=== PATIENT | male | born 1955 | race Hispanic/Latino ===

== ENCOUNTER 2016-08-27 10:41 | Inpatient (IN) | payer MEDICARE, OTHER ==
--- NOTE | 2016-08-27 10:51 | ED PDOC ---
Arrival/HPI - General Time Seen by Provider: 08/27/16 10:43 Historian: Spouse, EMS - History of Present Illness Narrative History of Present Illness (Text): 08/27/16 11:08 Quirino Doty, a 61 year old, whose past medical history includes Seizures, SAH , Ventric, COPD, HTN, CVA presents to the emergency department by EMS after a seizure that started at 10:05. Patient's and EMS are historians. EMS gave 2 mg of Ativan x2 and Versed 4mg x1 to control seizures. Patient is drowsy and unresponsive in the emergency department. He had one more seizure that was then controlled by Ativan 2mg IV. No reported history by EMS or to EMS. PMD: Dr. Umesh Marquis Time/Duration: Prior to Arrival Symptom Onset: Sudden Activities at Onset: Rest Modifying Factors (Text): 2 mg Ativan x2 and 4 Versed Past Medical History - Provider Review Nursing Documentation Reviewed: Yes - Past History Past History: Unable to Obtain - Infectious Disease Hx of Infectious Diseases: None - Tetanus Immunization Tetanus Immunization: Unknown - Cardiac Hx Cardiac Disorders: Yes Hx Hypertension: Yes - Pulmonary Hx Respiratory Disorders: Yes (SMOKED CIGARETTES 1 PPD) - Neurological Hx Neurological Disorder: Yes (HYDROCEPHALUS-S/P MANAGER ANIMAL SHUNT-SUBARACHNOID HEMORRHAGE,BRAIN ANEURYSM) Hx Seizures: Yes Other/Comment: brain aneurysm - HEENT Hx HEENT Disorder: No - Renal Hx Renal Disorder: No - Endocrine/Metabolic Hx Endocrine Disorders: No - Hematological/Oncological Hx Blood Disorders: Yes Hx Hepatitis C: Yes Other/Comment: liver disease - Integumentary Hx Dermatological Disorder: Yes Hx Basal Cell Carcinoma: No Hx Eczema: No Hx Melanoma: No Hx Psoriasis: No Hx Squamous Cell Carcinoma: No Other/Comment: long hard thick toenails both feet, both fEET FLUSHED SKIN and edemAtous dry skin to all toes,+ PAIN. 2-18-17 BILATERAL TOP OF FOOT WITH PITTING EDEMA +4 MORE TO RIGHT.LEFT HAD PITTING +3. FLUSHED SKIN. 2-18-17 BILATERAL BUTTOCKS WITH NON BLANCHEABLE PRESSURE ULCER.HEALING ULCER.STAGE 1.INTACT SKIN. - Musculoskeletal/Rheumatological Hx Musculoskeletal Disorders: Yes Hx Falls: Yes Hx Unsteady Gait: Yes - Gastrointestinal Hx 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) - Genitourinary/Gynecological Hx Genitourinary Disorders: Yes Hx Incontinence: Yes - Psychiatric Hx Psychophysiologic Disorder: Yes (SMOKED CIGARETTES,HEAVY DRINKER ETOH ABUSE H.O) Hx Substance Use: Yes - Past Surgical History Past Surgical History: Unable to Obtain - Surgical History Hx Orthopedic Surgery: Yes (C-sp Sx) - Anesthesia Hx Anesthesia: Yes Hx Anesthesia Reactions: No Hx Malignant Hyperthermia: No - Suicidal Assessment Feels Threatened In Home Enviroment: No Family/Social History - Physician Review Nursing Documentation Reviewed: Yes Family/Social History: No Known Family HX Smoking Status: Former Smoker Hx Alcohol Use: Yes (ETOH ABUSE H/O) Hx Substance Use: Yes Hx Substance Use Treatment: No Allergies/Home Meds Allergies/Adverse Reactions: Allergies No Known Allergies Allergy (Verified 08/27/16 10:45) Home Medications: Home Meds Medication Instructions Recorded Confirmed Furosemide [Lasix] 20 mg PO BID 03/01/13 08/27/16 Potassium Chloride [Klor-Con 10] 10 meq PO DAILY 03/01/13 08/27/16 ALPRAZolam [Xanax] 0 mg PO DAILY 08/27/16 08/27/16 Review of Systems - Physician Review All systems were reviewed & negative as marked: Yes - Review of Systems Systems not reviewed;Unavailable: Other (unable to obtain) Neurological: Seizure Physical Exam Vital Signs Reviewed: Yes Vital Signs Temp Pulse Resp BP Pulse Ox 08/27/16 12:11 90 20 107/71 99 08/27/16 11:56 92 H 22 91/59 L 99 08/27/16 11:52 92 H 28 H 86/58 L 97 08/27/16 11:30 92 H 28 H 76/52 L 97 08/27/16 11:15 106 H 28 H 70/52 L 98 08/27/16 11:08 101.8 F H 08/27/16 11:04 102.0 F H 147 H 35 H 118/76 93 L Temperature: Febrile Blood Pressure: Normal Pulse: Tachycardic Respiratory Rate: Tachypneic Appearance: Positive for: Well-Appearing, Non-Toxic, Comfortable Pain Distress: None Mental Status: Positive for: other (unresponsive) - Systems Exam Head: Present: Atraumatic, Normocephalic, Other (shunt palpable and compressable ). No: Contusion, Swelling, Abrasion Pupils: Present: Non-Reactive (4 mm) Extroacular Muscles: Present: Other (gazing to left on arrival and after seizure no longer gazing) Conjunctiva: Present: Normal Mouth: Present: Moist Mucous Membranes Pharnyx: Present: Normal, Other (No tongue biting) Nose (External): Present: Atraumatic Nose (Internal): Present: Normal Inspection Neck: Present: Normal Range of Motion. No: MIDLINE TENDERNESS Respiratory/Chest: Present: Clear to Auscultation, Good Air Exchange, Respiratory Distress, Tachypneic Cardiovascular: Present: Tachycardic Abdomen: Present: Normal Bowel Sounds. No: Tenderness, Distention, Peritoneal Signs, Guarding Genitourinary Male: Present: Normal External Genitalia Back: Present: Normal Inspection Upper Extremity: Present: Other (responding to pain). No: Cyanosis, Edema Lower Extremity: Present: Other (responding to pain). No: Edema Neurological: Present: Other (four extremities responding to painful stimuli) Skin: Present: Warm, Dry, Normal Color. No: Rashes Psychiatric: Present: Lethargic, Other (unresponsive) Medical Decision Making ED Course and Treatment: 08/27/16 10:49 Impression: A 61 year old male comes to emergency department after seizures Differential Diagnosis include but are not limited to: Status Epilepticus r/o Sepsis r/o Electrolyte Abnormalities r/o Stroke Plan: -- EKG -- chest xray -- CT head -- Labs -- Urinalysis -- Ativan -- Reassess and disposition Prior Visits: Notes and results from previous visits were reviewed. Patient last reported to emergency department on 06/08/16 for evaluation of seizure. Patient was accepted for critical care admission. Patient was discharged on 07/10/16. Progress Notes: EKG: Ordered, reviewed, and independently interpreted the EKG. Rate : 140 BPM Rhythm : Sinus tachycardia Interpretation : T wave inversion, lateral leads Comparison : No change from EKG on 06/08/16 CT head: Creator : Tree Zambrano IMPRESSION: Interval slight increase in the size of the lateral ventricles compared to the previous exam. Correlate clinically for possible MANAGER ANIMAL shunt catheter malfunction. Otherwise no significant interval change. No evidence of acute intracranial hemorrhage. chest xray: no active disease. 08/27/16 11:08 On arrival Code Stroke was called since patient was gazing left with on at 10: 05. CT reviewed. Temp noted to be elevated with HR increase and elevated LA. Code sepsis called. Empiric antibiotics ordered. Significant elevation of LA may be due to setting of seizures but considering temperature will also work up for septic shock. 08/27/16 11:35 Case was discussed with Dr. Cruz ICU who will evaluate the patient. Shunt series was ordered based on CT results. Shunt is compressible. 08/27/16 11:53 Dr. Cruz came to evaluate patient and will accept to ICU. Dr. Umesh Marquis PMD accepted the case to his service. Consult was placed for Dr. Khalil. 08/27/16 12:42 Case was discussed with Dr. Khalil who states patient is noncomplaint with his medications the last time he was here. His current regiment is Trileptal 150mg PO BID and Keppra 500 mg PO BID. We added a trileptal level. - Critical Care Critical Care Minutes: 60 minutes - Lab Interpretations Lab Results: 08/27/16 10:45 08/27/16 10:45 Lab Results 08/27/16 11:30: pCO2 41, pO2 79.0 L, HCO3 21.1, ABG pH 7.32 L, ABG Total CO2 22.4, ABG O2 Saturation 97.6, ABG Base Excess -4.8 L, ABG Potassium 3.1 L, Sodium 139.0, Chloride 114.0 H, Glucose 107, Lactate 4.4 H*, FiO2 32.0, Arterial Blood Potassium 3.1 L 08/27/16 10:45: Sodium 142, Chloride 102, Potassium 4.1, Carbon Dioxide 12 L, Anion Gap 32 H, BUN 10, Creatinine 1.0, Est GFR ( Amer) > 60, Est GFR ( Non-Af Amer) > 60, Random Glucose 165 H, Calcium 9.1, Phosphorus 3.5, Magnesium 2.4 H, Total Bilirubin 0.7, AST 42, ALT 61 H, Alkaline Phosphatase 86, Total Creatine Kinase 77, Troponin I < 0.01, NT-Pro-B Natriuret Pep 273, Total Protein 9.0 H, Albumin 5.0 H, Globulin 4.0, Albumin/Globulin Ratio 1.3 08/27/16 10:45: pO2 196 H, VBG pH 7.14 L*, VBG pCO2 33.0 L, VBG HCO3 11.2 L, VBG Total CO2 12.2 L, VBG O2 Sat (Calc) 100.2 H, VBG Base Excess -16.7 L, VBG Potassium 4.2, Sodium 143.0, Chloride 102.0, Glucose 169 H, Lactate 17.7 H*, FiO2 21.0, Venous Blood Potassium 4.2 08/27/16 10:45: PT 11.4, INR 1.06, APTT 26.6 08/27/16 10:45: WBC 5.5, RBC 5.55, Hgb 16.9, Hct 49.6, MCV 89.4, MCH 30.5, MCHC 34.1, RDW 13.2, Plt Count 237, MPV 9.4, Gran % 55.9, Lymph % (Auto) 32.1, [place] % (Auto) 7.2 H, Eos % (Auto) 4.3, Baso % (Auto) 0.5, Gran # 3.08, Lymph # 1.8, [place] # 0.4, Eos # 0.2, Baso # 0.03 I have reviewed the lab results: Yes Interpretation: Abnormal lab values (elevated LA, Ph low) - RAD Interpretation Radiology Orders: 08/27/16 10:45 CHEST PORTABLE [RAD] Stat 08/27/16 10:49 HEAD W/O (CODE STROKE) [CT] Stat 08/27/16 11:29 SHUNTOGRAM [RAD] Stat CXR negative for infiltrates Choir Teacher: ED Physician, Radiologist - EKG Interpretation Interpreted by ED Physician: Yes Type: 12 lead EKG - Medication Orders Current Medication Orders: Levetiracetam 1,000 mg/ Sodium (Chloride) 110 mls @ 460 mls/hr IV Q12 [place] Cefepime HCl (Maxipime 1gm) 1 gm in 100 mls @ 100 mls/hr IVPB Q8 [place] PRN Reason: Protocol Vancomycin HCl (Vancomycin 1gm) 1 gm in 250 mls @ 167 mls/hr IVPB Q12H [place] PRN Reason: Protocol Discontinued Medications Acetaminophen (Tylenol 650 Mg Supp) 650 mg RC STAT STA Stop: 08/27/16 11:09 Last Admin: 08/27/16 11:08 Dose: 650 mg Acetaminophen (Tylenol 650 Mg Supp) Confirm Administered Dose 650 mg .ROUTE .STK -MED ONE Stop: 08/27/16 11:10 Last Admin: 08/27/16 11:48 Dose: Sodium Chloride 2,720 ml/ IV (SUPPLIES) 2,720 mls @ 5,443.08 mls/hr IV ONCE ONE PRN Reason: 60 ML/KG/HR Stop: 08/27/16 11:04 Last Admin: 08/27/16 11:00 Dose: 5,443.08 mls/hr Cefepime HCl (Maxipime 2gm) 2 gm in 100 mls @ 100 mls/hr IVPB STAT STA PRN Reason: Protocol Stop: 08/27/16 12:06 Last Admin: 08/27/16 11:20 Dose: 100 mls/hr Vancomycin HCl (Vancomycin 1gm) 1 gm in 250 mls @ 167 mls/hr IVPB STAT STA PRN Reason: Protocol Stop: 08/27/16 12:33 Lorazepam (Ativan) 2 mg IVP ONCE ONE Stop: 08/27/16 10:48 Last Admin: 08/27/16 10:47 Dose: 2 mg NIHSS Scale ([place]) Time Performed: 10:43 - How Severe is the Stoke Baseline Level of Consciousness: 3=Unresponsive LOC to Questions: 2=Neither correct LOC to commands: 2=Neither correct Best Gaze: 2=Forced deviation Visual: 3=Bilateral Facial: 0=Normal Motor Arm - Left: 2=Falls before 10 sec Motor Arm - Right: 2=Falls before 10 sec Motor Leg - Left: 2=Falls before 5 sec Motor Leg - Right: 2=Falls before 5 sec Limb Ataxia: 2=Present both Sensory: 2=Severe to total loss Best Language: 3=Mute Dysarthia: 1=Mild to moderate slurring Extinction & Inattention (Neglect): 2=Profound neglect(does not recognize own hand or orients to one side) Score: 30 Risk Level: Severe Stroke Risk rTPA Inclusion/Exclusion - Refusal of Treatment Patient Refused Treatment: No - Inclusion Criteria for Altepase Patient is 18 years or Older: Yes The Clinical Diagnosis of Ischemic Stroke That is Causing a Potentially Disabling Neurological Deficit: No Time of Onset is Well Established to be Less Than 270 Minute Before Treatment Would Begin: Yes Risk/Benefit Discussed With Patient/Family Member Present: No - Warning to TPA With Conditions Following Conditions Weighed Against Anticipated Benefit: Yes Condition: Rapid Improvement, Seizure at Onset of Stroke - Scribe Statement The provider has reviewed the documentation as recorded by the Chelseyiberika Ventura All medical record entries made by the Chelseyibeirka were at my direction and personally dictated by me. I have reviewed the chart and agree that the record accurately reflects my personal performance of the history, physical exam, medical decision making, and the department course for this patient. I have also personally directed, reviewed, and agree with the discharge instructions and disposition. Disposition/Present on Arrival - Present on Arrival Any Indicators Present on Arrival: No History of DVT/PE: No History of Uncontrolled Diabetes: No Urinary Catheter: No History Surgical Site Infection Following: None - Disposition Have Diagnosis and Disposition been Completed?: Yes Diagnosis: Status epilepticus, Hydrocephalus, Sepsis Disposition: HOSPITALIZED Disposition Time: 11:54 Patient Plan: Admission, ICU Patient Problems: Current Active Problems Problem Status Onset Hydrocephalus Acute Status epilepticus Acute Sepsis Acute Condition: CRITICAL
[2016-08-27 10:54] LABS: ADD MANUAL DIFF? NO
[2016-08-27 10:58] LABS: VENOUS BLOOD GAS BASE EXCESS -16.7 mmol/L (0.0-2.0)
[2016-08-27 11:00] LABS: BASO # 0.03 K/mm3 (0.0-2.0); BASO % 0.5 % (0.0-3.0); EOS # 0.2 (0.0-0.7); EOS % 4.3 % (1.5-5.0); GRAN # 3.08 (1.4-6.5); GRAN % 55.9 % (50.0-68.0); HEMATOCRIT 49.6 % (42.0-52.0); LYMPH # 1.8 (1.2-3.4); LYMPH % 32.1 % (22.0-35.0); MEAN CELL VOLUME 89.4 fL (80.0-105.0); MEAN CORPUSCULAR HEMOGLOBIN 30.5 pg (25.0-35.0); MEAN CORPUSCULAR HGB CONC 34.1 g/dl (31.0-37.0); MEAN PLATELET VOLUME 9.4 fl (7.0-11.0); MONO # 0.4 (0.1-0.6); MONO % 7.2 % (1.0-6.0); PLATELET COUNT 237 10^3/uL (120.0-450.0); RED CELL DISTRIBUTION WIDTH 13.2 % (11.5-14.5); WHITE BLOOD COUNT 5.5 10^3/ul (4.5-11.0)
[2016-08-27 11:01] LABS: VENOUS BLOOD PH 7.14 (7.32-7.43)
[2016-08-27] MEDS ORDERED: Vancomycin 1gm in NS 250ml 1 GM/250 ML BAG IVPB STA (11:04)
[2016-08-27 11:07] LABS: INR 1.06 (0.93-1.08); PARTIAL THROMBOPLASTIN TIME 26.6 Seconds (23.7-30.8)
[2016-08-27] MEDS ORDERED: Cefepime IV 2 gm in NS 2 GM/100 ML BAG IVPB STA (11:07)
[2016-08-27 11:09] LABS: ALB/GLOB RATIO 1.3 (1.1-1.8); ALKALINE PHOSPHATASE 86 U/L (38-133); ALT/SGPT 61 U/L (7-56); AST/SGOT 42 U/L (15-59); BILIRUBIN,TOTAL 0.7 mg/dL (0.2-1.3); BLOOD UREA NITROGEN 10 mg/dL (7-21); CALCIUM 9.1 mg/dL (8.4-10.5); CARBON DIOXIDE 12 mmol/L (21-33); CHLORIDE 102 mmol/L (98-107); GFR AFRICAN-AMERICAN > 60; GLUCOSE,RANDOM 165 mg/dL (70-110); MAGNESIUM 2.4 mg/dL (1.7-2.2); PHOSPHOROUS 3.5 mg/dL (2.5-4.5); POTASSIUM 4.1 mmol/L (3.6-5.0); SODIUM 142 mmol/L (132-148)
--- NOTE | 2016-08-27 11:12 | CT ---
PROCEDURE: CT HEAD WITHOUT CONTRAST. HISTORY: seizure COMPARISON: Comparison is made to the previous study dated 06/08/2016 TECHNIQUE: Axial computed tomography images were obtained through the head/brain without intravenous contrast. Radiation dose: Total exam DLP = 788.92 mGy-cm. This CT exam was performed using one or more of the following dose reduction techniques: Automated exposure control, adjustment of the mA and/or kV according to patient size, and/or use of iterative reconstruction technique. FINDINGS: HEMORRHAGE: No intracranial hemorrhage. BRAIN: Again seen is focal encephalomalacia at the left frontal lobe adjacent to the craniotomy. The brain sulci are small for the patient's age. Again seen is a aneurysmal clip to the left of the midline adjacent to the frontal horn of the left lateral ventricle VENTRICLES: Interval mild increase in the size of the lateral ventricles compared to the previous exam. Again seen is a ventriculostomy catheter/ANALOG CIRCUIT DESIGNER shunt catheter with the tip at the level of the midline in between the 3rd ventricles via right frontal approach. The 3rd and 4th ventricles are also dilated. CALVARIUM: Again seen is a left frontal craniotomy. Pinhole for the ANALOG CIRCUIT DESIGNER shunt catheter is seen at the right frontal bone. PARANASAL SINUSES: Unremarkable as visualized. No significant inflammatory changes. MASTOID AIR CELLS: Unremarkable as visualized. No inflammatory changes. OTHER FINDINGS: None. IMPRESSION: Interval slight increase in the size of the lateral ventricles compared to the previous exam. Correlate clinically for possible ANALOG CIRCUIT DESIGNER shunt catheter malfunction. Otherwise no significant interval change. No evidence of acute intracranial hemorrhage.
[2016-08-27 11:20] LABS: TROPONIN I < 0.01 ng/mL
[2016-08-27 11:55] LABS: ARTERIAL BLOOD GAS HCO3 21.1 mmol/L (21-28); ARTERIAL BLOOD GAS PH 7.32 (7.35-7.45)
--- NOTE | 2016-08-27 12:08 | RAD ---
HISTORY: Sepsis Patient COMPARISON: 06/08/2016 FINDINGS: LUNGS: No active pulmonary disease. PLEURA: No significant pleural effusion identified, no pneumothorax apparent. CARDIOVASCULAR: Normal. OSSEOUS STRUCTURES: No significant abnormalities. VISUALIZED UPPER ABDOMEN: Normal. OTHER FINDINGS: None. IMPRESSION: No active disease.
--- NOTE | 2016-08-27 12:48 | PCM.SEPTIC ---
Sepsis Progress Note - Reassessment Type Reassessment Type: Non-invasive reassessment - Non Invasive Reassessment Were the most recent vital sign reviewed: Yes Vital Sign (Latest): Temp Pulse Resp BP Pulse Ox 101.8 F H 90 20 107/71 99 08/27/16 11:08 08/27/16 12:11 08/27/16 12:11 08/27/16 12:11 08/27/16 12:11 Cardiovascular: Yes: Regular Rate, Rhythm Respiratory: Yes: Normal Breath Sounds Capillary Refill: Normal (Less than 2 sec) Pulses: Decreased Radial, Decreased Dorsalis Pedis, Decreased Posterior Tibialis Skin: Normal Color
[2016-08-27] MEDS: levETIRAcetam 1,000 MG in Sodium Chloride 0.9% 100 ML IV SCH ×2 (13:10→21:30)
[2016-08-27] MEDS: Sodium Chloride 0.9% 1,000 ML IV SCH ×2 (13:10→21:54)
--- NOTE | 2016-08-27 13:10 | CARD ---
APPROVED REPORT EKG Measurement Heart [id number] <Conclusion> Sinus tachycardia ST & T wave abnormality c/w ischemia
--- NOTE | 2016-08-27 13:13 | CON ---
DATE: 08/27/2016 The patient seen and examined at bedside. This 61-year-old gentleman with history of subarachnoid hemorrhage in the past, status post ventriculostomy and seizure disorder, who presented this time with witnessed seizures that started around 10:00 in the morning today. The patient's seizure lasted for more than 5 minutes and he required 2 doses of benzodiazepines in order to control it. At the time of presentation, he is still very somnolent and responsive only on painful stimuli. He, however, appears to be comfortable, able to protect his airways and moving all extremities. Subsequent CAT scan of the head revealed slightly enlarged ventricles which prompted recommendation by radiologist to correlate these findings with clinical picture and to rule out shunt malfunction. No nausea, no vomiting, no diarrhea, no constipation. PAST MEDICAL HISTORY: Seizure disorder, subarachnoid bleed, ventriculostomy, COPD, hypertension, CVA in the past. HOME MEDICATIONS: Keppra, Lasix, Xanax, potassium. ALLERGIES: NKDA. SOCIAL HISTORY: The patient is an ex-smoker, has a history of alcohol abuse and substance abuse. FAMILY HISTORY: Noncontributory. REVIEW OF SYSTEMS: Revealed 12 organ system other than mentioned in history of present illness is negative. PHYSICAL EXAMINATION: VITAL SIGNS: Blood pressure 107/71, oxygen saturation 100% on nasal cannula, heart rate 91, and respiratory rate 22. HEAD AND NECK: Atraumatic. LUNGS: Clear to auscultation bilaterally. HEART: Regular rate and rhythm. S1, S2 normal. ABDOMEN: Soft, nontender, nondistended. MUSCULOSKELETAL: No C/C/E. NEUROLOGIC: The patient moves all extremities spontaneously. SKIN: Moist. PSYCHIATRIC: The patient is very somnolent. LABORATORY DATA: WBC 5.5, hemoglobin 16.9, platelet count 237. Sodium 142, potassium 4.1, chloride 102, carbon dioxide 12, BUN 10, creatinine 1, glucose 165, AST 42, ALT 61. ProBNP 273, troponin less 0.01. ABG showed 7.32/41/79 on 32% FIO2. Glucose 107. Lactate 4.4 down from 17.7. Blood cultures, urine cultures sent. Head CT showed interval slight increase in the size of the lateral ventricles compared to the previous exam. Correlate clinically for possible HYDRAULIC MINER shunt catheter malfunction. Otherwise, no significant interval change. Chest x-ray showed no acute pulmonary disease. EKG: Sinus tachycardia up to 140, QTC of 415, ST depression in V4, V5, V6 as well as T depression in I and aVL. The patient was given antibiotics in the Emergency Room, given fluid in the Emergency Room. His blood pressure normalized. ASSESSMENT AND PLAN: This is a 61-year-old gentleman who presented with presumed dx of status epilepticus. He received two doses of BZD which controlled clinical seizures. The patient is very somnolent. Post-ictal vs BZD effect vs non-generalized seizures. EEG is pending. The patient clearly able to protect airways and his hemodynamics are stable. ST depression and T-wave inversions present on EKG with sinus tachycardia are absent in subsequent EKG where HR is controlled.. At present time, Keppra level was drawn and will be sent out. Meanwhile, the patient will be loaded with Keppra. Neurology consult will be requested. Due to concern for ventriculoperitoneal shunt malfunctioning, neurosurgical service will be requested for consult as well. Possibility of infection cannot be ruled out. I will send a procalcitonin level. I agree with blood culture and urine culture. I will start patient on cefepime, ampicillin and vanco, request ID consult, order procalcitonin level. Will ask neurosurgery for CSF culture from shunt.. I will continue to trend lactic acid level which now shows signs of improvement. I will have low threshold for intubation. However, at present time, I will continue with watchful observation. We will continue to target euvolemia, euglycemia, normothermia and oxygen saturation more than 90%. We will continue with IV fluids, ICU admission. Deep venous thrombosis and gastrointestinal prophylaxis. Head of bed elevated more than 35 degrees and aspiration precaution. Addendum: when more alert and awake will proceed with trileptal PO. ccm time 40 min Robbie Cruz MD cc: [id number] TT: 08/27/2016 13:12:36 Confirmation # [id number] Dictation # [id number] salvador MARTINEZ
[2016-08-27 13:23] LABS: URINE BILIRUBIN NEGATIVE (NEGATIVE); URINE BLOOD SMALL (NEGATIVE); URINE GLUCOSE (UA) NEGATIVE (NEGATIVE); URINE KETONE NEGATIVE (NEGATIVE); URINE LEUKOCYTE ESTERASE NEGATIVE Leu/uL (NEGATIVE); URINE PROTEIN 30 mg/dL (<30 mg/dL); URINE UROBILINOGEN 0.2 E.U./dL (<1 E.U./dL)
[2016-08-27 13:24] LABS: URINE APPEARANCE CLEAR (CLEAR); URINE COLOR YELLOW (YELLOW)
[2016-08-27 13:28] LABS: URINE BACTERIA FEW (NEG); URINE EPITHELIAL CELLS 0 - 2 /hpf (0-5); URINE WBC 0 - 2 /hpf (0-6)
[2016-08-27] MEDS ORDERED: Cefepime IV 2 gm in NS 2 GM/100 ML BAG IVPB SCH (14:00)
--- NOTE | 2016-08-27 14:50 | CON ---
DATE: 08/27/2016 CHIEF COMPLAINT: Seizures. HISTORY OF PRESENT ILLNESS: This is a 61-year-old gentleman who is well known to me from multiple ad missions for noncompliance of seizure medications, history of traumatic brain injury, history of aneu rysmal subarachnoid hemorrhage, status post clipping, status post ventriculoperitoneal shunt, status post seizure, has history of noncompliance with seizure medications, history of agitation, insomnia, history of frequent breakthrough seizures who was on Keppra 500 mg p.o. b.i.d. and Trileptal 150 mg p .o. b.i.d. for seizure prophylaxis. He came in for breakthrough witnessed seizure that started aroun d 10:00 a.m. this morning. The patient's seizure lasted more than 5 minutes, where he required 2 dos es of benzodiazepine in order to control it. At this time, patient is very somnolent and responsive, only responds to painful stimuli; however, he is comfortable and able to protect his airway. He is moving all extremities. His subsequent CAT scan showed interval increase of size of lateral ventricl es compared to his previous exam, correlation clinically from BAR POINTER shunt catheter malfunction. Neurosu rgery consult has been placed. Currently, no further seizures. His last EEG which was done on 2016 showed no epileptiform activity. We will get a Trileptal level on this visit. Likely there is an issue of noncompliance. He does have an elevated temperature and also has low blood pressure, tem perature 102.5 and low blood pressure 70/52, indicating possible sepsis brewing. PAST MEDICAL HISTORY: History of subarachnoid hemorrhage, status post clipping, status post ventricu loperitoneal shunt, status post seizure disorder, status post noncompliance with seizure medications in the past, history of breakthrough seizures, agitation and insomnia. REVIEW OF SYSTEMS: A 14-point review of systems is negative except for the HPI. SOCIAL HISTORY: History of tobacco, quit many years ago after subarachnoid hemorrhage. No history o f alcohol or drug abuse. Requires assistance with his ADLs. Has mild dementia history of traumatic brain injury and seizure disorder. ALLERGIES: No known drug allergies. FAMILY HISTORY: Noncontributory. PHYSICAL EXAMINATION: VITAL SIGNS: Temperature 101.8, pulse rate 92, blood pressure 76/52, respiratory rate 20, oxygen 97% . GENERAL: The patient is drowsy, in no acute distress. HEENT: Atraumatic, normocephalic. PERRLA. Extraocular muscles intact. NECK: Supple, no JVD, no adenopathy noted. LUNGS: Clear to auscultation. No adventitious sounds. HEART: S1, S2, normal rate and rhythm. No murmurs, rubs, or gallops. ABDOMEN: Soft, nontender, nondistended. Bowel sounds are present. EXTREMITIES: No clubbing. Peripheral pulses 2+ felt bilaterally. NEUROLOGIC: The patient is drowsy, in no acute distress. At baseline is oriented to person, place an d year. Has poor attention span, slow thought process. Cranial nerves II-XII intact. Speech is hypo phonic, but no aphasia noted. MOTOR: Moves all extremities equally and spontaneously. No pronator drift seen. SENSORY: Withdraws to localized noxious stimulus. Proprioception is intact. DTRs 1+ throughout. COORDINATION AND GAIT: Deferred for now. LABORATORY DATA: Sodium 142, potassium 4.1, chloride of 102, carbon dioxide 12, BUN of 10, creatinin e of 1. Random glucose 165. ASSESSMENT AND PLAN: This is a 61-year-old man with past medical history of aneurysmal subarachnoid hemorrhage, status post clipping, status post ventriculoperitoneal shunt, status post seizure, histor y of traumatic brain injury, history of cognitive impairment from traumatic brain injury, history of noncompliance with seizure medications in the past, history of agitation and insomnia, history of lukas akthrough seizures. Was on Keppra 500 mg p.o. b.i.d. and Trileptal 150 mg p.o. b.i.d. for seizure pr ophylaxis. Has history of polypharmacy compliance with seizures. At this time had breakthrough seiz ures. Found to also have a febrile temperature of 101, as well as low blood pressure indicating seps is, underwent sepsis protocol, being monitored in the ICU. CT scan of the head showed mild dilatatio n of left ventricle indicating possible BAR POINTER shunt malfunction. Neurosurgery consult has been placed. At this time 1 gram of Keppra has been given, as well as benzodiazepines in the ER IV. Recommend: 1. Keppra 500 mg IV q. 12. 2. Will need to continue with Trileptal 150 mg p.o. b.i.d. once a week for seizure prophylaxis. 3. Trileptal level. 4. Prophylaxis with cefepime, ampicillin and vancomycin for possible sepsis given that he came with low blood pressure and febrile temperature. ID has been consulted. Need blood cultures as well as p rocalcitonin level. 5. We will get an EEG. 6. Continue with current present medical management and normothermia. Thank you for this consult. Dom Khalil MD cc: [id number] TT: 08/27/2016 14:49:33 Confirmation # [id number] Dictation # [id number] rn
--- NOTE | 2016-08-27 14:51 | RAD ---
PROCEDURE: Shunt series HISTORY: hydroceph with ventric COMPARISON: TECHNIQUE: AP views of the head neck chest and abdomen were obtained to evaluate the shunt FINDINGS: There is no discontinuity or kink in the shunt catheter IMPRESSION: Negative study
[2016-08-27 15:03] VITALS: BMI 24.3
[2016-08-27 15:33] LABS: VENOUS BLOOD GAS BASE EXCESS 0.8 mmol/L (0.0-2.0); VENOUS BLOOD PH 7.31 (7.32-7.43)
[2016-08-27 15:46] LABS: ALB/GLOB RATIO 1.1 (1.1-1.8); ALKALINE PHOSPHATASE 75 U/L (38-133); ALT/SGPT 64 U/L (7-56); AST/SGOT 32 U/L (15-59); BILIRUBIN,TOTAL 0.9 mg/dL (0.2-1.3); BLOOD UREA NITROGEN 10 mg/dL (7-21); CALCIUM 8.2 mg/dL (8.4-10.5); CARBON DIOXIDE 26 mmol/L (21-33); CHLORIDE 108 mmol/L (98-107); GFR AFRICAN-AMERICAN > 60; GLUCOSE,RANDOM 90 mg/dL (70-110); POTASSIUM 3.8 mmol/L (3.6-5.0); SODIUM 144 mmol/L (132-148); TOTAL PROTEIN 7.8 g/dL (5.8-8.3)
[2016-08-27] MEDS: AMPicillin 1 GM in Sodium Chloride 0.9% 100 ML IVPB SCH (17:42)
--- NOTE | 2016-08-27 19:09 | EEG ---
DATE: 08/27/2016 CONDITION ON RECORDING: Drowsy. DIAGNOSIS: seizures. MEDICATIONS: Ativan, Keppra. INTERPRETATION: This is a 16-channel international recording. The background activity is composed o f 6-7 cycles per second. There was a small amount of beta activity 16-20 cycles per second seen in t his recording. There was increased amount of theta activity 5-7 cycles per second seen in this maribel ng. Drowsiness was characterized by mixed beta and theta activities. Sleep was characterized by marlen naveen transient waves, sleep spindles and bilateral slowing. Photic stimulation showed no change in th e tracing. There was evidence of mild paroxysmal activity in the left frontal area, which was mildly epileptiform at that time, but there was more of left frontal slowing. There was also diffuse slowi ng throughout the EEG. CONCLUSION: Abnormal electroencephalogram due to presence of left frontal slowing with underlying di ffuse slowing consistent with bilateral cerebral dysfunction. At this time, please clinically correl ate. Dom Khalil MD cc: [id number] TT: 08/27/2016 19:09:01 Confirmation # [id number] Dictation # [id number] dn
[2016-08-27] MEDS: Cefepime IV 2 gm in NS 2 GM/100 ML BAG IVPB SCH (21:53)
[2016-08-27] MEDS: Vancomycin 1gm in NS 250ml 1 GM/250 ML BAG IVPB SCH (21:56)
[2016-08-28] MEDS: AMPicillin 1 GM in Sodium Chloride 0.9% 100 ML IVPB SCH ×5 (05:20→23:44)
[2016-08-28] MEDS: Cefepime IV 2 gm in NS 2 GM/100 ML BAG IVPB SCH ×3 (05:23→21:47)
[2016-08-28] MEDS ORDERED: Cefepime 1gm in NS 100ml 1 GM/100 ML BAG IVPB SCH (06:00)
[2016-08-28 06:12] LABS: ADD MANUAL DIFF? NO
[2016-08-28 06:29] LABS: BASO # 0.03 K/mm3 (0.0-2.0); BASO % 0.5 % (0.0-3.0); EOS # 0.3 (0.0-0.7); EOS % 4.2 % (1.5-5.0); GRAN # 3.49 (1.4-6.5); GRAN % 58.7 % (50.0-68.0); HEMATOCRIT 42.1 % (42.0-52.0); LYMPH # 1.4 (1.2-3.4); MEAN CELL VOLUME 87.5 fL (80.0-105.0); MEAN CORPUSCULAR HEMOGLOBIN 29.9 pg (25.0-35.0); MEAN CORPUSCULAR HGB CONC 34.2 g/dl (31.0-37.0); MEAN PLATELET VOLUME 9.4 fl (7.0-11.0); MONO # 0.8 (0.1-0.6); MONO % 12.6 % (1.0-6.0); PLATELET COUNT 175 10^3/uL (120.0-450.0); RED CELL DISTRIBUTION WIDTH 13.3 % (11.5-14.5)
--- NOTE | 2016-08-28 07:51 | CARD ---
APPROVED REPORT EKG Measurement Heart [id number] MD [id number] <Conclusion> Normal sinus rhythm STTW changes
--- NOTE | 2016-08-28 09:40 | CP.CCUPN ---
<Aury Ayala - Last Filed: 08/28/16 13:17> CCU Subjective - Physician Review Events Since Last Encounter (Free Text): 08/28/16 12:38 Pt seen and examined at bedside in the CCU this AM. NAEO. Patient is afebrile with last fever >24 hours ago. VSS. Nurses deny any seizure activity overnight. Patient is awake and alert but not oriented to person, place, or time which is the pt's baseline. Patient denies any headaches, vertigo, numbness or tingling, fevers, chest pain, nausea, vomiting or any other symptoms. Per nursing patient tolerated his diet well. CCU Objective - Vital Signs / Intake & Output Vital Signs (Last 4 hours): Vital Signs Pulse Resp BP Pulse Ox 08/28/16 08:20 81 17 97 08/28/16 08:10 82 18 97 08/28/16 08:00 81 15 140/78 97 08/28/16 07:50 77 15 98 08/28/16 07:40 70 14 97 08/28/16 07:30 75 15 100 08/28/16 07:20 75 11 L 99 08/28/16 07:10 74 20 98 08/28/16 07:00 75 15 142/75 97 08/28/16 06:50 77 24 98 08/28/16 06:40 78 99 08/28/16 06:30 74 16 99 08/28/16 06:20 73 15 97 08/28/16 06:10 80 19 97 08/28/16 06:00 74 14 141/77 98 08/28/16 05:50 75 12 97 08/28/16 05:40 75 15 96 Intake and Output (Last 8hrs): Intake & Output 08/27/16 08/28/16 08/28/16 22:59 06:59 14:59 Intake Total 4410 1950 Output Total 2900 1500 Balance 1510 450 Intake: IV 700 1950 Left Forearm 750 Right Hand 700 1200 Oral 360 Other 3350 Output: Urine 2900 1500 Urethral (Christy) 2900 1500 Other: Voiding Method Indwelling Catheter # Bowel Movements 0 - Physical Exam Head: Positive for: Atraumatic, Normocephalic, Other (R subcutaneous cranial shunt palpable and compressable). Negative for: Tenderness, Contusion, Swelling , Abrasion Pupils: Positive for: PERRL Extroacular Muscles: Positive for: EOMI Conjunctiva: Positive for: Normal Mouth: Positive for: Moist Mucous Membranes Pharnyx: Positive for: Normal, Other (no tongue laceration). Negative for: Muffled/Hoarse Voice Nose (External): Positive for: Atraumatic Respiratory/Chest: Positive for: Clear to Auscultation, Good Air Exchange. Negative for: Respiratory Distress, Tachypneic Cardiovascular: Positive for: Regular Rate and Rhythm, Normal S1, S2. Negative for: Murmurs Abdomen: Positive for: Normal Bowel Sounds. Negative for: Tenderness, Distention, Peritoneal Signs, Guarding Back: Positive for: Normal Inspection. Negative for: CVA Tenderness, Midline Tenderness Upper Extremity: Positive for: Normal Inspection. Negative for: Cyanosis, Edema , Tenderness, Swelling Lower Extremity: Positive for: Neurovascularly Intact, Other (small areas of skin breakdown on the toes BL). Negative for: Edema, NORMAL PULSES (Pedal pulses palpable but diminishedon the right compared to the left) Neurological: Positive for: GCS=15, CN II-XII Intact, Speech Normal, Motor Func Grossly Intact. Negative for: Memory Normal Skin: Positive for: Warm, Dry, Normal Color. Negative for: Rashes Psychiatric: Positive for: Alert, Normal Affect, Normal Mood. Negative for: Oriented x 3 (not oriented to person, place, or time), Normal Insight - Medications Active Medications: Active Medications Generic Name Dose Route Start Last Admin Trade Name Freq PRN Reason Stop Dose Admin Levetiracetam 1,000 mg/ Sodium 110 mls @ 460 mls/hr 08/27/16 12:30 08/27/16 21:30 Chloride IV 460 mls/hr Q12 [facility] Administration Vancomycin HCl 1 gm in 250 mls @ 167 mls/hr 08/27/16 22:00 08/27/16 21:56 Vancomycin 1gm IVPB 167 mls/hr Q12H [facility] Administration Protocol Ampicillin 1 gm/ Sodium 100 mls @ 200 mls/hr 08/27/16 18:00 08/28/16 05:20 Chloride IVPB 200 mls/hr Q6 [facility] Administration Protocol Sodium Chloride 1,000 mls @ 100 mls/hr 08/27/16 12:45 08/27/16 21:54 Sodium Chloride 0.9% IV 100 mls/hr .Q10H [facility] Administration Cefepime HCl 2 gm in 100 mls @ 100 mls/hr 08/27/16 22:00 08/28/16 05:23 Maxipime 2gm IVPB 09/03/16 22:01 100 mls/hr Q8 [facility] Administration Protocol Lorazepam 2 mg 08/27/16 19:41 Ativan IVP Q6H PRN Seizure activity Protocol Oxcarbazepine 150 mg 08/27/16 18:00 08/27/16 17:42 Trileptal PO 150 mg BID [facility] Administration Protocol - Patient Studies Lab Studies: Microbiology Studies 08/27/16 13:05 Urine Culture - Final Urine No Growth (<1,000 CFU/ML) Lab Studies 08/28/16 08/27/16 08/27/16 Range/Units 05:40 15:20 15:20 WBC 6.0 (4.5-11.0) 10^3/ul RBC 4.81 (3.5-6.1) 10^6/uL Hgb 14.4 (14.0-18.0) gm/dL Hct 42.1 (42.0-52.0) % MCV 87.5 (80.0-105.0) fL MCH 29.9 (25.0-35.0) pg MCHC 34.2 (31.0-37.0) g/dl RDW 13.3 (11.5-14.5) % Plt Count 175 (120.0-450.0) 10^3/uL MPV 9.4 (7.0-11.0) fl Gran % 58.7 (50.0-68.0) % Lymph % (Auto) 24.0 (22.0-35.0) % Kaufman % (Auto) 12.6 H (1.0-6.0) % Eos % (Auto) 4.2 (1.5-5.0) % Baso % (Auto) 0.5 (0.0-3.0) % Gran # 3.49 (1.4-6.5) Lymph # 1.4 (1.2-3.4) Kaufman # 0.8 H (0.1-0.6) Eos # 0.3 (0.0-0.7) Baso # 0.03 (0.0-2.0) K/mm3 pO2 29 L (30-55) mm/Hg VBG pH 7.31 L (7.32-7.43) VBG pCO2 56.0 (40-60) VBG HCO3 28.2 H (21-28) mmol/l VBG Total CO2 29.9 H (22-28) mmol.L VBG O2 Sat (Calc) 59.4 (40-65) % VBG Base Excess 0.8 (0.0-2.0) mmol/L VBG Potassium 3.7 (3.6-5.2) mmol/L Sodium 142.0 144 (132-148) mmol/L Chloride 112.0 H 108 H (98-107) mmol/L Glucose 94 (75-110) mg/dl Lactate 1.3 (0.7-2.1) mmol/L FiO2 21.0 % Potassium 3.8 (3.6-5.0) mmol/L Carbon Dioxide 26 (21-33) mmol/L Anion Gap 14 (10-20) BUN 10 (7-21) mg/dL Creatinine 1.0 (0.5-1.4) mg/dL Est GFR ( Amer) > 60 Est GFR (Non-Af Amer) > 60 Random Glucose 90 (70-110) mg/dL Calcium 8.2 L (8.4-10.5) mg/dL Total Bilirubin 0.9 (0.2-1.3) mg/dL AST 32 (15-59) U/L ALT 64 H (7-56) U/L Alkaline Phosphatase 75 (38-133) U/L Total Protein 7.8 (5.8-8.3) g/dL Albumin 4.0 (3.0-4.8) g/dL Globulin 3.8 gm/dL Albumin/Globulin Ratio 1.1 (1.1-1.8) Procalcitonin (0.19-0.49) NG/ML Venous Blood Potassium 3.7 (3.6-5.2) mmol/L Urine Color (YELLOW) Urine Appearance (CLEAR) Urine pH (4.7-8.0) Ur Specific [place] (1.005-1.035) Urine Protein (<30 mg/dL) mg/dL Urine Glucose (UA) (NEGATIVE) mg/dL Urine Ketones (NEGATIVE) mg/dL Urine Blood (NEGATIVE) Urine Nitrate (NEGATIVE) Urine Bilirubin (NEGATIVE) Urine Urobilinogen (<1 E.U./dL) E.U./dL Ur Leukocyte Esterase (NEGATIVE) James/uL Urine RBC (0-2) /hpf Urine WBC (0-6) /hpf Ur Epithelial Cells (0-5) /hpf Urine Bacteria (NEG) 08/27/16 08/27/16 Range/Units 15:20 13:05 WBC (4.5-11.0) 10^3/ul RBC (3.5-6.1) 10^6/uL Hgb (14.0-18.0) gm/dL Hct (42.0-52.0) % MCV (80.0-105.0) fL MCH (25.0-35.0) pg MCHC (31.0-37.0) g/dl RDW (11.5-14.5) % Plt Count (120.0-450.0) 10^3/uL MPV (7.0-11.0) fl Gran % (50.0-68.0) % Lymph % (Auto) (22.0-35.0) % Kaufman % (Auto) (1.0-6.0) % Eos % (Auto) (1.5-5.0) % Baso % (Auto) (0.0-3.0) % Gran # (1.4-6.5) Lymph # (1.2-3.4) Kaufman # (0.1-0.6) Eos # (0.0-0.7) Baso # (0.0-2.0) K/mm3 pO2 (30-55) mm/Hg VBG pH (7.32-7.43) VBG pCO2 (40-60) VBG HCO3 (21-28) mmol/l VBG Total CO2 (22-28) mmol.L VBG O2 Sat (Calc) (40-65) % VBG Base Excess (0.0-2.0) mmol/L VBG Potassium (3.6-5.2) mmol/L Sodium (132-148) mmol/L Chloride (98-107) mmol/L Glucose (75-110) mg/dl Lactate (0.7-2.1) mmol/L FiO2 % Potassium (3.6-5.0) mmol/L Carbon Dioxide (21-33) mmol/L Anion Gap (10-20) BUN (7-21) mg/dL Creatinine (0.5-1.4) mg/dL Est GFR ( Amer) Est GFR (Non-Af Amer) Random Glucose (70-110) mg/dL Calcium (8.4-10.5) mg/dL Total Bilirubin (0.2-1.3) mg/dL AST (15-59) U/L ALT (7-56) U/L Alkaline Phosphatase (38-133) U/L Total Protein (5.8-8.3) g/dL Albumin (3.0-4.8) g/dL Globulin gm/dL Albumin/Globulin Ratio (1.1-1.8) Procalcitonin < 0.05 L (0.19-0.49) NG/ML Venous Blood Potassium (3.6-5.2) mmol/L Urine Color Yellow (YELLOW) Urine Appearance Clear (CLEAR) Urine pH 7.0 (4.7-8.0) Ur Specific [place] 1.015 (1.005-1.035) Urine Protein 30 H (<30 mg/dL) mg/dL Urine Glucose (UA) Negative (NEGATIVE) mg/dL Urine Ketones Negative (NEGATIVE) mg/dL Urine Blood Small H (NEGATIVE) Urine Nitrate Negative (NEGATIVE) Urine Bilirubin Negative (NEGATIVE) Urine Urobilinogen 0.2 (<1 E.U./dL) E.U./dL Ur Leukocyte Esterase Negative (NEGATIVE) James/uL Urine RBC 5 - 10 (0-2) /hpf Urine WBC 0 - 2 (0-6) /hpf Ur Epithelial Cells 0 - 2 (0-5) /hpf Urine Bacteria Few (NEG) Laboratory Results - last 24 hr 08/27/16 08/27/16 08/27/16 13:05 15:20 15:20 WBC RBC Hgb Hct MCV MCH MCHC RDW Plt Count MPV Gran % Lymph % (Auto) Kaufman % (Auto) Eos % (Auto) Baso % (Auto) Gran # Lymph # Kaufman # Eos # Baso # pO2 VBG pH VBG pCO2 VBG HCO3 VBG Total CO2 VBG O2 Sat (Calc) VBG Base Excess VBG Potassium Sodium 144 Chloride 108 H Glucose Lactate FiO2 Potassium 3.8 Carbon Dioxide 26 Anion Gap 14 BUN 10 Creatinine 1.0 Est GFR ( Amer) > 60 Est GFR (Non-Af Amer) > 60 Random Glucose 90 Calcium 8.2 L Total Bilirubin 0.9 AST 32 ALT 64 H Alkaline Phosphatase 75 Total Protein 7.8 Albumin 4.0 Globulin 3.8 Albumin/Globulin Ratio 1.1 Procalcitonin < 0.05 L Venous Blood Potassium Urine Color Yellow Urine Appearance Clear Urine pH 7.0 Ur Specific [place] 1.015 Urine Protein 30 H Urine Glucose (UA) Negative Urine Ketones Negative Urine Blood Small H Urine Nitrate Negative Urine Bilirubin Negative Urine Urobilinogen 0.2 Ur Leukocyte Esterase Negative Urine RBC 5 - 10 Urine WBC 0 - 2 Ur Epithelial Cells 0 - 2 Urine Bacteria Few 08/27/16 08/28/16 15:20 05:40 WBC 6.0 RBC 4.81 Hgb 14.4 Hct 42.1 MCV 87.5 MCH 29.9 MCHC 34.2 RDW 13.3 Plt Count 175 MPV 9.4 Gran % 58.7 Lymph % (Auto) 24.0 Kaufman % (Auto) 12.6 H Eos % (Auto) 4.2 Baso % (Auto) 0.5 Gran # 3.49 Lymph # 1.4 Kaufman # 0.8 H Eos # 0.3 Baso # 0.03 pO2 29 L VBG pH 7.31 L VBG pCO2 56.0 VBG HCO3 28.2 H VBG Total CO2 29.9 H VBG O2 Sat (Calc) 59.4 VBG Base Excess 0.8 VBG Potassium 3.7 Sodium 142.0 Chloride 112.0 H Glucose 94 Lactate 1.3 FiO2 21.0 Potassium Carbon Dioxide Anion Gap BUN Creatinine Est GFR ( Amer) Est GFR (Non-Af Amer) Random Glucose Calcium Total Bilirubin AST ALT Alkaline Phosphatase Total Protein Albumin Globulin Albumin/Globulin Ratio Procalcitonin Venous Blood Potassium 3.7 Urine Color Urine Appearance Urine pH Ur Specific [place] Urine Protein Urine Glucose (UA) Urine Ketones Urine Blood Urine Nitrate Urine Bilirubin Urine Urobilinogen Ur Leukocyte Esterase Urine RBC Urine WBC Ur Epithelial Cells Urine Bacteria EKG/Cardiology Studies: Cardiology / EKG Studies 08/27/16 12:39 EKG [ELECTROCARDIOGRAM] Stat Comment: Reason For Exam: SEIZURE Fingerstick Blood Sugar Results: 132 Review of Systems - Review of Systems Systems not reviewed;Unavailable: Altered Mental Status - Constitutional Constitutional: absent: Fever, Chills - EENT Eyes: absent: Change in Vision - Cardiovascular Cardiovascular: As Per HPI - Respiratory Respiratory: absent: Cough, Dyspnea - Gastrointestinal Gastrointestinal: As Per HPI - Genitourinary Genitourinary: absent: Dysuria Additional comments: urinary catheter in place - Musculoskeletal Musculoskeletal: UNREMARKABLE - Neurological Neurological: As Per HPI Critical Care Progress Note - Nutrition Nutrition: Nutrition Category Date Time Status Heart Healthy Diet [DIET] Diets 08/27/16 Dinner Ordered Assessment/Plan - Assessment and Plan (Free Text) Assessment: 61M with PMH of CAH s/p DISTRIBUTION ASSOCIATE shunt, CVA, seizure disorder, COPD, and HTN admitted to the unit for witnessed seizure and SIRS Neuro: 5min sustained seizure yesterday AM broken by 2 doses of benzodiazepines. No seizure activity overnight. Awake, alert, but not oriented which is patient's baseline. Questionable compliance with seizure medications at home CT head: slight increase in lateral ventricle size--need to evaluate for shunt malfunction. No acute pathology. Shuntogram: no obvious malfunction EEG: Slowing in the L frontal waveform consistent with BL cerebral dysfunction Neurology and neurosurgery consulted--appreciate recs Follow up trileptal and keppra levels, continue to monitor neurologic state Keppra 500mg BID, Trileptal 150mg BID 1time per week, to OR tomorrow for shunt revision per neurosurgery Pulm: Denies SOB or cough, No respiratory distress, CTAB, O2 sats upper 90's on RA, CXR: NAPD Continue to monitor Cardio: Denies chest pain or palpitations, tachycardia resolved, RRR, S1/S2+, no murmurs , decreased pedal pulses on right but good color, warmth, and capillary refill BL troponin <0.01 Continue to monitor GI: Denies nausea, vomiting, tolerating HHD, abdominal exam benign Serial abdominal exams, continue HHD : No complaints, adequate UOP, christy catheter in place Continue to monitor I&O's ID: No fevers >24 hours, normocardic, hypotension resolved, lactate down to 1.3 from 17.7 yesterday, procalcitonin <0.05, urine culture negative, blood culture pending ID consulted, recs appreciated. Continue cefepime, ampicillin, and vancomycin, continue to monitor vitals Heme/onc Wbc and H/H wnl Continue to monitor Skin: Areas of skin breakdown on the toes BL Wound care consult Serial exams PPX: SCD's, pepcid Patient is clinically stable with no seizure activity and at baseline neurological function. Afebrile >24 hours, without tachycardia or hypotension, no leukocytosis, currently on broad spectrum antibiotics per ID. Patient no longer needs ICU monitoring and will be transferred to the med/surg floor. Primary and all consultants are aware and agree with this plan. Please re- consulte ICU for further concerns or questions Patient seen and discussed with Dr. Anthony Ayala, PGY1 <Robbie Cruz - Last Filed: 08/28/16 17:49> CCU Objective - Vital Signs / Intake & Output Vital Signs (Last 4 hours): Vital Signs Temp Pulse Resp BP Pulse Ox 08/28/16 16:00 98.8 F 73 20 162/93 H 96 Intake and Output (Last 8hrs): Intake & Output 08/28/16 08/28/16 08/28/16 06:59 14:59 22:59 Intake Total 1950 1190 Output Total 1500 1100 Balance 450 90 Intake: IV 1950 650 Left Forearm 750 Right Hand 1200 650 Oral 540 Output: Urine 1500 1100 Urethral (Christy) 1500 1100 Other: Voiding Method Indwelling Catheter - Medications Active Medications: Active Medications Generic Name Dose Route Start Last Admin Trade Name Freq PRN Reason Stop Dose Admin Famotidine 40 mg 08/28/16 22:00 Pepcid PO HS [facility] Levetiracetam 1,000 mg/ Sodium 110 mls @ 460 mls/hr 08/27/16 12:30 08/28/16 09:49 Chloride IV 460 mls/hr Q12 [facility] Administration Vancomycin HCl 1 gm in 250 mls @ 167 mls/hr 08/27/16 22:00 08/28/16 10:03 Vancomycin 1gm IVPB 167 mls/hr Q12H [facility] Administration Protocol Ampicillin 1 gm/ Sodium 100 mls @ 200 mls/hr 08/27/16 18:00 08/28/16 17:17 Chloride IVPB 200 mls/hr Q6 [facility] Administration Protocol Sodium Chloride 1,000 mls @ 100 mls/hr 08/27/16 12:45 08/28/16 10:03 Sodium Chloride 0.9% IV 100 mls/hr .Q10H [facility] Administration Cefepime HCl 2 gm in 100 mls @ 100 mls/hr 08/27/16 22:00 08/28/16 13:37 Maxipime 2gm IVPB 09/03/16 22:01 100 mls/hr Q8 [place] Administration Protocol Gentamicin Sulfate 10 mg/ 1.1 mls @ 100 mls/hr 08/29/16 11:00 Vancomycin HCl 10 mg/ Sodium IVPB 08/29/16 11:01 Chloride ONCE ONE Lorazepam 2 mg 08/27/16 19:41 Ativan IVP Q6H PRN Seizure activity Protocol Oxcarbazepine 150 mg 08/27/16 18:00 08/27/16 17:42 Trileptal PO 150 mg BID [place] Administration Protocol - Patient Studies Lab Studies: Microbiology Studies 08/27/16 14:16 MRSA Culture (Admit) - Final Nose MRSA NOT DETECTED 08/27/16 13:05 Urine Culture - Final Urine No Growth (<1,000 CFU/ML) Lab Studies 08/28/16 08/28/16 08/27/16 Range/Units 09:30 05:40 15:20 WBC 6.0 (4.5-11.0) 10^3/ul RBC 4.81 (3.5-6.1) 10^6/uL Hgb 14.4 (14.0-18.0) gm/dL Hct 42.1 (42.0-52.0) % MCV 87.5 (80.0-105.0) fL MCH 29.9 (25.0-35.0) pg MCHC 34.2 (31.0-37.0) g/dl RDW 13.3 (11.5-14.5) % Plt Count 175 (120.0-450.0) 10^3/uL MPV 9.4 (7.0-11.0) fl Gran % 58.7 (50.0-68.0) % Lymph % (Auto) 24.0 (22.0-35.0) % Kaufman % (Auto) 12.6 H (1.0-6.0) % Eos % (Auto) 4.2 (1.5-5.0) % Baso % (Auto) 0.5 (0.0-3.0) % Gran # 3.49 (1.4-6.5) Lymph # 1.4 (1.2-3.4) Kaufman # 0.8 H (0.1-0.6) Eos # 0.3 (0.0-0.7) Baso # 0.03 (0.0-2.0) K/mm3 Sodium 141 (132-148) mmol/L Potassium 3.9 (3.6-5.0) mmol/L Chloride 107 (95-110) mmol/L Carbon Dioxide 26 (21-33) mmol/L Anion Gap 12 (10-20) BUN 7 (7-21) mg/dL Creatinine 0.7 (0.5-1.4) mg/dL Est GFR ( Amer) > 60 Est GFR (Non-Af Amer) > 60 Random Glucose 122 H (70-110) mg/dL Calcium 8.2 L (8.4-10.5) mg/dL Total Bilirubin 0.7 (0.2-1.3) mg/dL AST 34 (15-59) U/L ALT 59 H (7-56) U/L Alkaline Phosphatase 60 (38-133) U/L Total Protein 6.9 (5.8-8.3) g/dL Albumin 3.6 (3.0-4.8) g/dL Globulin 3.3 gm/dL Albumin/Globulin Ratio 1.1 (1.1-1.8) Procalcitonin < 0.05 L (0.19-0.49) NG/ML Laboratory Results - last 24 hr 08/27/16 08/28/16 08/28/16 15:20 05:40 09:30 WBC 6.0 RBC 4.81 Hgb 14.4 Hct 42.1 MCV 87.5 MCH 29.9 MCHC 34.2 RDW 13.3 Plt Count 175 MPV 9.4 Gran % 58.7 Lymph % (Auto) 24.0 Kaufman % (Auto) 12.6 H Eos % (Auto) 4.2 Baso % (Auto) 0.5 Gran # 3.49 Lymph # 1.4 Kaufman # 0.8 H Eos # 0.3 Baso # 0.03 Sodium 141 Potassium 3.9 Chloride 107 Carbon Dioxide 26 Anion Gap 12 BUN 7 Creatinine 0.7 Est GFR ( Amer) > 60 Est GFR (Non-Af Amer) > 60 Random Glucose 122 H Calcium 8.2 L Total Bilirubin 0.7 AST 34 ALT 59 H Alkaline Phosphatase 60 Total Protein 6.9 Albumin 3.6 Globulin 3.3 Albumin/Globulin Ratio 1.1 Procalcitonin < 0.05 L Critical Care Progress Note - Nutrition Nutrition: Nutrition Category Date Time Status NPO past midnight [NPO Diet] [DIET] Diets 08/28/16 Breakfast Ordered Addendum Addendum: 08/28/16 17:45 patient was seen, examined and discussed with Dr. Ayala shoulder to shoulder at bedside. Her note reflects my exam, assessment and plan, except as below. Meds/Labs/ONE reviewed. 61 yo with breakthrough seizures in the setting of malfunctioned DISTRIBUTION ASSOCIATE shunt. Nsx consult is appreciated, preliminarily scheduled for tomorrow. No more clinical seizures, mental status improved back to baseline, EEG-no seizures. Neuro follow up is appreciated. had isolated epsiode of fever--likely related to seizures, nevertheless patient is on abx, septic workup is in progress. ccm time 40 min
[2016-08-28] MEDS: levETIRAcetam 1,000 MG in Sodium Chloride 0.9% 100 ML IV SCH ×2 (09:49→21:46)
[2016-08-28 09:50] LABS: ALB/GLOB RATIO 1.1 (1.1-1.8); ALKALINE PHOSPHATASE 60 U/L (38-133); ALT/SGPT 59 U/L (7-56); AST/SGOT 34 U/L (15-59); BILIRUBIN,TOTAL 0.7 mg/dL (0.2-1.3); BLOOD UREA NITROGEN 7 mg/dL (7-21); CALCIUM 8.2 mg/dL (8.4-10.5); CARBON DIOXIDE 26 mmol/L (21-33); CHLORIDE 107 mmol/L (95-110); GFR AFRICAN-AMERICAN > 60; GLUCOSE,RANDOM 122 mg/dL (70-110); POTASSIUM 3.9 mmol/L (3.6-5.0); SODIUM 141 mmol/L (132-148); TOTAL PROTEIN 6.9 g/dL (5.8-8.3)
[2016-08-28] MEDS: Vancomycin 1gm in NS 250ml 1 GM/250 ML BAG IVPB SCH ×2 (10:03→21:49)
[2016-08-28] MEDS: Sodium Chloride 0.9% 1,000 ML IV SCH (10:03)
--- NOTE | 2016-08-28 11:39 | CP.PCM.CON ---
History of Present Illness - History of Present Illness History of Present Illness: 61 year old male with PMH of seizure disorder, history of subarachnoid hemorrhage S/P clipping, S/P ventriculoperitoneal shunt placement, history of cerebrovascular accident was brought in to [facility] after a seizure episode. The called in EMS and he was given Ativan while in transit as well as Versed. In the ED, he was noted to be somnolent and poorly responsive. He was admitted to the ICU for closer observation and monitoring. In the ED, he was also noted to be febrile. CT head also showed increased dilatation of his cerebral ventricles. Infectious diseases consult is requested to further evaluate and manage. Currently the patient is comfortable in bed, not in distress. He denies headache or dizziness, no nausea or vomiting, no chest pain, no cough or rhinorrhea, no abdominal pain, no diarrhea, no dysuria, no blurring of vision, no hematuria. 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 2-18-17 BILATERAL TOP OF FOOT WITH PITTING EDEMA +4 MORE TO RIGHT.LEFT HAD PITTING +3. FLUSHED SKIN. 2-18-17 BILATERAL BUTTOCKS WITH NON BLANCHEABLE PRESSURE ULCER.HEALING ULCER.STAGE 1.INTACT SKIN. - MUSCULOSKELETAL/RHEUMATOLOGICAL Hx Falls: Yes - GASTROINTESTINAL Hx 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) - GENITOURINARY/GYNECOLOGICAL Hx Genitourinary Disorders: Yes Hx Incontinence: Yes - PSYCHIATRIC Hx Psychophysiologic Disorder: Yes (SMOKED CIGARETTES,HEAVY DRINKER ETOH ABUSE H.O) Hx Substance Use: Yes - SURGICAL HISTORY Hx Orthopedic Surgery: Yes (C-sp Sx) - ANESTHESIA Hx Anesthesia: Yes Hx Anesthesia Reactions: No Hx Malignant Hyperthermia: No Meds Allergies/Adverse Reactions: Allergies Allergy/AdvReac Type Severity Reaction Status Date / Time No Known Allergies Allergy Verified 08/27/16 10:45 - Medications Medications: Current Medications Levetiracetam 1,000 mg/ Sodium (Chloride) 110 mls @ 460 mls/hr IV Q12 [facility] Last Admin: 08/27/16 13:10 Dose: 460 mls/hr Vancomycin HCl (Vancomycin 1gm) 1 gm in 250 mls @ 167 mls/hr IVPB Q12H [facility] PRN Reason: Protocol Ampicillin 1 gm/ Sodium (Chloride) 100 mls @ 200 mls/hr IVPB Q6 [facility] PRN Reason: Protocol Last Admin: 08/27/16 17:42 Dose: 200 mls/hr Sodium Chloride (Sodium Chloride 0.9%) 1,000 mls @ 100 mls/hr IV .Q10H [facility] Last Admin: 08/27/16 13:10 Dose: 100 mls/hr Cefepime HCl (Maxipime 2gm) 2 gm in 100 mls @ 100 mls/hr IVPB Q8 [facility] PRN Reason: Protocol Stop: 09/03/16 22:01 Lorazepam (Ativan) 2 mg IVP Q6H PRN; Protocol PRN Reason: Seizure activity Oxcarbazepine (Trileptal) 150 mg PO BID [facility] PRN Reason: Protocol Last Admin: 08/27/16 17:42 Dose: 150 mg Physical Exam - Constitutional Appears: Non-toxic, No Acute Distress - Head Exam Additional comments: MAILING MACHINE OPERATOR shunt noted on the right parietal area - ENT Exam ENT Exam: Mucous Membranes Moist - Neck Exam Neck exam: Negative for: Lymphadenopathy, Meningismus - Respiratory Exam Respiratory Exam: Decreased Breath Sounds - Cardiovascular Exam Cardiovascular Exam: +S1, +S2 - GI/Abdominal Exam GI & Abdominal Exam: Soft. absent: Tenderness Results - Vital Signs Recent Vital Signs: Last Vital Signs Temp 97.7 F 08/27/16 16:00 Pulse 91 H 08/27/16 18:00 Resp 16 08/27/16 18:00 BP 171/90 H 08/27/16 18:00 Pulse Ox 100 08/27/16 18:00 - Labs Result Diagrams: 08/28/16 05:40 08/28/16 09:30 Labs: Laboratory Results - last 24 hr 08/27/16 08/27/16 08/27/16 13:05 15:20 15:20 pO2 29 L VBG pH 7.31 L VBG pCO2 56.0 VBG HCO3 28.2 H VBG Total CO2 29.9 H VBG O2 Sat (Calc) 59.4 VBG Base Excess 0.8 VBG Potassium 3.7 Sodium 144 142.0 Chloride 108 H 112.0 H Glucose 94 Lactate 1.3 FiO2 21.0 Potassium 3.8 Carbon Dioxide 26 Anion Gap 14 BUN 10 Creatinine 1.0 Est GFR ( Amer) > 60 Est GFR (Non-Af Amer) > 60 Random Glucose 90 Calcium 8.2 L Total Bilirubin 0.9 AST 32 ALT 64 H Alkaline Phosphatase 75 Total Protein 7.8 Albumin 4.0 Globulin 3.8 Albumin/Globulin Ratio 1.1 Venous Blood Potassium 3.7 Urine Color Yellow Urine Appearance Clear Urine pH 7.0 Ur Specific [place] 1.015 Urine Protein 30 H Urine Glucose (UA) Negative Urine Ketones Negative Urine Blood Small H Urine Nitrate Negative Urine Bilirubin Negative Urine Urobilinogen 0.2 Ur Leukocyte Esterase Negative Urine RBC 5 - 10 Urine WBC 0 - 2 Ur Epithelial Cells 0 - 2 Urine Bacteria Few Assessment & Plan - Assessment and Plan (Free Text) Plan: Assessment Breakthrough seizure with systemic inflammatory response syndrome, R/O sepsis from infected [employer] shunt which is malfunctioning seizure disorder history of subarachnoid hemorrhage S/P clipping S/P ventriculoperitoneal shunt placement history of cerebrovascular accident Plan Started patient on Vancomycin, Cefepime and Ampicillin pending blood cx; discussed with Neurosurgery and ICU team and there is plan for change of the [employer] shunt - asked for cultures from the [employer] shunt Will monitor clinically
--- NOTE | 2016-08-28 12:24 | CON ---
DATE: 08/28/2016 This is a 61-year-old gentleman with a known seizure disorder, had an aneurysm clipped several years ago, unclear exactly when, and then had a HOUSE BUILDER shunt placed for hydrocephalus. Apparently he is noncom pliant with his seizure medication and he had a grand mal seizure yesterday morning and was brought a nd admitted to [facility]. PHYSICAL EXAMINATION: GENERAL: Interviewing him today, he is quite confused. He can only tell me his name. He names a fe w objects presented. Cannot tell me where he is. He does follow commands. Unclear what his baselin e is. HEENT: Pupils are equal and reactive. EOMs seem full. Face is symmetric. He has good strength in all 4 extremities. His HOUSE BUILDER shunt cannot be depressed at all. I am referring of course to the valve i n the right frontal region. I reviewed the CT of the brain done yesterday which shows significant ventriculomegaly in my opinion out of proportion to the atrophy he has. Additionally, the ventricles do seem larger compared to a C T scan done in May. The shunt catheter is in good position, coursing through the right frontal lobe into the right lateral ventricle. IMPRESSION AND PLAN: It certainly seems that the patient is in shunt failure. Particularly this is based on the inability to depress his shunt valve as well as the CT scans as outlined above. Some of his depressed mental status may be to postictal, but I certainly presume that a lot of it is on the basis of the hydrocephalus. Unequivocally, I would recommend reexploring and revising his HOUSE BUILDER shunt. I have attempted to get in t ouch with his but as of yet I have been unable to do so. I did speak with Dr. Cruz and Dr. Kennedy of the [place], and he had essentially 1 fever spike of 101 which more than likely is a result of th e seizure. Cultures have been negative, no obvious source. If they remain negative, we agree that w e could probably proceed with the revision tomorrow. Jose Blair MD cc: 131 TT: 08/28/2016 12:24:05 Confirmation # [id number] Dictation # [id number] mn
--- NOTE | 2016-08-28 13:24 | CP.PCM.PN ---
Subjective - Date & Time of Evaluation Date of Evaluation: 08/28/16 Time of Evaluation: 01:00 - Subjective Subjective: Patient: NITA SANCHEZ Unit: [id number] : 1955 Loc: CCU Room/Bed: 129-04 Age/Sex: 61 / M ADM Status: ADM IN ADM Date: [id number] DIS Date: Progress note: DATE: 08/27/2016 CHIEF COMPLAINT: F/U for Seizures. SUBJECTIVE: No seizure overnight. Neurosurg will probably prep for shunt revision. Stable on seizure meds. PAST MEDICAL HISTORY: History of subarachnoid hemorrhage, status post clipping , status post ventriculoperitoneal shunt, status post seizure disorder, status post noncompliance with seizure medications in the past, history of breakthrough seizures, agitation and insomnia. REVIEW OF SYSTEMS: A 14-point review of systems is negative except for the HPI. SOCIAL HISTORY: History of tobacco, quit many years ago after subarachnoid hemorrhage. No history of alcohol or drug abuse. Requires assistance with his ADLs. Has mild dementia history of traumatic brain injury and seizure disorder. ALLERGIES: No known drug allergies. FAMILY HISTORY: Noncontributory. PHYSICAL EXAMINATION: VITAL SIGNS: Reviewed. GENERAL: The patient is drowsy, in no acute distress. HEENT: Atraumatic, normocephalic. PERRLA. Extraocular muscles intact. NECK: Supple, no JVD, no adenopathy noted. LUNGS: Clear to auscultation. No adventitious sounds. HEART: S1, S2, normal rate and rhythm. No murmurs, rubs, or gallops. ABDOMEN: Soft, nontender, nondistended. Bowel sounds are present. EXTREMITIES: No clubbing. Peripheral pulses 2+ felt bilaterally. NEUROLOGIC: The patient is drowsy, in no acute distress. At baseline is oriented to person, place and year. Has poor attention span, slow thought process. Cranial nerves II-XII intact. Speech is hypophonic, but no aphasia noted. MOTOR: Moves all extremities equally and spontaneously. No pronator drift seen. SENSORY: Withdraws to localized noxious stimulus. Proprioception is intact. DTRs 1+ throughout. COORDINATION AND GAIT: Deferred for now. LABORATORY DATA: Reviewed. ASSESSMENT AND PLAN: This is a 61-year-old man with past medical history of aneurysmal subarachnoid hemorrhage, status post clipping, status post ventriculoperitoneal shunt, status post seizure, history of traumatic brain injury, history of cognitive impairment from traumatic brain injury, history of noncompliance with seizure medications in the past, history of agitation and insomnia, history of breakthrough seizures. Was on Keppra 500 mg p.o. b.i.d. and Trileptal 150 mg p.o. b.i.d. for seizure prophylaxis. Has history of polypharmacy compliance with seizures. At this time had breakthrough seizures. Found to also have a febrile temperature of 101, as well as low blood pressure indicating sepsis, underwent sepsis protocol, being monitored in the ICU. CT scan of the head showed mild dilatation of left ventricle indicating possible CONVEYOR BELT INSTALLER shunt malfunction. Neurosurgery on board for shunt intervention. . Recommend: 1. Keppra 500 mg IV q. 12. 2. Will need to continue with Trileptal 150 mg p.o. b.i.d. once a week for seizure prophylaxis. 3. Trileptal level. 4. Needs residential care or home health aid. 5. Continue with current present medical management. Thank you Dom Khalil MD Objective - Vital Signs/Intake and Output Vital Signs (last 24 hours): Temp Pulse Resp BP Pulse Ox 98.3 F 80 21 146/75 96 08/28/16 11:40 08/28/16 12:10 08/28/16 12:10 08/28/16 12:00 08/28/16 12:00 Intake and Output: 08/28/16 08/28/16 06:59 18:59 Intake Total 1950 1190 Output Total 1500 1100 Balance 450 90 - Medications Medications: Current Medications Levetiracetam 1,000 mg/ Sodium (Chloride) 110 mls @ 460 mls/hr IV Q12 [facility] Last Admin: 08/28/16 09:49 Dose: 460 mls/hr Vancomycin HCl (Vancomycin 1gm) 1 gm in 250 mls @ 167 mls/hr IVPB Q12H [facility] PRN Reason: Protocol Last Admin: 08/28/16 10:03 Dose: 167 mls/hr Ampicillin 1 gm/ Sodium (Chloride) 100 mls @ 200 mls/hr IVPB Q6 [facility] PRN Reason: Protocol Last Admin: 08/28/16 12:03 Dose: 200 mls/hr Sodium Chloride (Sodium Chloride 0.9%) 1,000 mls @ 100 mls/hr IV .Q10H [facility] Last Admin: 08/28/16 10:03 Dose: 100 mls/hr Cefepime HCl (Maxipime 2gm) 2 gm in 100 mls @ 100 mls/hr IVPB Q8 [facility] PRN Reason: Protocol Stop: 09/03/16 22:01 Last Admin: 08/28/16 05:23 Dose: 100 mls/hr Gentamicin Sulfate 10 mg/Vancomycin HCl 10 mg/ Sodium Chloride 1.1 mls @ 100 mls/hr IVPB ONCE ONE Stop: 08/29/16 11:01 Lorazepam (Ativan) 2 mg IVP Q6H PRN; Protocol PRN Reason: Seizure activity Oxcarbazepine (Trileptal) 150 mg PO BID [facility] PRN Reason: Protocol Last Admin: 08/27/16 17:42 Dose: 150 mg - Labs Labs: 08/28/16 05:40 08/28/16 09:30 PT 11.4 Seconds (9.9-11.8) 08/27/16 10:45 INR 1.06 (0.93-1.08) 08/27/16 10:45 APTT 26.6 Seconds (23.7-30.8) 08/27/16 10:45
--- NOTE | 2016-08-28 17:25 | HP ---
HISTORY OF PRESENT ILLNESS: The patient is a 61-year-old male admitted through the Emergency Departm ent on 08/27/2016 in status epilepticus. The patient has a history of subarachnoid hemorrhage, status post ventriculoperitoneal shunt placement approximately 4-5 years ago and has had recurrent admission s for breakthrough seizures. The patient has been seen in consultation by Dr. Khalil and is in the i ntensive care unit. He had a fever of 101, which is presumed secondary to the seizures. Septic work up is in progress. The patient has also been seen by neurosurgery, Dr. Blair, who reports WELD INSPECTOR shunt failure and is planning possible revision of the shunt. 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 CURRENT MEDICATIONS: Include Keppra 1000 mg twice daily, Dilantin 100 mg 3 times daily, Lasix 20 mg daily, potassium chloride 10 mEq daily and Risperdal 0.25 mg daily. ALLERGIES: The patient has no known drug allergies. REVIEW OF SYSTEMS: Essentially unobtainable secondary to patient's dementia. FAMILY HISTORY: Noncontributory. SOCIAL HISTORY: There is no history of alcohol or drug use in the past. PHYSICAL EXAMINATION: GENERAL: The patient is a slightly cachectic male in no acute distress. VITAL SIGNS: Blood pressure 162/93, temperature 98.8, pulse 73, respiratory rate 20. HEENT: Ventriculoperitoneal shunt is present and palpable with some resistance. NECK: Supple, with no thyromegaly, no carotid bruit and no nuchal rigidity. LUNGS: Clear. HEART: Regular rate and rhythm. ABDOMEN: Soft, nontender. Bowel sounds are normoactive. EXTREMITIES: Without cyanosis, clubbing or edema. There is mild muscular wasting and atrophy bilate rally. NEUROLOGIC: The patient is somewhat lethargic and confused without focal sensory or motor deficits. SKIN: Warm and dry. LABORATORY DATA: WBCs 6.0, hemoglobin 14.4, hematocrit 42.1. Sodium 141, potassium 3.9, chloride 10 7, CO2 of 26, BUN 7, creatinine 0.7, glucose 122. Chest x-ray shows no active disease. CT of the head shows a slight increase in the sizable of the lateral ventricles from previous examina tions. A shuntogram was negative for abnormalities in the shunt catheter. IMPRESSION: 1. Recurrent seizures. 2. Status of subarachnoid hemorrhage, status post ventriculoperitoneal shunt placement. Rule out jean pierre nt failure. 3. Chronic obstructive pulmonary disease secondary to tobacco. 4. Hypertension. 5. Dementia status post subarachnoid hemorrhage. PLAN: The patient is medically stable for transfer to the medical floor. Await family's decision re garding WELD INSPECTOR shunt revision. Continue neurologic followup with Dr. Khalil and neurosurgical followup w ith Dr. Blair. Physical therapy and social work for discharge planning. Umesh Marquis JD, MD cc: [id number] TT: 08/28/2016 17:25:02 dione
[2016-08-29] MEDS: Cefepime IV 2 gm in NS 2 GM/100 ML BAG IVPB SCH ×3 (05:14→21:41)
[2016-08-29] MEDS: AMPicillin 1 GM in Sodium Chloride 0.9% 100 ML IVPB SCH ×3 (05:15→17:43)
[2016-08-29] MEDS: Sodium Chloride 0.9% 1,000 ML IV SCH ×2 (05:16→14:51)
[2016-08-29 07:49] LABS: ADD MANUAL DIFF? NO
[2016-08-29 07:59] LABS: BASO # 0.01 K/mm3 (0.0-2.0); BASO % 0.2 % (0.0-3.0); EOS # 0.3 (0.0-0.7); EOS % 6.7 % (1.5-5.0); GRAN # 2.07 (1.4-6.5); GRAN % 46.3 % (50.0-68.0); HEMATOCRIT 43.1 % (42.0-52.0); LYMPH # 1.5 (1.2-3.4); LYMPH % 32.9 % (22.0-35.0); MEAN CELL VOLUME 86.7 fL (80.0-105.0); MEAN CORPUSCULAR HGB CONC 34.6 g/dl (31.0-37.0); MEAN PLATELET VOLUME 9.2 fl (7.0-11.0); MONO # 0.6 (0.1-0.6); MONO % 13.9 % (1.0-6.0); PLATELET COUNT 170 10^3/uL (120.0-450.0); WHITE BLOOD COUNT 4.5 10^3/ul (4.5-11.0)
[2016-08-29 08:06] LABS: ALKALINE PHOSPHATASE 70 U/L (38-133); ALT/SGPT 64 U/L (7-56); AST/SGOT 38 U/L (15-59); BILIRUBIN,TOTAL 1.1 mg/dL (0.2-1.3); BLOOD UREA NITROGEN 5 mg/dL (7-21); CALCIUM 8.6 mg/dL (8.4-10.5); CARBON DIOXIDE 28 mmol/L (21-33); CHLORIDE 105 mmol/L (98-107); GFR AFRICAN-AMERICAN > 60; GLUCOSE,RANDOM 87 mg/dL (70-110); POTASSIUM 3.6 mmol/L (3.6-5.0); SODIUM 141 mmol/L (132-148); TOTAL PROTEIN 7.4 g/dL (5.8-8.3)
[2016-08-29] MEDS: levETIRAcetam 1,000 MG in Sodium Chloride 0.9% 100 ML IV SCH ×2 (09:01→21:41)
[2016-08-29] MEDS: Vancomycin 1gm in NS 250ml 1 GM/250 ML BAG IVPB SCH ×2 (09:56→21:42)
[2016-08-29] MEDS ORDERED: cefTRIAXone (Rocephin) 1 gm Inj ONE (10:44)
[2016-08-29] MEDS ORDERED: Lidocaine 1%/Epinephrine 1:100000 30 ml vial ONE (10:44)
[2016-08-29] MEDS ORDERED: Absorbable Gelatin Sponge Size 100 ONE (10:44)
[2016-08-29] MEDS ORDERED: Thrombin Topical 5,000 IU Spray Kit ONE (10:45)
[2016-08-29] MEDS ORDERED: GENTAMICIN SULFATE IVPB ONE (11:00)
[2016-08-29] MEDS ORDERED: SODIUM CHLORIDE 0.9% IVPB ONE (11:00)
[2016-08-29] MEDS ORDERED: VANCOMYCIN IVPB ONE (11:00)
--- NOTE | 2016-08-29 11:21 | PN ---
DATE: 08/29/2016 SUBJECTIVE: The patient is awake and responsive. He remains confused, which is his baseline mental status. There has been no seizure activity in the past 24 hours. OBJECTIVE: VITAL SIGNS: Blood pressure 160/100, temperature 97.9, pulse 60, respiratory rate 18. LUNGS: Clear. HEART: Regular rate and rhythm. ABDOMEN: Soft, nontender, bowel sounds are normoactive. EXTREMITIES: Without cyanosis, clubbing, or edema. NEUROLOGIC: The patient is awake and responsive, confused, without focal data deficits. SKIN: Warm and dry. LABORATORY DATA: WBC is 4.5, hemoglobin 14.9, hematocrit 43.1. Sodium 141, potassium 3.6, chloride 105, CO2 28, BUN 5, creatinine 0.6, glucose 87. IMPRESSION: 1. Recurrent breakthrough seizures. 2. Subarachnoid hemorrhage, status post ventriculoperitoneal shunt placement. Rule out shunt failur e. 3. Chronic obstructive pulmonary disease. 4. Hypertension. 5. Dementia, status post subarachnoid hemorrhage. PLAN: Will start lisinopril 10 mg daily for elevated blood pressure. The patient is for possible ve ntriculoperitoneal shunt revision today. Continue neurology followup with Dr. Khalil. Social work f or discharge planning. Umesh Marquis JD, MD cc: 353 TT: 08/29/2016 11:20:46 Confirmation # [id number] Dictation # [id number] max
[2016-08-29] MEDS ORDERED: Propofol 10 mg/ml Inj (20 ML) ONE ×3 (11:45→13:11)
[2016-08-29] MEDS ORDERED: Midazolam 2 MG/2 ML VIAL ONE (11:45)
[2016-08-29] MEDS ORDERED: Rocuronium 10 mg/ml (5 ml) ONE (11:45)
[2016-08-29] MEDS ORDERED: ePHEDrine 50 mg/ml Inj ONE (12:35)
[2016-08-29] MEDS ORDERED: Neostigmine Methylsulfate 3mg/3ml Syringe IV ONE (12:49)
[2016-08-29] MEDS ORDERED: Glycopyrrolate 0.2 mg/ml (2ml vial) ONE (12:50)
[2016-08-29] MEDS ORDERED: Bacitracin Ointment 30 GM TUBE ONE (12:57)
[2016-08-29 15:31] LABS: FLUID TYPE SPINAL FLUID
--- NOTE | 2016-08-29 15:56 | OP ---
PROCEDURE DATE: 08/29/2016 PREOPERATIVE DIAGNOSIS: Hydrocephalus, failed ventriculoperitoneal shunt. POSTOPERATIVE DIAGNOSIS: Hydrocephalus, failed ventriculoperitoneal shunt; peritoneal catheter disc onnected. SURGEON: Jose Blair MD ANESTHESIA: General endotracheal. ESTIMATED BLOOD LOSS: Less than 10 mL. COMPLICATIONS: None. JUSTIFICATION: This patient is status post ruptured aneurysm clipping and placement of a SAMPLE COORDINATOR shunt 5 years ago. He presented to the hospital with a seizure and declining mental status. confirmed declining mental status over the past several months. CT documented good position of the ventricular catheter, but with impressive ventriculomegaly and, in fact, worsened compared to the scan done in 05/2016. The patient's valve did not pump and refill. It was felt he was in shunt failure. The was advised for him to undergo revision of his SAMPLE COORDINATOR shunt. The nature of this procedure, the rational e behind it, potential risks, complications, realistic chance of success, recovery time discussed wit h her at length. All her questions were answered. She fully understood all the above and elected to proceed as offered. PROCEDURE: The patient was taken to the operating room, intubated, anesthetized He was placed on the OR table in supine position, head placed on a donut and turned 45 degrees to the right. The right f rontal region where the shunt had been placed was hair clipped as was an area distal to that along th e shunt tract behind the right ear down onto his neck. This entire area along with the chest and abd omen were scrubbed with acetone scrub, painted and draped in the usual sterile fashion. The patient was given some Rocephin antibiotics. After prepping and draping, the old incision was opened with a 15 blade knife and this was carried do wn further, another 4 or 5 cm, to allow to expose the valve. Careful dissection with a tenotomy scis sor was then done to expose the valve assembly. Almost immediately, it was clear that the peritoneal catheter had broken off and a small piece of it was connected to the distal end of the valve whereas the distal end was floating freely. Additionally, there seemed to be some further punctures in the distal end. I disconnected the residual piece of the peritoneal catheter. I then pumped his valve which actually easily expressed clear CSF as would be expected for this valve. Approximately 3 mL were then collec avtar and sent for the usual studies. I trimmed the peritoneal catheter. I was able to tease it up several centimeters so that it would me et the valve. I then tested it by hooking it up to a syringe that I used as a manometer, and CSF bryant wed very nicely as would be expected from about a pressure of 20 cm down to a pressure of 9 where it stayed. I would, thus, presume that it is a valved peritoneal catheter. To further ensure that it was working, I flushed it through, checked again, and again got the same pr essure reading. At this point, the valve itself was checked one more time; with pumping, it easily yielded CSF. It w as then connected to the peritoneal catheter and a cinch 2-0 silk tie was placed. Some further Vicry l was used to cinch down the valve again as well as the connection site of the catheter. At this point, I injected approximately 10 mg of vancomycin and 10 mg of gentamicin with a 27 gauge n eedle directly into the valve reservoir. I then irrigated the whole area profusely with antibiotic f luid. The galea was then reapproximated using interrupted inverted #3-0 Vicryl, the skin closed with staple s. Bacitracin ointment and a self-adhering dressing was then placed. The patient was aroused from anesthesia easily, extubated, breathing on his own on his way to the rec overy room. All counts were correct. There were no complications. Jose Blair MD cc: [id number] TT: 08/29/2016 15:55:17 max
[2016-08-29 16:41] LABS: ALKALINE PHOSPHATASE 60 U/L (38-133); ALT/SGPT 60 U/L (7-56); AST/SGOT 32 U/L (15-59); BILIRUBIN,TOTAL 0.8 mg/dL (0.2-1.3); BLOOD UREA NITROGEN 6 mg/dL (7-21); CALCIUM 8.1 mg/dL (8.4-10.5); CARBON DIOXIDE 27 mmol/L (21-33); CHLORIDE 104 mmol/L (98-107); GFR AFRICAN-AMERICAN > 60; GLUCOSE,RANDOM 80 mg/dL (70-110); SODIUM 138 mmol/L (132-148); TOTAL PROTEIN 6.4 g/dL (5.8-8.3)
[2016-08-29 17:22] LABS: CSF NEUTROPHIL 67 % (0-0)
[2016-08-29 17:23] LABS: CSF TOTAL COUNT 100 (0-0)
[2016-08-30] MEDS: AMPicillin 1 GM in Sodium Chloride 0.9% 100 ML IVPB SCH ×4 (01:02→17:27)
[2016-08-30] MEDS: Cefepime IV 2 gm in NS 2 GM/100 ML BAG IVPB SCH ×3 (05:05→22:48)
[2016-08-30] MEDS: Sodium Chloride 0.9% 1,000 ML IV SCH ×4 (05:07→21:37)
[2016-08-30 07:05] LABS: ADD MANUAL DIFF? NO
[2016-08-30 07:21] LABS: BASO # 0.01 K/mm3 (0.0-2.0); BASO % 0.2 % (0.0-3.0); EOS # 0.1 (0.0-0.7); EOS % 2.2 % (1.5-5.0); GRAN # 3.38 (1.4-6.5); GRAN % 68.9 % (50.0-68.0); HEMATOCRIT 40.8 % (42.0-52.0); LYMPH # 0.9 (1.2-3.4); LYMPH % 18.1 % (22.0-35.0); MEAN CORPUSCULAR HEMOGLOBIN 29.6 pg (25.0-35.0); MEAN CORPUSCULAR HGB CONC 34.1 g/dl (31.0-37.0); MEAN PLATELET VOLUME 9.4 fl (7.0-11.0); MONO # 0.5 (0.1-0.6); MONO % 10.6 % (1.0-6.0); PLATELET COUNT 161 10^3/uL (120.0-450.0); RED CELL DISTRIBUTION WIDTH 13.3 % (11.5-14.5); WHITE BLOOD COUNT 4.9 10^3/ul (4.5-11.0)
[2016-08-30 07:22] LABS: ALB/GLOB RATIO 1.1 (1.1-1.8); ALKALINE PHOSPHATASE 62 U/L (38-133); ALT/SGPT 64 U/L (7-56); AST/SGOT 32 U/L (15-59); BILIRUBIN,TOTAL 0.9 mg/dL (0.2-1.3); BLOOD UREA NITROGEN 7 mg/dL (7-21); CALCIUM 8.1 mg/dL (8.4-10.5); CARBON DIOXIDE 25 mmol/L (21-33); CHLORIDE 108 mmol/L (95-110); GFR AFRICAN-AMERICAN > 60; GLUCOSE,RANDOM 92 mg/dL (70-110); POTASSIUM 3.7 mmol/L (3.6-5.0); SODIUM 140 mmol/L (132-148)
--- NOTE | 2016-08-30 08:26 | PN ---
DATE: 08/29/2016 The patient is in bed in no acute distress. PHYSICAL EXAMINATION: VITAL SIGNS: Temperature is 98, blood pressure is 115/70, respiratory rate of 16. HEENT: Unremarkable. NECK: Supple. LUNGS: Have decreased breath sounds. HEART: Normal S1, S2. ABDOMEN: Soft, nontender. LABORATORY EXAMINATION: Reveals a white count of 4.5, hemoglobin of 14, platelets of 170. Chemistri es reveal the BUN of 5 and creatinine of 0.6, procalcitonin is less than 0.05. Urinalysis is noted. Microbiology reveals the blood cultures are negative. Urine cultures are negative. Review of the orders reveals the patient to be on ampicillin, cefepime and vancomycin. ASSESSMENT AND PLAN: This is a 61-year-old male seen earlier today in room 372, bed 1, with a histor y of subarachnoid hemorrhage and clipping and ventriculoperitoneal shunt placement, history of cerebr ovascular accident and after episode of seizures admitted with breakthrough seizures with systemic in flammatory response syndrome and must rule out infected shunt. The patient is for OR today, currentl y on vancomycin, cefepime and ampicillin. Thus far on the blood cultures, urine cultures, MRSA screen is negative. No growth. The patient is for possible revision of the ventriculoperitoneal shunt. W e will check on the cultures of the shunt and spinal fluid and we will make further recommendations. Ubaldo Garcia MD cc: [id number] TT: 08/29/2016 13:58:40 Confirmation # [id number] Dictation # [id number] dione
[2016-08-30] MEDS: levETIRAcetam 1,000 MG in Sodium Chloride 0.9% 100 ML IV SCH ×2 (09:52→22:43)
[2016-08-30] MEDS: Vancomycin 1gm in NS 250ml 1 GM/250 ML BAG IVPB SCH ×2 (09:54→22:47)
--- NOTE | 2016-08-30 10:38 | CP.PCM.PN ---
Subjective - Date & Time of Evaluation Date of Evaluation: 08/30/16 Time of Evaluation: 10:35 - Subjective Subjective: POD 1 awake and alert o x 2.5 perrrl eomi moving all ext well dressing with min spotting,dry A & P clear for dc from my standpoint suggest subacute (?) Objective - Vital Signs/Intake and Output Vital Signs (last 24 hours): Temp Pulse Resp BP Pulse Ox 98.4 F 64 20 166/95 H 97 08/30/16 06:00 08/30/16 09:54 08/30/16 06:00 08/30/16 09:54 08/30/16 06:00 Intake and Output: 08/30/16 08/30/16 06:59 18:59 Intake Total 1350 Balance 1350 - Medications Medications: Current Medications Famotidine (Pepcid) 40 mg PO HS [facility] Last Admin: 08/29/16 21:42 Dose: 40 mg Levetiracetam 1,000 mg/ Sodium (Chloride) 110 mls @ 460 mls/hr IV Q12 [facility] Last Admin: 08/30/16 09:52 Dose: 460 mls/hr Vancomycin HCl (Vancomycin 1gm) 1 gm in 250 mls @ 167 mls/hr IVPB Q12H [facility] PRN Reason: Protocol Last Admin: 08/30/16 09:54 Dose: 167 mls/hr Ampicillin 1 gm/ Sodium (Chloride) 100 mls @ 200 mls/hr IVPB Q6 [facility] PRN Reason: Protocol Last Admin: 08/30/16 05:04 Dose: 200 mls/hr Sodium Chloride (Sodium Chloride 0.9%) 1,000 mls @ 100 mls/hr IV .Q10H [facility] Last Admin: 08/30/16 09:52 Dose: 100 mls/hr Cefepime HCl (Maxipime 2gm) 2 gm in 100 mls @ 100 mls/hr IVPB Q8 [facility] PRN Reason: Protocol Stop: 09/03/16 22:01 Last Admin: 08/30/16 05:05 Dose: 100 mls/hr Lisinopril (Zestril) 10 mg PO DAILY [facility] Last Admin: 08/30/16 09:54 Dose: 10 mg Lorazepam (Ativan) 2 mg IVP Q6H PRN; Protocol PRN Reason: Seizure activity Last Admin: 08/28/16 20:28 Dose: 2 mg Oxcarbazepine (Trileptal) 150 mg PO BID [facility] PRN Reason: Protocol Last Admin: 08/30/16 09:53 Dose: 150 mg - Labs Labs: 08/30/16 06:45 08/30/16 06:45 PT 11.4 Seconds (9.9-11.8) 08/27/16 10:45 INR 1.06 (0.93-1.08) 08/27/16 10:45 APTT 26.6 Seconds (23.7-30.8) 08/27/16 10:45
--- NOTE | 2016-08-30 11:43 | PN ---
DATE: 08/30/2016 SUBJECTIVE: The patient is lying in bed in no acute distress. He is awake and responsive. He remai ns confused. There has been no seizure activity in the past 24 hours. He is status post deep ventri culoperitoneal shunt revision. OBJECTIVE: VITAL SIGNS: Blood pressure 166/95, pulse 64, temperature 98.4, respiratory rate 20. LUNGS: Clear. HEART: Regular rate and rhythm. ABDOMEN: Soft, nontender, bowel sounds are normoactive. EXTREMITIES: Without cyanosis, clubbing, or edema. NEUROLOGIC: The patient is awake and responsive, confused without focal sensory or motor deficits. SKIN: Warm and dry. Wound dressing on the right JOURNEYMAN ELECTRICIAN shunt is intact with no apparent drainage. LABORATORY DATA: WBC is 4.9, hemoglobin 13.9, hematocrit 40.8. CMP is within normal limits. IMPRESSION: 1. Recurrent breakthrough seizures. 2. Subarachnoid hemorrhage, status post ventriculoperitoneal shunt placement with shunt failure, sta tus post revision. 3. Chronic obstructive pulmonary disease. 4. Hypertension. 5. Dementia, status post subarachnoid hemorrhage. PLAN: We will increase lisinopril to 20 mg daily for elevated blood pressure. Continue neurosurgery followup as well as neurology followup with Dr. Khalil. Social work for discharge planning. Umesh Marquis JD, MD cc: 353 TT: 08/30/2016 11:42:55 Confirmation # [id number] Dictation # [id number]
--- NOTE | 2016-08-30 18:42 | PN ---
DATE: 08/30/2016 CHIEF COMPLAINT: Follow up for seizures. SUBJECTIVE: The patient is seen and examined at bedside. No acute events overnight, stable. No fur ther seizures. He has a STAFF SCIENTIST shunt. He had revision of his STAFF SCIENTIST shunt and catheter due to failed STAFF SCIENTIST jean pierre nt and which developed into mild hydrocephalus causing breakthrough seizures. He also has a history of sleep deprivation according to the and gets agitated. Today he is on Xanax 0.25 mg p.o. b.i. d., but could be increased to 0.5 mg p.o. b.i.d. PAST MEDICAL HISTORY: Subarachnoid hemorrhage, status post clipping, status post ventriculoperitonea l shunt, status post seizure disorder, status post noncompliance with seizure medications in the past , history of breakthrough seizures, agitation and insomnia. REVIEW OF SYSTEMS: A 14-point review of systems is negative except for the HPI. SOCIAL HISTORY: History of tobacco smoking, quit many years ago after subarachnoid hemorrhage, no hi story of alcohol or drug abuse. Requires assistance with ADLs. Has mild dementia, a history of trau matic brain injury and a seizure disorder. ALLERGIES: No known drug allergies. FAMILY HISTORY: Noncontributory. PHYSICAL EXAMINATION: VITAL SIGNS: Temperature 99.2, pulse rate of 64, blood pressure 139/89, respiratory rate of 19, oxyg en saturation of 97% by room air. GENERAL: The patient is sitting up in bed in no acute distress. HEENT: Atraumatic, normocephalic. PERRLA. Extraocular muscles intact. NECK: Supple, no JVD, no adenopathy noted. LUNGS: Clear to auscultation. No adventitious sounds. HEART: S1, S2, normal rate and rhythm. No murmurs, rubs, or gallops. ABDOMEN: Soft, nontender, nondistended. Bowel sounds are present. EXTREMITIES: No clubbing, no cyanosis. Peripheral pulses 2+ felt bilaterally. NEUROLOGIC: The patient is oriented to person, place, month but not year. Recall after 5 minutes is 0/3. Poor attention span. Slow thought process. Cranial nerves II-XII are intact. Speech is hypo phonic, but no aphasia noted. MOTOR: Moves all extremities equally spontaneously. No pronator seen. SENSORY: Withdraws to localized noxious stimulus. Light touch, pinprick, proprioception, vibration intact. DTRs are 1+ throughout. COORDINATION: Pqxixo-it-ljte intact. GAIT: Is deferred for now. LABORATORY DATA: Sodium is 140, potassium 3.7, chloride 108, carbon dioxide 25, BUN 7, creatinine 0. 7, random glucose 92. ASSESSMENT AND PLAN: This is a 61-year-old man with a past medical history of aneurysmal subarachnoi d hemorrhage, status post clipping, status post ventriculoperitoneal shunt, status post seizure, hist ory of traumatic brain injury, history of cognitive impairment from traumatic brain injury, history o f noncompliance with seizure medications, history of agitation, insomnia, history of dysexecutive syn drome from a history of traumatic brain injury, who is on Keppra 500 mg p.o. b.i.d. and Trileptal 150 mg p.o. b.i.d. for seizure prophylaxis, who was brought in for breakthrough seizures. He had a temp erature of 101 and was found to have a failed ventriculoperitoneal shunt. Revision was done by neuro surgery and appreciated. Currently, the patient is doing much better. No further seizures. At this time: 1. Will continue with Keppra 500 mg p.o. b.i.d. and Trileptal 150 mg p.o. b.i.d. for seizure prophyl axis. 2. The patient will need long-term care and home health aide as well as physical therapy at home or otherwise subacute rehabilitation. 3. Could increase his Xanax from 0.25 b.i.d. to 0.5 mg p.o. b.i.d. for his agitation and will help h im also with sleep. possible regular sleep pattern, melatonin 10 mg p.o. at bedtime. At this time, continue with current present medical management. Thank you for tis followup. Dom Khalil MD cc: [id number] TT: 08/30/2016 18:42:11 Confirmation # [id number] Dictation # [id number] dione
--- NOTE | 2016-08-30 22:02 | PN ---
DATE: 08/30/2016 The patient is in bed in no acute distress. PHYSICAL EXAMINATION: VITAL SIGNS: Temperature of 99, blood pressure is 139/90, respiratory rate of 18, heart rate of ____ _. HEENT: Unremarkable. NECK: Supple. LUNGS: Have decreased breath sounds. HEART: Normal S1, S2. ABDOMEN: Soft, nontender. LABORATORY DATA: Reveals a white count of 4.9 and hemoglobin of 13, platelets of 161. Chemistries r eveal a BUN of 7, creatinine of 0.7 and procalcitonin 0.05. Urinalysis is noted. The catheter tip culture, preliminary cultures is negative. ASSESSMENT AND PLAN: This is a 61-year-old male who was seen earlier this morning in room 372 with a history of subarachnoid hemorrhage, clippings, and ventriculoperitoneal shunt, history of cerebrovas cular accident, episode of seizures, systemic inflammatory response syndrome, was taken to the OR yesterday and had revision of ventriculoperitoneal shunt and catheter cultures so far negative. C SF cultures are pending. Currently on ampicillin, cefepime and vancomycin pending west culture result s. The patient is afebrile, normal white count. Awaiting for culture results. Ubaldo Garcia MD cc: 350 TT: 08/30/2016 22:01:56 Confirmation # [id number] Dictation # [id number] dn
[2016-08-31] MEDS: AMPicillin 1 GM in Sodium Chloride 0.9% 100 ML IVPB SCH ×3 (01:09→13:12)
[2016-08-31] MEDS: Cefepime IV 2 gm in NS 2 GM/100 ML BAG IVPB SCH ×2 (06:22→13:13)
[2016-08-31 07:27] LABS: HEMATOCRIT 40.7 % (42.0-52.0); MEAN CORPUSCULAR HEMOGLOBIN 29.7 pg (25.0-35.0); MEAN CORPUSCULAR HGB CONC 34.2 g/dl (31.0-37.0); MEAN PLATELET VOLUME 9.6 fl (7.0-11.0); RED CELL DISTRIBUTION WIDTH 13.1 % (11.5-14.5)
[2016-08-31] MEDS: Sodium Chloride 0.9% 1,000 ML IV SCH (07:34)
[2016-08-31 07:37] LABS: ALB/GLOB RATIO 1.1 (1.1-1.8); ALKALINE PHOSPHATASE 62 U/L (38-133); ALT/SGPT 59 U/L (7-56); AST/SGOT 32 U/L (15-59); BLOOD UREA NITROGEN 8 mg/dL (7-21); CALCIUM 8.3 mg/dL (8.4-10.5); CARBON DIOXIDE 26 mmol/L (21-33); CHLORIDE 104 mmol/L (98-107); GFR AFRICAN-AMERICAN > 60; GLUCOSE,RANDOM 93 mg/dL (70-110); POTASSIUM 3.4 mmol/L (3.6-5.0); SODIUM 138 mmol/L (132-148); TOTAL PROTEIN 6.6 g/dL (5.8-8.3)
[2016-08-31] MEDS: levETIRAcetam 1,000 MG in Sodium Chloride 0.9% 100 ML IV SCH (10:26)
[2016-08-31] MEDS: Vancomycin 1gm in NS 250ml 1 GM/250 ML BAG IVPB SCH (10:30)
--- NOTE | 2016-08-31 12:14 | CP.PCM.PN ---
Subjective - Date & Time of Evaluation Date of Evaluation: 08/31/16 Time of Evaluation: 11:00 - Subjective Subjective: Patient: NITA SANCHEZ [facility] #:[id number] Unit: [id number] : 1955 Loc: 3R Room/Bed: [facility] Age/Sex: 61 / M ADM Status: ADM IN ADM Date: [id number] DIS Date: Progress note: DATE: 08/30/2016 CHIEF COMPLAINT: Follow up for seizures. SUBJECTIVE: The patient is seen and examined at bedside. No acute events overnight, stable. No further seizures. He has a HOSPITAL[employer] INTERNSHIP shunt. He had revision of his HOSP[employer] INTERNSH[employer] shunt and catheter due to failed HOSP[employer] INTERNSHIP shunt and which developed into mild hydrocephalus causing breakthrough seizures. No acute events overnight. PAST MEDICAL HISTORY: Subarachnoid hemorrhage, status post clipping, status post ventriculoperitoneal shunt, status post seizure disorder, status post noncompliance with seizure medications in the past, history of breakthrough seizures, agitation and insomnia. REVIEW OF SYSTEMS: A 14-point review of systems is negative except for the HPI. SOCIAL HISTORY: History of tobacco smoking, quit many years ago after subarachnoid hemorrhage, no history of alcohol or drug abuse. Requires assistance with ADLs. Has mild dementia, a history of traumatic brain injury and a seizure disorder. ALLERGIES: No known drug allergies. FAMILY HISTORY: Noncontributory. PHYSICAL EXAMINATION: VITAL SIGNS: Reviewed. GENERAL: The patient is sitting up in bed in no acute distress. HEENT: Atraumatic, normocephalic. PERRLA. Extraocular muscles intact. NECK: Supple, no JVD, no adenopathy noted. LUNGS: Clear to auscultation. No adventitious sounds. HEART: S1, S2, normal rate and rhythm. No murmurs, rubs, or gallops. ABDOMEN: Soft, nontender, nondistended. Bowel sounds are present. EXTREMITIES: No clubbing, no cyanosis. Peripheral pulses 2+ felt bilaterally. NEUROLOGIC: The patient is oriented to person, place, month but not year. Recall after 5 minutes is 0/3. Poor attention span. Slow thought process. Cranial nerves II-XII are intact. Speech is hypophonic, but no aphasia noted. MOTOR: Moves all extremities equally spontaneously. No pronator seen. SENSORY: Withdraws to localized noxious stimulus. Light touch, pinprick, proprioception, vibration intact. DTRs are 1+ throughout. COORDINATION: Cepcli-xv-unam intact. GAIT: Is deferred for now. LABORATORY DATA: Reviewed. ASSESSMENT AND PLAN: This is a 61-year-old man with a past medical history of aneurysmal subarachnoid hemorrhage, status post clipping, status post ventriculoperitoneal shunt, status post seizure, history of traumatic brain injury, history of cognitive impairment from traumatic brain injury, history of noncompliance with seizure medications, history of agitation, insomnia, history of dysexecutive syndrome from a history of traumatic brain injury, who is on Keppra 500 mg p.o. b.i.d. and Trileptal 150 mg p.o. b.i.d. for seizure prophylaxis, who was brought in for breakthrough seizures. He had a temperature of 101 and was found to have a failed ventriculoperitoneal shunt. Revision was done by neurosurgery and appreciated. Currently, the patient is doing much better. No further seizures. At this time: 1. Will continue with Keppra 500 mg p.o. b.i.d. and Trileptal 150 mg p.o. b.i.d. for seizure prophylaxis. 2. The patient will need long-term care and home health aide as well as physical therapy at home or otherwise subacute rehabilitation. 3. Could increase his Xanax from 0.25 b.i.d. to 0.5 mg p.o. b.i.d. for his agitation and will help him also with sleep. For regular sleep pattern, melatonin 10 mg p.o. at bedtime. At this time, continue with current present medical management. Thank you for this followup.please reconsult if any new changes. Dom Khalil MD Objective - Vital Signs/Intake and Output Vital Signs (last 24 hours): Temp Pulse Resp BP Pulse Ox 98.2 F 60 18 142/83 93 L 08/31/16 06:00 08/31/16 10:31 08/31/16 06:00 08/31/16 10:31 08/31/16 06:00 Intake and Output: 08/31/16 08/31/16 06:59 18:59 Intake Total 1950 Output Total 525 Balance 1425 - Medications Medications: Current Medications Famotidine (Pepcid) [address] [facility] Last Admin: 08/30/16 22:48 Dose: 40 mg Levetiracetam 1,000 mg/ Sodium (Chloride) 110 mls @ 460 mls/hr IV Q12 [facility] Last Admin: 08/31/16 10:26 Dose: 460 mls/hr Vancomycin HCl (Vancomycin 1gm) 1 gm in 250 mls @ 167 mls/hr IVPB Q12H [facility] PRN Reason: Protocol Last Admin: 08/31/16 10:30 Dose: 167 mls/hr Ampicillin 1 gm/ Sodium (Chloride) 100 mls @ 200 mls/hr IVPB Q6 [facility] PRN Reason: Protocol Last Admin: 08/31/16 06:22 Dose: 200 mls/hr Sodium Chloride (Sodium Chloride 0.9%) 1,000 mls @ 100 mls/hr IV .Q10H [facility] Last Admin: 08/31/16 07:34 Dose: 100 mls/hr Cefepime HCl (Maxipime 2gm) 2 gm in 100 mls @ 100 mls/hr IVPB Q8 [facility] PRN Reason: Protocol Stop: 09/03/16 22:01 Last Admin: 08/31/16 06:22 Dose: 100 mls/hr Lisinopril (Zestril) [address] [facility] Last Admin: 08/31/16 10:31 Dose: 20 mg Lorazepam (Ativan) 2 mg IVP Q6H PRN; Protocol PRN Reason: Seizure activity Last Admin: 08/31/16 01:09 Dose: 2 mg Oxcarbazepine (Trileptal) 150 mg PO BID [facility] PRN Reason: Protocol Last Admin: 08/31/16 10:30 Dose: 150 mg - Labs Labs: 08/31/16 07:20 08/31/16 07:20 PT 11.4 Seconds (9.9-11.8) 08/27/16 10:45 INR 1.06 (0.93-1.08) 08/27/16 10:45 APTT 26.6 Seconds (23.7-30.8) 08/27/16 10:45
[2016-08-31] MEDS ORDERED: Potassium Chloride 20 mEq ER Tab PO ONE (13:13)
--- NOTE | 2016-08-31 14:05 | PN ---
DATE: 08/31/2016 SUBJECTIVE: The patient is lying in bed in no acute distress. He is awake and responsive. He remai ns confused, which is his baseline. There has been no seizure activity in the past 48-72 hours. He is status post ventriculoperitoneal shunt revision. OBJECTIVE: VITAL SIGNS: Blood pressure 142/83, pulse 60, temperature 98.2, respiratory rate 18. LUNGS: Clear. HEART: Regular rate and rhythm. ABDOMEN: Soft, nontender, bowel sounds are normoactive. EXTREMITIES: Without cyanosis, clubbing, or edema. NEUROLOGIC: The patient is awake and responsive, confused without focal sensory or motor deficits. SKIN: Warm and dry. Wound dressing on the right DEFENCE FORCE SENIOR OFFICER shunt is intact with no apparent drainage. LABORATORY DATA: WBC is 4.0, hemoglobin 13.9, hematocrit 40.7, sodium 138, potassium 3.4, chloride 1 04, CO2 26, BUN 8, creatinine 0.6, glucose 93. IMPRESSION: 1. Recurrent breakthrough seizures. 2. Subarachnoid hemorrhage, status post ventriculoperitoneal shunt placement with shunt failure, sta tus post revision. 3. Chronic obstructive pulmonary disease. 4. Hypertension. 5. Dementia, status post subarachnoid hemorrhage. PLAN: We will discontinue IV fluids as patient is tolerating oral feeding. Continue neurosurgery fo llowup as well as neurology followup with Dr. Khalil. We will discontinue IV Keppra and start Keppra 500 mg p.o. b.i.d. as per neurology recommendations. Physical therapy and social work for discharge planning. Umesh Marquis JD, MD cc: 353 TT: 08/31/2016 14:05:10 Confirmation # [id number] Dictation # [id number]
--- NOTE | 2016-08-31 14:18 | PN ---
DATE: 08/31/2016 The patient seen earlier today. He is seen in his room in room 372, bed 1. Mental status is unchang ed. No fevers. PHYSICAL EXAMINATION: VITAL SIGNS: Temperature is 98, blood pressure is 140/80, respiratory rate of 18. HEENT: Unremarkable. NECK: Supple. LUNGS: Decreased breath sounds. HEART: Normal S1, S2. ABDOMEN: Soft. LABORATORY EXAMINATION: Reveals a white count of 4, hemoglobin of 13. Chemistries reveal the BUN of 8, creatinine of 0.6. The patient's procalcitonin is less than 0.05. Urinalysis is noted. CSF flu id shows the patient has 1 WBC and with protein of 49, glucose 62. Microbiology reveals the patient' s catheter tip culture is no growth and blood cultures have no growth. Cerebrospinal fluid cultures have no growth. Dr. Dom Khalil's progress note is reviewed. ASSESSMENT AND PLAN: A 61-year-old male with past medical history of aneurysmal subarachnoid hemorrh age, status post clipping and status post ventriculoperitoneal shunt, status post seizures and a hist ory of traumatic brain injury, cognitive impairment from traumatic brain injury, admitted with system ic inflammatory response syndrome. Now, all the cultures are negative. We will discontinue the ampi cillin and vancomycin and cefepime. Ubaldo Garcia MD cc: 350 TT: 08/31/2016 14:18:13 Confirmation # [id number] Dictation # [id number] tn
[2016-09-01 08:39] VITALS: RESP 20
--- NOTE | 2016-09-01 09:36 | PN ---
DATE: 09/01/2016 The patient is in bed, in no acute distress, nontoxic. PHYSICAL EXAMINATION: VITAL SIGNS: Temperature is 98, blood pressure is 150/90, respiratory rate of 16. HEENT: Unremarkable. NECK: Supple. LUNGS: Have decreased breath sounds. HEART: Normal S1, S2. ABDOMEN: Soft, nontender. LABORATORY EXAMINATION: Reveals the patient to have cultures are all negative. CSF cultures are neg ative and catheter tip culture is negative and CSF WBCs are only 1. ASSESSMENT AND PLAN: A 61-year-old male with a past medical history of aneurysmal subarachnoid hemor rhage, status post clipping, and status post ventriculoperitoneal shunt, status post seizures, a hist ory of traumatic brain injury, cognitive impairment and traumatic brain injury. Admitted with system ic inflammatory response syndrome. The patient had shunt revision. All cultures are negative with c erebrospinal fluid white blood cell only 1. Currently now off of antibiotics, afebrile. The patient is at risk for developing nosocomial infections. Ubaldo Garcia MD cc: 350 TT: 09/01/2016 09:36:00 Confirmation # [id number] Dictation # [id number] en
--- NOTE | 2016-09-01 12:14 | PN ---
DATE: 09/01/2016 SUBJECTIVE: The patient is lying in bed, in no acute distress. He is awake and responsive. He owen ins confused, which is his baseline. There has been no seizure activity in the past 3-4 days. He is status post CHAIN MAKER LOOM CONTROL shunt revision. OBJECTIVE: VITAL SIGNS: Blood pressure 140/91, pulse 69, temperature 97.8, respiratory rate 20. LUNGS: Clear. HEART: Regular rate and rhythm. ABDOMEN: Soft, nontender, bowel sounds are normoactive. EXTREMITIES: Without cyanosis, clubbing, or edema. NEUROLOGIC: The patient is awake and responsive. He remains confused without focal, sensory or jess r deficits. SKIN: Warm and dry. Wound dressing on the right CHAIN MAKER LOOM CONTROL shunt is intact with no apparent drainage. IMPRESSION: 1. Recurrent breakthrough seizures. 2. Subarachnoid hemorrhage, status post ventriculoperitoneal shunt placement with shunt failure, sta tus post revision. 3. Chronic obstructive pulmonary disease. 4. Hypertension. 5. Dementia, status post subarachnoid hemorrhage. PLAN: Continue physical therapy. Social work for discharge planning. Neurosurgery followup as well as neurology followup with Dr. Khalil. Umesh Marquis JD, MD cc: 353 TT: 09/01/2016 12:14:18 Confirmation # [id number] Dictation # [id number] en
[2016-09-01] MEDS: Bacitracin Ointment 30 GM TUBE TOP SCH (12:32)
[2016-09-02 07:06] VITALS: TEMP 98.9; O2SAT 96
[2016-09-02] MEDS: Bacitracin Ointment 30 GM TUBE TOP SCH (10:47)
[2016-09-02 10:48] VITALS: BP 120/72; PULSE 60
--- NOTE | 2016-09-02 12:01 | PN ---
DATE: 09/02/2016 SUBJECTIVE: The patient is sitting in bed, in no acute distress. He is awake and responsive. He re homero confused, which is his baseline. There has been no seizure activity in the past 4-5 days. 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 OBJECTIVE: VITAL SIGNS: Blood pressure 120/72, pulse 60, temperature 98.9, respiratory rate 20. LUNGS: Clear. HEART: Regular rate and rhythm. ABDOMEN: Soft, nontender, bowel sounds are normoactive. EXTREMITIES: Without cyanosis, clubbing, or edema. NEUROLOGIC: The patient is awake and responsive, somewhat confused without focal sensory or motor de ficits. SKIN: Warm and dry. Wound dressing of the right GRINDING WHEEL DRESSER shunt is intact with no drainage. IMPRESSION: 1. Recurrent breakthrough seizures. 2. Subarachnoid hemorrhage, status post ventriculoperitoneal shunt placement with shunt failure, sta tus post revision. 3. Chronic obstructive pulmonary disease. 4. Hypertension. 5. Dementia, status post subarachnoid hemorrhage. PLAN: Continue physical therapy. Neurosurgery followup as well as neurology followup with Dr. Carlos Alberto nunez Social work for discharge planning. The patient may be discharged when cleared by neurology and neurosurgery. Umesh Marquis JD, MD cc: 353 TT: 09/02/2016 12:01:16 Confirmation # [id number] Dictation # [id number]
[2016-09-02 13:05] LABS: ALB/GLOB RATIO 1.2 (1.1-1.8); ALKALINE PHOSPHATASE 58 U/L (38-133); ALT/SGPT 69 U/L (7-56); AST/SGOT 38 U/L (15-59); BILIRUBIN,TOTAL 0.8 mg/dL (0.2-1.3); BLOOD UREA NITROGEN 14 mg/dL (7-21); CALCIUM 8.9 mg/dL (8.4-10.5); CARBON DIOXIDE 28 mmol/L (21-33); CHLORIDE 96 mmol/L (98-107); GFR AFRICAN-AMERICAN > 60; GLUCOSE,RANDOM 81 mg/dL (70-110); POTASSIUM 3.9 mmol/L (3.6-5.0); SODIUM 132 mmol/L (132-148); TOTAL PROTEIN 7.1 g/dL (5.8-8.3)
--- NOTE | 2016-09-02 18:36 | CP.PCM.PN ---
Subjective - Date & Time of Evaluation Date of Evaluation: 09/02/16 Time of Evaluation: 09:30 - Subjective Subjective: Comfortable, afebrile, not in distress. Objective - Vital Signs/Intake and Output Vital Signs (last 24 hours): Temp Pulse Resp BP Pulse Ox 98.9 F 60 20 120/72 96 09/02/16 06:00 09/02/16 10:46 09/02/16 06:00 09/02/16 10:46 09/02/16 06:00 Intake and Output: 09/02/16 09/02/16 06:59 18:59 Intake Total 720 360 Output Total 0 Balance 720 360 - Labs Labs: 08/31/16 07:20 09/02/16 12:45 PT 11.4 Seconds (9.9-11.8) 08/27/16 10:45 INR 1.06 (0.93-1.08) 08/27/16 10:45 APTT 26.6 Seconds (23.7-30.8) 08/27/16 10:45 - Constitutional Appears: Non-toxic, No Acute Distress - Head Exam Head Exam: NORMAL INSPECTION - ENT Exam ENT Exam: Mucous Membranes Moist - Neck Exam Neck Exam: absent: Lymphadenopathy, Meningismus - Respiratory Exam Respiratory Exam: Decreased Breath Sounds - Cardiovascular Exam Cardiovascular Exam: +S1, +S2 - GI/Abdominal Exam GI & Abdominal Exam: Soft. 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
--- NOTE | 2016-09-22 14:18 | DS ---
HOSPITAL COURSE: The patient is a 61-year-old male admitted through the Emergency Department on 08/27 with recurrent seizures. The patient was seen in consultation by neurosurgery, moe De Leon o performed a ventriculoperitoneal shunt revision without complications. The patient had an uneventf ul postoperative course and was discharged to home in stable condition on 09/02/2016. Physical examination, subjective findings and impression are the same as the progress note dated 09/02. The patient was discharged on the following medications: Keppra 500 mg twice daily, Trileptal 150 mg twice daily, Xanax 0.25 mg daily, lisinopril 20 mg daily and Pepcid 40 mg daily. IMPRESSION: 1. Recurrent breakthrough seizures. 2. Subarachnoid hemorrhage, status post ventricular shunt placement with shunt failure, status post revision. 3. Chronic obstructive pulmonary disease. 4. Hypertension. 5. Dementia, status post subarachnoid hemorrhage. PLAN: The patient will be followed as an outpatient within 1-2 weeks. He will be maintained on a he art healthy diet. Activity is ad libitum. Umesh Marquis JD, MD cc: 353 TT: 09/22/2016 14:17:37 en
== END 2016-09-02 17:26 | disposition home or self-care (01) | DRG 982 ==
LOC: ED 10:41 → ERH 12:16 → CCU 12:17 → 3RSO 08-28 12:47
PROVIDERS: ADMIT Internal Medicine; ATTEND Internal Medicine
PROC: 0WWG0JZ Revision of Synthetic Substitute in Peritoneal Cavity, Open Approach (ICD-10-PCS; principal; 2016-08-29 12:30)
DX: T85.01XA Breakdown (mechanical) of ventricular intracranial (communicating) shunt, initial encounter (principal); G40.901 Epilepsy, unspecified, not intractable, with status epilepticus; G91.9 Hydrocephalus, unspecified; F03.90 Unspecified dementia, unspecified severity, without behavioral disturbance, psychotic disturbance, mood disturbance, and anxiety; R65.10 Systemic inflammatory response syndrome (SIRS) of non-infectious origin without acute organ dysfunction; I10 Essential (primary) hypertension; J44.9 Chronic obstructive pulmonary disease, unspecified; G47.00 Insomnia, unspecified; Y75.2 Prosthetic and other implants, materials and neurological devices associated with adverse incidents; Z91.19 Patient's noncompliance with other medical treatment and regimen; Z86.73 Personal history of transient ischemic attack (TIA), and cerebral infarction without residual deficits; Z87.820 Personal history of traumatic brain injury; Z87.891 Personal history of nicotine dependence

== ENCOUNTER 2016-09-25 18:34 | Inpatient (IN) | payer MEDICARE, OTHER ==
[2016-09-25 18:35] VITALS: BMI 24.3
--- NOTE | 2016-09-25 19:02 | ED PDOC ---
Arrival/HPI <Rebekah Dyer - Last Filed: 09/25/16 20:03> <Lisbet Contreras - Last Filed: 09/25/16 21:43> - General Chief Complaint: Seizure Time Seen by Provider: 09/25/16 18:38 - History of Present Illness Narrative History of Present Illness (Text): 09/25/16 18:59 61 y/o M w/ PMHx of seizure disorder and hydrocephalus s/p BLIND LACER shunt. Pt BIBA after having seizure at home; called 911. 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 Call was placed to pt's but there was no answer. (Rebekah Dyer) Past Medical History - Provider Review Nursing Documentation Reviewed: Yes - Past History Past History: Unable to Obtain - Infectious Disease Hx of Infectious Diseases: None - Tetanus Immunization Tetanus Immunization: Unknown - Cardiac Hx Cardiac Disorders: Yes Hx Hypertension: Yes - Pulmonary Hx Chronic Obstructive Pulmonary Disease (COPD): Yes - Neurological HX Cerebrovascular Accident: Yes - HEENT Hx HEENT Disorder: No - Renal Hx Renal Disorder: No - Endocrine/Metabolic Hx Endocrine Disorders: No - Hematological/Oncological Hx Blood Disorders: Yes Hx Hepatitis C: Yes Other/Comment: liver disease - Integumentary Hx Dermatological Disorder: Yes Hx Basal Cell Carcinoma: No Hx Eczema: No Hx Melanoma: No Hx Psoriasis: No Hx Squamous Cell Carcinoma: No Other/Comment: long hard thick toenails both feet, both fEET FLUSHED SKIN and edemAtous dry skin to all toes,+ PAIN. 2-18-17 BILATERAL TOP OF FOOT WITH PITTING EDEMA +4 MORE TO RIGHT.LEFT HAD PITTING +3. FLUSHED SKIN. 2-18-17 BILATERAL BUTTOCKS WITH NON BLANCHEABLE PRESSURE ULCER.HEALING ULCER.STAGE 1.INTACT SKIN. - Musculoskeletal/Rheumatological Hx Falls: Yes - Gastrointestinal Hx 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) - Genitourinary/Gynecological Hx Genitourinary Disorders: Yes Hx Incontinence: Yes - Psychiatric Hx Psychophysiologic Disorder: Yes (SMOKED CIGARETTES,HEAVY DRINKER ETOH ABUSE H.O) Hx Substance Use: Yes - Past Surgical History Past Surgical History: Unable to Obtain - Surgical History Hx Orthopedic Surgery: Yes (C-sp Sx) - Anesthesia Hx Anesthesia Reactions: No Hx Malignant Hyperthermia: No - Suicidal Assessment Feels Threatened In Home Enviroment: No <Rebekah Dyer - Last Filed: 09/25/16 20:03> Family/Social History - Physician Review Nursing Documentation Reviewed: Yes Family/Social History: No Known Family HX Smoking Status: Current Some Days Smoker Hx Alcohol Use: Yes Hx Substance Use: Yes Hx Substance Use Treatment: No <ManishaRebekah - Last Filed: 09/25/16 20:03> Allergies/Home Meds <ManishaRebekah - Last Filed: 09/25/16 20:03> <Lisbet Contreras - Last Filed: 09/25/16 21:43> Allergies/Adverse Reactions: Allergies No Known Allergies Allergy (Verified 08/27/16 10:45) Home Medications: Home Meds Medication Instructions Recorded Confirmed ALPRAZolam [Xanax] 0 mg PO DAILY 08/27/16 08/27/16 Review of Systems - Review of Systems Systems not reviewed;Unavailable: Altered Mental Status <Rebekah Dyer - Last Filed: 09/25/16 20:03> Physical Exam Vital Signs Reviewed: Yes Temperature: Hypothermic Blood Pressure: Hypertensive Pulse: Regular Respiratory Rate: Normal Appearance: Positive for: Non-Toxic, Comfortable Pain Distress: None Mental Status: Positive for: other (unable to evaluate) - Systems Exam Head: Present: Atraumatic, Normocephalic, Other (scar present on L hemisphere) Pupils: Present: PERRL Conjunctiva: Present: Normal Mouth: Present: Moist Mucous Membranes. No: Normal Teeth (poor dentition) Pharnyx: Present: Normal Respiratory/Chest: Present: Clear to Auscultation, Good Air Exchange. No: Respiratory Distress, Accessory Muscle Use Cardiovascular: Present: Regular Rate and Rhythm, Normal S1, S2. No: Murmurs Abdomen: No: Tenderness, Distention, Peritoneal Signs Upper Extremity: Present: Normal Inspection Lower Extremity: Present: Edema (2+ pitting edema B/L to knee), Erythema (B/L) Neurological: No: Speech Normal (nonverbal) Skin: Present: Warm, Dry Psychiatric: Present: Alert <ManishaRebekah - Last Filed: 09/25/16 20:03> Medical Decision Making - EKG Interpretation Interpreted by ED Physician: Yes Type: 12 lead EKG <ManishaRebekah - Last Filed: 09/25/16 20:03> <Lisbet Contreras - Last Filed: 09/25/16 21:43> ED Course and Treatment: 09/25/16 19:06 61 y/o M post ictal - blood glucose - EKG - CXR - Head CT - CBC, CMP, MG, Cardiac ISO - UA - will retry to contact - reasses and dispo 09/25/16 20:[address] in to the hospital. (Rebekah Dyer) A 61 year old male brought in after seizure. In agreement with resident note, which includes further HPI details. Patient was seen and evaluated with resident , came up with plan and treatment together. Given 3 seizures, he was given ativan. Patients present in emergency room later - reports patient has not slept all day or taken any rest. Shortly prior to arrival patient had one focal seizure and 2 general tonic-clonic seizures. Patient has appears to have no focalities but very difficult to arouse though maintaining airway well; CT head unchanged. Patient likely to continue to be postictal. Will need additional observation in telemetry. Will load with Rajeev. Consult placed for Dr. Khalil. Discussed case with Dr. Marquis for observation under his service. (Lisbet Contreras) - Lab Interpretations Lab Results: 09/25/16 19:20 09/25/16 19:20 Lab Results 09/25/16 19:20: Sodium 135, Potassium 4.1, Chloride 98, Carbon Dioxide 31, Anion Gap 10, BUN 17, Creatinine 0.8, Est GFR ( Amer) > 60, Est GFR (Non- Af Amer) > 60, Random Glucose 90, Calcium 8.8, Magnesium 2.2, Total Bilirubin 0.6, AST 57, ALT 105 H, Alkaline Phosphatase 84, Lactate Dehydrogenase 457, Total Creatine Kinase 111, Troponin I < 0.01, Total Protein 7.7, Albumin 4.1, Globulin 3.6, Albumin/Globulin Ratio 1.1 09/25/16 19:20: WBC 5.0 D, RBC 4.63, Hgb 13.7 L, Hct 41.3 L, MCV 89.2, MCH 29.6 , MCHC 33.2, RDW 13.2, Plt Count 174, MPV 9.2, Gran % 55.9, Lymph % (Auto) 28.0 , [place] % (Auto) 11.3 H, Eos % (Auto) 4.6, Baso % (Auto) 0.2, Gran # 2.81, Lymph # 1.4, [place] # 0.6, Eos # 0.2, Baso # 0.01 09/25/16 18:53: POC Glucose (mg/dL) 90 - RAD Interpretation Radiology Orders: 09/25/16 18:57 Brain [HEAD W/O CONTRAST] [CT] Stat CHEST ONE VIEW [RAD] Stat - EKG Interpretation EKG Interpretation (Text): 09/25/16 19:09 NSR, rate 76, no axis deviation (Rebekah Dyer) - Medication Orders Current Medication Orders: Discontinued Medications Levetiracetam 1,000 mg/ Sodium (Chloride) 110 mls @ 440 mls/hr IV ONCE STA Stop: 09/25/16 20:55 Lorazepam (Ativan) 2 mg IVP ONCE ONE PRN Reason: Protocol Stop: 09/25/16 19:17 Last Admin: 09/25/16 19:37 Dose: 2 mg <Rebekah Dyer - Last Filed: 09/25/16 20:03> - PA / MEDIA SALES EXECUTIVE / Resident Statement MD/DO has reviewed & agrees with the documentation as recorded. MD/DO has examined the patient and agrees with the treatment plan. - Scribe Statement The provider has reviewed the documentation as recorded by the Scribe <Lisbet Contreras - Last Filed: 09/25/16 21:43> - Scribe Statement Jennifer Romero Provider Scribe Attestation: All medical record entries made by the Scribe were at my direction and personally dictated by me. I have reviewed the chart and agree that the record accurately reflects my personal performance of the history, physical exam, medical decision making, and the department course for this patient. I have also personally directed, reviewed, and agree with the discharge instructions and disposition. (Lisbet Contreras) Disposition/Present on Arrival - Present on Arrival Any Indicators Present on Arrival: Yes History of DVT/PE: No History of Uncontrolled Diabetes: No Urinary Catheter: Yes History of Decub. Ulcer: Yes History Surgical Site Infection Following: None - Disposition Have Diagnosis and Disposition been Completed?: No Disposition Time: 20:06 <Rebekah Dyer - Last Filed: 09/25/16 20:03> - Disposition Disposition Time: 21:00 Patient Plan: Observation, Telemetry <Lisbet Contreras - Last Filed: 09/25/16 21:43> - Disposition Diagnosis: Seizure Disposition: HOSPITALIZED Patient Problems: Current Active Problems Problem Status Onset Seizure Acute Condition: STABLE
[2016-09-25 19:25] LABS: ADD MANUAL DIFF? NO
[2016-09-25 19:38] LABS: BASO # 0.01 K/mm3 (0.0-2.0); BASO % 0.2 % (0.0-3.0); EOS # 0.2 (0.0-0.7); EOS % 4.6 % (1.5-5.0); GRAN # 2.81 (1.4-6.5); GRAN % 55.9 % (50.0-68.0); HEMATOCRIT 41.3 % (42.0-52.0); LYMPH # 1.4 (1.2-3.4); MEAN CELL VOLUME 89.2 fL (80.0-105.0); MEAN CORPUSCULAR HEMOGLOBIN 29.6 pg (25.0-35.0); MEAN CORPUSCULAR HGB CONC 33.2 g/dl (31.0-37.0); MEAN PLATELET VOLUME 9.2 fl (7.0-11.0); MONO # 0.6 (0.1-0.6); MONO % 11.3 % (1.0-6.0); PLATELET COUNT 174 10^3/uL (120.0-450.0); RED CELL DISTRIBUTION WIDTH 13.2 % (11.5-14.5)
[2016-09-25 19:40] LABS: ALB/GLOB RATIO 1.1 (1.1-1.8); ALKALINE PHOSPHATASE 84 U/L (38-133); ALT/SGPT 105 U/L (7-56); AST/SGOT 57 U/L (15-59); BILIRUBIN,TOTAL 0.6 mg/dL (0.2-1.3); BLOOD UREA NITROGEN 17 mg/dL (7-21); CALCIUM 8.8 mg/dL (8.4-10.5); CARBON DIOXIDE 31 mmol/L (21-33); CHLORIDE 98 mmol/L (98-107); GFR AFRICAN-AMERICAN > 60; GLUCOSE,RANDOM 90 mg/dL (70-110); MAGNESIUM 2.2 mg/dL (1.7-2.2); POTASSIUM 4.1 mmol/L (3.6-5.0); SODIUM 135 mmol/L (132-148); TOTAL PROTEIN 7.7 g/dL (5.8-8.3)
[2016-09-25 19:52] LABS: TROPONIN I < 0.01 ng/mL
[2016-09-25] MEDS ORDERED: levETIRAcetam 1,000 MG in Sodium Chloride 0.9% 100 ML IV STA (20:41)
--- NOTE | 2016-09-25 20:43 | CT ---
EXAM: CT Head Without Intravenous Contrast CLINICAL HISTORY: 61 years old, male; Signs and symptoms; Other: Seizures; Prior surgery; Surgery date: 6+ months; Additional info: S/P seizure TECHNIQUE: Axial computed tomography images of the head/brain without intravenous contrast. This CT exam was performed using one or more of the following dose reduction techniques: automated exposure control, adjustment of the mA and/or kV according to patient size, and/or use of iterative reconstruction technique. EXAM DATE/TIME: 09/25/2016 6:57 PM COMPARISON: Prior head CT of 08/27/2016 10:53:02 AM FINDINGS: LIMITATIONS: Significant streak/motion artifact. The patient was scanned twice. BRAIN: Parasellar aneurysm clip identified. Multiple areas of CSF density in the inferior frontal lobes bilaterally, stable in appearance, greater on the left, most compatible with bilateral frontal lobe encephalomalacia. Stable appearance of hypodensity in the periventricular white matter, most likely representing chronic small vessel ischemic changes, although transependymal flow of CSF secondary to hydrocephalus could also have this appearance. No definite acute abnormality identified, allowing for streak/motion artifact. No definite acute hemorrhage seen within the brain. No definite acute extra-axial fluid collections visualized. No evidence of significant mass effect within the brain. VENTRICLES: Ventriculoperitoneal/IVP shunt remains in place. Its tip appears located in the right lateral ventricle. The ventricles are stable in size, and again appear mildly dilated, suspicious for mild hydrocephalus. BONES/JOINTS: Post operative changes. Evidence of a previous left frontotemporal craniotomy. Evidence of previous gayatri holes. SOFT TISSUES: No acute abnormality of the visualized soft tissues is seen. SINUSES: Minimal mucosal thickening in the ethmoid sinuses bilaterally. Remaining visualized paranasal sinuses appear clear. MASTOID AIR CELLS: Mastoid air cells appear clear. IMPRESSION: - No definite acute findings seen within the brain, allowing for motion artifact. - Stable appearance of the brain compared to a prior CT. - Stable ventricular dilatation, suspicious for mild hydrocephalus, with a INTERLOCKER shunt in place. - Post operative changes related to prior left-sided craniotomy and aneurysm clipping. - Areas of encephalomalacia in the frontal lobes bilaterally. - See above for remaining findings.
--- NOTE | 2016-09-26 08:15 | RAD ---
PROCEDURE: CHEST RADIOGRAPH, 1 VIEW HISTORY: s/p seizure COMPARISON: 08/27/2016. FINDINGS: LUNGS: The lungs are clear. PLEURA: No pneumothorax or pleural fluid seen. CARDIOVASCULAR: Normal. OSSEOUS STRUCTURES: No significant abnormalities. VISUALIZED UPPER ABDOMEN: Normal. OTHER FINDINGS: None. IMPRESSION: No active pulmonary disease.
--- NOTE | 2016-09-26 10:39 | CARD ---
APPROVED REPORT EKG Measurement Heart [id number] <Conclusion> Normal sinus rhythm J point elevations c/w early repolarization
[2016-09-26] MEDS: Potassium Chloride 10 mEq ER Tab PO SCH (15:38)
--- NOTE | 2016-09-26 16:53 | HP ---
HISTORY OF PRESENT ILLNESS: The patient is a 61-year-old male admitted through the Emergency Departm ent on 09/25/2016 with recurrent seizures. The patient has a history of subarachnoid hemorrhage, sta tus post ventricular peritoneal shunt approximately 5 years ago and has had recurrent admissions for breakthrough seizures. He was recently admitted on 09/06/2016; was seen by neurosurgery, Dr. Jose dao, who did a ventriculoperitoneal shunt revision for shunt failure. PAST MEDICAL HISTORY: Includes subarachnoid hemorrhage status post EXHIBIT PREPARATOR shunt, COPD secondary to tobac co, hypertension, CHF and dementia status post CVA. PAST SURGICAL HISTORY: Includes cervical laminectomy in the remote past. ALLERGIES: The patient has no known drug allergies. CURRENT MEDICATIONS: Include Keppra 1500 mg twice daily, Lamictal 150 mg twice daily, Xanax 0.25 mg twice daily, Lasix 20 mg daily and K-Dur 20 mg daily. FAMILY HISTORY: Noncontributory. SOCIAL HISTORY: There is no history of tobacco, alcohol or drug use. REVIEW OF SYSTEMS: Unobtainable secondary to patient's mental status. PHYSICAL EXAMINATION: GENERAL: The patient is a slightly cachectic male in no acute distress. VITAL SIGNS: Blood pressure 173/89. Pulse 65. The patient is afebrile. Respiratory rate 17. HEENT: Head is normocephalic. There is a ventriculoperitoneal shunt present. Pupils equal, round a nd reactive to light. Extraocular movements intact. NECK: Supple. No thyromegaly, no carotid bruit, no adenopathy. LUNGS: Clear. HEART: Regular rate and rhythm. ABDOMEN: Soft, nontender. Bowel sounds are normoactive. EXTREMITIES: Show 1-2+ edema to the calves bilaterally without cyanosis or clubbing. NEUROLOGIC: The patient is awake and confused without focal sensory or motor deficits. SKIN: Warm and dry. LABORATORY DATA: WBCs 5.0, hemoglobin 13.7, hematocrit 41.3. CMP is within normal limits. Troponin is less than 0.01. CT scan of the head shows no acute bleeds or infarcts. Chest x-ray shows no act nenita disease. IMPRESSION: 1. Recurrent seizures. 2. History of subarachnoid hemorrhage status post ventriculoperitoneal shunt with revision. 3. Chronic obstructive pulmonary disease. 4. Hypertension. 5. Dementia status post subarachnoid hemorrhage. 6. Congestive heart failure. PLAN: The patient is admitted to the intensive care unit. We will obtain a neurology consult from Tariq Khalil and restart seizure medications, physical therapy and social work for discharge planning. Umesh Marquis JD, MD cc: [id number] TT: 09/26/2016 16:52:28 ln
--- NOTE | 2016-09-26 18:58 | CON ---
DATE: 09/26/2016 CHIEF COMPLAINT: Breakthrough seizure. 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 and Trileptal 150 mg p.o. b.i.d., had recently failed ventriculoperitoneal shunt, which was revised on his admission on 09/06/2016. He came in for breakthrough seizure. It was notice d that his Keppra level is normal, but his Trileptal level is low, which is nonexistent. Therefore i t is questionable if he is even taking Trileptal, if his body is being adapted to or not. He is curr ently sitting up, eating his food, moving all extremities, back to his baseline. CT head showed no a cute intracranial abnormality. His old parasellar aneurysm clip identified and stable brain CAT scan compared to the previous and has stable ventricular diastasis ____ with EVENT ATTENDANT shunt in place and postop erative change related to left-sided craniotomy and aneurysm clipping, history repair of encephalomal acia in the bilateral frontal lobes. Following commands, moving all extremities. PAST MEDICAL HISTORY: History of subarachnoid hemorrhage, status post clipping, status post ventricu loperitoneal shunt, status post shunt revision in 09/06/2016. Status post seizure disorder, status po st tonic-clonic seizure medications, history of breakthrough seizures, agitation and insomnia. REVIEW OF SYSTEMS: 14-point review of systems negative except for that in the HPI. Requires assista nce with his ADLs. Has mild dementia, history of TBI and seizure disorder. ALLERGIES: No known drug allergies. FAMILY HISTORY: Noncontributory. PHYSICAL EXAMINATION: VITAL SIGNS: Temperature afebrile, pulse rate of 66, blood pressure 156/97, oxygen saturation 99% on room air. GENERAL: The patient is sitting up in bed in no acute distress, eating his food without any difficul ty. HEENT: Atraumatic, normocephalic. PERRLA. Extraocular muscles intact. NECK: Supple, no JVD, no adenopathy noted. LUNGS: Clear to auscultation. No adventitious sounds. HEART: S1, S2, normal rate and rhythm. No murmurs, rubs, or gallops. ABDOMEN: Soft, nontender, nondistended. Bowel sounds are present. EXTREMITIES: No clubbing, no cyanosis. Peripheral pulses 2+ felt bilaterally. NEUROLOGIC: The patient is alert, oriented to person, place, month, not much of year. Recall after 5 minutes is 0/3. Poor attention span, slow thought process. Cranial nerves II-XII intact. Speech is hypophonic, but no aphasia noted. MOTOR: Normal tone; Moves all extremities equally. No pronator drift seen. Sensory exam withdraws to localized noxious stimulus. Light touch, pinprick, proprioception, vibration intact. DTRs are 1+ throughout. COORDINATION: [id number] intact. GAIT: Deferred for now. LABORATORY DATA: Low oxcarbazepine levels. Keppra level is within normal limits. Sodium is 135, po tassium 4.1, chloride 98, carbon dioxide of 31, BUN 17, creatinine 0.8. Random glucose is 90. ASSESSMENT AND PLAN: This is a 61-year-old man with past medical history of aneurysm, subarachnoid h emorrhage, status post clipping, status post ventriculoperitoneal shunt, status post shunt revision o n 09/06/[address] Blair, history of some multiple breakthrough seizures, history of traumatic brai n injury, history of cognitive impairment, with a dysexecutive syndrome from traumatic brain injury, history of noncompliance with seizure medications, history of agitation, insomnia, history of noncomp liance with seizure medications in the past. He was on Keppra 500 mg p.o. b.i.d. and Trileptal 150 b .i.d., was brought for breakthrough seizures. I feel like his breakthrough seizures is part of his w hole overall traumatic brain injury spectrum. He has a low Trileptal level indicating that he is unl ikely to have been taking the Trileptal to begin with. At this time, I recommend: 1. To increase his Trileptal level from 150 to 300 mg p.o. b.i.d. in addition to continuing with Kep pra 500 mg p.o. b.i.d. 2. Seizure prophylaxis. 3. Could be on Xanax 0.5 mg p.o. b.i.d. for agitation and for regular sleep pattern. 4. Will likely need long-term care and home health aide given his multiple admissions for breakthrou gh seizures, unclear if he is getting his medications at adequate times. At this time, continue with current present medical management. Get assistant case manager and executive secretary social welfare i [facility]. Thank you for this consult. Please reconsult as necessary for any change in mental status. Dom Khalil MD cc: [id number] TT: 09/26/2016 18:57:49 Confirmation # [id number] Dictation # [id number] lisa
[2016-09-27] MEDS: Potassium Chloride 10 mEq ER Tab PO SCH (08:01)
--- NOTE | 2016-09-27 11:36 | PN ---
DATE: 09/27/2016 SUBJECTIVE: The patient is lying in bed in no acute distress. He is slightly agitated and remains c onfused. OBJECTIVE: VITAL SIGNS: Blood pressure 153/94, pulse 63, temperature 98.2, respiratory rate 14. LUNGS: Clear. HEART: Regular rate and rhythm. ABDOMEN: Soft, nontender. Bowel sounds are normoactive. EXTREMITIES: Without cyanosis, clubbing, or edema. NEUROLOGIC: The patient is awake and responsive. He is confused without focal sensory or motor defi cits. SKIN: Warm and dry. IMPRESSION: 1. Recurrent seizures. 2. History of subarachnoid hemorrhage, status post ventriculoperitoneal shunt, status post revision. 3. Chronic obstructive pulmonary disease. 4. Hypertension. 5. Dementia, status post subarachnoid hemorrhage. 6. Congestive heart failure. PLAN: Continue neurology followup with Dr. Khalil. Physical therapy and social work for discharge gabrielle talavera. Umesh Marquis JD, MD cc: [id number] TT: 09/27/2016 11:36:33 Confirmation # [id number] Dictation # [id number] tn
[2016-09-28] MEDS: Potassium Chloride 10 mEq ER Tab PO SCH (09:01)
--- NOTE | 2016-09-28 12:54 | PN ---
DATE: 09/28/2016 SUBJECTIVE: The patient is lying in bed. He is sedated, not easily arousable, apparently he receive d Geodon 20 mg IM for agitation and is now on 1:1 observation. OBJECTIVE: VITAL SIGNS: Blood pressure 115/70, pulse 72, temperature 97.1, respiratory rate 16. LUNGS: Clear. HEART: Regular rate and rhythm. ABDOMEN: Soft, nontender, bowel sounds are normoactive. EXTREMITIES: Without cyanosis, clubbing, or edema. NEUROLOGIC: The patient is sedated, responsive to painful stimuli. SKIN: Warm and dry. IMPRESSION: 1. Recurrent seizures. 2. History of subarachnoid hemorrhage, status post ventriculoperitoneal shunt, status post shunt rev ision. 3. Chronic obstructive pulmonary disease. 4. Hypertension. 5. Dementia, status post subarachnoid hemorrhage with agitation. 6. Congestive heart failure. PLAN: Continue neurology followup with Dr. Khalil. Physical therapy and social work for discharge gabrielle talavera. Umesh Marquis JD, MD cc: [id number] TT: 09/28/2016 12:53:54 Confirmation # [id number] Dictation # [id number] lisa
[2016-09-29] MEDS: Potassium Chloride 10 mEq ER Tab PO SCH (10:20)
--- NOTE | 2016-09-29 11:57 | PN ---
DATE: 09/29/2016 SUBJECTIVE: The patient is out of bed in a chair. He is lethargic and arousable, in no acute distre ss. OBJECTIVE: VITAL SIGNS: Blood pressure 114/68, pulse 64, temperature 98.2, respiratory rate 20. LUNGS: Clear. HEART: Regular rate and rhythm. ABDOMEN: Soft, nontender, bowel sounds are normoactive. EXTREMITIES: Without cyanosis, clubbing, or edema. NEUROLOGIC: The patient is lethargic and arousable without focal sensory or motor deficits. SKIN: Warm and dry. IMPRESSION: 1. Recurrent seizures. 2. History of subarachnoid hemorrhage, status post ventriculoperitoneal shunt, status post shunt rev ision. 3. Chronic obstructive pulmonary disease. 4. Hypertension. 5. Dementia, status post subarachnoid hemorrhage with agitation. 6. Congestive heart failure. PLAN: Continue neurology followup with Dr. Khalil. The patient is medically stable for transfer to the medical surgical floor. Continue physical therapy and social work for discharge planning. Umesh Marquis JD, MD cc: [id number] TT: 09/29/2016 11:56:28 Confirmation # [id number] Dictation # [id number] lisa
[2016-09-30] MEDS: Potassium Chloride 10 mEq ER Tab PO SCH (07:17)
--- NOTE | 2016-09-30 12:38 | PN ---
DATE: 09/30/2016 SUBJECTIVE: The patient is lying in bed in no acute distress. He is slightly lethargic but arousabl e. OBJECTIVE: VITAL SIGNS: Blood pressure 146/70, pulse 69, temperature 98.4 axillary, respiratory rate 14. LUNGS: Clear. HEART: Regular rate and rhythm. ABDOMEN: Soft, nontender, bowel sounds are normoactive. EXTREMITIES: Without cyanosis, clubbing, or edema. NEUROLOGIC: The patient is somewhat lethargic but arousable, without focal sensory or motor deficits . SKIN: Warm and dry. IMPRESSION: 1. Recurrent seizures. 2. History of subarachnoid hemorrhage, status post ventriculoperitoneal shunt, status post shunt rev ision. 3. Chronic obstructive pulmonary disease. 4. Hypertension. 5. Dementia, status post subarachnoid hemorrhage with agitation. 6. Congestive heart failure. PLAN: Continue neurology followup with Dr. Khalil. The patient is medically stable for transfer to the medical-surgical floor. Continue physical therapy and social work for discharge planning. Check labs in a.m. Umesh Marquis JD, MD cc: [id number] TT: 09/30/2016 12:37:51 Confirmation # [id number] Dictation # [id number] mn
[2016-09-30 17:51] VITALS: RESP 20
[2016-10-01 07:12] LABS: ADD MANUAL DIFF? NO
[2016-10-01 07:16] LABS: BASO # 0.02 K/mm3 (0.0-2.0); BASO % 0.4 % (0.0-3.0); EOS # 0.3 (0.0-0.7); EOS % 5.7 % (1.5-5.0); GRAN # 2.36 (1.4-6.5); GRAN % 46.2 % (50.0-68.0); HEMATOCRIT 41.8 % (42.0-52.0); LYMPH # 1.8 (1.2-3.4); LYMPH % 34.6 % (22.0-35.0); MEAN CELL VOLUME 85.1 fL (80.0-105.0); MEAN CORPUSCULAR HEMOGLOBIN 29.7 pg (25.0-35.0); MEAN CORPUSCULAR HGB CONC 34.9 g/dl (31.0-37.0); MEAN PLATELET VOLUME 9.4 fl (7.0-11.0); MONO # 0.7 (0.1-0.6); MONO % 13.1 % (1.0-6.0); PLATELET COUNT 150 10^3/uL (120.0-450.0); RED CELL DISTRIBUTION WIDTH 12.8 % (11.5-14.5); WHITE BLOOD COUNT 5.1 10^3/ul (4.5-11.0)
[2016-10-01 07:46] LABS: ALB/GLOB RATIO 1.2 (1.1-1.8); ALKALINE PHOSPHATASE 78 U/L (38-133); ALT/SGPT 103 U/L (7-56); AST/SGOT 53 U/L (15-59); BILIRUBIN,TOTAL 1.1 mg/dL (0.2-1.3); BLOOD UREA NITROGEN 12 mg/dL (7-21); CALCIUM 8.4 mg/dL (8.4-10.5); CARBON DIOXIDE 25 mmol/L (21-33); CHLORIDE 95 mmol/L (98-107); GFR AFRICAN-AMERICAN > 60; GLUCOSE,RANDOM 91 mg/dL (70-110); POTASSIUM 3.6 mmol/L (3.6-5.0); SODIUM 127 mmol/L (132-148); TOTAL PROTEIN 7.1 g/dL (5.8-8.3)
[2016-10-01] MEDS: Potassium Chloride 10 mEq ER Tab PO SCH (07:55)
[2016-10-01 07:57] VITALS: TEMP 98.3; O2SAT 97
--- NOTE | 2016-10-01 13:59 | PN ---
DATE: 10/01/2016 SUBJECTIVE: The patient is lying in bed in no acute distress. He is lethargic, but arousable. OBJECTIVE: VITAL SIGNS: Blood pressure 138/95, pulse 61, temperature 98.3, respiratory rate 20. LUNGS: Clear. HEART: Regular rate and rhythm. ABDOMEN: Soft, nontender, bowel sounds are normoactive. EXTREMITIES: Without cyanosis, clubbing, or edema. NEUROLOGIC: The patient is slightly lethargic, but arousable without focal sensory or motor deficits . SKIN: Warm and dry. LABORATORY DATA: WBC is 5.1, hemoglobin 14.6, hematocrit 41.8. Sodium 127, potassium 3.6, chloride 95, CO2 25, BUN 12, creatinine 0.6, glucose 91. IMPRESSION: 1. Hyponatremia, probable volume depletion secondary to diuretics. 2. History of subarachnoid hemorrhage, status post ventriculoperitoneal shunt, status post shunt rev ision. 3. Recurrent seizures. 4. Chronic obstructive pulmonary disease. 5. Hypertension. 6. Dementia, status post subarachnoid hemorrhage with agitation. 7. Congestive heart failure. PLAN: Will hold diuretics. Start cautious IV hydration with saline. Monitor electrolytes. Continu e physical therapy and social work for discharge planning. Umesh Marquis JD, MD cc: [id number] TT: 10/01/2016 13:58:21 Confirmation # [id number] Dictation # [id number] ministerio
[2016-10-02 07:23] LABS: BLOOD UREA NITROGEN 11 mg/dL (7-21); CALCIUM 8.6 mg/dL (8.4-10.5); CARBON DIOXIDE 26 mmol/L (21-33); CHLORIDE 95 mmol/L (95-110); GFR AFRICAN-AMERICAN > 60; GLUCOSE,RANDOM 92 mg/dL (70-110); POTASSIUM 3.9 mmol/L (3.6-5.0); SODIUM 130 mmol/L (132-148)
[2016-10-02] MEDS: Potassium Chloride 10 mEq ER Tab PO SCH (08:27)
[2016-10-02 10:29] VITALS: BP 114/76; PULSE 76
--- NOTE | 2016-10-02 11:56 | DS ---
HOSPITAL COURSE: The patient is a 61-year-old male with history of subarachnoid hemorrhage, status p ost ventriculoperitoneal shunt, who was admitted for recurrent seizures. The patient was seen in [facility] by neurology, Dr. Khalil, was given IV Keppra and he is now on Lamictal and Keppra orally w ithout seizures for the past several days. He is awake and responsive and medically stable for disch arge to home today. PHYSICAL EXAMINATION: VITAL SIGNS: Blood pressure 114/76, pulse 76, temperature 98.3, respiratory rate 20. LUNGS: Clear. HEART: Regular rate and rhythm. ABDOMEN: Soft, nontender, bowel sounds are normoactive. EXTREMITIES: Without cyanosis, clubbing, or edema. NEUROLOGIC: The patient is awake and responsive. He remains confused without focal sensory or motor deficits. SKIN: Warm and dry. LABORATORY DATA: Sodium is 130. IMPRESSION: 1. Recurrent seizures. 2. History of subarachnoid hemorrhage, status post ventriculoperitoneal shunt. 3. Hypertension, hypertensive cardiovascular disease and congestive heart failure. 4. Chronic obstructive pulmonary disease. 5. Dementia, status post subarachnoid hemorrhage. 6. Hyponatremia secondary to diuretics, improved. PLAN: The patient will be discharged to home in stable condition today on the following medications: Keppra 1500 mg twice daily, K-Dur 10 mEq daily, Trileptal 300 mg twice daily and Cozaar 50 mg daily . The patient will be maintained on a heart-healthy diet, activities ad libitum. He will be seen as an outpatient over the next 1-2 weeks. Umesh Marquis JD, MD cc: [id number] TT: 10/02/2016 11:56:18 rn
--- NOTE | 2016-10-02 13:47 | CP.PCM.PN ---
Subjective - Date & Time of Evaluation Date of Evaluation: 10/02/16 Time of Evaluation: 13:45 - Subjective Subjective: prescription copay Objective - Vital Signs/Intake and Output Vital Signs (last 24 hours): Temp Pulse Resp BP Pulse Ox 98.3 F 76 20 114/76 97 10/01/16 07:30 10/02/16 10:23 10/01/16 07:30 10/02/16 10:23 10/01/16 07:30 Intake and Output: 10/02/16 10/02/16 06:59 18:59 Intake Total 2260 Output Total 2300 Balance -40 - Medications Medications: Current Medications Potassium Chloride 10 meq/ (Sodium Chloride) 1,005 mls @ 60 mls/hr IV .[id number] [facility] Last Admin: 10/02/16 05:37 Dose: 60 mls/hr Levetiracetam (Keppra) 1,500 mg PO BID [facility] Last Admin: 10/02/16 10:22 Dose: 1,500 mg Losartan Potassium (Cozaar) 50 mg PO DAILY [facility] Last Admin: 10/02/16 10:23 Dose: 50 mg Oxcarbazepine (Trileptal) 300 mg PO BID [facility] PRN Reason: Protocol Last Admin: 10/02/16 10:23 Dose: 300 mg Potassium Chloride (Klor-Con 10) 10 meq PO BRK [facility] Last Admin: 10/02/16 08:27 Dose: 10 meq - Labs Labs: 10/01/16 06:59 10/02/16 06:40 Assessment and Plan - Assessment and Plan (Free Text) Assessment: prescriptions sent to pharmacy Plan: Daniel pharmacist spoke with regarding co-pay. 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 declines to take medication at this time.
== END 2016-10-02 15:14 | disposition home or self-care (01) | DRG 101 ==
LOC: ED 18:34 → ERH 21:16 → CCU 09-26 00:06 → OBSVTOIN 09-26 15:34 → 5RNO 09-30 18:31
PROVIDERS: ADMIT Internal Medicine; ATTEND Internal Medicine
DX: G40.909 Epilepsy, unspecified, not intractable, without status epilepticus (principal); G91.9 Hydrocephalus, unspecified; I11.0 Hypertensive heart disease with heart failure; I50.9 Heart failure, unspecified; E87.1 Hypo-osmolality and hyponatremia; T50.2X5A Adverse effect of carbonic-anhydrase inhibitors, benzothiadiazides and other diuretics, initial encounter; J44.9 Chronic obstructive pulmonary disease, unspecified; F03.90 Unspecified dementia, unspecified severity, without behavioral disturbance, psychotic disturbance, mood disturbance, and anxiety; G93.89 Other specified disorders of brain; G47.00 Insomnia, unspecified; Z87.820 Personal history of traumatic brain injury; Z91.19 Patient's noncompliance with other medical treatment and regimen; Z98.2 Presence of cerebrospinal fluid drainage device; Z86.73 Personal history of transient ischemic attack (TIA), and cerebral infarction without residual deficits

== ENCOUNTER 2016-11-17 09:11 | Emergency (ER) | payer MEDICARE, OTHER ==
[2016-11-17] MEDS ORDERED: Propofol 10 mg/ml Inj (20 ML) ONE (09:21)
[2016-11-17] MEDS ORDERED: Rocuronium 10 mg/ml (5 ml) ONE (09:22)
[2016-11-17 09:28] VITALS: BMI 27.8
[2016-11-17] MEDS ORDERED: Propofol 10 mg/ml Inj (20 ML) IVP ONE (09:30)
[2016-11-17] MEDS ORDERED: Rocuronium 10 mg/ml (5 ml) IVP ONE (09:30)
[2016-11-17 09:36] LABS: ADD MANUAL DIFF? NO
[2016-11-17] MEDS ORDERED: Propofol 10 mg/ml 1,000 MG/100 ML VIAL IV PRN (09:37)
[2016-11-17 09:40] LABS: BASO # 0.03 K/mm3 (0.0-2.0); BASO % 0.3 % (0.0-3.0); EOS # 0.4 (0.0-0.7); EOS % 4.4 % (1.5-5.0); GRAN # 3.67 (1.4-6.5); GRAN % 36.6 % (50.0-68.0); HEMATOCRIT 50.2 % (42.0-52.0); LYMPH # 4.7 (1.2-3.4); LYMPH % 46.6 % (22.0-35.0); MEAN CELL VOLUME 89.8 fL (80.0-105.0); MEAN CORPUSCULAR HEMOGLOBIN 30.6 pg (25.0-35.0); MEAN CORPUSCULAR HGB CONC 34.1 g/dl (31.0-37.0); MEAN PLATELET VOLUME 9.7 fl (7.0-11.0); MONO # 1.2 (0.1-0.6); MONO % 12.1 % (1.0-6.0); PLATELET COUNT 201 10^3/uL (120.0-450.0); RED CELL DISTRIBUTION WIDTH 13.3 % (11.5-14.5)
--- NOTE | 2016-11-17 09:44 | ED PDOC ---
Arrival/HPI - General Chief Complaint: Seizure Time Seen by Provider: 11/17/16 09:37 - History of Present Illness Narrative History of Present Illness (Text): 11/17/16 11:56 Hx provided by EMS. 61yo male with hx of seizures, with mult seizures this morning, woke pt's up from sleep. Pt had 2 seizures en route with spontaneous resolution, without return to baseline. Seizure in the ED as well. Ativan given without resolution. Past Medical History - Provider Review Nursing Documentation Reviewed: Yes - Past History Past History: Unable to Obtain - Infectious Disease Hx of Infectious Diseases: None - Tetanus Immunization Tetanus Immunization: Unknown - Cardiac Hx Cardiac Disorders: Yes Hx Hypertension: Yes - Pulmonary Hx Chronic Obstructive Pulmonary Disease (COPD): Yes - Neurological HX Cerebrovascular Accident: Yes - HEENT Hx HEENT Disorder: No - Renal Hx Renal Disorder: No - Endocrine/Metabolic Hx Endocrine Disorders: No - Hematological/Oncological Hx Blood Disorders: Yes Hx Hepatitis C: Yes Other/Comment: liver disease - Integumentary Hx Dermatological Disorder: Yes Hx Basal Cell Carcinoma: No Hx Eczema: No Hx Melanoma: No Hx Psoriasis: No Hx Squamous Cell Carcinoma: No - Musculoskeletal/Rheumatological Hx Falls: Yes - Gastrointestinal Hx 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) - Genitourinary/Gynecological Hx Genitourinary Disorders: Yes Hx Incontinence: Yes - Psychiatric Hx Psychophysiologic Disorder: Yes (SMOKED CIGARETTES,HEAVY DRINKER ETOH ABUSE H.O) Hx Substance Use: Yes (unknown) - Past Surgical History Past Surgical History: Unable to Obtain - Surgical History Hx Orthopedic Surgery: Yes (C-sp Sx) - Anesthesia Hx Anesthesia Reactions: No Hx Malignant Hyperthermia: No - Suicidal Assessment Feels Threatened In Home Enviroment: No Family/Social History Family/Social History: Unknown Family HX Smoking Status: Current Some Days Smoker Hx Alcohol Use: Yes (unknown) Hx Substance Use: Yes (unknown) Hx Substance Use Treatment: No Allergies/Home Meds Allergies/Adverse Reactions: Allergies No Known Allergies Allergy (Verified 11/17/16 09:26) Home Medications: Home Meds Medication Instructions Recorded Confirmed ALPRAZolam [Xanax] 0 mg PO DAILY 08/27/16 09/25/16 Review of Systems - Review of Systems Systems not reviewed;Unavailable: Other (seizure) Physical Exam - Physical Exam Physical Exam Limitations: Clinical Condition Vital Signs Reviewed: Yes Vital Signs Temp Pulse Resp BP Pulse Ox 11/17/16 11:36 110 H 14 127/76 99 11/17/16 10:52 128 H 14 152/98 H 98 11/17/16 10:33 126 H 14 170/102 H 97 11/17/16 10:02 98 F 150 H 14 205/119 H 97 11/17/16 09:25 140 H 24 178/91 H 96 Temperature: Afebrile Blood Pressure: Hypertensive Pulse: Tachycardic (resolved) Respiratory Rate: Mechanically Ventilated Appearance: Positive for: Other (actively seizing) Mental Status: Positive for: Lethargic Finger Stick Blood Glucose: 124 - Systems Exam Head: Present: Atraumatic, Normocephalic Pupils: Present: Non-Reactive Extroacular Muscles: Present: Other (L. sided gaze) Mouth: Present: Normal Lips. No: Drooling Neck: No: MIDLINE TENDERNESS, Paraspinal Tenderness Respiratory/Chest: Present: Good Air Exchange (poor air exchange), Respiratory Distress Cardiovascular: Present: Tachycardic. No: Irregular Rhythm Abdomen: No: Tenderness, Distention Upper Extremity: No: Cyanosis, Edema Lower Extremity: Present: NORMAL PULSES. No: Edema Neurological: Present: Other (actively seizing) Medical Decision Making ED Course and Treatment: 61yo male in status epilepticus, still seizing after ativan becoming hypoxic in need of airway protection intubated no hypoxia during procedure, first time pass 11/17/16 09:[address] Abarac, who will see patient. 11/17/16 09:47 Status epilepticus. Previous records looked at and reveal patient has had a subdural hemorrhage, [employer] shunt, recurrent seizures. Was given lomotil and keppra. Last admitted September 2016. 11/17/2016 Chest X-ray read and interpreted by me, which shows no cardiomegaly, og-tube in place, ET-tube above the coriba, no obvious infiltrates. Case discussed with Dr. Abarca, who has admitted patient into MICU. Patient seen by Dr. Abarca, who states patient will not be admitted into MICU due to lack of EEG monitoring, states he confirmed with Dr. Khalil. Discussed with carrier clinic, waiting on neurologist. 11/17/16 11:03 CT Head IMPRESSION: 1. No acute intracranial findings are identified this time with the CT unchanged compared to prior CT 09/25/2016. 2. Prior left frontal craniotomy and right frontal gayatri hole are again identified with stable right frontal shunt placement. 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 3. Stable limited cystic encephalomalacia inferior left frontal lobe. 4. Mild hydrocephalus potentially somewhat improved in the interval. 11/17/16 11:10 dw Nury MUCKER OPERATOR from [facility], states pt needs neuro ICU and transfer center report they paged the attending 11/17/16 11:14 dw transfer center again, report pt was accepted to neuro ICU to Dr. Mims's service 11/17/16 12:03 informed by pt's RN that pt has a bed in neuro ICU and ambulance is in the ED spoke with pt's on the phone, obtained phone consent, she's update on 's condition and plan pt's HR decreased, BP decreased as well on vent keppra ordered, on propofol drip, no visible seizure activity at this time EKG shows sinus tach, 150bpm, no st-segment elevations, interpreted by me. - Critical Care Critical Care Minutes: 30 minutes - Lab Interpretations Lab Results: 11/17/16 09:35 11/17/16 09:35 Lab Results 11/17/16 10:07: PT 10.7, INR 0.99, APTT 26.0 11/17/16 09:35: Sodium 145, Potassium 4.4, Chloride 101, Carbon Dioxide 11 L, Anion Gap 37 H, BUN 10, Creatinine 0.9, Est GFR ( Amer) > 60, Est GFR ( Non-Af Amer) > 60, Random Glucose 142 H, Calcium 10.3, Total Bilirubin 0.7, AST 38, ALT 47, Alkaline Phosphatase 91, Total Protein 9.6 H, Albumin 5.6 H, Globulin 4.0, Albumin/Globulin Ratio 1.4 11/17/16 09:35: WBC 10.0 D, RBC 5.59, Hgb 17.1, Hct 50.2, MCV 89.8, MCH 30.6, MCHC 34.1, RDW 13.3, Plt Count 201, MPV 9.7, Gran % 36.6 L, Lymph % (Auto) 46.6 H, Grayson % (Auto) 12.1 H, Eos % (Auto) 4.4, Baso % (Auto) 0.3, Gran # 3.67, Lymph # 4.7 H, Grayson # 1.2 H, Eos # 0.4, Baso # 0.03 I have reviewed the lab results: Yes - RAD Interpretation Radiology Orders: 11/17/16 09:28 CHEST PORTABLE [RAD] Stat 11/17/16 09:37 HEAD W/O CONTRAST [CT] Stat - Medication Orders Current Medication Orders: Propofol (Diprivan) 1,000 mg in 100 mls @ 2.722 mls/hr IV .Q24H PRN; Protocol; 5 MCG/KG/MIN PRN Reason: TITRATE PER MD ORDER Last Admin: 11/17/16 10:04 Dose: 2.722 mls/hr Sodium Chloride (Sodium Chloride 0.9%) 1,000 mls @ 100 mls/hr IV .Q10H [place] Last Admin: 11/17/16 11:35 Dose: 100 mls/hr Discontinued Medications Adenosine (Adenosine 6 Mg/2 Ml Inj) 6 mg IVP STAT STA Stop: 11/17/16 09:51 Last Admin: 11/17/16 09:50 Dose: 6 mg Levetiracetam 1,000 mg/ Sodium (Chloride) 110 mls @ 440 mls/hr IV ONCE ONE Stop: 11/17/16 10:17 Last Admin: 11/17/16 10:52 Dose: 440 mls/hr Lorazepam (Ativan) Confirm Administered Dose 2 mg .ROUTE .STK-MED ONE Stop: 11/17/16 09:19 Last Admin: 11/17/16 11:10 Dose: Lorazepam (Ativan) 2 mg IVP ONCE ONE PRN Reason: Protocol Stop: 11/17/16 09:21 Last Admin: 11/17/16 09:20 Dose: 2 mg Lorazepam (Ativan) 2 mg IVP ONCE ONE PRN Reason: Protocol Stop: 11/17/16 09:26 Last Admin: 11/17/16 09:25 Dose: 2 mg Midazolam HCl (Versed Inj) Confirm Administered Dose 5 mg .ROUTE .STK-MED ONE Stop: 11/17/16 09:53 Last Admin: 11/17/16 11:11 Dose: Propofol (Diprivan) Confirm Administered Dose 200 mg .ROUTE .STK-MED ONE Stop: 11/17/16 09:22 Last Admin: 11/17/16 11:10 Dose: Propofol (Diprivan) 40 mg IVP ONCE ONE Stop: 11/17/16 09:31 Last Admin: 11/17/16 09:30 Dose: 40 mg Rocuronium Sheridan (Zemuron) Confirm Administered Dose 100 mg .ROUTE .STK-MED ONE Stop: 11/17/16 09:23 Last Admin: 11/17/16 11:11 Dose: Rocuronium [place]idan (Zemuron) 100 mg IVP ONCE ONE Stop: 11/17/16 09:31 Last Admin: 11/17/16 09:30 Dose: 100 mg - Scribe Statement Tory Cristina Provider Scribe Attestation: All medical record entries made by the Scribe were at my direction and personally dictated by me. I have reviewed the chart and agree that the record accurately reflects my personal performance of the history, physical exam, medical decision making, and the department course for this patient. I have also personally directed, reviewed, and agree with the discharge instructions and disposition.' Disposition/Present on Arrival - Present on Arrival Any Indicators Present on Arrival: No History of DVT/PE: No History of Uncontrolled Diabetes: No Urinary Catheter: No History of Decub. Ulcer: No History Surgical Site Infection Following: None - Disposition Have Diagnosis and Disposition been Completed?: Yes Diagnosis: Status epilepticus Disposition: Transfer Overlook Disposition Time: 12:07 Condition: GUARDED Prescriptions: levETIRAcetam 500mg IVPB [Keppra 500mg IVPB] 500 mg IV ONCE #500 mg Referrals: Zac Coy, [Primary Care Provider] - Follow up with primary Forms: [employer] (Kinyarwanda)
[2016-11-17] MEDS ORDERED: Sodium Chloride 0.9% 1,000 ML IV SCH (09:45)
[2016-11-17 09:51] LABS: ALB/GLOB RATIO 1.4 (1.1-1.8); ALKALINE PHOSPHATASE 91 U/L (38-133); ALT/SGPT 47 U/L (7-56); AST/SGOT 38 U/L (15-59); BILIRUBIN,TOTAL 0.7 mg/dL (0.2-1.3); BLOOD UREA NITROGEN 10 mg/dL (7-21); CALCIUM 10.3 mg/dL (8.4-10.5); CARBON DIOXIDE 11 mmol/L (21-33); CHLORIDE 101 mmol/L (98-107); GFR AFRICAN-AMERICAN > 60; GLUCOSE,RANDOM 142 mg/dL (70-110); POTASSIUM 4.4 mmol/L (3.6-5.0); SODIUM 145 mmol/L (132-148); TOTAL PROTEIN 9.6 g/dL (5.8-8.3)
[2016-11-17] MEDS ORDERED: Midazolam 5 MG/5 ML VIAL ONE (09:52)
[2016-11-17] MEDS ORDERED: levETIRAcetam 1,000 MG in Sodium Chloride 0.9% 100 ML IV ONE (10:03)
[2016-11-17 10:08] VITALS: RESP 14; TEMP 98
[2016-11-17 10:20] LABS: INR 0.99 (0.93-1.08)
--- NOTE | 2016-11-17 10:47 | CT ---
PROCEDURE: CT HEAD WITHOUT CONTRAST. HISTORY: BERGER x2 weeks COMPARISON: Head CT 09/25/2016 without contrast. TECHNIQUE: Axial computed tomography images were obtained through the head/brain without intravenous contrast. Radiation dose: Total exam DLP = 1548 mGy-cm. This CT exam was performed using one or more of the following dose reduction techniques: Automated exposure control, adjustment of the mA and/or kV according to patient size, and/or use of iterative reconstruction technique. FINDINGS: HEMORRHAGE: No intracranial hemorrhage. BRAIN: Space is again seen to be status post a frontal shunt placement with catheter tip unchanged in position at the right lateral ventricle body. Mild hydrocephalus is again appreciated somewhat improved in the interval. An nneurysm clip is seen at the left lateral suprasellar cistern region once again with cystic encephalomalacia identified in the left frontal lobe inferiorly. No cortical edema is identified and no other definite acute intracranial findings are appreciate including posterior fossa contents. VENTRICLES: Mild hydrocephalus appears somewhat improved as discussed above. CALVARIUM: Right frontal gayatri hole again evident swells left frontotemporal craniotomy. PARANASAL SINUSES: Unremarkable as visualized. No significant inflammatory changes. MASTOID AIR CELLS: Unremarkable as visualized. No inflammatory changes. OTHER FINDINGS: None. IMPRESSION: 1. No acute intracranial findings are identified this time with the CT unchanged compared to prior CT 09/25/2016. 2. Prior left frontal craniotomy and right frontal gayatri hole are again identified with stable right frontal shunt placement. 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 3. Stable limited cystic encephalomalacia inferior left frontal lobe. 4. Mild hydrocephalus potentially somewhat improved in the interval.
[2016-11-17 11:37] VITALS: BP 127/76; PULSE 110; O2SAT 99
--- NOTE | 2016-11-17 13:25 | CARD ---
APPROVED REPORT EKG Measurement Heart [id number] <Conclusion> Sinus tachycardia Nonspecific ST abnormality Abnormal ECG
--- NOTE | 2016-11-17 14:18 | RAD ---
HISTORY: intubation COMPARISON: Prior chest radiograph 09/25/2016. FINDINGS: LUNGS: An endotracheal tube is identified placed, terminating above the omaira. No active pulmonary disease. PLEURA: No significant pleural effusion identified, no pneumothorax apparent. CARDIOVASCULAR: Normal. OSSEOUS STRUCTURES: No significant abnormalities. VISUALIZED UPPER ABDOMEN: Exams tube terminates at the left upper quadrant abdomen in the region of the gastric viscus. OTHER FINDINGS: Right-sided ventriculoperitoneal shunt catheter is identified once again. IMPRESSION: No acute cardiopulmonary disease. Endotracheal tube is well as Nasonex to verify placed with stable appearing right ventriculoperitoneal shunt catheter identified.
== END 2016-11-17 12:33 | disposition short-term general hospital (02) ==
LOC: ED 09:11
DX: G40.801 Other epilepsy, not intractable, with status epilepticus (principal); I10 Essential (primary) hypertension; Z86.73 Personal history of transient ischemic attack (TIA), and cerebral infarction without residual deficits; Z72.0 Tobacco use
CPT/HCPCS: 70450; 71010; 80053; 85025; 85610; 85730; 93005; 96365; 96375; 99285; J0153; J1953; J2060; J2704; J7040

== ENCOUNTER 2017-02-27 19:54 | Inpatient (IN) | payer MEDICARE, OTHER ==
[2017-02-27 19:54] VITALS: BMI 27.8
--- NOTE | 2017-02-27 19:58 | ED PDOC ---
Arrival/HPI - General Time Seen by Provider: 02/27/17 19:57 Historian: Patient - History of Present Illness Narrative History of Present Illness (Text): 02/27/17 19:58 A 61 year old male, whose past medical history includes seizure disorder, brought into the emergency department by EMS after witnessed seizure. As per EMS , son reported patient began seizing approximately at 19:00. Patient was given 5mg of versed IM on route to emergency room. Finger stick was 76. Patient arrived postictal, HPI and [facility] limited. 02/27/17 22:01 and son presented to the ED stating that patient has a h/o Brain Aneurysm with clip, Ventric, Seizures. Patients son witnessed tonic clonic seizures x 2 for 2 minutes each. He said then he had one more 2 min seizure with EMS. EMS gave Versed. Time/Duration: Other (19:00 today) Symptom Course: Unchanged Quality: Other Context: Home Past Medical History - Provider Review Nursing Documentation Reviewed: Yes - Past History Past History: Unable to Obtain - Infectious Disease Hx of Infectious Diseases: None - Tetanus Immunization Tetanus Immunization: Unknown - Cardiac Hx Cardiac Disorders: Yes Hx Hypertension: Yes - Pulmonary Hx Chronic Obstructive Pulmonary Disease (COPD): Yes - Neurological HX Cerebrovascular Accident: Yes - HEENT Hx HEENT Disorder: No - Renal Hx Renal Disorder: No - Endocrine/Metabolic Hx Endocrine Disorders: No - Hematological/Oncological Hx Blood Disorders: Yes Hx Hepatitis C: Yes Other/Comment: liver disease - Integumentary Hx Dermatological Disorder: Yes Hx Basal Cell Carcinoma: No Hx Eczema: No Hx Melanoma: No Hx Psoriasis: No Hx Squamous Cell Carcinoma: No - Musculoskeletal/Rheumatological Hx Falls: Yes - Gastrointestinal Hx 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) - Genitourinary/Gynecological Hx Genitourinary Disorders: Yes Hx Incontinence: Yes - Psychiatric Hx Psychophysiologic Disorder: Yes (SMOKED CIGARETTES,HEAVY DRINKER ETOH ABUSE H.O) Hx Substance Use: Yes (unknown) - Past Surgical History Past Surgical History: Unable to Obtain - Surgical History Hx Orthopedic Surgery: Yes (C-sp Sx) - Anesthesia Hx Anesthesia Reactions: No Hx Malignant Hyperthermia: No - Suicidal Assessment Feels Threatened In Home Enviroment: No Family/Social History - Physician Review Nursing Documentation Reviewed: Yes Family/Social History: No Known Family HX Smoking Status: Current Some Days Smoker Hx Alcohol Use: Yes (unknown) Hx Substance Use: Yes (unknown) Hx Substance Use Treatment: No Allergies/Home Meds Allergies/Adverse Reactions: Allergies No Known Allergies Allergy (Verified 11/17/16 09:26) Home Medications: Home Meds Medication Instructions Recorded Confirmed ALPRAZolam [Xanax] 0 mg PO DAILY 08/27/16 09/25/16 Review of Systems - Review of Systems Systems not reviewed;Unavailable: Acuity of Condition Physical Exam Vital Signs Reviewed: Yes Vital Signs Pulse Resp BP Pulse Ox 02/27/17 21:13 79 18 155/75 H 20 L Temperature: Afebrile Blood Pressure: Normal Pulse: Regular Respiratory Rate: Normal Appearance: Positive for: Non-Toxic, Comfortable, Ill-Appearing Pain Distress: None Mental Status: Positive for: other (postictal, responsive to painful stimuli only) - Systems Exam Head: Present: Atraumatic, Normocephalic Pupils: Present: PERRL (4mm) Conjunctiva: Present: Normal Mouth: Present: Moist Mucous Membranes, Normal Tounge (no tongue biting), Normal Teeth (no clenching of teeth) Respiratory/Chest: Present: Clear to Auscultation, Good Air Exchange. No: Respiratory Distress, Accessory Muscle Use Cardiovascular: Present: Regular Rate and Rhythm, Normal S1, S2. No: Murmurs Abdomen: No: Tenderness, Distention Genitourinary Male: Present: Normal External Genitalia Back: Present: Normal Inspection Upper Extremity: Present: Normal Inspection, NORMAL PULSES, Neurovascularly Intact Lower Extremity: Present: Normal Inspection, Edema (+2 pitting edema), NORMAL PULSES, Neurovascularly Intact Skin: Present: Warm, Dry, Normal Color. No: Rashes Psychiatric: Present: Other (postictal, responsive to painful stimuli) Medical Decision Making ED Course and Treatment: 02/27/17 19:58 Impression: A 61 year old male brought in after seizure episode. Differential Diagnosis included but are not limited to: Seizure, currently postictal Plan: -- Head CT -- EKG -- Labs -- Urinalysis -- Reassess and disposition Progress Notes: EKG shows NSR at [address]-segment elevations, normal intervals, normal axis. Interpreted by me. Report Date: 02/27/2017 20:49 EXAM: CT Head Without Intravenous Contrast Dictated By: Maninder Gaines MD IMPRESSION: No acute intracranial abnormality 02/27/17 21:39 Patient is currently wakes up to voice but becomes drowsy and falls asleep. Does not answer questions when asked. He's moving all extremities. 02/27/17 22:04 Patient's and son now at bedside. He is now more awake and saying his name. They state that he's almost a baseline like he is after his seizures. I discussed case with Dr. Arian Marquis who agrees we can place in Telemetry obs. He's requested Dr. Khalil for Neurology. Consult was placed. - Critical Care Critical Care Minutes: 30 minutes - Lab Interpretations Lab Results: 02/27/17 20:00 02/27/17 20:00 Lab Results 02/27/17 20:00: PT 11.4, INR 1.04, APTT 30.2 02/27/17 20:00: Carbamazepine < 3 L 02/27/17 20:00: Alcohol, Quantitative < 10 02/27/17 20:00: Sodium 137, Potassium 4.2, Chloride 101, Carbon Dioxide 23, Anion Gap 17, BUN 15, Creatinine 0.8, Est GFR ( Amer) > 60, Est GFR (Non- Af Amer) > 60, Random Glucose 106, Calcium 9.0, Magnesium 2.5 H, Total Bilirubin 0.6, AST 35, ALT 62 H, Alkaline Phosphatase 75, Lactate Dehydrogenase 415, Total Creatine Kinase 113, Troponin I < 0.01, NT-Pro-B Natriuret Pep 254, Total Protein 7.8, Albumin 4.4, Globulin 3.4, Albumin/Globulin Ratio 1.3 02/27/17 20:00: WBC 4.8 D, RBC 4.85, Hgb 14.7, Hct 43.8, MCV 90.3, MCH 30.3, MCHC 33.6, RDW 13.3, Plt Count 170, MPV 9.3, Gran % 66.2, Lymph % (Auto) 19.2 L , Sawyer % (Auto) 8.4 H, Eos % (Auto) 5.8 H, Baso % (Auto) 0.4, Gran # 3.17, Lymph # 0.9 L, Sawyer # 0.4, Eos # 0.3, Baso # 0.02 I have reviewed the lab results: Yes Interpretation: Abnormal lab values - RAD Interpretation Radiology Orders: 02/27/17 19:58 HEAD W/O CONTRAST [CT] Stat - Medication Orders Current Medication Orders: Discontinued Medications Levetiracetam 1,000 mg/ Sodium (Chloride) 110 mls @ 440 mls/hr IV ONCE ONE Stop: 02/27/17 21:46 Oxcarbazepine (Trileptal) 150 mg PO STAT STA PRN Reason: Protocol Stop: 02/27/17 21:57 Disposition/Present on Arrival - Present on Arrival Any Indicators Present on Arrival: No History of DVT/PE: No History of Uncontrolled Diabetes: No Urinary Catheter: No History Surgical Site Infection Following: None - Disposition Have Diagnosis and Disposition been Completed?: Yes Diagnosis: Seizure Disposition: HOSPITALIZED Disposition Time: 22:13 Patient Plan: Admission Condition: GUARDED Referrals: Umesh Marquis JD, MD [Primary Care Provider] - Follow up with primary
[2017-02-27 20:16] LABS: BASO # 0.02 K/mm3 (0.0-2.0); BASO % 0.4 % (0.0-3.0); EOS # 0.3 (0.0-0.7); EOS % 5.8 % (1.5-5.0); GRAN # 3.17 (1.4-6.5); GRAN % 66.2 % (50.0-68.0); HEMATOCRIT 43.8 % (42.0-52.0); LYMPH # 0.9 (1.2-3.4); LYMPH % 19.2 % (22.0-35.0); MEAN CELL VOLUME 90.3 fl (80.0-105.0); MEAN CORPUSCULAR HEMOGLOBIN 30.3 pg (25.0-35.0); MEAN CORPUSCULAR HGB CONC 33.6 g/dl (31.0-37.0); MEAN PLATELET VOLUME 9.3 fl (7.0-11.0); MONO # 0.4 (0.1-0.6); MONO % 8.4 % (1.0-6.0); RED CELL DISTRIBUTION WIDTH 13.3 % (11.5-14.5); WHITE BLOOD COUNT 4.8 10^3/ul (4.5-11.0)
[2017-02-27 20:29] LABS: ALB/GLOB RATIO 1.3 (1.1-1.8); ALKALINE PHOSPHATASE 75 U/L (38-126); ALT/SGPT 62 U/L (7-56); AST/SGOT 35 U/L (17-59); BILIRUBIN,TOTAL 0.6 mg/dL (0.2-1.3); BLOOD UREA NITROGEN 15 mg/dL (7-21); CARBON DIOXIDE 23 mmol/L (21-33); CHLORIDE 101 mmol/L (98-107); GFR AFRICAN-AMERICAN > 60; GLUCOSE,RANDOM 106 mg/dL (70-110); MAGNESIUM 2.5 mg/dL (1.7-2.2); POTASSIUM 4.2 mmol/L (3.6-5.0); SODIUM 137 mmol/L (132-148); TOTAL PROTEIN 7.8 g/dL (5.8-8.3)
[2017-02-27 20:40] LABS: INR 1.04 (0.93-1.08); PARTIAL THROMBOPLASTIN TIME 30.2 Seconds (25.1-36.5)
[2017-02-27 20:44] LABS: TROPONIN I < 0.01 ng/mL
--- NOTE | 2017-02-27 20:50 | CT ---
EXAM: CT Head Without Intravenous Contrast CLINICAL HISTORY: 61 years old, male; Signs and symptoms; Other: Seizure TECHNIQUE: Axial computed tomography images of the head/brain without intravenous contrast. All CT scans at this facility use one or more dose reduction techniques, viz.: automated exposure control; ma/kV adjustment per patient size (including targeted exams where dose is matched to indication; i.e. head); or iterative reconstruction technique. COMPARISON: CT - HEAD W/O CONTRAST 2016-11-17 10:09 FINDINGS: Artifacts: Large amount of streak artifact. Brain: Encephalomalacia left frontal lobe. No intracranial hemorrhage. Ventricles: Intraventricular shunt enters from the right frontal region and terminates near the mid line. Stable size and appearance of ventricular system. Bones/joints: Left temporoparietal craniotomy. No acute fracture. Soft tissues: Unremarkable. Vasculature: Aneurysm clip in anterior interhemispheric fissure. Sinuses: Left maxillary sinus mucosal disease. Mastoid air cells: Unremarkable as visualized. No mastoid effusion. IMPRESSION: No acute intracranial abnormality
[2017-02-27] MEDS ORDERED: levETIRAcetam 1,000 MG in Sodium Chloride 0.9% 100 ML IV ONE (21:32)
[2017-02-27 23:12] LABS: URINE BILIRUBIN NEGATIVE (NEGATIVE); URINE BLOOD TRACE-INTACT (NEGATIVE); URINE GLUCOSE (UA) NEGATIVE (NEGATIVE); URINE KETONE NEGATIVE (NEGATIVE); URINE LEUKOCYTE ESTERASE NEGATIVE Leu/uL (NEGATIVE); URINE PROTEIN NEGATIVE mg/dL (<30 mg/dL); URINE UROBILINOGEN 0.2 E.U./dL (<1 E.U./dL)
[2017-02-27 23:16] LABS: URINE APPEARANCE CLEAR (CLEAR); URINE COLOR YELLOW (YELLOW)
[2017-02-27 23:44] LABS: URINE EPITHELIAL CELLS 0 - 2 /hpf (0-5); URINE RBC 0 - 2 /hpf (0-2); URINE WBC 0 - 2 /hpf (0-6)
[2017-02-28 10:39] LABS: BASO # 0.03 K/mm3 (0.0-2.0); BASO % 0.4 % (0.0-3.0); EOS # 0.3 (0.0-0.7); GRAN # 5.77 (1.4-6.5); GRAN % 68.6 % (50.0-68.0); HEMATOCRIT 42.6 % (42.0-52.0); LYMPH # 1.5 (1.2-3.4); LYMPH % 18.2 % (22.0-35.0); MEAN CELL VOLUME 90.1 fl (80.0-105.0); MEAN CORPUSCULAR HGB CONC 33.3 g/dl (31.0-37.0); MEAN PLATELET VOLUME 8.9 fl (7.0-11.0); MONO # 0.8 (0.1-0.6); MONO % 9.8 % (1.0-6.0); RED CELL DISTRIBUTION WIDTH 13.1 % (11.5-14.5); WHITE BLOOD COUNT 8.4 10^3/ul (4.5-11.0)
--- NOTE | 2017-02-28 10:40 | CP.PCM.CON ---
<Domingo Arreguin - Last Filed: 02/28/17 11:56> History of Present Illness - History of Present Illness History of Present Illness: Neurology consult note for Dr. 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 Limited history available from patient. Per EMR, patient's son had reported witnessing two seizure episodes that lasted approximately 2 minutes each at 7pm the day of presentation. EMS was called during which time he reportedly experienced another seizure and was given 5mg of Versed. On arrival to the ED, the patient was subsequently given 1g of Keppra and 150mg of trileptal. Neurology consulted for evaluation/management of his seizure disorder. ROS limited due to patient status. PMH: as stated above PSH: aneurysm clipping, AIRPORT ELECTRICIAN shunt Allergies: NKDA Family Hx: Non-contributory Social Hx: History of tobacco and alcohol use; no history of illicit drug use PMD: Dr. Marquis Past Patient History - Infectious Disease Hx of Infectious Diseases: None - Tetanus Immunizations Tetanus Immunization: Unknown - Past Medical History & Family History Past Medical History?: Yes - Past Social History Smoking Status: Former Smoker - CARDIAC Hx Hypertension: Yes Hx Peripheral Edema: Yes (BLE) - PULMONARY Hx Chronic Obstructive Pulmonary Disease (COPD): Yes - NEUROLOGICAL Hx Neurological Disorder: Yes Hx Seizures: Yes Other/Comment: brain aneurysm, hydrocephalus S/P AIRPORT ELECTRICIAN shunt - HEENT Hx HEENT Problems: No - RENAL Hx Chronic Kidney Disease: No - ENDOCRINE/METABOLIC Hx Endocrine Disorders: No - HEMATOLOGICAL/ONCOLOGICAL Hx Blood Disorders: Yes Hx Hepatitis C: Yes Other/Comment: liver disease - INTEGUMENTARY Hx Dermatological Problems: Yes Hx Basil Cell: No Hx Eczema: No Hx Melanoma: No Hx Psoriasis: No Hx Squamous Cell: No - MUSCULOSKELETAL/RHEUMATOLOGICAL Hx Falls: Yes Hx Unsteady Gait: Yes - GASTROINTESTINAL Hx 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) - GENITOURINARY/GYNECOLOGICAL Hx Genitourinary Disorders: Yes Hx Incontinence: Yes - PSYCHIATRIC Hx Psychophysiologic Disorder: Yes (SMOKED CIGARETTES,HEAVY DRINKER ETOH ABUSE H.O) Hx Substance Use: Yes (unknown) - SURGICAL HISTORY Hx Surgeries: Yes (brain aneurysm clips) Hx Orthopedic Surgery: Yes (C-spine) - ANESTHESIA Hx Anesthesia Reactions: No Hx Malignant Hyperthermia: No Meds Allergies/Adverse Reactions: Allergies Allergy/AdvReac Type Severity Reaction Status Date / Time No Known Allergies Allergy Verified 11/17/16 09:26 Physical Exam - Constitutional Appears: No Acute Distress - Head Exam Head Exam: ATRAUMATIC, NORMOCEPHALIC - Eye Exam Eye Exam: EOMI, PERRL - ENT Exam ENT Exam: Mucous Membranes Moist - Neck Exam Neck exam: Positive for: Normal Inspection. Negative for: Lymphadenopathy, Tenderness, Thyromegaly - Respiratory Exam Respiratory Exam: Clear to Auscultation Bilateral. absent: Rales, Rhonchi, Wheezes - Cardiovascular Exam Cardiovascular Exam: RRR, +S1, +S2. absent: Gallop, JVD, Rubs - GI/Abdominal Exam GI & Abdominal Exam: Soft. absent: Distended, Firm, Guarding, Rebound, Tenderness - Extremities Exam Extremities exam: Positive for: pedal edema Additional comments: bilateral lower extremity erythema up to the calfs - Neurological Exam Neurological exam: Alert, CN II-XII Intact Additional comments: EOMI PERRL CN2-12 grossly intact motor strength grossly intact bilaterally babinski downward going bilaterally gait deferred - Psychiatric Exam Psychiatric exam: Normal Affect, Normal Mood - Skin Skin Exam: Dry, Erythema (bilateral lower extremities up to the calfs), Intact, Normal Color, Warm Results - Vital Signs Recent Vital Signs: Last Vital Signs Temp 98.9 F 02/28/17 08:40 Pulse 75 02/28/17 08:40 Resp 20 02/28/17 08:40 BP 155/100 H 02/28/17 08:40 Pulse Ox 99 02/28/17 08:40 - Labs Result Diagrams: 02/28/17 10:32 02/28/17 10:32 Labs: Laboratory Results - last 24 hr 02/27/17 02/27/17 22:53 22:53 Urine Color Yellow Urine Appearance Clear Urine pH 7.0 Ur Specific [place] 1.010 Urine Protein Negative Urine Glucose (UA) Negative Urine Ketones Negative Urine Blood Trace-intact H Urine Nitrate Negative Urine Bilirubin Negative Urine Urobilinogen 0.2 Ur Leukocyte Esterase Negative Urine RBC 0 - 2 Urine WBC 0 - 2 Ur Epithelial Cells 0 - 2 Urine Opiates Screen Negative Urine Methadone Screen Negative Ur Barbiturates Screen Negative Ur Phencyclidine Scrn Negative Ur Amphetamines Screen Negative U Benzodiazepines Scrn Positive H U Oth Cocaine Metabols Negative U Cannabinoids Screen Negative Assessment & Plan - Assessment and Plan (Free Text) Plan: 61 year-old male with history of aneurysmal subarachnoid hemorrhage s/p clipping and AIRPORT ELECTRICIAN shunt placement, seizure disorder, non-compliance with seizure medications, cognitive impairment secondary to traumatic brain injuries and insomnia presents s/p witnessed seizure episodes. Neurology consulted for evaluation/management. -Patient with history of non-compliance with seizure medications and multiple admissions for breakthrough seizures as a result -At this time, we will obtain a keppra and trileptal level as well as resume his seizure medications which include Keppra 1500mg PO BID and Trileptal 300mg PO BID -He will likely require long-term care and home health aids given his multiple admissions for breakthrough seizures -Physical therapy evaluation -Seizure precautions -Adequate nutritional intake -Proper sleep hygiene -Recommend timely fashion of taking antiepileptic medications -No further neuroimaging necessary at this time -CT Head reviewed; revealed encephalomalacia left frontal lobe, intraventricular shunt, left temporoparietal craniotomy, aneurysm clip in anterior interhemispheric fissure; no acute intracranial abnormality; see full report -Continue present medical management as per primary team Patient seen and case discussed/reviewed with attending, Dr. Khalil - Date & Time Date: 02/28/17 Time: 10:45 <Dom Khalil - Last Filed: 02/28/17 12:29> Meds - Medications Medications: Current Medications Alprazolam (Xanax) 0.25 mg PO BID PRN; Protocol PRN Reason: Agitation Stop: 03/07/17 11:06 Last Admin: 02/28/17 11:47 Dose: 0.25 mg Amoxicillin/Clavulanate Potassium (Augmentin 875 Mg-125 Mg Tab) 1 tab PO Q12 [facility] PRN Reason: Protocol Last Admin: 02/28/17 11:47 Dose: 1 tab Famotidine (Pepcid) 40 mg PO HS [facility] Furosemide (Lasix) 20 mg PO DAILY [facility] Last Admin: 02/28/17 11:48 Dose: 20 mg Levetiracetam (Keppra) 1,500 mg PO BID [facility] Losartan Potassium (Cozaar) 50 mg PO DAILY [facility] Last Admin: 02/28/17 11:47 Dose: 50 mg Oxcarbazepine (Trileptal) 300 mg PO BID ON LICENSE OF [facility] PRN Reason: Protocol Potassium Chloride (Klor-Con 10) 10 meq PO BRK [facility] Results - Vital Signs Recent Vital Signs: Last Vital Signs Temp 98.9 F 02/28/17 08:40 Pulse 75 02/28/17 11:47 Resp 20 02/28/17 08:40 BP 155/100 H 02/28/17 11:48 Pulse Ox 99 02/28/17 08:40 - Labs Result Diagrams: 02/28/17 10:32 02/28/17 10:32 Labs: Laboratory Results - last 24 hr 02/27/17 02/27/17 02/28/17 22:53 22:53 10:32 WBC 8.4 D RBC 4.73 Hgb 14.2 Hct 42.6 MCV 90.1 MCH 30.0 MCHC 33.3 RDW 13.1 Plt Count 177 MPV 8.9 Gran % 68.6 H Lymph % (Auto) 18.2 L [place] % (Auto) 9.8 H Eos % (Auto) 3.0 Baso % (Auto) 0.4 Gran # 5.77 Lymph # 1.5 [place] # 0.8 H Eos # 0.3 Baso # 0.03 Sodium Potassium Chloride Carbon Dioxide Anion Gap BUN Creatinine Est GFR ( Amer) Est GFR (Non-Af Amer) Random Glucose Calcium Total Bilirubin AST ALT Alkaline Phosphatase Total Protein Albumin Globulin Albumin/Globulin Ratio Urine Color Yellow Urine Appearance Clear Urine pH 7.0 Ur Specific [place] 1.010 Urine Protein Negative Urine Glucose (UA) Negative Urine Ketones Negative Urine Blood Trace-intact H Urine Nitrate Negative Urine Bilirubin Negative Urine Urobilinogen 0.2 Ur Leukocyte Esterase Negative Urine RBC 0 - 2 Urine WBC 0 - 2 Ur Epithelial Cells 0 - 2 Urine Opiates Screen Negative Urine Methadone Screen Negative Ur Barbiturates Screen Negative Ur Phencyclidine Scrn Negative Ur Amphetamines Screen Negative U Benzodiazepines Scrn Positive H U Oth Cocaine Metabols Negative U Cannabinoids Screen Negative 02/28/17 10:32 WBC RBC Hgb Hct MCV MCH MCHC RDW Plt Count MPV Gran % Lymph % (Auto) [place] % (Auto) Eos % (Auto) Baso % (Auto) Gran # Lymph # [place] # Eos # Baso # Sodium 141 Potassium 3.6 Chloride 104 Carbon Dioxide 29 Anion Gap 12 BUN 9 Creatinine 0.6 L Est GFR ( Amer) > 60 Est GFR (Non-Af Amer) > 60 Random Glucose 90 Calcium 8.8 Total Bilirubin 1.0 AST 32 ALT 66 H Alkaline Phosphatase 67 Total Protein 7.4 Albumin 4.1 Globulin 3.4 Albumin/Globulin Ratio 1.2 Urine Color Urine Appearance Urine pH Ur Specific [place] Urine Protein Urine Glucose (UA) Urine Ketones Urine Blood Urine Nitrate Urine Bilirubin Urine Urobilinogen Ur Leukocyte Esterase Urine RBC Urine WBC Ur Epithelial Cells Urine Opiates Screen Urine Methadone Screen Ur Barbiturates Screen Ur Phencyclidine Scrn Ur Amphetamines Screen U Benzodiazepines Scrn U Oth Cocaine Metabols U Cannabinoids Screen Attending/Attestation - Attestation I have personally seen and examined this patient.: Yes I have fully participated in the care of the patient.: Yes I have reviewed all pertinent clinical information: Yes
[2017-02-28 10:46] LABS: ALB/GLOB RATIO 1.2 (1.1-1.8); ALKALINE PHOSPHATASE 67 U/L (38-126); ALT/SGPT 66 U/L (7-56); AST/SGOT 32 U/L (17-59); BLOOD UREA NITROGEN 9 mg/dL (7-21); CALCIUM 8.8 mg/dL (8.4-10.5); CARBON DIOXIDE 29 mmol/L (21-33); CHLORIDE 104 mmol/L (98-107); GFR AFRICAN-AMERICAN > 60; GLUCOSE,RANDOM 90 mg/dL (70-110); POTASSIUM 3.6 mmol/L (3.6-5.0); SODIUM 141 mmol/L (132-148); TOTAL PROTEIN 7.4 g/dL (5.8-8.3)
[2017-02-28] MEDS: Amoxicillin-Clav 875-125 mg Tab PO SCH ×2 (11:47→21:16)
--- NOTE | 2017-02-28 13:57 | HP ---
ADMISSION HISTORY AND PHYSICAL HISTORY OF PRESENT ILLNESS: The patient is a 61-year-old male admitted through the emergency department on 02/27/2017 with recurrent seizures. The patient has a history of subarachnoid hemorrhage, status post ventriculoperitoneal shunt approximately 5 years ago and has had recurrent admissions for breakthrough seizures. He was admitted on 09/06/2016 and seen by Neurosurgery by Dr. Jose Blair, who did a ventriculoperitoneal shunt revision for shunt failure. PAST MEDICAL HISTORY: Includes subarachnoid hemorrhage, status post G[employer]ING [employer] shunt; COPD secondary to tobacco use; hypertension; CHF and dementia status post CVA. PAST SURGICAL HISTORY: Includes cervical laminectomy in the remote past. ALLERGIES: THE PATIENT HAS NO KNOWN DRUG ALLERGIES. CURRENT MEDICATIONS: Include Keppra 1500 mg twice daily, Lamictal 150 mg twice daily, Xanax 0.25 mg twice daily, Lasix 20 mg daily and K-Dur 20 mEq daily. FAMILY HISTORY: Noncontributory. SOCIAL HISTORY: He has a history of tobacco use in the remote past. There is no alcohol or drug use. REVIEW OF SYSTEMS: Unobtainable secondary to the patient's mental status. PHYSICAL EXAMINATION: GENERAL: The patient is a well-developed male, in no acute distress. VITAL SIGNS: Blood pressure 155/100, pulse 75, temperature 98.9, respiratory rate 20. HEENT: There is a ventriculoperitoneal shunt present. Pupils equal, round and reactive to light. Extraocular movements intact. NECK: Supple. No thyromegaly. No carotid bruit. No adenopathy. LUNGS: Clear. HEART: Regular rate and rhythm. ABDOMEN: Soft, nontender. Bowel sounds are normoactive. EXTREMITIES: Show trace to 1+ bipedal edema with some erythema and warmth of the lower extremities bilaterally with some excoriations and small healing ulcers. NEUROLOGICAL: The patient is slightly lethargic and arousable without focal sensory or motor deficits. SKIN: Warm and dry. LABORATORY DATA: WBC is 8.4, hemoglobin 14.2, hematocrit 42.6. Sodium 141, potassium 3.6, chloride 104, CO2 of 29, BUN 9, creatinine 0.6. CT scan of the head shows no acute bleeds or infarcts. IMPRESSION: 1. Recurrent breakthrough seizures. 2. History of subarachnoid hemorrhage, status post ventriculoperitoneal shunt. 3. Chronic obstructive pulmonary disease. 4. Hypertension. 5. Dementia status post subarachnoid hemorrhage. 6. Congestive heart failure. 7. Mild cellulitis of the lower extremities. PLAN: The patient is admitted to telemetry. We will obtain Neurology consult from Dr. Khalil to restart seizure medications. We will obtain Physical Therapy and Social Work for discharge planning. We will start Augmentin 875 mg twice daily for the mild cellulitis of the lower extremities. KWAME West MD
--- NOTE | 2017-02-28 16:04 | CARD ---
APPROVED REPORT EKG Measurement Heart [id number] <Conclusion> Normal sinus rhythm Normal ECG
[2017-03-01 04:36] LABS: ALB/GLOB RATIO 1.3 (1.1-1.8); ALKALINE PHOSPHATASE 67 U/L (38-126); ALT/SGPT 58 U/L (7-56); AST/SGOT 33 U/L (17-59); BLOOD UREA NITROGEN 10 mg/dL (7-21); CALCIUM 9.1 mg/dL (8.4-10.5); CARBON DIOXIDE 33 mmol/L (21-33); CHLORIDE 100 mmol/L (98-107); GFR AFRICAN-AMERICAN > 60; GLUCOSE,RANDOM 92 mg/dL (70-110); MAGNESIUM 2.2 mg/dL (1.7-2.2); PHOSPHOROUS 3.1 mg/dL (2.5-4.5); POTASSIUM 3.6 mmol/L (3.6-5.0); SODIUM 141 mmol/L (132-148); TOTAL PROTEIN 7.7 g/dL (5.8-8.3)
[2017-03-01 05:02] LABS: BASO # 0.03 K/mm3 (0.0-2.0); BASO % 0.5 % (0.0-3.0); EOS # 0.3 (0.0-0.7); EOS % 4.7 % (1.5-5.0); GRAN # 3.39 (1.4-6.5); GRAN % 56.9 % (50.0-68.0); HEMATOCRIT 44.1 % (42.0-52.0); LYMPH # 1.5 (1.2-3.4); LYMPH % 25.5 % (22.0-35.0); MEAN CELL VOLUME 90.7 fl (80.0-105.0); MEAN CORPUSCULAR HEMOGLOBIN 29.8 pg (25.0-35.0); MEAN CORPUSCULAR HGB CONC 32.9 g/dl (31.0-37.0); MEAN PLATELET VOLUME 9.1 fl (7.0-11.0); MONO # 0.7 (0.1-0.6); MONO % 12.4 % (1.0-6.0); RED CELL DISTRIBUTION WIDTH 13.4 % (11.5-14.5)
--- NOTE | 2017-03-01 08:31 | CP.PCM.PN ---
Subjective - Date & Time of Evaluation Date of Evaluation: 03/01/17 Time of Evaluation: 15:00 - Subjective Subjective: awake and responsive, remains confused Objective - Vital Signs/Intake and Output Vital Signs (last 24 hours): Temp Pulse Resp BP Pulse Ox 99 F 71 18 143/88 99 02/28/17 16:00 02/28/17 18:00 02/28/17 16:00 02/28/17 16:00 02/28/17 16:00 Intake and Output: 03/01/17 03/01/17 06:59 18:59 Intake Total 380 600 Output Total 500 Balance 380 100 - Medications Medications: Current Medications Alprazolam (Xanax) 0.25 mg PO BID PRN; Protocol PRN Reason: Agitation Stop: 03/07/17 11:06 Last Admin: 02/28/17 23:40 Dose: 0.25 mg Amoxicillin/Clavulanate Potassium (Augmentin 875 Mg-125 Mg Tab) 1 tab PO Q12 [facility] PRN Reason: Protocol Last Admin: 02/28/17 21:16 Dose: 1 tab Famotidine (Pepcid) 40 mg PO HS [facility] Last Admin: 02/28/17 21:16 Dose: 40 mg Furosemide (Lasix) 20 mg PO DAILY [facility] Last Admin: 02/28/17 11:48 Dose: 20 mg Levetiracetam (Keppra) 1,500 mg PO BID [facility] Last Admin: 02/28/17 17:46 Dose: 1,500 mg Losartan Potassium (Cozaar) 50 mg PO DAILY [facility] Last Admin: 02/28/17 11:47 Dose: 50 mg Oxcarbazepine (Trileptal) 300 mg PO BID [facility] PRN Reason: Protocol Last Admin: 02/28/17 17:48 Dose: 300 mg Potassium Chloride (Klor-Con 10) 10 meq PO BRK [facility] - Labs Labs: 03/01/17 03:55 03/01/17 03:55 PT 11.4 SECONDS (9.4-12.5) 02/27/17 20:00 INR 1.04 (0.93-1.08) 02/27/17 20:00 APTT 30.2 Seconds (25.1-36.5) 02/27/17 20:00 - Respiratory Exam Respiratory Exam: Clear to Ausculation Bilateral, NORMAL BREATHING PATTERN - Cardiovascular Exam Cardiovascular Exam: REGULAR RHYTHM - GI/Abdominal Exam GI & Abdominal Exam: Soft, Normal Bowel Sounds - Neurological Exam Neurological Exam: Altered - Skin Skin Exam: Dry, Warm Assessment and Plan - Assessment and Plan (Free Text) Plan: continue present care, neurology consult appreciated, social work for discharge planning
[2017-03-01] MEDS: Amoxicillin-Clav 875-125 mg Tab PO SCH ×2 (09:27→21:18)
[2017-03-01] MEDS: Potassium Chloride 10 mEq ER Tab PO SCH (09:27)
[2017-03-02] MEDS: Potassium Chloride 10 mEq ER Tab PO SCH (09:35)
[2017-03-02] MEDS: Amoxicillin-Clav 875-125 mg Tab PO SCH ×2 (09:36→21:27)
--- NOTE | 2017-03-02 13:32 | CP.PCM.PN ---
Subjective - Date & Time of Evaluation Date of Evaluation: 03/02/17 Time of Evaluation: 11:15 - Subjective Subjective: awake and responsive, confused/at baseline mental status, no seizure activity past 24 hrs. Objective - Vital Signs/Intake and Output Vital Signs (last 24 hours): Temp Pulse Resp BP Pulse Ox 97.9 F 54 L 18 129/90 99 03/02/17 06:00 03/02/17 09:33 03/02/17 06:00 03/02/17 09:34 03/02/17 06:00 Intake and Output: 03/02/17 03/02/17 06:59 18:59 Intake Total 540 Output Total 900 Balance -360 - Medications Medications: Current Medications Alprazolam (Xanax) 0.25 mg PO BID PRN; Protocol PRN Reason: Agitation Stop: 03/07/17 11:06 Last Admin: 03/02/17 00:37 Dose: 0.25 mg Amoxicillin/Clavulanate Potassium (Augmentin 875 Mg-125 Mg Tab) 1 tab PO Q12 [facility] PRN Reason: Protocol Last Admin: 03/02/17 09:36 Dose: 1 tab Famotidine (Pepcid) 40 mg PO HS [facility] Last Admin: 03/01/17 21:18 Dose: 40 mg Furosemide (Lasix) 20 mg PO DAILY [facility] Last Admin: 03/02/17 09:34 Dose: 20 mg Levetiracetam (Keppra) 1,500 mg PO BID [facility] Last Admin: 03/02/17 09:35 Dose: 1,500 mg Losartan Potassium (Cozaar) 50 mg PO DAILY [facility] Last Admin: 03/02/17 09:33 Dose: 50 mg Oxcarbazepine (Trileptal) 300 mg PO BID [facility] PRN Reason: Protocol Last Admin: 03/02/17 09:47 Dose: 300 mg Potassium Chloride (Klor-Con 10) 10 meq PO BRK [facility] Last Admin: 03/02/17 09:35 Dose: 10 meq - Labs Labs: 03/01/17 03:55 03/01/17 03:55 PT 11.4 SECONDS (9.4-12.5) 02/27/17 20:00 INR 1.04 (0.93-1.08) 02/27/17 20:00 APTT 30.2 Seconds (25.1-36.5) 02/27/17 20:00 - Respiratory Exam Respiratory Exam: Clear to Ausculation Bilateral, NORMAL BREATHING PATTERN - Cardiovascular Exam Cardiovascular Exam: REGULAR RHYTHM - GI/Abdominal Exam GI & Abdominal Exam: Soft, Normal Bowel Sounds - Extremities Exam Additional comments: decreased edema and redness of lower extrems - Neurological Exam Neurological Exam: Awake - Skin Skin Exam: Dry, Warm Assessment and Plan (1) Seizure Status: Acute (2) Altered mental status Status: Acute (3) Cellulitis and abscess of lower extremity Status: Acute - Assessment and Plan (Free Text) Plan: continue present treatment, neurology follow-up, po augmentin, social work for discharge planning
[2017-03-03 07:59] VITALS: O2SAT 96
[2017-03-03] MEDS: Potassium Chloride 10 mEq ER Tab PO SCH (08:00)
[2017-03-03] MEDS: Amoxicillin-Clav 875-125 mg Tab PO SCH (09:19)
--- NOTE | 2017-03-03 11:00 | DS ---
HOSPITAL COURSE: The patient is a 61-year-old who is admitted through the Emergency Department on 02/28/2017, for recurrent seizures. The patient has a history of arachnoid hemorrhage status post EDUCATION DEAN shunt placement. The patient was seen in consultation by Neurology, Dr. Khalil. He was started on Keppra 1500 mg twice daily and, Lamictal 150 mg twice daily. He has had an eventful hospital course and has been seizure free for the past 48 to 72 hours and is now medically stable for discharge. PHYSICAL EXAMINATION: VITAL SIGNS: Blood pressure of 154/95, temperature of 98.1, pulse of 60, and respiratory rate of 20. LUNGS: Clear. HEART: Regular rate and rhythm. ABDOMEN: Soft and nontender. Bowel sounds are normoactive. EXTREMITIES: Without cyanosis, clubbing, or edema. NEUROLOGIC: The patient is awake and confused without focal sensory or motor deficits. SKIN: Warm and dry. IMPRESSION: 1. Recurrent breakthrough seizures. 2. Subarachnoid hemorrhage status post ventriculoperitoneal shunt. 3. Hypertension. 4. Chronic obstructive pulmonary disease. 5. Dementia secondary to subarachnoid hemorrhage. 6. Mild cellulitis of the lower extremities, improved on Augmentin. 7. Congestive heart failure. PLAN: The patient will be discharged to the [facility] in stable condition on the following medications: 1. Augmentin 875 mg twice daily for five days. 2. Keppra 92874 mg twice daily. 3. Lamictal 150 mg twice daily. 4. Xanax 0.25 mg twice daily. 5. Lasix 20 mg daily. 6. K-Dur 20 mEq daily. 7. Losartan 50 mg daily. The patient will be maintained on a heart healthy diet. Activities as limited. The patient will be followed up as an outpatient within the next one to two weeks upon discharge from the [facility]. Umesh Marquis JD/ JUAN
--- NOTE | 2017-03-03 13:53 | CP.PCM.CON ---
History of Present Illness - History of Present Illness History of Present Illness: 61 y/o male with PMHx of subarachnoid hemmorrage, PROTOTYPE FABRICATOR shunt, COPD, HTN, CHF, prior CVA and seizure disorder seen at bedside with attending Dr. Santana after consultation for evaluation of lower extremity cellulitis and swelling. Pt states he does not have any pain in the feet but that they are sensitive to touch. Pt is unaware of any increased swelling or redness to his legs. Pt denies F/C/N/V/CP/SOB. PSH: cervical laminectomy All: NKDA Social: former cigarette smoker, denies EtOH, denies drug use Review of Systems - Review of Systems All systems: reviewed and no additional remarkable complaints except (per HPI) Past Patient History - Infectious Disease Hx of Infectious Diseases: None - Tetanus Immunizations Tetanus Immunization: Unknown - Past Medical History & Family History Past Medical History?: Yes - Past Social History Smoking Status: Former Smoker - CARDIAC Hx Hypertension: Yes - PULMONARY Hx Chronic Obstructive Pulmonary Disease (COPD): Yes - NEUROLOGICAL Hx Neurological Disorder: Yes Hx Seizures: Yes Other/Comment: brain aneurysm, hydrocephalus S/P PROTOTYPE FABRICATOR shunt - HEENT Hx HEENT Problems: No - RENAL Hx Chronic Kidney Disease: No - ENDOCRINE/METABOLIC Hx Endocrine Disorders: No - HEMATOLOGICAL/ONCOLOGICAL Hx Blood Disorders: Yes Hx Hepatitis C: Yes Other/Comment: liver disease - INTEGUMENTARY Hx Dermatological Problems: Yes Hx Basil Cell: No Hx Eczema: No Hx Melanoma: No Hx Psoriasis: No Hx Squamous Cell: No - MUSCULOSKELETAL/RHEUMATOLOGICAL Hx Falls: Yes Hx Unsteady Gait: Yes - GASTROINTESTINAL Hx 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) - GENITOURINARY/GYNECOLOGICAL Hx Genitourinary Disorders: Yes Hx Incontinence: Yes - PSYCHIATRIC Hx Psychophysiologic Disorder: Yes (SMOKED CIGARETTES,HEAVY DRINKER ETOH ABUSE H.O) Hx Substance Use: Yes (unknown) - SURGICAL HISTORY Hx Surgeries: Yes (brain aneurysm clips) Hx Orthopedic Surgery: Yes (C-spine) - ANESTHESIA Hx Anesthesia Reactions: No Hx Malignant Hyperthermia: No Meds Home Medications: Home Medication List Medication Instructions Recorded Confirmed Type ALPRAZolam [Xanax] 0.25 mg PO BID PRN tab 03/03/17 Rx Famotidine [Pepcid] 40 mg PO HS tab 03/03/17 Rx Furosemide [Lasix] 20 mg PO DAILY tab 03/03/17 Rx Losartan [Cozaar] 50 mg PO DAILY tab 03/03/17 Rx OXcarbazepine [Trileptal] 300 mg PO BID tab 03/03/17 Rx Potassium Chloride [Klor-Con 10] [address] 03/03/17 Rx levETIRAcetam [Keppra] 1,500 mg PO BID tab 03/03/17 Rx Allergies/Adverse Reactions: Allergies Allergy/AdvReac Type Severity Reaction Status Date / Time No Known Allergies Allergy Verified 11/17/16 09:26 - Medications Medications: Current Medications Alprazolam (Xanax) 0.25 mg PO BID PRN; Protocol PRN Reason: Agitation Stop: 03/07/17 11:06 Last Admin: 03/02/17 00:37 Dose: 0.25 mg Amoxicillin/Clavulanate Potassium (Augmentin 875 Mg-125 Mg Tab) 1 tab PO Q12 [facility] PRN Reason: Protocol Last Admin: 03/03/17 09:19 Dose: 1 tab Famotidine (Pepcid) 40 mg PO HS [facility] Last Admin: 03/02/17 21:27 Dose: 40 mg Furosemide (Lasix) 20 mg PO DAILY [facility] Last Admin: 03/03/17 09:23 Dose: 20 mg Levetiracetam (Keppra) 1,500 mg PO BID [facility] Last Admin: 03/03/17 09:22 Dose: 1,500 mg Losartan Potassium (Cozaar) 50 mg PO DAILY [facility] Last Admin: 03/03/17 09:19 Dose: 50 mg Oxcarbazepine (Trileptal) 300 mg PO BID [facility] PRN Reason: Protocol Last Admin: 03/03/17 09:23 Dose: 300 mg Potassium Chloride (Klor-Con 10) 10 meq PO BRK [facility] Last Admin: 03/03/17 08:00 Dose: 10 meq Physical Exam - Constitutional Appears: Well, Non-toxic, No Acute Distress - Extremities Exam Additional comments: Vasc: DP/PT pulses palpable 1/4 B/L. +2 pitting edema noted to bilateral lower extremities extending from tibial tuberosity to digits B/L. CFT < 3 sec to all digits. Temperature gradient warm to cool Derm: Mild erythema noted to dorsum of anterior mid leg extending to dorsum of feet B/L. Tinea pedis noted to bilateral legs and plantar feet. Nails are elongated but not dystrophic, no subungual debris. No open lesions, no maceration, no clinical suspicion of bacterial infection. Neuro: Protective sensation grossly intact. Hyperesthesia noted to bilateral lower extremities on light touch. Ortho: Tenderness elicited upon palpation of lower extremities with minimal pressure applied (hypersensitive) - Neurological Exam Neurological exam: Alert - Psychiatric Exam Psychiatric exam: Normal Affect, Normal Mood Results - Vital Signs Recent Vital Signs: Last Vital Signs Temp 98.1 F 03/03/17 07:58 Pulse 60 03/03/17 09:19 Resp 20 03/03/17 07:58 BP 154/95 H 03/03/17 09:23 Pulse Ox 96 03/03/17 07:58 - Labs Result Diagrams: 03/01/17 03:55 03/01/17 03:55 Assessment & Plan - Assessment and Plan (Free Text) Assessment: 61 y/o male with bilateral lower extremity erythema and fungal skin changes Plan: Pt seen and evaluated with attending Dr. Sanatna Labs and vitals reviewed- afebrile, WBC 6.0 Rx Lotrimin to be applied to bilateral legs and feet daily Continue Augmentin for mild cellulitic changes of lower extremities Unable to debride nails due to hypersensitivity of patient, would not tolerate procedure Thank you for this consult
[2017-03-03 16:31] VITALS: BP 131/81; PULSE 59; RESP 18; TEMP 99.2
[2017-03-03] MEDS ORDERED: Clotrimazole 1% Cream(30 gm) TOP SCH (18:00)
== END 2017-03-03 17:11 | DRG 101 ==
LOC: ED 19:54 → ERH 22:13 → 3RNO 23:51 → OBSVTOIN 02-28 16:42
PROVIDERS: ADMIT Internal Medicine; ATTEND Internal Medicine
DX: G40.909 Epilepsy, unspecified, not intractable, without status epilepticus (principal); I11.0 Hypertensive heart disease with heart failure; I50.9 Heart failure, unspecified; L02.419 Cutaneous abscess of limb, unspecified; L03.119 Cellulitis of unspecified part of limb; J44.9 Chronic obstructive pulmonary disease, unspecified; G47.00 Insomnia, unspecified; I69.098 Other sequelae following nontraumatic subarachnoid hemorrhage; F02.80 Dementia in other diseases classified elsewhere, unspecified severity, without behavioral disturbance, psychotic disturbance, mood disturbance, and anxiety; Z98.2 Presence of cerebrospinal fluid drainage device; Z87.891 Personal history of nicotine dependence; Z91.14 Patient's other noncompliance with medication regimen

== ENCOUNTER 2017-03-03 17:11 | Inpatient (IN) | payer OTHER ==
[2017-03-03] MEDS: Amoxicillin-Clav 875-125 mg Tab PO SCH (21:53)
[2017-03-04] MEDS: Potassium Chloride 10 mEq ER Tab PO SCH (08:49)
[2017-03-04] MEDS: Amoxicillin-Clav 875-125 mg Tab PO SCH ×2 (09:16→21:56)
--- NOTE | 2017-03-04 09:26 | CP.PCM.CON ---
<Domingo Arreguin - Last Filed: 03/04/17 10:54> History of Present Illness - History of Present Illness History of Present Illness: Neurology consult note for Dr. 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 Patient's son had reported witnessing two seizure episodes that lasted approximately 2 minutes each at 7pm the day of presentation. EMS was called during which time he reportedly experienced another seizure and was given 5mg of Versed. On arrival to the ED, the patient was subsequently given 1g of Keppra and 150mg of trileptal. Neurology consulted for evaluation/management of his seizure disorder. His home medications of keppra 1500mg PO BID and trileptal 300mg PO BID were resumed. He was subsequently discharged to the transitional care unit where he is undergoing physical therapy for strengthening. He presently denies chest pain, palpitations , SOB, abdominal pain, nausea, vomiting, focal weakness, numbness, tingling. PMH: as stated above PSH: aneurysm clipping, SOOT BLOWER shunt Allergies: NKDA Family Hx: Non-contributory Social Hx: History of tobacco and alcohol use; no history of illicit drug use PMD: Dr. Marquis Past Patient History - Infectious Disease Hx of Infectious Diseases: None - Tetanus Immunizations Tetanus Immunization: Unknown - Past Medical History & Family History Past Medical History?: Yes - Past Social History Smoking Status: Former Smoker - CARDIAC Hx Hypertension: Yes - PULMONARY Hx Chronic Obstructive Pulmonary Disease (COPD): Yes - NEUROLOGICAL Hx Neurological Disorder: Yes Hx Seizures: Yes Other/Comment: brain aneurysm, hydrocephalus S/P SOOT BLOWER shunt - HEENT Hx HEENT Problems: No - RENAL Hx Chronic Kidney Disease: No - ENDOCRINE/METABOLIC Hx Endocrine Disorders: No - HEMATOLOGICAL/ONCOLOGICAL Hx Blood Disorders: Yes Hx Hepatitis C: Yes Other/Comment: liver disease - INTEGUMENTARY Hx Dermatological Problems: Yes Hx Basil Cell: No Hx Eczema: No Hx Melanoma: No Hx Psoriasis: No Hx Squamous Cell: No - MUSCULOSKELETAL/RHEUMATOLOGICAL Hx Falls: Yes - GASTROINTESTINAL Hx Gastrointestinal Disorders: No - GENITOURINARY/GYNECOLOGICAL Hx Genitourinary Disorders: Yes Hx Incontinence: Yes - PSYCHIATRIC Hx Psychophysiologic Disorder: Yes (SMOKED CIGARETTES,HEAVY DRINKER ETOH ABUSE H.O) - SURGICAL HISTORY Hx Surgeries: Yes (brain aneurysm clips) Hx Orthopedic Surgery: Yes (C-spine) - ANESTHESIA Hx Anesthesia Reactions: No Hx Malignant Hyperthermia: No Meds Allergies/Adverse Reactions: Allergies Allergy/AdvReac Type Severity Reaction Status Date / Time No Known Allergies Allergy Verified 03/03/17 19:48 - Medications Medications: Current Medications Alprazolam (Xanax) 0.25 mg PO BID PRN; Protocol PRN Reason: Agitation Stop: 03/10/17 19:56 Amoxicillin/Clavulanate Potassium (Augmentin 875 Mg-125 Mg Tab) 1 tab PO Q12 [facility] PRN Reason: Protocol Last Admin: 03/03/17 21:53 Dose: 1 tab Famotidine (Pepcid) 40 mg PO HS [facility] PRN Reason: Protocol Last Admin: 03/03/17 21:54 Dose: 40 mg Furosemide (Lasix) 20 mg PO DAILY [facility] PRN Reason: Protocol Levetiracetam (Keppra) 1,500 mg PO BID [facility] PRN Reason: Protocol Last Admin: 03/03/17 21:53 Dose: 1,500 mg Losartan Potassium (Cozaar) 50 mg PO DAILY [facility] PRN Reason: Protocol Oxcarbazepine (Trileptal) 300 mg PO BID [facility] PRN Reason: Protocol Last Admin: 03/03/17 21:54 Dose: 300 mg Potassium Chloride (Klor-Con 10) 10 meq PO BRK [facility] PRN Reason: Protocol Last Admin: 03/04/17 08:49 Dose: 10 meq Physical Exam - Constitutional Appears: No Acute Distress - Head Exam Head Exam: ATRAUMATIC, NORMOCEPHALIC Additional comments: SOOT BLOWER shunt - Eye Exam Eye Exam: EOMI, PERRL - ENT Exam ENT Exam: Mucous Membranes Moist - Neck Exam Neck exam: Positive for: Normal Inspection - Respiratory Exam Respiratory Exam: Clear to Auscultation Bilateral. absent: Rales, Rhonchi, Wheezes - Cardiovascular Exam Cardiovascular Exam: RRR, +S1, +S2. absent: Gallop, JVD, Rubs - GI/Abdominal Exam GI & Abdominal Exam: Soft. absent: Distended, Firm, Guarding, Rebound, Tenderness - Neurological Exam Neurological exam: Alert, CN II-XII Intact Additional comments: awake, alert, oriented x1 (to person) EOMI PERRL CN2-12 grossly intact motor function grossly intact bilaterally sensory intact throughout gait deferred - Skin Skin Exam: Dry, Intact, Normal Color, Warm Results - Vital Signs Recent Vital Signs: Last Vital Signs Temp 99.2 F 03/03/17 20:37 Pulse 72 03/03/17 20:37 Resp 17 03/03/17 20:37 BP 164/98 H 03/03/17 20:37 Pulse Ox 95 03/03/17 20:37 Assessment & Plan - Assessment and Plan (Free Text) Plan: 61 year-old male with history of aneurysmal subarachnoid hemorrhage s/p clipping and SOOT BLOWER shunt placement, seizure disorder, non-compliance with seizure medications, cognitive impairment secondary to traumatic brain injuries and insomnia presently undergoing physical rehabilitation in the TCU post admission to [facility] for witnessed seizure episode. Neurology consulted for evaluation/ management of seizure disorder. -Likely previously provoked seizure due to medication non-compliance; Patient has history of non-compliance with seizure medications and multiple admissions for breakthrough seizures as a result -Continue present anti-epileptic regimen which includes Keppra 1500mg PO BID and Trileptal 300mg PO BID -He will likely require long-term care and home health aids given his multiple admissions for breakthrough seizures -Continue with physical therapy treatment -Seizure precautions -Adequate nutritional intake -Proper sleep hygiene -Recommend timely fashion of taking antiepileptic medications -No further neuroimaging necessary at this time -Prior CT Head reviewed; revealed encephalomalacia left frontal lobe, intraventricular shunt, left temporoparietal craniotomy, aneurysm clip in anterior interhemispheric fissure; no acute intracranial abnormality; please refer to full report -Continue present medical management as per primary team Patient seen and case discussed/reviewed with attending, Dr. Khalil - Date & Time Date: 03/04/17 Time: 09:28 <oDm Khalil - Last Filed: 03/04/17 13:30> Meds - Medications Medications: Current Medications Alprazolam (Xanax) 0.25 mg PO BID PRN; Protocol PRN Reason: Agitation Stop: 03/10/17 19:56 Amoxicillin/Clavulanate Potassium (Augmentin 875 Mg-125 Mg Tab) 1 tab PO Q12 [facility] PRN Reason: Protocol Last Admin: 03/04/17 09:16 Dose: 1 tab Famotidine (Pepcid) 40 mg PO HS [facility] PRN Reason: Protocol Last Admin: 03/03/17 21:54 Dose: 40 mg Furosemide (Lasix) 20 mg PO DAILY [facility] PRN Reason: Protocol Last Admin: 03/04/17 12:17 Dose: 20 mg Levetiracetam (Keppra) 1,500 mg PO BID [facility] PRN Reason: Protocol Last Admin: 03/04/17 10:17 Dose: 1,500 mg Losartan Potassium (Cozaar) 50 mg PO DAILY [facility] PRN Reason: Protocol Last Admin: 03/04/17 10:17 Dose: 50 mg Oxcarbazepine (Trileptal) 300 mg PO BID [facility] PRN Reason: Protocol Last Admin: 03/04/17 12:21 Dose: 300 mg Potassium Chloride (Klor-Con 10) 10 meq PO BRK [facility] PRN Reason: Protocol Last Admin: 03/04/17 08:49 Dose: 10 meq Results - Vital Signs Recent Vital Signs: Last Vital Signs Temp 99.2 F 03/03/17 20:37 Pulse 72 03/03/17 20:37 Resp 17 03/03/17 20:37 BP 143/87 03/04/17 12:17 Pulse Ox 95 03/03/17 20:37 Attending/Attestation - Attestation I have personally seen and examined this patient.: Yes I have fully participated in the care of the patient.: Yes I have reviewed all pertinent clinical information: Yes
--- NOTE | 2017-03-04 21:43 | HP ---
HISTORY OF PRESENT ILLNESS: The patient is a 61-year-old male admitted through the Emergency Department on 02/27/2017 with recurrent seizures. The patient has a history of subarachnoid hemorrhage, status post ventriculoperitoneal shunt placement approximately 5 years ago and has had recurrent admission for breakthrough seizures. The patient was seen in consultation by Neurology Dr. Khalil. He was restarted on his Keppra and Lamictal and has been without seizures for the past 72 hours and is now transferred to the Transitional Care Unit for subacute rehab for some gait dysfunction. PAST MEDICAL HISTORY: Include subarachnoid hemorrhage, status post ventriculoperitoneal shunt placement, COPD secondary to tobacco use and hypertension, CHF and dementia, status post CVA. PAST SURGICAL HISTORY: Include cervical laminectomy in the remote past. ALLERGIES: THE PATIENT HAS NO KNOWN DRUG ALLERGIES. CURRENT MEDICATIONS: Include Keppra 1500 mg twice daily, Lamictal 150 mg twice daily, Xanax 0.25 mg twice daily, Lasix 20 mg daily, K-Dur 20 mEq daily. FAMILY HISTORY: Noncontributory. SOCIAL HISTORY: The patient has a history of tobacco use in the remote past. There is no alcohol or drug use. REVIEW OF SYSTEMS: Unobtainable secondary to patient's mental status. PHYSICAL EXAMINATION: GENERAL: The patient is a well developed male in no acute distress. VITAL SIGNS: Blood pressure 143/87, temperature 99.2, pulse 72, respiratory rate 17. HEENT: There is a ventriculoperitoneal shunt present and intact. Pupils equal, round and reactive to light. Extraocular movements intact. NECK: Supple. No thyromegaly. No carotid bruits. LUNGS: Clear. HEART: Regular rate and rhythm. ABDOMEN: Soft, nontender. Bowel sounds are normal active. EXTREMITIES: Without cyanosis, clubbing, or edema. NEUROLOGICAL: The patient is awake and confused without focal sensory and motor deficits. Gait is slightly ataxic. SKIN: Warm and dry. IMPRESSION: 1. Recurrent breakthrough seizures. 2. History of subarachnoid hemorrhage, status post ventriculoperitoneal shunt. 3. Chronic obstructive pulmonary disease. 4. Hypertension. 5. Dementia, status post subarachnoid hemorrhage. 6. Congestive heart failure. 7. Mild cellulitis of lower extremities improved on Augmentin. PLAN: Continue subacute rehab and Social Work for discharge planning. Neurology consult from Dr. Khalil. KWAME West MD [facility] # [id number]
[2017-03-05] MEDS: Potassium Chloride 10 mEq ER Tab PO SCH (08:43)
[2017-03-05] MEDS: Amoxicillin-Clav 875-125 mg Tab PO SCH ×2 (10:28→22:15)
--- NOTE | 2017-03-05 13:10 | CP.PCM.PN ---
Subjective - Date & Time of Evaluation Date of Evaluation: 03/05/17 Time of Evaluation: 09:15 - Subjective Subjective: no acute distress, awake and responsive Objective - Vital Signs/Intake and Output Vital Signs (last 24 hours): Temp Pulse Resp BP Pulse Ox 98.2 F 61 18 158/57 H 98 03/04/17 17:20 03/04/17 17:20 03/04/17 17:20 03/05/17 10:29 03/04/17 17:20 Intake and Output: 03/05/17 03/05/17 06:59 18:59 Intake Total 420 Balance 420 - Medications Medications: Current Medications Alprazolam (Xanax) 0.25 mg PO BID PRN; Protocol PRN Reason: Agitation Stop: 03/10/17 19:56 Amoxicillin/Clavulanate Potassium (Augmentin 875 Mg-125 Mg Tab) 1 tab PO Q12 [facility] PRN Reason: Protocol Last Admin: 03/05/17 10:28 Dose: 1 tab Famotidine (Pepcid) 40 mg PO HS [facility] PRN Reason: Protocol Last Admin: 03/04/17 21:57 Dose: 40 mg Furosemide (Lasix) 20 mg PO DAILY [facility] PRN Reason: Protocol Last Admin: 03/05/17 10:29 Dose: 20 mg Levetiracetam (Keppra) 1,500 mg PO BID [facility] PRN Reason: Protocol Last Admin: 03/05/17 10:29 Dose: 1,500 mg Losartan Potassium (Cozaar) 100 mg PO DAILY [facility] PRN Reason: Protocol Oxcarbazepine (Trileptal) 300 mg PO BID [facility] PRN Reason: Protocol Last Admin: 03/05/17 10:34 Dose: 300 mg Potassium Chloride (Klor-Con 10) 10 meq PO BRK [facility] PRN Reason: Protocol Last Admin: 03/05/17 08:43 Dose: 10 meq - Respiratory Exam Respiratory Exam: Clear to Ausculation Bilateral, NORMAL BREATHING PATTERN - Cardiovascular Exam Cardiovascular Exam: REGULAR RHYTHM - GI/Abdominal Exam GI & Abdominal Exam: Soft, Normal Bowel Sounds - Extremities Exam Extremities Exam: Normal Inspection - Neurological Exam Neurological Exam: Altered, Awake - Skin Skin Exam: Dry, Warm Assessment and Plan (1) Cellulitis and abscess of lower extremity Status: Chronic (2) Seizure disorder Status: Chronic - Assessment and Plan (Free Text) Plan: continue physical therapy, social work for discharge planning
[2017-03-06] MEDS: Potassium Chloride 10 mEq ER Tab PO SCH (08:15)
[2017-03-06] MEDS: Amoxicillin-Clav 875-125 mg Tab PO SCH ×2 (10:20→21:26)
--- NOTE | 2017-03-06 14:08 | CP.PCM.PN ---
Subjective - Date & Time of Evaluation Date of Evaluation: 03/06/17 Time of Evaluation: 13:30 - Subjective Subjective: no acute distress Objective - Vital Signs/Intake and Output Vital Signs (last 24 hours): Temp Pulse Resp BP Pulse Ox 98.4 F 68 20 157/95 H 98 03/06/17 06:00 03/06/17 06:00 03/06/17 06:00 03/06/17 07:00 03/06/17 06:00 Intake and Output: 03/06/17 03/06/17 06:59 18:59 Intake Total 120 420 Output Total 300 Balance -180 420 - Medications Medications: Current Medications Alprazolam (Xanax) 0.25 mg PO BID PRN; Protocol PRN Reason: Agitation Stop: 03/10/17 19:56 Amoxicillin/Clavulanate Potassium (Augmentin 875 Mg-125 Mg Tab) 1 tab PO Q12 [facility] PRN Reason: Protocol Last Admin: 03/06/17 10:20 Dose: 1 tab Famotidine (Pepcid) 40 mg PO HS [facility] PRN Reason: Protocol Last Admin: 03/05/17 22:15 Dose: 40 mg Furosemide (Lasix) 20 mg PO DAILY [facility] PRN Reason: Protocol Last Admin: 03/06/17 10:22 Dose: Not Given Levetiracetam (Keppra) 1,500 mg PO BID [facility] PRN Reason: Protocol Last Admin: 03/06/17 10:21 Dose: 1,500 mg Losartan Potassium (Cozaar) 100 mg PO DAILY [facility] PRN Reason: Protocol Last Admin: 03/06/17 10:21 Dose: 100 mg Oxcarbazepine (Trileptal) 300 mg PO BID [facility] PRN Reason: Protocol Last Admin: 03/06/17 10:22 Dose: 300 mg Potassium Chloride (Klor-Con 10) 10 meq PO BRK [facility] PRN Reason: Protocol Last Admin: 03/06/17 08:15 Dose: 10 meq - Respiratory Exam Respiratory Exam: Clear to Ausculation Bilateral, NORMAL BREATHING PATTERN - Cardiovascular Exam Cardiovascular Exam: REGULAR RHYTHM - GI/Abdominal Exam GI & Abdominal Exam: Soft, Normal Bowel Sounds - Neurological Exam Neurological Exam: Altered, Awake - Skin Skin Exam: Dry, Warm Assessment and Plan (1) Cellulitis and abscess of lower extremity Status: Chronic (2) Seizure disorder Status: Chronic - Assessment and Plan (Free Text) Plan: continue DAVID, social work for discharge planning
--- NOTE | 2017-03-06 16:02 | CP.PCM.CON ---
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 Santana for elongated toe nails. Patient denies of any pain due to the nails today. Patient states that his nails are long. Patient denies of any other pedal complains at this time. PMH: as stated above PSH: aneurysm clipping, ORTHOPHOTO TECH/DRAFTSMAN shunt Allergies: NKDA Social Hx: History of tobacco and alcohol use; no history of illicit drug use Review of Systems - EENT Eyes: As Per HPI Past Patient History - Infectious Disease Hx of Infectious Diseases: None - Tetanus Immunizations Tetanus Immunization: Unknown - Past Medical History & Family History Past Medical History?: Yes - Past Social History Smoking Status: Former Smoker - CARDIAC Hx Cardiac Disorders: Yes Hx Hypertension: Yes - PULMONARY Hx Chronic Obstructive Pulmonary Disease (COPD): Yes - NEUROLOGICAL HX Cerebrovascular Accident: Yes - HEENT Hx HEENT Problems: No - RENAL Hx Chronic Kidney Disease: No - ENDOCRINE/METABOLIC Hx Endocrine Disorders: No - HEMATOLOGICAL/ONCOLOGICAL Hx Blood Disorders: Yes Hx Hepatitis C: Yes Other/Comment: liver disease - INTEGUMENTARY Hx Dermatological Problems: Yes Hx Basil Cell: No Hx Eczema: No Hx Melanoma: No Hx Psoriasis: No Hx Squamous Cell: No - MUSCULOSKELETAL/RHEUMATOLOGICAL Hx Falls: Yes - GASTROINTESTINAL Hx Gastrointestinal Disorders: No - GENITOURINARY/GYNECOLOGICAL Hx Genitourinary Disorders: Yes Hx Incontinence: Yes - PSYCHIATRIC Hx Psychophysiologic Disorder: Yes (SMOKED CIGARETTES,HEAVY DRINKER ETOH ABUSE H.O) - SURGICAL HISTORY Hx Surgeries: Yes (brain aneurysm clips) Hx Orthopedic Surgery: Yes (C-spine) - ANESTHESIA Hx Anesthesia Reactions: No Hx Malignant Hyperthermia: No Meds Allergies/Adverse Reactions: Allergies Allergy/AdvReac Type Severity Reaction Status Date / Time No Known Allergies Allergy Verified 03/03/17 19:48 - Medications Medications: Current Medications Alprazolam (Xanax) 0.25 mg PO BID PRN; Protocol PRN Reason: Agitation Stop: 03/10/17 19:56 Amoxicillin/Clavulanate Potassium (Augmentin 875 Mg-125 Mg Tab) 1 tab PO Q12 [place] PRN Reason: Protocol Last Admin: 03/06/17 10:20 Dose: 1 tab Famotidine (Pepcid) 40 mg PO HS [place] PRN Reason: Protocol Last Admin: 03/05/17 22:15 Dose: 40 mg Furosemide (Lasix) 20 mg PO DAILY [place] PRN Reason: Protocol Last Admin: 03/06/17 10:22 Dose: Not Given Levetiracetam (Keppra) 1,500 mg PO BID [place] PRN Reason: Protocol Last Admin: 03/06/17 10:21 Dose: 1,500 mg Losartan Potassium (Cozaar) 100 mg PO DAILY [place] PRN Reason: Protocol Last Admin: 03/06/17 10:21 Dose: 100 mg Oxcarbazepine (Trileptal) 300 mg PO BID [place] PRN Reason: Protocol Last Admin: 03/06/17 10:22 Dose: 300 mg Potassium Chloride (Klor-Con 10) 10 meq PO BRK [place] PRN Reason: Protocol Last Admin: 03/06/17 08:15 Dose: 10 meq Physical Exam - Constitutional Appears: Well, Non-toxic, No Acute Distress - Extremities Exam Extremities exam: Negative for: calf tenderness Additional comments: VASC: DP/PT pulses are palpable 2/4 b/l, BONSAI TENDER: < 3 sec to all digits, TG: cool to cool from proximal to distal, no pitting or non-pitting edema noted on b/l LE DERM: nails are elongated, hypertrophic, discolored x 10, no interdigital maceration, no open lesions, no clinical suspicion of active infection NEURO: Protective sensation grossly intact ORTHO: mild pain on palpation of the nails - Neurological Exam Neurological exam: Alert, Oriented x3 - Psychiatric Exam Psychiatric exam: Normal Affect, Normal Mood Results - Vital Signs Recent Vital Signs: Last Vital Signs Temp 98.8 F 03/06/17 14:00 Pulse 67 03/06/17 14:00 Resp 16 03/06/17 14:00 BP 165/74 H 03/06/17 14:00 Pulse Ox 100 03/06/17 14:00 Assessment & Plan - Assessment and Plan (Free Text) Assessment: 61 y/o male seen and evaluated at bedside for elongated nails x 10 Plan: Patient seen and evaluated at bedside with Dr. Santana Labs vitals and charts reviewed - afebrile Aseptic debridement of the nails using sterile nippers Patient tolerated the debridement well Thank you for the podiatry consult - please re-consult as needed - Date & Time Date: 03/06/17 Time: 16:04 <Kimmie Santana - Last Filed: 03/10/17 15:29> Meds - Medications Medications: Current Medications Alprazolam (Xanax) 0.25 mg PO BID PRN; Protocol PRN Reason: Agitation Stop: 03/10/17 19:56 Last Admin: 03/09/17 17:40 Dose: 0.25 mg Famotidine (Pepcid) 40 mg PO HS [place] PRN Reason: Protocol Last Admin: 03/09/17 21:37 Dose: 40 mg Potassium Chloride 20 meq/ (Sodium Chloride) 1,010 mls @ 100 mls/hr IV .Q10H6M [place] Last Admin: 03/10/17 14:04 Dose: 100 mls/hr Levetiracetam (Keppra) 1,500 mg PO BID [place] PRN Reason: Protocol Last Admin: 03/10/17 10:31 Dose: 1,500 mg Oxcarbazepine (Trileptal) 300 mg PO BID [place] PRN Reason: Protocol Last Admin: 03/10/17 10:30 Dose: 300 mg Results - Vital Signs Recent Vital Signs: Last Vital Signs Temp 98.1 F 03/09/17 14:00 Pulse 66 03/09/17 14:00 Resp 16 03/09/17 14:00 BP 127/77 03/10/17 10:30 Pulse Ox 100 03/09/17 14:00 - Labs Result Diagrams: 03/10/17 05:45 03/10/17 05:45 Labs: Laboratory Results - last 24 hr 03/10/17 03/10/17 05:45 05:45 WBC 4.9 RBC 4.92 Hgb 15.1 Hct 42.6 MCV 86.6 D MCH 30.7 MCHC 35.4 RDW 13.0 Plt Count 181 MPV 9.3 Gran % 38.7 L Lymph % (Auto) 38.3 H [place] % (Auto) 16.3 H Eos % (Auto) 6.1 H Baso % (Auto) 0.6 Gran # 1.90 Lymph # 1.9 [place] # 0.8 H Eos # 0.3 Baso # 0.03 Sodium 129 L Potassium 3.8 Chloride 96 L Carbon Dioxide 26 Anion Gap 11 BUN 15 Creatinine 0.7 L Est GFR ( Amer) > 60 Est GFR (Non-Af Amer) > 60 Random Glucose 88 Calcium 8.9 Total Bilirubin 0.9 AST 32 ALT 65 H Alkaline Phosphatase 61 Total Protein 7.0 Albumin 3.8 Globulin 3.2 Albumin/Globulin Ratio 1.2 Attending/Attestation - Attestation I have personally seen and examined this patient.: Yes I have fully participated in the care of the patient.: Yes I have reviewed all pertinent clinical information: Yes
[2017-03-07] MEDS: Potassium Chloride 10 mEq ER Tab PO SCH (08:54)
--- NOTE | 2017-03-07 11:32 | CP.PCM.PN ---
Subjective - Date & Time of Evaluation Date of Evaluation: 03/07/17 Time of Evaluation: 11:15 - Subjective Subjective: OOB ambulating, NAD Objective - Vital Signs/Intake and Output Vital Signs (last 24 hours): Temp Pulse Resp BP Pulse Ox 97.9 F 64 18 113/71 99 03/07/17 10:01 03/07/17 10:01 03/07/17 10:01 03/07/17 10:01 03/07/17 10:01 - Medications Medications: Current Medications Alprazolam (Xanax) 0.25 mg PO BID PRN; Protocol PRN Reason: Agitation Stop: 03/10/17 19:56 Last Admin: 03/06/17 18:31 Dose: 0.25 mg Amoxicillin/Clavulanate Potassium (Augmentin 875 Mg-125 Mg Tab) 1 tab PO Q12 [place] PRN Reason: Protocol Last Admin: 03/06/17 21:26 Dose: 1 tab Famotidine (Pepcid) 40 mg PO HS [place] PRN Reason: Protocol Last Admin: 03/06/17 21:26 Dose: 40 mg Furosemide (Lasix) 20 mg PO DAILY [place] PRN Reason: Protocol Last Admin: 03/06/17 10:22 Dose: Not Given Levetiracetam (Keppra) 1,500 mg PO BID [place] PRN Reason: Protocol Last Admin: 03/06/17 17:10 Dose: 1,500 mg Losartan Potassium (Cozaar) 100 mg PO DAILY [place] PRN Reason: Protocol Last Admin: 03/06/17 10:21 Dose: 100 mg Oxcarbazepine (Trileptal) 300 mg PO BID [place] PRN Reason: Protocol Last Admin: 03/06/17 17:11 Dose: 300 mg Potassium Chloride (Klor-Con 10) 10 meq PO BRK [place] PRN Reason: Protocol Last Admin: 03/07/17 08:54 Dose: 10 meq - Respiratory Exam Respiratory Exam: Clear to Ausculation Bilateral, NORMAL BREATHING PATTERN - Cardiovascular Exam Cardiovascular Exam: REGULAR RHYTHM - GI/Abdominal Exam GI & Abdominal Exam: Soft, Normal Bowel Sounds - Neurological Exam Neurological Exam: Abnormal Gait, Alert, Awake - Skin Skin Exam: Dry, Warm Assessment and Plan (1) Cellulitis and abscess of lower extremity Status: Chronic (2) Seizure disorder Status: Chronic - Assessment and Plan (Free Text) Plan: continue PT, social work for discharge planning
[2017-03-07] MEDS: Amoxicillin-Clav 875-125 mg Tab PO SCH ×2 (11:47→21:10)
[2017-03-08] MEDS: Potassium Chloride 10 mEq ER Tab PO SCH (08:56)
--- NOTE | 2017-03-08 09:15 | CP.PCM.PN ---
Subjective - Date & Time of Evaluation Date of Evaluation: 03/08/17 Time of Evaluation: 08:45 - Subjective Subjective: OOB in chiar, NAD Objective - Vital Signs/Intake and Output Vital Signs (last 24 hours): Temp Pulse Resp BP Pulse Ox 98.8 F 61 18 155/94 H 98 03/08/17 06:00 03/08/17 06:00 03/08/17 06:00 03/08/17 06:49 03/08/17 06:00 Intake and Output: 03/08/17 03/08/17 06:59 18:59 Intake Total 420 Output Total 300 Balance 120 - Medications Medications: Current Medications Alprazolam (Xanax) 0.25 mg PO BID PRN; Protocol PRN Reason: Agitation Stop: 03/10/17 19:56 Last Admin: 03/07/17 21:10 Dose: 0.25 mg Famotidine (Pepcid) 40 mg PO HS [place] PRN Reason: Protocol Last Admin: 03/07/17 21:10 Dose: 40 mg Furosemide (Lasix) 20 mg PO DAILY [place] PRN Reason: Protocol Last Admin: 03/07/17 11:48 Dose: 20 mg Levetiracetam (Keppra) 1,500 mg PO BID [place] PRN Reason: Protocol Last Admin: 03/07/17 18:11 Dose: 1,500 mg Losartan Potassium (Cozaar) 100 mg PO DAILY [place] PRN Reason: Protocol Last Admin: 03/06/17 10:21 Dose: 100 mg Oxcarbazepine (Trileptal) 300 mg PO BID [place] PRN Reason: Protocol Last Admin: 03/07/17 18:12 Dose: 300 mg Potassium Chloride (Klor-Con 10) 10 meq PO BRK [place] PRN Reason: Protocol Last Admin: 03/08/17 08:56 Dose: 10 meq - Respiratory Exam Respiratory Exam: Clear to Ausculation Bilateral, NORMAL BREATHING PATTERN - Cardiovascular Exam Cardiovascular Exam: REGULAR RHYTHM - GI/Abdominal Exam GI & Abdominal Exam: Soft, Normal Bowel Sounds - Extremities Exam Extremities Exam: Normal Inspection - Neurological Exam Neurological Exam: Altered, Awake - Skin Skin Exam: Dry, Warm Assessment and Plan (1) Cellulitis and abscess of lower extremity Status: Chronic (2) Seizure disorder Status: Chronic - Assessment and Plan (Free Text) Plan: continue PT, social work for discharge planning
[2017-03-08] MEDS: Amoxicillin-Clav 875-125 mg Tab PO SCH (10:37)
[2017-03-09] MEDS: Potassium Chloride 10 mEq ER Tab PO SCH (08:49)
--- NOTE | 2017-03-09 13:26 | CP.PCM.PN ---
Subjective - Date & Time of Evaluation Date of Evaluation: 03/09/17 Time of Evaluation: 13:00 - Subjective Subjective: OOB ambulating, NAD, no seizures past several days Objective - Vital Signs/Intake and Output Vital Signs (last 24 hours): Temp Pulse Resp BP Pulse Ox 97.7 F 70 16 148/87 100 03/09/17 10:00 03/09/17 10:00 03/09/17 10:00 03/09/17 10:00 03/08/17 16:00 Intake and Output: 03/09/17 03/09/17 06:59 18:59 Intake Total 420 Balance 420 - Medications Medications: Current Medications Alprazolam (Xanax) 0.25 mg PO BID PRN; Protocol PRN Reason: Agitation Stop: 03/10/17 19:56 Last Admin: 03/09/17 08:47 Dose: 0.25 mg Famotidine (Pepcid) 40 mg PO HS [place] PRN Reason: Protocol Last Admin: 03/08/17 21:05 Dose: 40 mg Furosemide (Lasix) 20 mg PO DAILY [place] PRN Reason: Protocol Last Admin: 03/07/17 11:48 Dose: 20 mg Levetiracetam (Keppra) 1,500 mg PO BID [place] PRN Reason: Protocol Last Admin: 03/08/17 17:19 Dose: 1,500 mg Losartan Potassium (Cozaar) 100 mg PO DAILY [place] PRN Reason: Protocol Last Admin: 03/08/17 13:01 Dose: 100 mg Oxcarbazepine (Trileptal) 300 mg PO BID [place] PRN Reason: Protocol Last Admin: 03/08/17 17:18 Dose: 300 mg Potassium Chloride (Klor-Con 10) 10 meq PO BRK [place] PRN Reason: Protocol Last Admin: 03/09/17 08:49 Dose: 10 meq - Respiratory Exam Respiratory Exam: Clear to Ausculation Bilateral - Cardiovascular Exam Cardiovascular Exam: REGULAR RHYTHM - GI/Abdominal Exam GI & Abdominal Exam: Soft, Normal Bowel Sounds - Extremities Exam Extremities Exam: Normal Inspection - Neurological Exam Neurological Exam: Alert, Awake - Skin Skin Exam: Dry, Warm Assessment and Plan (1) Cellulitis and abscess of lower extremity Status: Chronic (2) Seizure disorder Status: Chronic - Assessment and Plan (Free Text) Plan: continue rehab/social work for discharge planning, check labs in am
[2017-03-10 06:16] LABS: BASO # 0.03 K/mm3 (0.0-2.0); BASO % 0.6 % (0.0-3.0); EOS # 0.3 (0.0-0.7); EOS % 6.1 % (1.5-5.0); GRAN # 1.9 (1.4-6.5); GRAN % 38.7 % (50.0-68.0); HEMATOCRIT 42.6 % (42.0-52.0); LYMPH # 1.9 (1.2-3.4); LYMPH % 38.3 % (22.0-35.0); MEAN CORPUSCULAR HEMOGLOBIN 30.7 pg (25.0-35.0); MEAN CORPUSCULAR HGB CONC 35.4 g/dl (31.0-37.0); MEAN PLATELET VOLUME 9.3 fl (7.0-11.0); MONO # 0.8 (0.1-0.6); MONO % 16.3 % (1.0-6.0); WHITE BLOOD COUNT 4.9 10^3/ul (4.5-11.0)
[2017-03-10 06:22] LABS: MEAN CELL VOLUME 86.6 fl (80.0-105.0)
[2017-03-10 06:52] LABS: ALB/GLOB RATIO 1.2 (1.1-1.8); ALKALINE PHOSPHATASE 61 U/L (38-126); ALT/SGPT 65 U/L (7-56); AST/SGOT 32 U/L (17-59); BILIRUBIN,TOTAL 0.9 mg/dL (0.2-1.3); BLOOD UREA NITROGEN 15 mg/dL (7-21); CALCIUM 8.9 mg/dL (8.4-10.5); CARBON DIOXIDE 26 mmol/L (21-33); CHLORIDE 96 mmol/L (98-107); GFR AFRICAN-AMERICAN > 60; GLUCOSE,RANDOM 88 mg/dL (70-110); POTASSIUM 3.8 mmol/L (3.6-5.0); SODIUM 129 mmol/L (132-148)
[2017-03-10] MEDS: Potassium Chloride 10 mEq ER Tab PO SCH (08:06)
--- NOTE | 2017-03-10 13:09 | CP.PCM.PN ---
Subjective - Date & Time of Evaluation Date of Evaluation: 03/10/17 Time of Evaluation: 09:30 - Subjective Subjective: no seizures, awake and responsive Objective - Vital Signs/Intake and Output Vital Signs (last 24 hours): Temp Pulse Resp BP Pulse Ox 98.1 F 66 16 127/77 100 03/09/17 14:00 03/09/17 14:00 03/09/17 14:00 03/10/17 10:30 03/09/17 14:00 - Medications Medications: Current Medications Alprazolam (Xanax) 0.25 mg PO BID PRN; Protocol PRN Reason: Agitation Stop: 03/10/17 19:56 Last Admin: 03/09/17 17:40 Dose: 0.25 mg Famotidine (Pepcid) 40 mg PO HS [place] PRN Reason: Protocol Last Admin: 03/09/17 21:37 Dose: 40 mg Potassium Chloride 20 meq/ (Sodium Chloride) 1,010 mls @ 100 mls/hr IV .Q10H6M [place] Levetiracetam (Keppra) 1,500 mg PO BID [place] PRN Reason: Protocol Last Admin: 03/10/17 10:31 Dose: 1,500 mg Oxcarbazepine (Trileptal) 300 mg PO BID [place] PRN Reason: Protocol Last Admin: 03/10/17 10:30 Dose: 300 mg - Labs Labs: 03/10/17 05:45 03/10/17 05:45 - Respiratory Exam Respiratory Exam: Clear to Ausculation Bilateral, NORMAL BREATHING PATTERN - Cardiovascular Exam Cardiovascular Exam: REGULAR RHYTHM - GI/Abdominal Exam GI & Abdominal Exam: Soft, Normal Bowel Sounds - Extremities Exam Extremities Exam: Normal Inspection - Neurological Exam Neurological Exam: Altered, Awake - Skin Skin Exam: Dry, Warm Assessment and Plan (1) Cellulitis and abscess of lower extremity Status: Chronic (2) Seizure disorder Status: Chronic (3) Hyponatremia Status: Acute - Assessment and Plan (Free Text) Plan: DC Lasix and Losartan due to low Na+, monitor lytes, IV saline
[2017-03-11 07:20] LABS: ALB/GLOB RATIO 1.2 (1.1-1.8); ALKALINE PHOSPHATASE 68 U/L (38-126); ALT/SGPT 58 U/L (7-56); AST/SGOT 27 U/L (17-59); BILIRUBIN,TOTAL 0.6 mg/dL (0.2-1.3); BLOOD UREA NITROGEN 15 mg/dL (7-21); CALCIUM 8.8 mg/dL (8.4-10.5); CARBON DIOXIDE 25 mmol/L (21-33); CHLORIDE 99 mmol/L (98-107); GFR AFRICAN-AMERICAN > 60; GLUCOSE,RANDOM 89 mg/dL (70-110); POTASSIUM 4.3 mmol/L (3.6-5.0); SODIUM 132 mmol/L (132-148)
[2017-03-11 17:33] VITALS: BP 130/76; PULSE 61; RESP 15; TEMP 98.2; O2SAT 98
== END 2017-03-11 21:55 | disposition home or self-care (01) | DRG 92 ==
LOC: TRCU 17:11
PROVIDERS: ADMIT Internal Medicine; ATTEND Internal Medicine
PROC: F07Z9FZ Gait Training/Functional Ambulation Treatment using Assistive, Adaptive, Supportive or Protective Equipment (ICD-10-PCS; principal; 2017-03-04)
PROC: F08Z4ZZ Home Management Treatment (ICD-10-PCS; 2017-03-04)
DX: R26.0 Ataxic gait (principal); G40.909 Epilepsy, unspecified, not intractable, without status epilepticus; L03.115 Cellulitis of right lower limb; L03.116 Cellulitis of left lower limb; L02.419 Cutaneous abscess of limb, unspecified; I11.0 Hypertensive heart disease with heart failure; I50.9 Heart failure, unspecified; F03.90 Unspecified dementia, unspecified severity, without behavioral disturbance, psychotic disturbance, mood disturbance, and anxiety; E87.1 Hypo-osmolality and hyponatremia; J44.9 Chronic obstructive pulmonary disease, unspecified; G47.00 Insomnia, unspecified; Z98.2 Presence of cerebrospinal fluid drainage device; Z91.14 Patient's other noncompliance with medication regimen; Z86.73 Personal history of transient ischemic attack (TIA), and cerebral infarction without residual deficits; Z87.891 Personal history of nicotine dependence

== ENCOUNTER 2017-03-28 12:58 | Inpatient (IN) | payer MEDICARE, OTHER ==
[2017-03-28 13:46] LABS: BASO # 0.01 K/mm3 (0.0-2.0); BASO % 0.1 % (0.0-3.0); EOS # 0.2 (0.0-0.7); EOS % 3.4 % (1.5-5.0); GRAN # 5.35 (1.4-6.5); GRAN % 79.6 % (50.0-68.0); HEMATOCRIT 44.4 % (42.0-52.0); LYMPH # 0.8 (1.2-3.4); LYMPH % 11.3 % (22.0-35.0); MEAN CELL VOLUME 87.9 fl (80.0-105.0); MEAN CORPUSCULAR HEMOGLOBIN 30.5 pg (25.0-35.0); MEAN CORPUSCULAR HGB CONC 34.7 g/dl (31.0-37.0); MEAN PLATELET VOLUME 10.5 fl (7.0-11.0); MONO # 0.4 (0.1-0.6); MONO % 5.6 % (1.0-6.0); WHITE BLOOD COUNT 6.7 10^3/ul (4.5-11.0)
[2017-03-28 14:23] LABS: ALB/GLOB RATIO 1.3 (1.1-1.8); ALKALINE PHOSPHATASE 72 U/L (38-126); ALT/SGPT 68 U/L (7-56); AST/SGOT 36 U/L (17-59); BILIRUBIN,TOTAL 0.5 mg/dL (0.2-1.3); BLOOD UREA NITROGEN 12 mg/dL (7-21); CALCIUM 9.1 mg/dL (8.4-10.5); CARBON DIOXIDE 23 mmol/L (21-33); CHLORIDE 101 mmol/L (98-107); GFR AFRICAN-AMERICAN > 60; GLUCOSE,RANDOM 119 mg/dL (70-110); SODIUM 138 mmol/L (132-148); TOTAL PROTEIN 7.9 g/dL (5.8-8.3)
[2017-03-28 14:30] LABS: INR 1.08 (0.93-1.08); PARTIAL THROMBOPLASTIN TIME 30.7 Seconds (25.1-36.5)
[2017-03-28 14:31] LABS: TROPONIN I < 0.01 ng/mL
[2017-03-28 14:56] LABS: VENOUS BLOOD GAS BASE EXCESS -4.5 mmol/L (0.0-2.0); VENOUS BLOOD PH 7.33 (7.32-7.43)
--- NOTE | 2017-03-28 16:12 | RAD ---
HISTORY: 61yoM, seizures hx COMPARISON: Chest x-ray performed 11/17/16 TECHNIQUE: Chest PA and lateral FINDINGS: Right sided CENTRIFUGAL SCREEN TENDER shunt catheter. LUNGS: No focal consolidation. Please note that chest x-ray has limited sensitivity for the detection of pulmonary masses. PLEURA: No significant pleural effusion identified. No definite pneumothorax . CARDIOVASCULAR: Heart size appears within normal limits. Ectatic aorta. OSSEOUS STRUCTURES: Osseous demineralization. Degenerative changes of the spine. Cervical fusion hardware. VISUALIZED UPPER ABDOMEN: Unremarkable. OTHER FINDINGS: None. IMPRESSION: No acute findings identified. See above.
--- NOTE | 2017-03-28 16:15 | CARD ---
APPROVED REPORT EKG Measurement Heart [id number] <Conclusion> Sinus tachycardia Otherwise normal ECG
[2017-03-28] MEDS ORDERED: Piperacill/Tazo 4.5gm in NS 4.5 GM/100 ML BAG IVPB STA (16:25)
[2017-03-28] MEDS: Lactated Ringer's 1,000 ML IV SCH (16:47)
[2017-03-28 16:54] LABS: URINE BILIRUBIN NEGATIVE (NEGATIVE); URINE BLOOD NEGATIVE (NEGATIVE); URINE GLUCOSE (UA) NEGATIVE (NEGATIVE); URINE KETONE TRACE mg/dL (NEGATIVE); URINE LEUKOCYTE ESTERASE NEGATIVE Leu/uL (NEGATIVE); URINE PROTEIN TRACE mg/dL (<30 mg/dL); URINE UROBILINOGEN 0.2 E.U./dL (<1 E.U./dL)
[2017-03-28 16:59] LABS: URINE APPEARANCE CLEAR (CLEAR); URINE COLOR YELLOW (YELLOW)
[2017-03-28 17:00] LABS: URINE BACTERIA MOD (NEG); URINE RBC 0 - 2 /hpf (0-2)
[2017-03-28 17:03] LABS: URINE AMORPHOUS SEDIMENT SMALL
[2017-03-28 17:38] LABS: VENOUS BLOOD GAS BASE EXCESS 2.8 mmol/L (0.0-2.0); VENOUS BLOOD PH 7.39 (7.32-7.43)
--- NOTE | 2017-03-28 18:06 | ED PDOC ---
Arrival/HPI - General Chief Complaint: Seizure Time Seen by Provider: 03/28/17 13:22 Historian: Patient - Critical Care Narrative Critical Care (Text): 03/28/17 18:03 pt with chronic seizure hx, d/w , pt with limited conversation due to memory loss and can't tell how he feels, who is combative, and had small seizures at home - 4 then generalized x3 seizures. otherwise no n/v/abd pain. poor sleep. - History of Present Illness Time/Duration: 4-6 hours, 24 hours Past Medical History - Provider Review Nursing Documentation Reviewed: Yes - Past History Past History: Unable to Obtain - Infectious Disease Hx of Infectious Diseases: None - Tetanus Immunization Tetanus Immunization: Unknown - Cardiac Hx Cardiac Disorders: Yes Hx Hypertension: Yes - Pulmonary Hx Chronic Obstructive Pulmonary Disease (COPD): Yes - Neurological HX Cerebrovascular Accident: Yes - HEENT Hx HEENT Disorder: No - Renal Hx Renal Disorder: No - Endocrine/Metabolic Hx Endocrine Disorders: No - Hematological/Oncological Hx Blood Disorders: Yes Hx Hepatitis C: Yes Other/Comment: liver disease - Integumentary Hx Dermatological Disorder: Yes Hx Basal Cell Carcinoma: No Hx Eczema: No Hx Melanoma: No Hx Psoriasis: No Hx Squamous Cell Carcinoma: No Other/Comment: redness with swelling to both lower legs - Musculoskeletal/Rheumatological Hx Falls: Yes - Gastrointestinal Hx 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) - Genitourinary/Gynecological Hx Genitourinary Disorders: Yes Hx Incontinence: Yes - Psychiatric Hx Psychophysiologic Disorder: Yes (SMOKED CIGARETTES,HEAVY DRINKER ETOH ABUSE H.O) Hx Substance Use: Yes (unknown) - Past Surgical History Past Surgical History: Unable to Obtain - Surgical History Hx Orthopedic Surgery: Yes (C-spine) Other/Comment: brain surgery due to brain aneurysm - Anesthesia Hx Anesthesia Reactions: No Hx Malignant Hyperthermia: No - Suicidal Assessment Feels Threatened In Home Enviroment: No Family/Social History - Physician Review Nursing Documentation Reviewed: Yes Family/Social History: No Known Family HX Smoking Status: Former Smoker Hx Alcohol Use: Yes Hx Substance Use: Yes (unknown) Hx Substance Use Treatment: No Allergies/Home Meds Allergies/Adverse Reactions: Allergies No Known Allergies Allergy (Verified 03/03/17 19:48) Review of Systems - Review of Systems Constitutional: Normal Eyes: Normal ENT: Normal Respiratory: Normal Cardiovascular: Normal Gastrointestinal: Normal Genitourinary Male: Normal Musculoskeletal: Normal Skin: Normal Neurological: Seizure Hemo/Lymphatic: Normal Physical Exam - Physical Exam Narrative Physical Exam (Text): d/w patient who stated difficulty to care for patient at home at this time. 03/28/17 18:07 Vital Signs Reviewed: Yes Vital Signs Temp Pulse Resp BP Pulse Ox 03/28/17 16:37 92 H 18 97 03/28/17 15:00 91 H 18 138/79 100 03/28/17 13:11 99.2 F 100 H 20 141/88 100 Temperature: Afebrile Blood Pressure: Hypertensive Pulse: Regular Respiratory Rate: Normal Appearance: Positive for: Well-Appearing Pain Distress: None Mental Status: Positive for: other (non-verbal) - Systems Exam Head: Present: Atraumatic, Normocephalic Pupils: Present: PERRL Extroacular Muscles: Present: EOMI Conjunctiva: Present: Normal Ears: Present: Normal Mouth: Present: Moist Mucous Membranes Pharnyx: Present: Normal Nose (External): Present: Atraumatic Nose (Internal): Present: Normal Inspection Neck: Present: Normal Range of Motion Respiratory/Chest: Present: Clear to Auscultation, Good Air Exchange Cardiovascular: Present: Regular Rate and Rhythm Back: Present: Normal Inspection Upper Extremity: Present: Normal Inspection Lower Extremity: Present: Normal Inspection Neurological: Present: Other (non-verbal, moving all extremities, good sensation to pain.) Skin: Present: Warm, Normal Color, Other (b/l le mild hyperemia wo acute fluctuance/crepitus.) Medical Decision Making ED Course and Treatment: initial lactic acid 7.6 which is related to seizures, ivf, zosyn given, - repeat 0.9. no fever, no wbc, cxr no acute, no acute sign of infection as b/l le hypermia wo acute fluctuance/crepitus.. 03/28/17 18:09 d/w who states difficulty to care for patient at home. 03/28/17 18:10 CHEST X-RAY Dictator : Judith Butler MD Report Date : 03/28/2017 16:10:33 IMPRESSION: No acute findings identified. See above. pt with siezure hx and ct head 02/27/17 wo acute. 03/28/17 18:40 pt sitting up talking at this time. per can answer questions, but very limited. pt at baseline. 03/28/17 18:49 03/28/17 18:50 will d/w medical service. 03/28/17 19:04 03/28/17 19:45 d/w Dr. Marquis who will admit pt, recommended consultation with Dr. Efra weiss. - Lab Interpretations Lab Results: 03/28/17 13:25 03/28/17 14:00 Lab Results 03/28/17 18:13: pO2 169 H, VBG pH 7.39, VBG pCO2 46.0, VBG HCO3 27.8, VBG Total CO2 29.2 H, VBG O2 Sat (Calc) 99.7 H, VBG Base Excess 2.2 H, VBG Potassium 3.5 L , Sodium 136.0, Chloride 102.0, Glucose 109, Lactate 0.6 L, FiO2 21.0, Venous Blood Potassium 3.5 L 03/28/17 17:25: pO2 91 H, VBG pH 7.39, VBG pCO2 47.0, VBG HCO3 28.5 H, VBG Total CO2 29.9 H, VBG O2 Sat (Calc) 98.4 H, VBG Base Excess 2.8 H, VBG Potassium 3.7, Sodium 136.0, Chloride 101.0, Glucose 131 H, Lactate 0.9, FiO2 21.0, Venous Blood Potassium 3.7 03/28/17 16:45: Urine Color Yellow, Urine Appearance Clear, Urine pH 6.0, Ur Specific [place] 1.015, Urine Protein Trace H, Urine Glucose (UA) Negative, Urine Ketones Trace H, Urine Blood Negative, Urine Nitrate Negative, Urine Bilirubin Negative, Urine Urobilinogen 0.2, Ur Leukocyte Esterase Negative, Urine RBC 0 - 2, Urine WBC 1 - 3, Ur Epithelial Cells None, Amorphous Sediment Small, Urine Bacteria Mod, Urine Other Uyeast 03/28/17 14:00: PT 11.8, INR 1.08, APTT 30.7 03/28/17 14:00: Sodium 138, Chloride 101, Potassium 4.0, Carbon Dioxide 23, Anion Gap 18, BUN 12, Creatinine 0.7 L, Est GFR ( Amer) > 60, Est GFR ( Non-Af Amer) > 60, Random Glucose 119 H, Calcium 9.1, Total Bilirubin 0.5, AST 36, ALT 68 H, Alkaline Phosphatase 72, Lactate Dehydrogenase 417, Total Creatine Kinase 94, Troponin I < 0.01, Total Protein 7.9, Albumin 4.4, Globulin 3.5, Albumin/Globulin Ratio 1.3 03/28/17 13:25: pO2 162 H, VBG pH 7.33, VBG pCO2 40.0, VBG HCO3 21.1, VBG Total CO2 22.3, VBG O2 Sat (Calc) 99.7 H, VBG Base Excess -4.5 L, VBG Potassium 4.6, Sodium 134.0, Chloride 99.0, Glucose 121 H, Lactate 7.6 H*, FiO2 21.0, Venous Blood Potassium 4.6 03/28/17 13:25: WBC 6.7 D, RBC 5.05, Hgb 15.4, Hct 44.4, MCV 87.9, MCH 30.5, MCHC 34.7, RDW 13.0, Plt Count 219, MPV 10.5, Gran % 79.6 H, Lymph % (Auto) 11.3 L, [place] % (Auto) 5.6, Eos % (Auto) 3.4, Baso % (Auto) 0.1, Gran # 5.35, Lymph # 0.8 L, [place] # 0.4, Eos # 0.2, Baso # 0.01 I have reviewed the lab results: Yes - RAD Interpretation Narrative RAD Interpretations (Text): 03/28/17 18:1 cxr no acute. Radiology Orders: 03/28/17 14:26 CHEST TWO VIEWS (PA/LAT) [RAD] Stat Executive Producer Promos: Radiologist - EKG Interpretation EKG Interpretation (Text): 03/28/17 18:11 ECG: sinus tachycardia, flipped t waves avr, flattened avl - Medication Orders Current Medication Orders: Lactated Ringer's (Lactated Ringer's) 1,000 mls @ 100 mls/hr IV .Q10H [place] Last Admin: 03/28/17 16:47 Dose: 100 mls/hr eMAR Start Stop Document 03/28/17 16:47 SRE (Rec: 03/28/17 16:47 [id number] [id number]) Intravenous Solution Start Date 03/28/17 Start Time 14:45 Discontinued Medications Piperacillin Sod/Tazobactam Sod (Zosyn 4.5 Gm In Ns 100ml) 4.5 gm in 100 mls @ 200 mls/hr IVPB STAT STA PRN Reason: Protocol Stop: 03/28/17 16:54 Last Admin: 03/28/17 16:39 Dose: 200 mls/hr eMAR Start Stop Document 03/28/17 16:39 SRE (Rec: 03/28/17 16:39 SRE [id number]) Intravenous Solution Start Date 03/28/17 Start Time 16:39 End Date 03/28/17 End time 17:30 Total Infusion Time 51 Disposition/Present on Arrival - Present on Arrival Any Indicators Present on Arrival: No History of DVT/PE: No History of Uncontrolled Diabetes: No Urinary Catheter: No History of Decub. Ulcer: No History Surgical Site Infection Following: None - Disposition Have Diagnosis and Disposition been Completed?: Yes Diagnosis: Seizure, Cellulitis Disposition: HOSPITALIZED Disposition Time: 19:46 Patient Plan: Admission Condition: STABLE Discharge Instructions (ExitCare): Cellulitis (ED) Forms: [employer] Plan ([employer])
[2017-03-28 18:37] LABS: VENOUS BLOOD GAS BASE EXCESS 2.2 mmol/L (0.0-2.0); VENOUS BLOOD PH 7.39 (7.32-7.43)
[2017-03-28 23:37] VITALS: BMI 27.8
[2017-03-28] MEDS ORDERED: Pneumococcal 23-Valent Vaccine IM ONE (23:37)
[2017-03-28] MEDS ORDERED: Influenza Vaccine 60 mcg/0.5 mL SYR (4YR UP) IM ONE (23:37)
[2017-03-29] MEDS: Lactated Ringer's 1,000 ML IV SCH (02:00)
--- NOTE | 2017-03-29 22:36 | HP ---
HISTORY OF PRESENT ILLNESS: The patient is a 61-year-old male, admitted through the Emergency Department on 03/28/2017 with recurrent seizures. The patient has a history of subarachnoid hemorrhage, status post ventriculoperitoneal shunt placement approximately 5 years ago, and has had recurrent admissions for breakthrough seizures. The patient was seen in consultation by Neurology, Dr Khalil. He is currently on Keppra and Lamictal, and has been admitted to the Telemetry Unit. He is presently awake and responsive, in no acute distress. PAST MEDICAL HISTORY: Includes subarachnoid hemorrhage, status post ventriculoperitoneal shunt placement, COPD secondary to tobacco use, hypertension, CHF, and dementia. PAST SURGICAL HISTORY: Include cervical laminectomy in the remote past. ALLERGIES: THE PATIENT HAS NO KNOWN DRUG ALLERGIES. CURRENT MEDICATIONS: Include Keppra 1500 mg twice daily, Lamictal 150 mg twice daily, Xanax 0.25 mg twice daily p.r.n., Lasix 20 mg daily, K-Dur 20 mEq daily. FAMILY HISTORY: Noncontributory. SOCIAL HISTORY: The patient has a history of tobacco use in the remote past. There was no alcohol or drug use. REVIEW OF SYSTEMS: Essentially unobtainable secondary to patient's mental status. PHYSICAL EXAMINATION: GENERAL: The patient is a well-developed male, in no acute distress. VITAL SIGNS: Blood pressure 170/85, temperature 98.5, pulse 88, respiratory rate 18. HEENT: There is a ventriculoperitoneal shunt present and intact. Pupils, equal, round, and reactive to light. Extraocular movements intact. NECK: Supple. No thyromegaly. No carotid bruit. No adenopathy. LUNGS: Clear to auscultation. HEART: Regular rate and rhythm. ABDOMEN: Soft, nontender. Bowel sounds are normoactive. EXTREMITIES: Without cyanosis, clubbing, or edema. NEUROLOGIC: The patient is awake and confused, without focal, sensory, or motor deficits. Gait is somewhat ataxic. SKIN: Warm and dry. LABORATORY DATA: WBC 6.7, hemoglobin 15.4, hematocrit 44.4. Sodium 138, potassium 4.0, chloride 101, CO2 is 23, BUN 12, creatinine 0.7, glucose 119. Chest x-ray shows no active disease. IMPRESSION: 1. Recurrent breakthrough seizures. 2. History of subarachnoid hemorrhage, status post ventriculoperitoneal shunt. 3. Chronic obstructive pulmonary disease. 4. Hypertension. 5. Dementia, status post subarachnoid hemorrhage. 6. History of congestive heart failure. PLAN: Continue to observe on telemetry. Neurology consult, Dr. Khalil, is appreciated. Physical Therapy and Social Work for discharge planning. KWAME West MD
--- NOTE | 2017-03-30 12:28 | CP.PCM.PN ---
Subjective - Date & Time of Evaluation Date of Evaluation: 03/30/17 Time of Evaluation: 11:15 - Subjective Subjective: no seizure activity past 24 hrs, awake and responsive Objective - Vital Signs/Intake and Output Vital Signs (last 24 hours): Temp Pulse Resp BP Pulse Ox 97.9 F 71 18 152/89 H 96 03/30/17 06:00 03/30/17 06:00 03/30/17 06:00 03/30/17 10:54 03/30/17 06:00 Intake and Output: 03/30/17 03/30/17 06:59 18:59 Intake Total 840 Output Total 200 Balance 640 - Medications Medications: Current Medications Alprazolam (Xanax) 0.25 mg PO BID PRN; Protocol PRN Reason: Anxiety Stop: 04/05/17 13:50 Last Admin: 03/30/17 03:31 Dose: 0.25 mg Amlodipine Besylate (Norvasc) 5 mg PO DAILY [facility] Last Admin: 03/30/17 10:54 Dose: 5 mg Famotidine (Pepcid) 40 mg PO HS [facility] Last Admin: 03/29/17 22:31 Dose: Not Given Lactated Ringer's (Lactated Ringer's) 1,000 mls @ 100 mls/hr IV .Q10H [facility] Last Admin: 03/29/17 02:00 Dose: 100 mls/hr Levetiracetam (Keppra) 1,500 mg PO BID [facility] Last Admin: 03/30/17 10:54 Dose: 1,500 mg Oxcarbazepine (Trileptal) 300 mg PO BID [facility] PRN Reason: Protocol Last Admin: 03/30/17 10:54 Dose: 300 mg - Labs Labs: PT 11.8 SECONDS (9.4-12.5) 03/28/17 14:00 INR 1.08 (0.93-1.08) 03/28/17 14:00 APTT 30.7 Seconds (25.1-36.5) 03/28/17 14:00 - Respiratory Exam Respiratory Exam: Clear to Ausculation Bilateral, NORMAL BREATHING PATTERN - Cardiovascular Exam Cardiovascular Exam: REGULAR RHYTHM - GI/Abdominal Exam GI & Abdominal Exam: Soft, Normal Bowel Sounds - Extremities Exam Extremities Exam: Normal Inspection - Neurological Exam Neurological Exam: Altered, Awake - Skin Skin Exam: Dry, Warm Assessment and Plan (1) Seizure disorder Status: Chronic - Assessment and Plan (Free Text) Plan: continue observe, Physical therapy eval, social work for discharge planning
--- NOTE | 2017-03-31 01:48 | CON ---
DATE: HISTORY OF PRESENT ILLNESS: This is a 61-year-old male with past medical history of subarachnoid hemorrhage status post ventriculoperitoneal shunt, COPD, hypertension, and dementia, came to the hospital with recurrent seizure and the patient was on Keppra and Trileptal. Called to evaluate the patient. PAST MEDICAL HISTORY: As above. PAST SURGICAL HISTORY: Cervical laminectomy. ALLERGIES: NO KNOWN DRUG ALLERGIES. SOCIAL HISTORY: Smoke, but does not drink. PHYSICAL EXAMINATION GENERAL: The patient is intermittently confused and awake and oriented to self. NEUROLOGIC: Cranial nerves II through XII are tested. Pupils reactive. EOM intact. Spontaneous movement of the extremities noted. Deep tendon reflexes 1+. Both plantars are downgoing. Sensory appears intact. Cerebellar and gait deferred IMPRESSION: Recurrent breakthrough seizure, history of subarachnoid hemorrhage on ventriculoperitoneal shunt, hypertension, dementia. Workup in progress. We will follow up. Howard Khalil MD
[2017-03-31 08:11] VITALS: RESP 18
--- NOTE | 2017-03-31 14:03 | CP.PCM.PN ---
<Karolina Mcneal - Last Filed: 03/31/17 17:49> Subjective - Date & Time of Evaluation Date of Evaluation: 03/31/17 Time of Evaluation: 09:00 - Subjective Subjective: PGY-2 Neurology progrss note for Dr. Khalil's service Patient seen and examined at bedside. No acute distress patient is resting comfortably. He is alert but not oriented. He denies any pain. Objective - Vital Signs/Intake and Output Vital Signs (last 24 hours): Temp Pulse Resp BP Pulse Ox 99.3 F 64 18 154/91 H 98 03/31/17 08:10 03/31/17 10:08 03/31/17 08:10 03/31/17 10:08 03/31/17 08:10 Intake and Output: 03/31/17 03/31/17 06:59 18:59 Intake Total 1020 Output Total 200 Balance 820 - Medications Medications: Current Medications Alprazolam (Xanax) 0.25 mg PO BID PRN; Protocol PRN Reason: Anxiety Stop: 04/05/17 13:50 Last Admin: 03/30/17 22:39 Dose: 0.25 mg Amlodipine Besylate (Norvasc) 5 mg PO DAILY [facility] Last Admin: 03/31/17 10:08 Dose: 5 mg Famotidine (Pepcid) 40 mg PO [facility] Last Admin: 03/30/17 22:02 Dose: 40 mg Levetiracetam (Keppra) 1,500 mg PO BID [facility] Last Admin: 03/31/17 10:09 Dose: 1,500 mg Oxcarbazepine (Trileptal) 300 mg PO BID [facility] PRN Reason: Protocol Last Admin: 03/31/17 10:09 Dose: 300 mg - Labs Labs: PT 11.8 SECONDS (9.4-12.5) 03/28/17 14:00 INR 1.08 (0.93-1.08) 03/28/17 14:00 APTT 30.7 Seconds (25.1-36.5) 03/28/17 14:00 - Constitutional Appears: No Acute Distress - Head Exam Head Exam: ATRAUMATIC, NORMAL INSPECTION, NORMOCEPHALIC - Eye Exam Eye Exam: EOMI, Normal appearance - ENT Exam ENT Exam: Mucous Membranes Moist - Respiratory Exam Respiratory Exam: Clear to Ausculation Bilateral, NORMAL BREATHING PATTERN. absent: Respiratory Distress - Cardiovascular Exam Cardiovascular Exam: REGULAR RHYTHM - Neurological Exam Neurological Exam: Alert, Awake, CN II-XII Intact. absent: Oriented x3 Neuro motor strength exam: Left Upper Extremity: 5, Right Upper Extremity: 5, Left Lower Extremity: 5, Right Lower Extremity: 5 - Skin Skin Exam: Dry, Intact, Normal Color, Warm Assessment and Plan - Assessment and Plan (Free Text) Assessment: 61 yo male with PMH of seizure, subarachniod hemorrhage on ventriculoperitoneal shunt, HTN, dementia presents with breakthrough seizures 1. seizure - continue keppra 1500 bID, max dose - continue trileptal 300mg BID - consider DAVID case reviewed and discussed with attending <Dom Khalil - Last Filed: 03/31/17 18:03> Objective - Vital Signs/Intake and Output Vital Signs (last 24 hours): Temp Pulse Resp BP Pulse Ox 98.6 F 67 18 123/76 95 03/31/17 16:00 03/31/17 16:00 03/31/17 16:00 03/31/17 16:00 03/31/17 16:00 Intake and Output: 03/31/17 03/31/17 06:59 18:59 Intake Total 1020 600 Output Total 200 300 Balance 820 300 - Medications Medications: Current Medications Alprazolam (Xanax) 0.25 mg PO BID PRN; Protocol PRN Reason: Anxiety Stop: 04/05/17 13:50 Last Admin: 03/30/17 22:39 Dose: 0.25 mg Amlodipine Besylate (Norvasc) 5 mg PO DAILY [facility] Last Admin: 03/31/17 10:08 Dose: 5 mg Famotidine (Pepcid) 40 mg PO HS [facility] Last Admin: 03/30/17 22:02 Dose: 40 mg Levetiracetam (Keppra) 1,500 mg PO BID [facility] Last Admin: 03/31/17 10:09 Dose: 1,500 mg Lisinopril (Zestril) 5 mg PO DAILY [facility] Oxcarbazepine (Trileptal) 300 mg PO BID [facility] PRN Reason: Protocol Last Admin: 03/31/17 10:09 Dose: 300 mg - Labs Labs: PT 11.8 SECONDS (9.4-12.5) 03/28/17 14:00 INR 1.08 (0.93-1.08) 03/28/17 14:00 APTT 30.7 Seconds (25.1-36.5) 03/28/17 14:00 Attending/Attestation - Attestation I have personally seen and examined this patient.: Yes I have fully participated in the care of the patient.: Yes I have reviewed all pertinent clinical information, including history, physical exam and plan: Yes
--- NOTE | 2017-03-31 16:23 | CP.PCM.PN ---
Subjective - Date & Time of Evaluation Date of Evaluation: 03/31/17 Time of Evaluation: 15:30 - Subjective Subjective: awake and responsive, confused at baseline mental status, no seizure activity past 48 - 72 hrs., gait is unsteady Objective - Vital Signs/Intake and Output Vital Signs (last 24 hours): Temp Pulse Resp BP Pulse Ox 99.3 F 64 18 154/91 H 98 03/31/17 08:10 03/31/17 10:08 03/31/17 08:10 03/31/17 10:08 03/31/17 08:10 Intake and Output: 03/31/17 03/31/17 06:59 18:59 Intake Total 1020 600 Output Total 200 300 Balance 820 300 - Medications Medications: Current Medications Alprazolam (Xanax) 0.25 mg PO BID PRN; Protocol PRN Reason: Anxiety Stop: 04/05/17 13:50 Last Admin: 03/30/17 22:39 Dose: 0.25 mg Amlodipine Besylate (Norvasc) 5 mg PO DAILY [facility] Last Admin: 03/31/17 10:08 Dose: 5 mg Famotidine (Pepcid) 40 mg PO [facility] Last Admin: 03/30/17 22:02 Dose: 40 mg Levetiracetam (Keppra) 1,500 mg PO BID [facility] Last Admin: 03/31/17 10:09 Dose: 1,500 mg Lisinopril (Zestril) 5 mg PO DAILY [facility] Oxcarbazepine (Trileptal) 300 mg PO BID [facility] PRN Reason: Protocol Last Admin: 03/31/17 10:09 Dose: 300 mg - Labs Labs: PT 11.8 SECONDS (9.4-12.5) 03/28/17 14:00 INR 1.08 (0.93-1.08) 03/28/17 14:00 APTT 30.7 Seconds (25.1-36.5) 03/28/17 14:00 - Respiratory Exam Respiratory Exam: Clear to Ausculation Bilateral, NORMAL BREATHING PATTERN - Cardiovascular Exam Cardiovascular Exam: REGULAR RHYTHM - GI/Abdominal Exam GI & Abdominal Exam: Soft, Normal Bowel Sounds - Extremities Exam Extremities Exam: Normal Inspection - Neurological Exam Neurological Exam: Abnormal Gait, Altered, Awake - Skin Skin Exam: Dry, Warm Assessment and Plan (1) Seizure disorder Status: Chronic (2) Hypertension Status: Acute - Assessment and Plan (Free Text) Plan: add lisinopril 5mg qd for elevated by, physical therapy, subacute rehab eval
[2017-04-01 08:12] VITALS: BP 154/87; PULSE 65; TEMP 98.3; O2SAT 96
--- NOTE | 2017-04-01 10:18 | CP.PCM.PN ---
<Karolina Mcneal - Last Filed: 04/01/17 17:11> Subjective - Date & Time of Evaluation Date of Evaluation: 04/01/17 Time of Evaluation: 09:00 - Subjective Subjective: PGY-2 Neurology progrss note for Dr. Khalil's service Patient seen and examined at bedside. No acute distress patient is sleeping comfortably. He is alert and confused, at baseline. He denies any pain. Nurse reports no events overnight, no seizure activity reported Objective - Vital Signs/Intake and Output Vital Signs (last 24 hours): Temp Pulse Resp BP Pulse Ox 98.3 F 65 18 154/87 H 96 04/01/17 08:11 04/01/17 08:11 04/01/17 08:11 04/01/17 08:11 04/01/17 08:11 Intake and Output: 04/01/17 04/01/17 06:59 18:59 Intake Total 540 Balance 540 - Medications Medications: Current Medications Alprazolam (Xanax) 0.25 mg PO BID PRN; Protocol PRN Reason: Anxiety Stop: 04/05/17 13:50 Last Admin: 03/30/17 22:39 Dose: 0.25 mg Amlodipine Besylate (Norvasc) 5 mg PO DAILY [facility] Last Admin: 03/31/17 10:08 Dose: 5 mg Famotidine (Pepcid) 40 mg PO [facility] Last Admin: 03/31/17 22:32 Dose: 40 mg Levetiracetam (Keppra) 1,500 mg PO BID [facility] Last Admin: 03/31/17 18:11 Dose: 1,500 mg Lisinopril (Zestril) 5 mg PO DAILY [facility] Oxcarbazepine (Trileptal) 300 mg PO BID [facility] PRN Reason: Protocol Last Admin: 03/31/17 18:11 Dose: 300 mg - Labs Labs: PT 11.8 SECONDS (9.4-12.5) 03/28/17 14:00 INR 1.08 (0.93-1.08) 03/28/17 14:00 APTT 30.7 Seconds (25.1-36.5) 03/28/17 14:00 - Constitutional Appears: Well, No Acute Distress - Head Exam Head Exam: ATRAUMATIC, NORMAL INSPECTION, NORMOCEPHALIC - Eye Exam Eye Exam: EOMI, Normal appearance - ENT Exam ENT Exam: Mucous Membranes Moist - Respiratory Exam Respiratory Exam: Clear to Ausculation Bilateral, NORMAL BREATHING PATTERN. absent: Rhonchi, Wheezes, Respiratory Distress - Cardiovascular Exam Cardiovascular Exam: Tachycardia, REGULAR RHYTHM, +S1, +S2. absent: Murmur - Neurological Exam Neurological Exam: Alert, Awake, CN II-XII Intact, Oriented x3 - Skin Skin Exam: Dry, Intact, Normal Color, Warm Assessment and Plan - Assessment and Plan (Free Text) Assessment: 61 yo male with PMH of seizure, subarachniod hemorrhage on ventriculoperitoneal shunt, HTN, dementia presents with breakthrough seizures - at baseline mental status, h/o cognitive slowing - continue keppra 1500 bID, max dose - continue trileptal 300mg BID - awaiting placement in subacute rehab case reviewed and discussed with attending <Dom Khalil - Last Filed: 04/01/17 18:05> Objective - Vital Signs/Intake and Output Vital Signs (last 24 hours): Temp Pulse Resp BP Pulse Ox 98.3 F 65 18 154/87 H 96 04/01/17 08:11 04/01/17 08:11 04/01/17 08:11 04/01/17 10:48 04/01/17 08:11 Intake and Output: 04/01/17 04/01/17 06:59 18:59 Intake Total 540 780 Balance 540 780 - Medications Medications: Current Medications Alprazolam (Xanax) 0.25 mg PO BID PRN; Protocol PRN Reason: Anxiety Stop: 04/05/17 13:50 Last Admin: 03/30/17 22:39 Dose: 0.25 mg Amlodipine Besylate (Norvasc) 5 mg PO DAILY [facility] Last Admin: 04/01/17 10:47 Dose: 5 mg Famotidine (Pepcid) 40 mg PO HS [facility] Last Admin: 03/31/17 22:32 Dose: 40 mg Levetiracetam (Keppra) 1,500 mg PO BID [facility] Last Admin: 04/01/17 17:02 Dose: 1,500 mg Lisinopril (Zestril) 10 mg PO DAILY [facility] Oxcarbazepine (Trileptal) 300 mg PO BID [facility] PRN Reason: Protocol Last Admin: 04/01/17 17:02 Dose: 300 mg - Labs Labs: PT 11.8 SECONDS (9.4-12.5) 03/28/17 14:00 INR 1.08 (0.93-1.08) 03/28/17 14:00 APTT 30.7 Seconds (25.1-36.5) 03/28/17 14:00 Attending/Attestation - Attestation I have personally seen and examined this patient.: Yes I have fully participated in the care of the patient.: Yes I have reviewed all pertinent clinical information, including history, physical exam and plan: Yes
--- NOTE | 2017-04-01 12:51 | CP.PCM.PN ---
Subjective - Date & Time of Evaluation Date of Evaluation: 04/01/17 Time of Evaluation: 13:15 - Subjective Subjective: somewhat lethargic, no seizures past 72+ hours, no acute distress Objective - Vital Signs/Intake and Output Vital Signs (last 24 hours): Temp Pulse Resp BP Pulse Ox 98.3 F 65 18 154/87 H 96 04/01/17 08:11 04/01/17 08:11 04/01/17 08:11 04/01/17 10:48 04/01/17 08:11 Intake and Output: 04/01/17 04/01/17 06:59 18:59 Intake Total 540 Balance 540 - Medications Medications: Current Medications Alprazolam (Xanax) 0.25 mg PO BID PRN; Protocol PRN Reason: Anxiety Stop: 04/05/17 13:50 Last Admin: 03/30/17 22:39 Dose: 0.25 mg Amlodipine Besylate (Norvasc) 5 mg PO DAILY [facility] Last Admin: 04/01/17 10:47 Dose: 5 mg Famotidine (Pepcid) 40 mg PO [facility] Last Admin: 03/31/17 22:32 Dose: 40 mg Levetiracetam (Keppra) 1,500 mg PO BID [facility] Last Admin: 04/01/17 10:47 Dose: 1,500 mg Lisinopril (Zestril) 10 mg PO DAILY [facility] Oxcarbazepine (Trileptal) 300 mg PO BID [facility] PRN Reason: Protocol Last Admin: 04/01/17 10:48 Dose: 300 mg - Labs Labs: PT 11.8 SECONDS (9.4-12.5) 03/28/17 14:00 INR 1.08 (0.93-1.08) 03/28/17 14:00 APTT 30.7 Seconds (25.1-36.5) 03/28/17 14:00 - Respiratory Exam Respiratory Exam: Clear to Ausculation Bilateral, NORMAL BREATHING PATTERN - Cardiovascular Exam Cardiovascular Exam: REGULAR RHYTHM - GI/Abdominal Exam GI & Abdominal Exam: Soft, Normal Bowel Sounds - Extremities Exam Extremities Exam: Normal Inspection - Neurological Exam Neurological Exam: Altered - Skin Skin Exam: Dry, Warm Assessment and Plan (1) Seizure disorder Status: Chronic (2) Hypertension Status: Acute - Assessment and Plan (Free Text) Plan: medically stable, increase lisinopril to 10mg qd for elevated bp, social work for discharge planning
== END 2017-04-01 19:12 | DRG 101 ==
LOC: ED 12:58 → ERH 20:33 → 3RNO 21:14
PROVIDERS: ADMIT Internal Medicine; ATTEND Internal Medicine
DX: G40.909 Epilepsy, unspecified, not intractable, without status epilepticus (principal); I50.9 Heart failure, unspecified; F03.90 Unspecified dementia, unspecified severity, without behavioral disturbance, psychotic disturbance, mood disturbance, and anxiety; I11.0 Hypertensive heart disease with heart failure; J44.9 Chronic obstructive pulmonary disease, unspecified; Z98.2 Presence of cerebrospinal fluid drainage device; Z86.73 Personal history of transient ischemic attack (TIA), and cerebral infarction without residual deficits; Z87.891 Personal history of nicotine dependence

== ENCOUNTER 2017-04-08 16:33 | Observation (INO) | payer MEDICARE, OTHER ==
[2017-04-08 16:44] VITALS: BMI 26.4
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
[2017-04-08 17:19] LABS: BASO # 0.02 K/mm3 (0.0-2.0); BASO % 0.4 % (0.0-3.0); EOS # 0.3 (0.0-0.7); EOS % 5.6 % (1.5-5.0); GRAN # 2.69 (1.4-6.5); GRAN % 48.9 % (50.0-68.0); LYMPH # 1.8 (1.2-3.4); LYMPH % 32.8 % (22.0-35.0); MEAN CELL VOLUME 90.5 fl (80.0-105.0); MEAN CORPUSCULAR HEMOGLOBIN 30.1 pg (25.0-35.0); MEAN CORPUSCULAR HGB CONC 33.3 g/dl (31.0-37.0); MEAN PLATELET VOLUME 9.1 fl (7.0-11.0); MONO # 0.7 (0.1-0.6); MONO % 12.3 % (1.0-6.0); RED CELL DISTRIBUTION WIDTH 13.2 % (11.5-14.5); WHITE BLOOD COUNT 5.5 10^3/ul (4.5-11.0)
--- NOTE | 2017-04-08 17:47 | RAD ---
HISTORY: [facility] eval COMPARISON: 03/28/2017 FINDINGS: There is stable appearance of right-sided portacaval shunt. LUNGS: The lungs are well inflated and clear. PLEURA: No significant pleural effusion identified, no pneumothorax apparent. CARDIOVASCULAR: Normal. OSSEOUS STRUCTURES: No significant abnormalities. VISUALIZED UPPER ABDOMEN: Normal. OTHER FINDINGS: None. IMPRESSION: No active pulmonary disease.
[2017-04-08 18:01] LABS: ALB/GLOB RATIO 1.2 (1.1-1.8); ALKALINE PHOSPHATASE 64 U/L (38-126); ALT/SGPT 66 U/L (7-56); AST/SGOT 30 U/L (17-59); BILIRUBIN,TOTAL 0.4 mg/dL (0.2-1.3); BLOOD UREA NITROGEN 24 mg/dL (7-21); CARBON DIOXIDE 29 mmol/L (21-33); CHLORIDE 101 mmol/L (98-107); GFR AFRICAN-AMERICAN > 60; GLUCOSE,RANDOM 94 mg/dL (70-110); SODIUM 140 mmol/L (132-148); TOTAL PROTEIN 7.3 g/dL (5.8-8.3)
[2017-04-08 19:09] LABS: URINE BILIRUBIN NEGATIVE (NEGATIVE); URINE BLOOD TRACE-INTACT (NEGATIVE); URINE GLUCOSE (UA) NEGATIVE (NEGATIVE); URINE KETONE NEGATIVE (NEGATIVE); URINE LEUKOCYTE ESTERASE NEGATIVE Leu/uL (NEGATIVE); URINE PROTEIN TRACE mg/dL (<30 mg/dL); URINE UROBILINOGEN 0.2 E.U./dL (<1 E.U./dL)
[2017-04-08 19:10] LABS: URINE APPEARANCE CLEAR (CLEAR); URINE COLOR YELLOW (YELLOW)
[2017-04-08 19:12] LABS: URINE AMORPHOUS SEDIMENT FEW; URINE BACTERIA MANY (NEG); URINE WBC 0 - 2 /hpf (0-6)
[2017-04-08] MEDS ORDERED: Sodium Chloride 0.9% 1,000 ML IV STA (20:53)
[2017-04-08] MEDS ORDERED: cefTRIAXone 1 gm 1 GM/100 ML BAG IVPB STA (20:55)
[2017-04-08] MEDS ORDERED: cefTRIAXone 1 gm 1 GM/100 ML BAG IVPB SCH (21:00)
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
[2017-04-09 07:35] LABS: HEMATOCRIT 42.6 % (42.0-52.0); MEAN CELL VOLUME 88.6 fl (80.0-105.0); MEAN CORPUSCULAR HEMOGLOBIN 29.5 pg (25.0-35.0); MEAN CORPUSCULAR HGB CONC 33.3 g/dl (31.0-37.0); MEAN PLATELET VOLUME 9.1 fl (7.0-11.0); RED CELL DISTRIBUTION WIDTH 12.9 % (11.5-14.5); WHITE BLOOD COUNT 4.8 10^3/ul (4.5-11.0)
[2017-04-09 07:57] LABS: ALB/GLOB RATIO 1.2 (1.1-1.8); ALKALINE PHOSPHATASE 72 U/L (38-126); ALT/SGPT 66 U/L (7-56); AST/SGOT 37 U/L (17-59); BILIRUBIN,TOTAL 0.6 mg/dL (0.2-1.3); BLOOD UREA NITROGEN 13 mg/dL (7-21); CALCIUM 8.9 mg/dL (8.4-10.5); CARBON DIOXIDE 24 mmol/L (21-33); CHLORIDE 104 mmol/L (98-107); GFR AFRICAN-AMERICAN > 60; GLUCOSE,RANDOM 92 mg/dL (70-110); POTASSIUM 3.8 mmol/L (3.6-5.0); SODIUM 138 mmol/L (132-148); TOTAL PROTEIN 7.9 g/dL (5.8-8.3)
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
--- NOTE | 2017-04-09 10:23 | CARD ---
APPROVED REPORT EKG Measurement Heart [id number] <Conclusion> Normal sinus rhythm Septal infarct, age undetermined Abnormal ECG
[2017-04-09 11:18] VITALS: PULSE 80
[2017-04-09 17:10] VITALS: BP 191/93; RESP 18; TEMP 97.4; O2SAT 94
[2017-04-09] MEDS ORDERED: Influenza Vaccine 60 mcg/0.5 mL SYR (4YR UP) IM ONE (17:53)
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
== END 2017-04-09 18:56 | disposition home or self-care (01) ==
LOC: ED 16:33 → ERH 20:52 → 5RNO 22:57
PROVIDERS: ADMIT Family Medicine; ATTEND Family Medicine
DX: N30.90 Cystitis, unspecified without hematuria (principal); G40.909 Epilepsy, unspecified, not intractable, without status epilepticus; F03.91 Unspecified dementia, unspecified severity, with behavioral disturbance; J44.9 Chronic obstructive pulmonary disease, unspecified; I10 Essential (primary) hypertension; B19.20 Unspecified viral hepatitis C without hepatic coma; R60.9 Edema, unspecified; Z98.2 Presence of cerebrospinal fluid drainage device; Z86.73 Personal history of transient ischemic attack (TIA), and cerebral infarction without residual deficits; Z87.891 Personal history of nicotine dependence
CPT/HCPCS: 36415; 71010; 80053; 81001; 85025; 85027; 90674; 90791; 93005; 99285; G0008; G0378; G0480; J0696; J1940; J7040

== ENCOUNTER 2017-04-26 20:59 | Inpatient (IN) | payer MEDICARE, OTHER ==
[2017-04-26 20:59] VITALS: BMI 26.4
[2017-04-26] MEDS ORDERED: Sodium Chloride 0.9% 500 ML IV STA (21:10)
[2017-04-26] MEDS ORDERED: levETIRAcetam 1,000 MG in Sodium Chloride 0.9% 100 ML IV ONE (21:11)
[2017-04-26 21:33] LABS: URINE BILIRUBIN NEGATIVE (NEGATIVE); URINE BLOOD TRACE-INTACT (NEGATIVE); URINE GLUCOSE (UA) NEGATIVE (NEGATIVE); URINE LEUKOCYTE ESTERASE NEGATIVE Leu/uL (NEGATIVE); URINE NITRATE NEGATIVE (NEGATIVE); URINE PROTEIN 30 mg/dL (<30 mg/dL); URINE UROBILINOGEN 0.2 E.U./dL (<1 E.U./dL)
[2017-04-26 21:37] LABS: URINE APPEARANCE CLEAR (CLEAR); URINE COLOR YELLOW (YELLOW)
[2017-04-26 21:42] LABS: BASO # 0.01 K/mm3 (0.0-2.0); BASO % 0.2 % (0.0-3.0); EOS # 0.3 (0.0-0.7); EOS % 4.7 % (1.5-5.0); GRAN # 3.84 (1.4-6.5); GRAN % 68.8 % (50.0-68.0); HEMOGLOBIN 14.5 g/dL (14.0-18.0); LYMPH % 17.2 % (22.0-35.0); MEAN CELL VOLUME 87.3 fl (80.0-105.0); MEAN CORPUSCULAR HEMOGLOBIN 30.1 pg (25.0-35.0); MEAN CORPUSCULAR HGB CONC 34.5 g/dl (31.0-37.0); MEAN PLATELET VOLUME 9.2 fl (7.0-11.0); MONO # 0.5 (0.1-0.6); MONO % 9.1 % (1.0-6.0); RBC 4.81 10^6/uL (3.5-6.1); RED CELL DISTRIBUTION WIDTH 13.5 % (11.5-14.5); WHITE BLOOD COUNT 5.6 10^3/ul (4.5-11.0)
[2017-04-26 21:47] LABS: ALT/SGPT 73 U/L (7-56)
[2017-04-26 21:58] LABS: ALB/GLOB RATIO 1.2 (1.1-1.8); ALBUMIN 4.2 g/dL (3.0-4.8); AST/SGOT 45 U/L (17-59); BLOOD UREA NITROGEN 10 mg/dL (7-21); CALCIUM 9.1 mg/dL (8.4-10.5); GFR AFRICAN-AMERICAN > 60; GFR NON-AFRICAN AMERICAN > 60
[2017-04-26 22:14] LABS: URINE EPITHELIAL CELLS 0 - 2 /hpf (0-5); URINE RBC 0 - 2 /hpf (0-2); URINE WBC 0 - 2 /hpf (0-6)
[2017-04-26 22:15] LABS: URINE BACTERIA OCC (NEG)
[2017-04-26] MEDS ORDERED: carBAMazepine Chew Tab 100 MG Chew Tab PO ONE (23:18)
--- NOTE | 2017-04-27 08:31 | RAD ---
PROCEDURE: CHEST RADIOGRAPH, 1 VIEW HISTORY: [facility] Total Attorneys exam COMPARISON: None available. FINDINGS: LUNGS: Clear. PLEURA: No pneumothorax or pleural fluid seen. CARDIOVASCULAR: Normal. OSSEOUS STRUCTURES: No significant abnormalities. VISUALIZED UPPER ABDOMEN: Normal. OTHER FINDINGS: None. IMPRESSION: No active disease.
--- NOTE | 2017-04-27 12:06 | CARD ---
APPROVED REPORT EKG Measurement Heart [id number] <Conclusion> Normal sinus rhythm Normal ECG
[2017-04-27] MEDS: Potassium Chloride 10 mEq ER Tab PO SCH (13:29)
--- NOTE | 2017-04-27 17:11 | CT ---
PROCEDURE: CT HEAD WITHOUT CONTRAST. HISTORY: seizure COMPARISON: 02/27/2017 TECHNIQUE: Axial computed tomography images were obtained through the head/brain without intravenous contrast. Radiation dose: Total exam DLP = mGy-cm. This CT exam was performed using one or more of the following dose reduction techniques: Automated exposure control, adjustment of the mA and/or kV according to patient size, and/or use of iterative reconstruction technique. FINDINGS: HEMORRHAGE: No intracranial hemorrhage. BRAIN: No mass effect or edema. Old left frontal infarct. VENTRICLES: Hydrocephalus with right frontal ventriculoperitoneal shunt in place. CALVARIUM: Unremarkable. PARANASAL SINUSES: Unremarkable as visualized. No significant inflammatory changes. MASTOID AIR CELLS: Unremarkable as visualized. No inflammatory changes. OTHER FINDINGS: None. IMPRESSION: No intracranial hemorrhage. No significant interval change.
[2017-04-27] MEDS ORDERED: levETIRAcetam Solution 100 MG/ML BOTTLE PO SCH (18:00)
[2017-04-27] MEDS: levETIRAcetam 500 mg/5ml UD cups PO SCH (18:16)
--- NOTE | 2017-04-27 23:24 | HP ---
HISTORY OF PRESENT ILLNESS: The patient is a 62-year-old male with a history of subarachnoid hemorrhage, status post ventriculoperitoneal shunt who presents to the emergency department with recurrent breakthrough seizures. There is a question of compliance with his medication. The patient is awake and responsive at the present time and is ambulating short distances. There was no tongue biting, no incontinence noted. PAST MEDICAL HISTORY: The patient's past medical history includes hypertension; subarachnoid hemorrhage, status post ventriculoperitoneal shunt, though significant past surgical history of ventriculoperitoneal shunt, the patient did undergo shunt revision several months ago by Dr. Blair. ALLERGIES: THE PATIENT HAS NO KNOWN ALLERGIES. MEDICATIONS: His current medications include Keppra 1500 mg twice daily, Trileptal 300 mg twice daily, Xanax 0.5 mg four times daily, Lasix 20 mg daily, potassium chloride 10 mEq daily. SOCIAL HISTORY: The patient has a history of tobacco use, quit several years ago. There is no history of alcohol or drug abuse. He lives with his . He requires assistance with IADLs and is independent with ADLs. REVIEW OF SYSTEMS: The patient denies any chest pain, shortness of breath. The patient does have occasional swelling of the legs. No fever, no chills. No diarrhea. PHYSICAL EXAMINATION: GENERAL: The patient is a well-developed male, in no acute distress. VITAL SIGNS: Blood pressure , temperature 98.8, pulse 77, respiratory 18. HEENT: Ventriculoperitoneal shunt is intact. Pupils equal, round, and reactive to light. Extraocular movements intact. NECK: Supple. No thyromegaly. No carotid bruit. No adenopathy. LUNGS: Clear. HEART: Regular rate and rhythm. ABDOMEN: Soft, nontender. Bowel sounds are normoactive. EXTREMITIES: Show trace to 1+ edema to the ankles bilaterally with some mild erythema bilaterally. NEUROLOGICAL: The patient is awake and confused without focal, sensory, or motor deficits. SKIN: Warm and dry. LABORATORY DATA: WBC is 5.6, hemoglobin 14.5, hematocrit 42.0. Sodium 135, potassium 4.1, chloride 100, CO2 of 27, BUN 10, creatinine 0.5, glucose 102. IMPRESSION: 1. Recurrent breakthrough seizures. 2. History of subarachnoid hemorrhage, status post ventriculoperitoneal shunt. 3. Hypertension. 4. History of cellulitis of the legs. PLAN: The patient is admitted to the telemetry unit. We will obtain neurology consultation by Dr. Khalil, monitor for further seizure activity. Social work for discharge planning. KWAME West MD
--- NOTE | 2017-04-28 04:47 | CP.PCM.PN ---
Subjective - Date & Time of Evaluation Date of Evaluation: 04/27/17 Time of Evaluation: 11:00 - Subjective Subjective: called by nurse pt is confused and is tring to get out of bed and is risk of fall. pt has hx of subarachnoid hge and ventriculo peritoneal shunt .is standing in the room and and does not obey commands . Objective - Vital Signs/Intake and Output Vital Signs (last 24 hours): Temp Pulse Resp BP Pulse Ox 98.7 F 74 20 133/78 97 04/27/17 16:50 04/27/17 16:50 04/27/17 16:50 04/27/17 16:50 04/27/17 16:50 Intake and Output: 04/27/17 04/28/17 18:59 06:59 Intake Total 360 Output Total 995 Balance -635 - Medications Medications: Current Medications Alprazolam (Xanax) 0.5 mg PO TID PRN; Protocol PRN Reason: Anxiety Last Admin: 04/27/17 20:55 Dose: 0.5 mg Furosemide (Lasix) 20 mg PO DAILY [facility] Last Admin: 04/27/17 13:28 Dose: 20 mg Levetiracetam (Keppra) 1,500 mg PO BID [facility] Last Admin: 04/27/17 18:16 Dose: 1,500 mg Oxcarbazepine (Trileptal) 300 mg PO BID [facility] PRN Reason: Protocol Last Admin: 04/27/17 18:16 Dose: 300 mg Potassium Chloride (Klor-Con 10) 10 meq PO BRK [facility] Last Admin: 04/27/17 13:29 Dose: 10 meq - Constitutional Appears: No Acute Distress - Head Exam Head Exam: NORMOCEPHALIC - Eye Exam Pupil Exam: PERRL - Neck Exam Neck Exam: Full ROM - Respiratory Exam Respiratory Exam: NORMAL BREATHING PATTERN - Cardiovascular Exam Cardiovascular Exam: RRR, +S1, +S2 - GI/Abdominal Exam GI & Abdominal Exam: Soft - Rectal Exam Rectal Exam: Deferred - Extremities Exam Extremities Exam: Full ROM - Neurological Exam Neurological Exam: Awake - Psychiatric Exam Additional comments: confused. - Skin Skin Exam: Warm Assessment and Plan - Assessment and Plan (Free Text) Assessment: confusion / risk of fall. Plan: called dr matamoros .wants the pt on 1:1 observation.
--- NOTE | 2017-04-28 09:46 | CON ---
DATE: 04/27/2017 HISTORY OF PRESENT ILLNESS: This is a 61-year-old male with past medical history of hypertension, COPD, hepatitis C liver disease, status post brain surgery for brain aneurysm. SOCIAL HISTORY: Heavy smoker. The patient says seizure, dementia, status post brain aneurysm, craniotomy was done, and the patient is on Trileptal and Keppra. No tongue bite. No urinary incontinence. I called to evaluate the patient. PHYSICAL EXAMINATION: HEENT: Normocephalic and atraumatic. NECK: Supple. NEUROLOGIC: Awake, oriented to self. Cranial nerves II through XII are tested. Pupils reactive. EOM intact. Visual carpio full. No facial asymmetry. Tongue midline. Motor examination, moves all the extremities equally. Tone normal. Deep tendon reflexes 1+. Both plantars are downgoing. Sensory appears intact. Cerebellar, gait deferred. IMPRESSION: Breakthrough seizure, dementia, status post shunt and history of seizure and cognitive problems. PLAN: Continue present management. We will do electroencephalography and CAT scan of the head. We will follow up. Howard Khalil MD
[2017-04-28] MEDS: levETIRAcetam 500 mg/5ml UD cups PO SCH ×2 (10:49→18:04)
[2017-04-28] MEDS: Potassium Chloride 10 mEq ER Tab PO SCH (10:49)
--- NOTE | 2017-04-28 13:51 | CP.PCM.PN ---
Subjective - Date & Time of Evaluation Date of Evaluation: 04/28/17 Time of Evaluation: 09:30 - Subjective Subjective: somewhat agitated, confusion at baseline, no seizure pat 24 hrs. Objective - Vital Signs/Intake and Output Vital Signs (last 24 hours): Temp Pulse Resp BP Pulse Ox 98.1 F 81 21 153/93 H 96 04/28/17 09:24 04/28/17 09:24 04/28/17 09:24 04/28/17 10:50 04/28/17 09:24 Intake and Output: 04/28/17 04/28/17 06:59 18:59 Intake Total 360 Output Total 995 Balance -635 - Medications Medications: Current Medications Alprazolam (Xanax) 0.5 mg PO TID PRN; Protocol PRN Reason: Anxiety Last Admin: 04/27/17 20:55 Dose: 0.5 mg Furosemide (Lasix) 20 mg PO DAILY [facility] Last Admin: 04/28/17 10:50 Dose: 20 mg Levetiracetam (Keppra) 1,500 mg PO BID [facility] Last Admin: 04/28/17 10:49 Dose: 1,500 mg Oxcarbazepine (Trileptal) 300 mg PO BID [facility] PRN Reason: Protocol Last Admin: 04/28/17 10:50 Dose: 300 mg Potassium Chloride (Klor-Con 10) 10 meq PO BRK [facility] Last Admin: 04/28/17 10:49 Dose: 10 meq - Respiratory Exam Respiratory Exam: Clear to Ausculation Bilateral, NORMAL BREATHING PATTERN - Cardiovascular Exam Cardiovascular Exam: REGULAR RHYTHM - GI/Abdominal Exam GI & Abdominal Exam: Soft, Normal Bowel Sounds - Extremities Exam Extremities Exam: Normal Inspection - Neurological Exam Neurological Exam: Altered, Awake - Skin Skin Exam: Dry, Warm Assessment and Plan (1) Hypertension Status: Acute (2) Seizure Status: Acute - Assessment and Plan (Free Text) Plan: neurology consult appreciated, for EEG today, restart anti-HTN meds, social work for discharge planning
--- NOTE | 2017-04-28 18:57 | PN ---
DATE: 04/28/2017 NEUROLOGY FOLLOWUP SUBJECTIVE: The patient was seen and examined at the bedside, a little bit drowsy, but otherwise no further seizures. He had a low Trileptal level likely noncompliance, now Trileptal has yarelis resumed. He gets little agitated. SOCIAL HISTORY: Heavy smoker. No illicit drug use or EtOH abuse in the past. ALLERGIES: NO KNOWN DRUG ALLERGIES. 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 REVIEW OF SYSTEMS: A 14-point review of system is negative except for HPI. MEDICATIONS: Reviewed by nurse practitioner reconciliation sheet. FAMILY HISTORY: Noncontributory. PHYSICAL EXAMINATION: GENERAL: The patient is in bed. No acute distress. Slightly drowsy. VITAL SIGNS: Temperature 98.7, pulse rate 74, blood pressure 133/70, respiratory rate 20 and oxygen saturation 97% by room air. HEENT: Atraumatic and normocephalic. PERRLA. Extraocular muscles intact. NECK: Supple. No JVD. No adenopathy noted. LUNGS: Clear to auscultation. No adventitious sounds. HEART: S1 and S2. Normal rate and rhythm. No murmurs, rubs or gallops. ABDOMEN: Soft, nontender, and nondistended. Bowel sounds are present. EXTREMITIES: No clubbing, no cyanosis. Peripheral pulses 2+ bilaterally. NEUROLOGIC: The patient is drowsy, in no acute distress. Has poor attention. Has slow thought process. Speech is hypophonic, but no . Motor exam: Normal tone. Moves all extremities equally. No pronator drift seen. Withdrawal are localized to noxious stimulus, diffuse. Light touch intact. Proprioception is intact. Vibration is on hold for now. DTRs are 1+ throughout. Coordination [id number] intact. Gait deferred for now. LABORATORY DATA: Sodium is 135, potassium 4.1, chloride 100, carbon dioxide 27, BUN of 10, creatinine 0.5. ASSESSMENT AND PLAN: This is a 62-year-old man with past medical history of aneurysm, subarachnoid hemorrhage status post clipping status post ventriculoperitoneal shunt status post shunt revision on 09/06/[address] Blair. History of multiple breakthrough seizures, history of traumatic brain injury, history of cognitive impairment, history of dysexecutive syndrome from traumatic brain injury, history of noncompliance with seizure medications, history of agitation and insomnia who was brought for breakthrough seizures, found to have low Trileptal level indicating not taking the medications. He is on Keppra 1500 mg p.o. b.i.d. currently no further seizures. He does agitated at times. RECOMMENDATIONS: 1. Sleep hygiene, needs better sleep hygiene since he is having chronic insomnia. We will recommend a psychiatric evaluation for competency and compliance with medication. 2. 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 3. Continue with Keppra 1500 mg p.o. b.i.d and Trileptal 300 mg p.o. b.i.d. for seizure prophylaxis. 4. EEG shows severe bilateral cerebral dysfunction. No evidence of an epileptiform activity. 5. Continue with current present medical management. Thank you for this consult. Dom Khalil MD
--- NOTE | 2017-04-29 06:57 | EEG ---
SUBJECTIVE: This is a 62-year-old male with past medical history of hypertension, COPD, hepatitis, status post craniotomy for aneurysm and the patient came with breakthrough seizure. DESCRIPTION: Background activity of this tracing was composed of 8 cycles per second, alpha-like activity, small amount of beta activity 16-20 cycles per second were noted in this tracing, theta activity 5-7 cycles per second was noted in this tracing. Drowsiness was composed by mixed beta and theta activities. Photic stimulation did not change the record. No paroxysmal activity was seen in the record. IMPRESSION: Bilateral cerebral dysfunction, diffuse. Howard Khalil MD
[2017-04-29] MEDS: levETIRAcetam 500 mg/5ml UD cups PO SCH ×2 (09:42→18:03)
[2017-04-29] MEDS: Potassium Chloride 10 mEq ER Tab PO SCH (09:43)
[2017-04-29 11:57] LABS: HEMOGLOBIN 13.1 g/dL (14.0-18.0); MEAN CELL VOLUME 88.5 fl (80.0-105.0); MEAN CORPUSCULAR HEMOGLOBIN 29.5 pg (25.0-35.0); MEAN CORPUSCULAR HGB CONC 33.3 g/dl (31.0-37.0); MEAN PLATELET VOLUME 8.8 fl (7.0-11.0); RBC 4.44 10^6/uL (3.5-6.1); RED CELL DISTRIBUTION WIDTH 13.9 % (11.5-14.5); WHITE BLOOD COUNT 5.4 10^3/ul (4.5-11.0)
[2017-04-29 12:04] LABS: ALB/GLOB RATIO 1.2 (1.1-1.8); ALBUMIN 3.6 g/dL (3.0-4.8); ALT/SGPT 59 U/L (7-56); AST/SGOT 25 U/L (17-59); BLOOD UREA NITROGEN 13 mg/dL (7-21); CALCIUM 8.8 mg/dL (8.4-10.5); GFR AFRICAN-AMERICAN > 60; GFR NON-AFRICAN AMERICAN > 60
--- NOTE | 2017-04-29 13:39 | CP.PCM.PN ---
Subjective - Date & Time of Evaluation Date of Evaluation: 04/29/17 Time of Evaluation: 13:00 - Subjective Subjective: somewhat lethargic, arousable, no seizures past 48 - 72 hrs. Objective - Vital Signs/Intake and Output Vital Signs (last 24 hours): Temp Pulse Resp BP Pulse Ox 97.3 F L 64 19 129/85 97 04/29/17 08:05 04/29/17 09:44 04/29/17 08:05 04/29/17 09:44 04/29/17 08:05 - Medications Medications: Current Medications Alprazolam (Xanax) 0.5 mg PO BID PRN; Protocol PRN Reason: Anxiety Furosemide (Lasix) 20 mg PO DAILY [facility] Last Admin: 04/29/17 09:43 Dose: 20 mg Levetiracetam (Keppra) 1,500 mg PO BID [facility] Last Admin: 04/29/17 09:42 Dose: 1,500 mg Lisinopril (Zestril) 10 mg PO DAILY [facility] Last Admin: 04/29/17 09:44 Dose: 10 mg Oxcarbazepine (Trileptal) 300 mg PO BID [facility] PRN Reason: Protocol Last Admin: 04/29/17 09:43 Dose: 300 mg Potassium Chloride (Klor-Con 10) 10 meq PO BRK [facility] Last Admin: 04/29/17 09:43 Dose: 10 meq - Labs Labs: 04/29/17 11:40 04/29/17 11:40 - Respiratory Exam Respiratory Exam: Clear to Ausculation Bilateral, NORMAL BREATHING PATTERN - Cardiovascular Exam Cardiovascular Exam: REGULAR RHYTHM - GI/Abdominal Exam GI & Abdominal Exam: Soft, Normal Bowel Sounds - Extremities Exam Extremities Exam: Normal Inspection - Neurological Exam Neurological Exam: Altered - Skin Skin Exam: Dry, Warm Assessment and Plan (1) Hypertension Status: Acute (2) Seizure Status: Acute - Assessment and Plan (Free Text) Plan: physical therapy eval and Tx, continue neuro eval/mgmt, decrease xanax to bid due to lethargy, social work for discharge planning
--- NOTE | 2017-04-29 16:39 | CP.PCM.PN ---
Subjective - Date & Time of Evaluation Date of Evaluation: 04/29/17 Time of Evaluation: 17:00 - Subjective Subjective: DATE: 04/29/2017 NEUROLOGY FOLLOWUP SUBJECTIVE: The patient was seen and examined at the bedside, a little bit drowsy, but otherwise no further seizures. Awaiting PT evaluation. SOCIAL HISTORY: Heavy smoker. No illicit drug use or EtOH abuse in the past. ALLERGIES: NO KNOWN DRUG ALLERGIES. 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 REVIEW OF SYSTEMS: A 14-point review of system is negative except for HPI. MEDICATIONS: Reviewed by nurse practitioner reconciliation sheet. FAMILY HISTORY: Noncontributory. PHYSICAL EXAMINATION: GENERAL: The patient is in bed. No acute distress. VITAL SIGNS: Reviewed. HEENT: Atraumatic and normocephalic. PERRLA. Extraocular muscles intact. NECK: Supple. No JVD. No adenopathy noted. LUNGS: Clear to auscultation. No adventitious sounds. HEART: S1 and S2. Normal rate and rhythm. No murmurs, rubs or gallops. ABDOMEN: Soft, nontender, and nondistended. Bowel sounds are present. EXTREMITIES: No clubbing, no cyanosis. Peripheral pulses 2+ bilaterally. NEUROLOGIC: The patient is in no acute distress. Has poor attention. Has slow thought process. Speech is hypophonic, but no aphasia. Motor exam: Normal tone. Moves all extremities equally. No pronator drift seen. Withdrawal are localized to noxious stimulus, diffuse. Light touch intact. Proprioception is intact. Vibration is on hold for now. DTRs are 1+ throughout. Coordination [id number] intact. Gait deferred for now. LABORATORY DATA: Reviewed. ASSESSMENT AND PLAN: This is a 62-year-old man with past medical history of aneurysm, subarachnoid hemorrhage status post clipping status post ventriculoperitoneal shunt status post shunt revision on 09/06/[address] Blair. History of multiple breakthrough seizures, history of traumatic brain injury, history of cognitive impairment, history of dysexecutive syndrome from traumatic brain injury, history of noncompliance with seizure medications, history of agitation and insomnia who was brought for breakthrough seizures, found to have low Trileptal level indicating not taking the medications. He is on Keppra 1500 mg p.o. b.i.d. currently no further seizures. He does agitated at times. RECOMMENDATIONS: 1. Sleep hygiene, needs better sleep hygiene since he is having chronic insomnia. We will recommend a psychiatric evaluation for competency and compliance with medication. 2. night worker help in regards to needs help at home for possible ADLs and medication compliance. 3. Continue with Keppra 1500 mg p.o. b.i.d and Trileptal 300 mg p.o. b.i.d. for seizure prophylaxis. 4. EEG shows severe bilateral cerebral dysfunction. No evidence of an epileptiform activity. 5. Continue with current present medical management. PT evaluation. Thank you . Dom Khalil MD Objective - Vital Signs/Intake and Output Vital Signs (last 24 hours): Temp Pulse Resp BP Pulse Ox 97.3 F L 64 19 129/85 97 04/29/17 08:05 04/29/17 09:44 04/29/17 08:05 04/29/17 09:44 04/29/17 08:05 Intake and Output: 04/29/17 04/29/17 06:59 18:59 Intake Total 480 Balance 480 - Medications Medications: Current Medications Alprazolam (Xanax) 0.5 mg PO BID PRN; Protocol PRN Reason: Anxiety Furosemide (Lasix) 20 mg PO DAILY [facility] Last Admin: 04/29/17 09:43 Dose: 20 mg Levetiracetam (Keppra) 1,500 mg PO BID [facility] Last Admin: 04/29/17 09:42 Dose: 1,500 mg Lisinopril (Zestril) 10 mg PO DAILY [facility] Last Admin: 04/29/17 09:44 Dose: 10 mg Oxcarbazepine (Trileptal) 300 mg PO BID [facility] PRN Reason: Protocol Last Admin: 04/29/17 09:43 Dose: 300 mg Potassium Chloride (Klor-Con 10) 10 meq PO BRK [facility] Last Admin: 04/29/17 09:43 Dose: 10 meq - Labs Labs: 04/29/17 11:40 04/29/17 11:40
[2017-04-29 18:23] VITALS: RESP 20
[2017-04-30] MEDS: Potassium Chloride 10 mEq ER Tab PO SCH (09:54)
[2017-04-30] MEDS: levETIRAcetam 500 mg/5ml UD cups PO SCH ×2 (09:54→16:59)
[2017-04-30 09:55] VITALS: BP 154/94; PULSE 60
[2017-04-30 10:02] VITALS: TEMP 98.2; O2SAT 98
== END 2017-04-30 17:00 | disposition home or self-care (01) | DRG 101 ==
LOC: ED 20:59 → ERH 23:34 → 3RNO 04-27 00:45 → OBSVTOIN 04-28 16:48
PROVIDERS: ADMIT Internal Medicine; ATTEND Internal Medicine
DX: G40.909 Epilepsy, unspecified, not intractable, without status epilepticus (principal); F03.90 Unspecified dementia, unspecified severity, without behavioral disturbance, psychotic disturbance, mood disturbance, and anxiety; B19.20 Unspecified viral hepatitis C without hepatic coma; F17.200 Nicotine dependence, unspecified, uncomplicated; I10 Essential (primary) hypertension; J44.9 Chronic obstructive pulmonary disease, unspecified; F51.04 Psychophysiologic insomnia; Z91.14 Patient's other noncompliance with medication regimen; Z98.2 Presence of cerebrospinal fluid drainage device; Z87.820 Personal history of traumatic brain injury

== ENCOUNTER 2017-07-29 12:38 | Inpatient (IN) | payer MEDICARE, OTHER ==
[2017-07-29 12:41] VITALS: BMI 28.7
[2017-07-29] MEDS ORDERED: Sodium Chloride 0.9% 1,000 ML IV STA (13:03)
[2017-07-29 13:26] LABS: BASO # 0.02 K/mm3 (0.0-2.0); BASO % 0.4 % (0.0-3.0); EOS # 0.3 (0.0-0.7); EOS % 6.7 % (1.5-5.0); GRAN # 2.74 (1.4-6.5); GRAN % 54.1 % (50.0-68.0); HEMOGLOBIN 15.9 g/dL (14.0-18.0); LYMPH # 1.3 (1.2-3.4); LYMPH % 26.5 % (22.0-35.0); MEAN CELL VOLUME 86.5 fl (80.0-105.0); MEAN CORPUSCULAR HEMOGLOBIN 30.6 pg (25.0-35.0); MEAN CORPUSCULAR HGB CONC 35.4 g/dl (31.0-37.0); MEAN PLATELET VOLUME 9.2 fl (7.0-11.0); MONO # 0.6 (0.1-0.6); MONO % 12.3 % (1.0-6.0); RBC 5.19 10^6/uL (3.5-6.1); RED CELL DISTRIBUTION WIDTH 13.4 % (11.5-14.5); WHITE BLOOD COUNT 5.1 10^3/ul (4.5-11.0)
[2017-07-29 13:49] LABS: ALB/GLOB RATIO 1.1 (1.1-1.8); ALBUMIN 4.2 g/dL (3.0-4.8); CALCIUM 9.4 mg/dL (8.4-10.5); GFR AFRICAN-AMERICAN > 60; GFR NON-AFRICAN AMERICAN > 60
[2017-07-29 13:51] LABS: DILANTIN (PHENYTOIN) < 3 ug/mL (10-20)
[2017-07-29 13:53] LABS: VALPROIC ACID < 10 ug/mL (50.0-100.0)
[2017-07-29 14:01] LABS: ALT/SGPT 51 U/L (7-56); AST/SGOT 44 U/L (17-59); BLOOD UREA NITROGEN 13 mg/dL (7-21)
--- NOTE | 2017-07-29 14:26 | CARD ---
APPROVED REPORT EKG Measurement Heart [id number] [place] [id number] [id number] <Conclusion> Normal sinus rhythm Baseline artifact Possible septal infarct, age undetermined Abnormal ECG
[2017-07-29 14:36] LABS: CARBAMAZEPINE < 3 ug/mL (4.0-10.0)
[2017-07-29] MEDS ORDERED: levETIRAcetam 1,500 MG in Sodium Chloride 0.9% 100 ML IV ONE (15:27)
--- NOTE | 2017-07-29 15:48 | ED PDOC ---
Arrival/HPI - General Chief Complaint: Seizure Time Seen by Provider: 07/29/17 12:56 Historian: Patient - History of Present Illness Narrative History of Present Illness (Text): 07/29/17 12:57 A 62 year old female whom arrives to the ER frequently for similar complaint, whose past medical history includes chronic seizure disorder and somatic brain injury hemorrhage s/p SAP MANAGER shunt, presents to the emergency department complaining of witnessed seizure. Patient currently answering in one-word answers. Patient denies any corporeal pain. Unable to provide further information. PMD: Dr. Umesh Marquis Past Medical History - Provider Review Nursing Documentation Reviewed: Yes - Past History Past History: Unable to Obtain - Infectious Disease Hx of Infectious Diseases: None - Tetanus Immunization Tetanus Immunization: Unknown - Cardiac Hx Cardiac Disorders: Yes Hx Hypertension: Yes - Pulmonary Hx Chronic Obstructive Pulmonary Disease (COPD): Yes - Neurological HX Cerebrovascular Accident: Yes - HEENT Hx HEENT Disorder: Yes - Renal Hx Renal Disorder: No - Endocrine/Metabolic Hx Endocrine Disorders: No - Hematological/Oncological Hx Blood Disorders: Yes Hx Hepatitis C: Yes Other/Comment: liver disease - Integumentary Hx Dermatological Disorder: Yes Hx Basal Cell Carcinoma: No Hx Eczema: No Hx Melanoma: No Hx Psoriasis: No Hx Squamous Cell Carcinoma: No Other/Comment: redness with swelling to both lower legs - Musculoskeletal/Rheumatological Hx Falls: Yes - Gastrointestinal Hx 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) - Genitourinary/Gynecological Hx Genitourinary Disorders: Yes Hx Incontinence: Yes - Psychiatric Hx Psychophysiologic Disorder: Yes (SMOKED CIGARETTES,HEAVY DRINKER ETOH ABUSE H.O) Hx Substance Use: No - Past Surgical History Past Surgical History: Unable to Obtain - Surgical History Hx Orthopedic Surgery: Yes (C-spine) Other/Comment: brain surgery due to brain aneurysm - Anesthesia Hx Anesthesia: Yes Hx Anesthesia Reactions: No Hx Malignant Hyperthermia: No - Suicidal Assessment Feels Threatened In Home Enviroment: No Family/Social History - Physician Review Nursing Documentation Reviewed: Yes Family/Social History: No Known Family HX Smoking Status: Current Some Days Smoker Hx Alcohol Use: Yes (ETOH ABUSE H/O) Hx Substance Use: No Hx Substance Use Treatment: No Allergies/Home Meds Allergies/Adverse Reactions: Allergies No Known Allergies Allergy (Verified 07/29/17 22:47) Home Medications: Home Meds Medication Instructions Recorded Confirmed Alprazolam [Xanax] 0.5 mg PO QID 04/26/17 07/31/17 OXcarbazepine [Trileptal] 300 mg PO BID 04/26/17 07/31/17 Review of Systems - Review of Systems Systems not reviewed;Unavailable: Other (patient unable to provide further details) Neurological: Seizure (s/p witnessed seizure ) Physical Exam Vital Signs Reviewed: Yes Vital Signs Temp Pulse Resp BP Pulse Ox 07/29/17 17:40 77 18 160/96 H 95 07/29/17 12:48 97.9 F 72 18 158/92 H 100 Temperature: Afebrile Blood Pressure: Hypertensive Pulse: Regular Respiratory Rate: Normal Appearance: Positive for: Well-Appearing Pain Distress: None Finger Stick Blood Glucose: 86 - Systems Exam Lower Extremity: Present: Edema (pitting edema b/l +1) Neurological: Present: Other (non-focal deficits) Medical Decision Making ED Course and Treatment: 07/29/17 13:02 Impression: 62 year old male with s/p witnessed seizure. Physical exam shows pitting edema +1 b/l; non-focal neuro exam. Plan: -- EKG -- Labs -- Urine Culture -- Urinalysis -- TEGretol -- Keppra -- IV Fluids -- Reassess and disposition Progress Notes: - Lab Interpretations Microbiology Results: Microbiology Results 07/29/17 18:01 Urine,Clean Catch Urine Culture - Final No Growth (<1,000 CFU/ML) Lab Results: 07/29/17 13:15 07/29/17 13:15 Lab Results 07/29/17 19:00: Phenobarbital <5.0 L 07/29/17 18:01: Urine Opiates Screen Negative, Urine Methadone Screen Negative, Ur Barbiturates Screen Negative, Ur Phencyclidine Scrn Negative, Ur Amphetamines Screen Negative, U Benzodiazepines Scrn Negative, U Oth Cocaine Metabols Negative, U Cannabinoids Screen Negative 07/29/17 18:01: Urine Color Light yellow, Urine Appearance Clear, Urine pH 7.0, Ur Specific [place] 1.010, Urine Protein Negative, Urine Glucose (UA) Negative, Urine Ketones Negative, Urine Blood Negative, Urine Nitrate Negative, Urine Bilirubin Negative, Urine Urobilinogen 0.2, Ur Leukocyte Esterase Negative 07/29/17 13:15: Alcohol, Quantitative < 10 07/29/17 13:15: Phenytoin < 3 L, Valproic Acid < 10 L, Carbamazepine < 3 L 07/29/17 13:15: Sodium 135, Potassium 4.4, Chloride 99, Carbon Dioxide 29, Anion Gap 11, BUN 13, Creatinine 0.6 L, Est GFR ( Amer) > 60, Est GFR ( Non-Af Amer) > 60, Random Glucose 96, Calcium 9.4, Total Bilirubin 0.5, AST 44, ALT 51, Alkaline Phosphatase 74, Total Creatine Kinase 193, Total Protein 7.8, Albumin 4.2, Globulin 3.7, Albumin/Globulin Ratio 1.1 07/29/17 13:15: WBC 5.1, RBC 5.19, Hgb 15.9 D, Hct 44.9, MCV 86.5, MCH 30.6, MCHC 35.4, RDW 13.4, Plt Count 211, MPV 9.2, Gran % 54.1, Lymph % (Auto) 26.5, [place] % (Auto) 12.3 H, Eos % (Auto) 6.7 H, Baso % (Auto) 0.4, Gran # 2.74, Lymph # (Auto) 1.3, [place] # (Auto) 0.6, Eos # (Auto) 0.3, Baso # (Auto) 0.02 07/29/17 12:44: POC Glucose (mg/dL) 86 I have reviewed the lab results: Yes - Medication Orders Current Medication Orders: Discontinued Medications Alprazolam (Xanax) 0.5 mg PO QID [facility] PRN Reason: Protocol Last Admin: 07/31/17 17:35 Dose: 0.5 mg Behavioural Document 07/31/17 17:35 (Rec: 07/31/17 17:35 [id number] Maintenance Maintenance Dose Yes Nonmedicinal Nonmedicinal Interventions Redirect Therapeutic Communication Behavior Behavior for Medication: Anxiety Carbamazepine (Tegretol) 300 mg PO STAT [facility] PRN Reason: Protocol Stop: 07/29/17 15:28 Last Admin: 07/29/17 16:02 Dose: 300 mg Furosemide (Lasix) 20 mg PO DAILY [facility] Last Admin: 07/31/17 10:07 Dose: 20 mg MAR Blood Pressure Document 07/31/17 10:07 (Rec: 07/31/17 10:07 [id number] Blood Pressure Blood Pressure (100/60-150/90) 152/88 Sodium Chloride (Sodium Chloride 0.9%) 1,000 mls @ 999 mls/hr IV .Q1H1M STA Stop: 07/29/17 14:03 Last Admin: 07/29/17 13:24 Dose: 999 mls/hr eMAR Start Stop Document 07/29/17 13:24 SRE (Rec: 07/29/17 13:25 SRE [id number]) Intravenous Solution Start Date 07/29/17 Start Time 13:25 End Date 07/29/17 End time 14:25 Total Infusion Time 60 Levetiracetam 1,500 mg/ Sodium (Chloride) 115 mls @ 460 mls/hr IV ONCE ONE Stop: 07/29/17 15:41 Last Admin: 07/29/17 16:28 Dose: 460 mls/hr eMAR Start Stop Document 07/29/17 16:28 SRE (Rec: 07/29/17 16:29 SRE [id number]) Intravenous Solution Start Date 07/29/17 Start Time 16:28 End Date 07/29/17 End time 17:00 Total Infusion Time 32 Levetiracetam (Keppra) 1,500 mg PO BID [facility] Last Admin: 07/31/17 17:34 Dose: 1,500 mg Lisinopril (Zestril) 10 mg PO DAILY [facility] Last Admin: 07/31/17 10:06 Dose: 10 mg MAR Pulse and Blood Pressure Document 07/31/17 10:06 (Rec: 07/31/17 10:07 [id number]) Pulse Pulse Rate (60-90) 70 Blood Pressure Blood Pressure (100/60-150/90) 152/88 Lorazepam (Ativan) 1 mg PO Q6H PRN; Protocol PRN Reason: Agitation Last Admin: 07/30/17 21:39 Dose: 1 mg Behavioural Document 07/30/17 21:39 FDE (Rec: 07/30/17 21:39 FDE [id number]) Maintenance Maintenance Dose Yes Nonmedicinal Nonmedicinal Interventions Redirect Behavior Behavior for Medication: Anxiety Continuous pacing/restlessness Re-Assess: Reassess Psych Meds Document 07/30/17 22:39 FDE (Rec: 07/30/17 22:51 FDE [id number]) Reassess Psych Med Effective Oxcarbazepine (Trileptal) 300 mg PO BID [facility] PRN Reason: Protocol Last Admin: 07/31/17 17:34 Dose: 300 mg Behavioural Document 07/31/17 17:34 (Rec: 07/31/17 17:35 [id number]) Maintenance Maintenance Dose Yes Nonmedicinal Nonmedicinal Interventions Redirect Therapeutic Communication Behavior Behavior for Medication: Anxiety Pneumococcal Polyvalent Vaccine (Pneumovax 23 Vaccine) 0.5 ml IM .ONCE ONE Stop: 07/29/17 23:38 Potassium Chloride (Klor-Con 10) 10 meq PO BRK [facility] Last Admin: 07/31/17 08:37 Dose: 10 meq - Scribe Statement The provider has reviewed the documentation as recorded by the Sadiq Cristina Provider Scribe Attestation: All medical record entries made by the Scribe were at my direction and personally dictated by me. I have reviewed the chart and agree that the record accurately reflects my personal performance of the history, physical exam, medical decision making, and the department course for this patient. I have also personally directed, reviewed, and agree with the discharge instructions and disposition. Disposition/Present on Arrival - Present on Arrival Any Indicators Present on Arrival: No History of DVT/PE: No History of Uncontrolled Diabetes: No Urinary Catheter: No History of Decub. Ulcer: No History Surgical Site Infection Following: None - Disposition Have Diagnosis and Disposition been Completed?: Yes Diagnosis: Seizure, Status epilepticus Disposition: HOSPITALIZED Disposition Time: 17:20 Patient Plan: Admission Condition: GUARDED
[2017-07-29 18:10] LABS: URINE BILIRUBIN NEGATIVE (NEGATIVE); URINE BLOOD NEGATIVE (NEGATIVE); URINE GLUCOSE (UA) NEGATIVE (NEGATIVE); URINE LEUKOCYTE ESTERASE NEGATIVE Leu/uL (NEGATIVE); URINE PROTEIN NEGATIVE mg/dL (<30 mg/dL); URINE UROBILINOGEN 0.2 E.U./dL (<1 E.U./dL)
[2017-07-29 18:11] LABS: URINE APPEARANCE CLEAR (CLEAR); URINE COLOR LIGHT YELLOW (YELLOW)
[2017-07-29 18:31] LABS: BENZODIAZEPINES, UR NEGATIVE (NEGATIVE)
[2017-07-29 18:52] LABS: BARBITURATES, UR NEGATIVE (NEGATIVE); OPIATES, UR NEGATIVE (NEGATIVE); PHENCYCLIDINE, UR NEGATIVE (NEGATIVE)
[2017-07-29] MEDS ORDERED: Pneumococcal 23-Valent Vaccine IM ONE (23:37)
[2017-07-30] MEDS: Potassium Chloride 10 mEq ER Tab PO SCH (08:31)
--- NOTE | 2017-07-30 15:36 | HP ---
HISTORY OF PRESENT ILLNESS: The patient is a 62-year-old male with a history of subarachnoid hemorrhage, status post ventriculoperitoneal shunt, who presents to the emergency department with postictal state, status post recurrent breakthrough seizure. The patient is awake and responsive at the present time. There was no tongue biting, no incontinence noted. No seizure activity for the past 24 hours. PAST MEDICAL HISTORY: Includes hypertension. The patient did undergo a revision of his ventriculoperitoneal shunt by Dr. Blair several months ago. ALLERGIES: THE PATIENT HAS NO KNOWN ALLERGIES. MEDICATIONS: The patient's current medications include Keppra 1500 mg twice daily, Trileptal 300 mg twice daily, Xanax 0.5 mg four times daily, Lasix 20 mg daily and potassium chloride 10 mEq daily and lisinopril 10 mg daily. SOCIAL HISTORY: The patient has a history of tobacco use, quit several years ago. There is no history of alcohol or drug use. He lives with his . He requires assistance with IADLs and is independent with ADLs. REVIEW OF SYSTEMS: The patient denies any chest pain, shortness of breath. He does have occasional swelling of legs with a past history of cellulitis of lower extremities. There is no fever. No chills. No diarrhea. No melena. No bright red blood per rectum. No jaundice. PHYSICAL EXAMINATION: GENERAL: The patient is a well-developed male, in no acute distress. VITAL SIGNS: Blood pressure 138/84, temperature 98.2, pulse 68, respiratory rate 18. HEENT: Ventriculoperitoneal shunt is intact. Pupils equal, round, reactive to light. Extraocular movements intact. NECK: Supple with no thyromegaly. No carotid bruit. No adenopathy. LUNGS: Clear. HEART: Regular rate and rhythm. ABDOMEN: Soft, nontender. Bowel sounds are normoactive. EXTREMITIES: Without cyanosis, clubbing or edema. NEUROLOGIC: The patient is awake and confused without focal sensory or motor deficits. SKIN: Warm and dry. LABORATORY DATA: WBC is 5.1, hemoglobin 15.9, hematocrit 44.9. Sodium 135, potassium 4.4, chloride 99, CO2 of 29, BUN 13, creatinine 0.6, glucose 96. CPK 193. IMPRESSION: 1. Recurrent breakthrough seizures. 2. History of subarachnoid hemorrhage, status post ventriculoperitoneal shunt. 3. Hypertension. PLAN: The patient is admitted to the telemetry unit. We will obtain a Neurology consultation by Dr. Khalil and monitor for further seizure activity. Physical therapy evaluation and social work for discharge planning. KWAME West MD
--- NOTE | 2017-07-31 02:44 | CON ---
DATE: HISTORY OF PRESENT ILLNESS: This is a 62-year-old male who came to the hospital with seizure. Patient has been having chronic seizure problem, status post PAYABLE REPRESENTATIVE shunt, came to the emergency room with a witnessed seizure and called to evaluate the patient. This is a 62-year-old with the past medical history of subarachnoid hemorrhage, status post ventriculoperitoneal shunt, came to the emergency with possibly breakthrough seizure. Patient is awake and responsive. No tongue bite. No urinary incontinence. PAST MEDICAL HISTORY: Hypertension. ALLERGIES: NO KNOWN DRUG ALLERGY. MEDICATIONS: On Keppra 1500 mg twice a day, Trileptal 300 mg twice a day and Xanax. SOCIAL HISTORY: Smokes and quit several years ago. No alcohol. REVIEW OF SYSTEMS: A 10-point review of systems was negative. PHYSICAL EXAMINATION: HEENT: Normocephalic and atraumatic. NECK: Supple. NEUROLOGIC: Alert, awake, oriented x3. No aphasia. Cranial nerves II through XII were tested. Pupils reactive. EOM intact. Visual field full. No facial asymmetry. Tongue midline. Motor examination: Spontaneous movement of the extremities noted. Deep tendon reflexes are 1+. Both plantars are downgoing. Sensory appears intact. Cerebellar, gait deferred. IMPRESSION: Breakthrough seizure and status post history of subarachnoid hemorrhage and ventriculoperitoneal shunt. PLAN: Continue Keppra and Trileptal. Workup in progress. We will follow up. Howard Khalil MD
[2017-07-31 05:39] VITALS: O2SAT 97
[2017-07-31] MEDS: Potassium Chloride 10 mEq ER Tab PO SCH (08:37)
[2017-07-31 12:03] VITALS: RESP 18
[2017-07-31 18:01] VITALS: BP 113/62; PULSE 55; TEMP 98.3
--- NOTE | 2017-07-31 20:07 | DS ---
HOSPITAL COURSE The patient is a 62-year-old male admitted through the emergency department on 07/29/2017 with postictal state from recurrent breakthrough seizures. The patient was admitted to the telemetry floor for further evaluation and monitoring. He has remained asymptomatic without seizures for the past 48 hours. He was seen in consultation by Neurology, Dr. Khalil, and is now medically stable for discharge. PHYSICAL EXAMINATION: VITAL SIGNS: Blood pressure 109/63, temperature 99.1, pulse 51, respiratory rate 18. LUNGS: Clear. HEART: Regular rate and rhythm. ABDOMEN: Soft, nontender. Bowel sounds are normoactive. EXTREMITIES: Without cyanosis, clubbing, or edema. NEUROLOGIC: The patient is awake and confused without focal sensory or motor deficits. SKIN: Warm and dry. IMPRESSION: 1. Recurrent breakthrough seizures. 2. History of subarachnoid hemorrhage , status post ventriculoperitoneal shunt with severe cognitive impairment. 3. Hypertension. PLAN: The patient will be discharged to home today in stable condition. He will be discharged on the following medications: Keppra 1500 mg twice daily, Trileptal 300 mg twice daily, Xanax 0.5 mg four times daily p.r.n., lisinopril 10 mg daily. He will be maintained on a heart-healthy diet. Activities ad libitum. He will be followed up as an outpatient within next 1-2 weeks. KWAME West MD
== END 2017-07-31 22:00 | disposition home or self-care (01) | DRG 101 ==
LOC: ED 12:38 → ERH 17:11 → 2RNO 19:10 → OBSVTOIN 07-30 14:55
PROVIDERS: ADMIT Internal Medicine; ATTEND Internal Medicine
DX: G40.909 Epilepsy, unspecified, not intractable, without status epilepticus (principal); I10 Essential (primary) hypertension; J44.9 Chronic obstructive pulmonary disease, unspecified; Z98.2 Presence of cerebrospinal fluid drainage device; Z87.891 Personal history of nicotine dependence

== ENCOUNTER 2018-03-24 10:10 | Inpatient (IN) | payer MEDICARE, OTHER ==
[2018-03-24 10:19] VITALS: BMI 31.1
[2018-03-24] MEDS ORDERED: LEVETIRACETAM IVPB ONE (10:20)
[2018-03-24] MEDS ORDERED: SODIUM CHLORIDE IVPB ONE (10:20)
--- NOTE | 2018-03-24 10:22 | ED PDOC ---
Arrival/HPI - General Historian: EMS EM Caveat: Acuity of Condition, Other (postictal) - History of Present Illness Narrative History of Present Illness (Text): 03/24/18 10:17 62 y/o male, pmh including hydrocephalus/seizure/hypernatremia/SAH/craniotomy, GCS 12, nkda, biba, postictal seizure, c/o seizure x 1 hour. Pt. apparently had 2 seizures back to back around 9am this morning while sitting on the chair, BLS/ALS arrived and the seizure resolved but restarted again as 3rd episode which they gave ativan 2mg IV which resolved during the transporting process, here at the ER again is postictal state, no signs of trauma, no urinary or bowel incontinence or retention, no rash or blood stain except decubitus ulcer noted, no other medical or psychological complaints complaints and limited HPI due to the seizure and the family is not here. Past Medical History - Provider Review Nursing Documentation Reviewed: Yes - Past History Past History: Unable to Obtain - Infectious Disease Hx of Infectious Diseases: None - Tetanus Immunization Tetanus Immunization: Unknown - Cardiac Hx Cardiac Disorders: Yes Hx Hypertension: Yes - Pulmonary Hx Chronic Obstructive Pulmonary Disease (COPD): Yes - Neurological HX Cerebrovascular Accident: Yes - HEENT Hx HEENT Disorder: Yes - Renal Hx Renal Disorder: No - Endocrine/Metabolic Hx Endocrine Disorders: No - Hematological/Oncological Hx Blood Disorders: Yes Hx Hepatitis C: Yes Other/Comment: liver disease - Integumentary Hx Dermatological Disorder: Yes Hx Basal Cell Carcinoma: No Hx Eczema: No Hx Melanoma: No Hx Psoriasis: No Hx Squamous Cell Carcinoma: No Other/Comment: redness with swelling to both lower legs - Musculoskeletal/Rheumatological Hx Falls: Yes - Gastrointestinal Hx 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) - Genitourinary/Gynecological Hx Genitourinary Disorders: Yes Hx Incontinence: Yes - Psychiatric Hx Psychophysiologic Disorder: Yes (SMOKED CIGARETTES,HEAVY DRINKER ETOH ABUSE H.O) Hx Substance Use: No - Past Surgical History Past Surgical History: Unable to Obtain - Surgical History Hx Orthopedic Surgery: Yes (C-spine) Other/Comment: brain surgery due to brain aneurysm - Anesthesia Hx Anesthesia: Yes Hx Anesthesia Reactions: No Hx Malignant Hyperthermia: No - Suicidal Assessment Feels Threatened In Home Enviroment: No Family/Social History - Physician Review Nursing Documentation Reviewed: Yes Family/Social History: Unknown Family HX Smoking Status: Current Some Days Smoker Hx Alcohol Use: Yes (ETOH ABUSE H/O) Hx Substance Use: No Hx Substance Use Treatment: No Allergies/Home Meds Allergies/Adverse Reactions: Allergies No Known Allergies Allergy (Verified 07/29/17 22:47) Home Medications: Home Meds Medication Instructions Recorded Confirmed Alprazolam [Xanax] 0.5 mg PO QID 04/26/17 07/31/17 OXcarbazepine [Trileptal] 300 mg PO BID 04/26/17 07/31/17 Review of Systems - Review of Systems Systems not reviewed;Unavailable: Other (post ictal) Physical Exam - Systems Exam Head: Present: Atraumatic, Normocephalic Pupils: Present: PERRL Extroacular Muscles: Present: EOMI Conjunctiva: Present: Normal Ears: Present: NORMAL TM, Normal Canal. No: Erythema Mouth: Present: Moist Mucous Membranes Nose (External): Present: Atraumatic. No: Abrasion, Contusion, Laceration Nose (Internal): Present: Normal Inspection, No Active Bleeding. No: Rhinorrhea, Septal Hematoma, Epistaxis Neck: Present: Normal Range of Motion, Trachea Midline. No: Meningeal Signs, MIDLINE TENDERNESS, Paraspinal Tenderness, Lymphadenopathy Respiratory/Chest: Present: Clear to Auscultation, Good Air Exchange. No: Respiratory Distress, Accessory Muscle Use Cardiovascular: Present: Regular Rate and Rhythm, Normal S1, S2. No: Murmurs Abdomen: No: Tenderness, Distention, Peritoneal Signs Back: Present: Normal Inspection. No: CVA Tenderness, Midline Tenderness, Paraspinal Tenderness, Pain with Leg Raise, Decubitus Ulcer Upper Extremity: Present: Normal Inspection, Normal ROM, NORMAL PULSES, Neurovascularly Intact. No: Cyanosis, Edema, Tenderness, Swelling, Deformity Lower Extremity: Present: Normal Inspection, NORMAL PULSES, Normal ROM, Neurovascularly Intact, Capillary Refill < 2 s. No: Edema, Tenderness, Swelling, Deformity Neurological: Present: Motor Func Grossly Intact, Other (limited neurological exam due to the post ictal) Skin: Present: Warm, Dry, Rashes (rt. medial gluteal fold region visible stage 3 decubitus ulcer with cellulitis and foul smell noted, mild streaking cellulitis. 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 He is hemodynamically stable and he has pedal edema, 20cc/kg fluid didn't activated. 03/24/18 12:37 -Pt. is confused vs. postictal vs. encephalapthy? -Pt. will need admission for neurologist and medical admission, possibly ICU admission due to multiple seizures. Paging ICU oncall and pmd Dr. Marquis for admission. 03/24/18 12:49 -I spoke to the ICU and the manager of medical, they would come down to the ER for evaluation. 03/24/18 13:03 -I spoke to Dr. Marquis, PMD, discussed about the case/labs/radiology results, request Dr. Callahan (surgeon)/Dr. Khalil (neurologist)/Dr. Garcia (ID) for routine consult, agreed to admit to his service. Dr. Marquis will follow up on any pending labs/radiology and follow up care. -EKG: ST @ 101 BPM, PAC, no ST elevation or depression, no T wave inversion, -CT head No acute intracranial findings. No change in ventricular size -CT cervical No acute findings -CXR No active disease. -ABG: PH 7.30, CO2 30, HCO3 14.8, metabolic acidosis with compensation, sodium bicarbonate ordered, confirmed with dr. collins. -Labs show no acute findings except there is anion gap 29, ALT 80s -Mg 2.3 (elevated mildly, normal bun and creatine) -BNP 478 (mildly elevated), IVF @ 75cc/hr -Ammonia level is 55 from 9, lactulose ordered. -UA show no UTI -UDS ordered and pending specieman -Keppra level ordered and pending result -Valpric acid level is low -acetaminophen/salicylcate acid: within normal limit -Alcohol level within normal limit. 03/24/18 13:08 -ICU Dr. Viera, came to evaluated the patient, stated that this patient doesn't need ICU admission and he would down grade to telemetry. 03/24/18 14:10 -repeated lactic acid is within normal limit now without aggressive IVF, will keep the maintenance 03/24/18 15:00 -I spoke to the manager of medical, will evaluate and consult the patient. - Critical Care Critical Care Minutes: 45 minutes Critical Care Time: Unstable Narrative Critical Care (Text): 03/24/18 12:32 Hyperammonia vs. hepatic encephalopathy?/continuous seizure with breakthrough, ICU/medicine/neurologist intervention, admission and close monitor. - RAD Interpretation Radiology Orders: CT Head: Date of service: 03/24/2018 PROCEDURE: CT HEAD WITHOUT CONTRAST. HISTORY: multiple seizures COMPARISON: 04/27/2017 TECHNIQUE: Axial computed tomography images were obtained through the head/brain without intravenous contrast. Radiation dose: Total exam DLP = 871.46 mGy-cm. This CT exam was performed using one or more of the following dose reduction techniques: Automated exposure control, adjustment of the mA and/or kV according to patient size, and/or use of iterative reconstruction technique. FINDINGS: HEMORRHAGE: No intracranial hemorrhage. BRAIN: No mass effect or edema. There is a surgical clip in the suprasellar cistern. There is some adjacent encephalomalacia inferior frontal lobes left greater than right VENTRICLES: There is a ventricular shunt catheter from a right frontal approach that terminates in the midline of the lateral ventricles. There is moderate ventriculomegaly which is unchanged. CALVARIUM: Left-sided craniotomy PARANASAL SINUSES: Unremarkable as visualized. No significant inflammatory changes. MASTOID AIR CELLS: Unremarkable as visualized. No inflammatory changes. OTHER FINDINGS: None. IMPRESSION: No acute intracranial findings. No change in ventricular size CT Cervical: Date of service: 2018-03-24 12:04:55 PROCEDURE: CT Cervical Spine without contrast HISTORY: seizure COMPARISON: None available. TECHNIQUE: Axial computed tomography images were obtained of the cervical spine without the use of intravenous contrast. Coronal and sagittal reformatted images were created and reviewed. Radiation dose: Total exam DLP = 583.34 mGy-cm. This CT exam was performed using one or more of the following dose reduction techniques: Automated exposure control, adjustment of the mA and/or kV according to patient size, and/or use of iterative reconstruction technique. FINDINGS: VERTEBRAE: No fracture. Normal alignment. No destructive bony lesion. DISCS/SPINAL CANAL/NEURAL FORAMINA: There is multilevel disc degeneration and foraminal stenosis. There has been previous fusion at C6-7. PARASPINAL SOFT TISSUES: Unremarkable. OTHER FINDINGS: None. IMPRESSION: No acute findings Chest xray: Date of service: 03/24/2018 PROCEDURE: CHEST RADIOGRAPH, 1 VIEW HISTORY: seizure COMPARISON: 04/26/2017 FINDINGS: LUNGS: Clear. PLEURA: No pneumothorax or pleural fluid seen. CARDIOVASCULAR: No aortic atherosclerotic calcification present. Normal. OSSEOUS STRUCTURES: No significant abnormalities. VISUALIZED UPPER ABDOMEN: Normal. OTHER FINDINGS: None. IMPRESSION: No active disease. 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 Disposition/Present on Arrival - Present on Arrival Any Indicators Present on Arrival: No History of DVT/PE: No History of Uncontrolled Diabetes: No Urinary Catheter: No History of Decub. Ulcer: No History Surgical Site Infection Following: None - Disposition Have Diagnosis and Disposition been Completed?: Yes Diagnosis: Seizure, Decubitus ulcer, Cellulitis, Hyperammonemia Disposition: HOSPITALIZED Disposition Time: 12:32 Patient Plan: Admission, Telemetry Patient Problems: Current Active Problems Problem Status Onset Seizure Acute Sepsis Acute Cellulitis Acute Decubitus ulcer Acute Hyperammonemia Acute Condition: GUARDED
[2018-03-24 10:34] LABS: ARTERIAL BLOOD GAS HCO3 14.8 mmol/L (21-28); ARTERIAL BLOOD GAS O2 SAT 99.8 % (95-98); ARTERIAL BLOOD GAS PCO2 30 mm/Hg (35-45); ARTERIAL BLOOD GAS TCO2 15.7 mmol.L (22-28)
[2018-03-24] MEDS ORDERED: Piperacillin/Tazobact 3.375 gm 100 ML IVPB STA (10:42)
[2018-03-24] MEDS ORDERED: Vancomycin 1gm in NS 250ml 1 GM/250 ML BAG IVPB STA (10:42)
[2018-03-24] MEDS ORDERED: Sodium Bicarbonate (8.4%) 50 Meq Syringe IVP ONE (10:43)
[2018-03-24 10:54] LABS: BASO # 0.03 K/mm3 (0.0-2.0); BASO % 0.5 % (0.0-3.0); EOS # 0.3 (0.0-0.7); EOS % 5.3 % (1.5-5.0); GRAN # 3.64 (1.4-6.5); GRAN % 66.7 % (50.0-68.0); LYMPH % 18.5 % (22.0-35.0); MEAN CELL VOLUME 91.8 fl (80.0-105.0); MEAN CORPUSCULAR HEMOGLOBIN 31.1 pg (25.0-35.0); MEAN CORPUSCULAR HGB CONC 33.8 g/dl (31.0-37.0); MEAN PLATELET VOLUME 9.4 fl (7.0-11.0); MONO # 0.5 (0.1-0.6); RBC 5.15 10^6/uL (3.5-6.1); RED CELL DISTRIBUTION WIDTH 13.3 % (11.5-14.5); WHITE BLOOD COUNT 5.5 10^3/uL (4.5-11.0)
[2018-03-24 10:58] LABS: INR 1.04
[2018-03-24 11:09] LABS: ACETAMINOPHEN < 10.0 ug/ml (10.0-20.0); SALICYLATE < 1 mg/dL (2.0-20.0)
[2018-03-24 11:16] LABS: URINE APPEARANCE CLEAR (CLEAR); URINE COLOR YELLOW (YELLOW)
[2018-03-24 11:17] LABS: PH,URINE 5.5 (4.7-8.0); URINE BILIRUBIN NEGATIVE (NEGATIVE); URINE BLOOD SMALL (NEGATIVE); URINE GLUCOSE (UA) NEGATIVE (NEGATIVE); URINE LEUKOCYTE ESTERASE NEGATIVE Leu/uL (NEGATIVE); URINE PROTEIN 100 mg/dL (<30 mg/dL); URINE UROBILINOGEN 0.2 E.U./dL (<1 E.U./dL)
[2018-03-24 11:40] LABS: URINE BACTERIA FEW (NEG)
--- NOTE | 2018-03-24 12:21 | CT ---
Date of service: 03/24/2018 PROCEDURE: CT HEAD WITHOUT CONTRAST. HISTORY: multiple seizures COMPARISON: 04/27/2017 TECHNIQUE: Axial computed tomography images were obtained through the head/brain without intravenous contrast. Radiation dose: Total exam DLP = 871.46 mGy-cm. This CT exam was performed using one or more of the following dose reduction techniques: Automated exposure control, adjustment of the mA and/or kV according to patient size, and/or use of iterative reconstruction technique. FINDINGS: HEMORRHAGE: No intracranial hemorrhage. BRAIN: No mass effect or edema. There is a surgical clip in the suprasellar cistern. There is some adjacent encephalomalacia inferior frontal lobes left greater than right VENTRICLES: There is a ventricular shunt catheter from a right frontal approach that terminates in the midline of the lateral ventricles. There is moderate ventriculomegaly which is unchanged. CALVARIUM: Left-sided craniotomy PARANASAL SINUSES: Unremarkable as visualized. No significant inflammatory changes. MASTOID AIR CELLS: Unremarkable as visualized. No inflammatory changes. OTHER FINDINGS: None. IMPRESSION: No acute intracranial findings. No change in ventricular size
[2018-03-24 12:23] LABS: ALB/GLOB RATIO 1.3 (1.1-1.8); ALBUMIN 4.7 g/dL (3.0-4.8); ALT/SGPT 85 U/L (7-56); AST/SGOT 47 U/L (17-59); BLOOD UREA NITROGEN 12 mg/dL (7-21); CALCIUM 9.2 mg/dL (8.4-10.5); GFR NON-AFRICAN AMERICAN > 60
--- NOTE | 2018-03-24 13:32 | CP.PCM.CON ---
<Hardeep Otoole - Last Filed: 03/24/18 13:38> History of Present Illness - History of Present Illness History of Present Illness: 62 y/o male with pmh including hydrocephalus with vp client services shunt, seizures, SAH, craniotomy, brought in by EMS due to seizures at home. History was obtained from EMS. Pt. had 2 seizures around 9am this morning while at home then a 3rd episode on the way to hospital for which 2mg IV ativan was given. Patient has not had another episode since being in the ED. Patient appears to be post ictal with no signs of trauma, urinary or bowel incontinence, tongue biting. Unable to obtain full ROS due to patients post ictal state. PMH: hydrocephalus with vp client services shunt, seizures, SAH, craniotomy PSH: craniotomy with DISK SANDER shunt Allergies: NKDA Social: unable to obtain Medications: unable to obtain, will verify with pharmacy or PMD Family Hx: unable to obtain Review of Systems - Review of Systems Review of Systems: unable to obtain ROS due to patients post ictal state Past Patient History - Infectious Disease Hx of Infectious Diseases: None - Tetanus Immunizations Tetanus Immunization: Unknown - Past Medical History & Family History Past Medical History?: Yes - Past Social History Smoking Status: Current Some Days Smoker - CARDIAC Hx Cardiac Disorders: Yes Hx Hypertension: Yes - PULMONARY Hx Chronic Obstructive Pulmonary Disease (COPD): Yes - NEUROLOGICAL HX Cerebrovascular Accident: Yes - HEENT Hx HEENT Problems: Yes - RENAL Hx Chronic Kidney Disease: No - ENDOCRINE/METABOLIC Hx Endocrine Disorders: No - HEMATOLOGICAL/ONCOLOGICAL Hx Blood Disorders: Yes Hx Hepatitis C: Yes Other/Comment: liver disease - INTEGUMENTARY Hx Dermatological Problems: Yes Hx Basil Cell: No Hx Eczema: No Hx Melanoma: No Hx Psoriasis: No Hx Squamous Cell: No Other/Comment: redness with swelling to both lower legs - MUSCULOSKELETAL/RHEUMATOLOGICAL Hx Falls: Yes - GASTROINTESTINAL Hx 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) - GENITOURINARY/GYNECOLOGICAL Hx Genitourinary Disorders: Yes Hx Incontinence: Yes - PSYCHIATRIC Hx Psychophysiologic Disorder: Yes (SMOKED CIGARETTES,HEAVY DRINKER ETOH ABUSE H.O) Hx Substance Use: No - SURGICAL HISTORY Hx Orthopedic Surgery: Yes (C-spine) Other/Comment: brain surgery due to brain aneurysm - ANESTHESIA Hx Anesthesia: Yes Hx Anesthesia Reactions: No Hx Malignant Hyperthermia: No Meds Allergies/Adverse Reactions: Allergies Allergy/AdvReac Type Severity Reaction Status Date / Time No Known Allergies Allergy Verified 07/29/17 22:47 - Medications Medications: Current Medications Sodium Chloride (Sodium Chloride 0.9%) 1,000 mls @ 70 mls/hr IV .[id number] [place] Physical Exam - Constitutional Appears: Non-toxic, No Acute Distress - Head Exam Head Exam: ATRAUMATIC Additional comments: vp client services shunt - Eye Exam Eye Exam: EOMI, Normal appearance Pupil Exam: NORMAL ACCOMODATION - ENT Exam ENT Exam: Mucous Membranes Moist - Respiratory Exam Respiratory Exam: Clear to Auscultation Bilateral, NORMAL BREATHING PATTERN - Cardiovascular Exam Cardiovascular Exam: REGULAR RHYTHM, +S1, +S2 - GI/Abdominal Exam GI & Abdominal Exam: Normal Bowel Sounds, Soft. absent: Tenderness - Extremities Exam Extremities exam: Positive for: pedal edema, pedal pulses present Additional comments: chronic bilater venous stasis, 2+ pitting edema b/l - Neurological Exam Neurological exam: Alert - Skin Skin Exam: Dry, Warm Results - Vital Signs Recent Vital Signs: Last Vital Signs Temp 98.7 F 03/24/18 10:11 Pulse 90 03/24/18 13:07 Resp 18 03/24/18 13:07 BP 129/78 03/24/18 13:07 Pulse Ox 99 03/24/18 13:07 - Labs Result Diagrams: 03/24/18 10:25 03/24/18 10:25 Labs: Laboratory Results - last 24 hr 03/24/18 03/24/18 03/24/18 10:25 10:25 10:25 WBC 5.5 RBC 5.15 Hgb 16.0 Hct 47.3 MCV 91.8 D MCH 31.1 MCHC 33.8 RDW 13.3 Plt Count 206 MPV 9.4 Gran % 66.7 Lymph % (Auto) 18.5 L [place] % (Auto) 9.0 H Eos % (Auto) 5.3 H Baso % (Auto) 0.5 Gran # 3.64 Lymph # (Auto) 1.0 L [place] # (Auto) 0.5 Eos # (Auto) 0.3 Baso # (Auto) 0.03 PT 12.0 INR 1.04 APTT 30.0 pCO2 pO2 HCO3 ABG pH ABG Total CO2 ABG O2 Saturation ABG Base Excess ABG Potassium Glucose Lactate FiO2 Sodium 141 Potassium 3.7 Chloride 103 Carbon Dioxide 13 L Anion Gap 29 H BUN 12 Creatinine 0.8 Est GFR ( Amer) > 60 Est GFR (Non-Af Amer) > 60 Random Glucose 103 Calcium 9.2 Magnesium 2.3 H Total Bilirubin 0.6 AST 47 ALT 85 H Alkaline Phosphatase 80 Ammonia Total Protein 8.3 Albumin 4.7 Globulin 3.6 Albumin/Globulin Ratio 1.3 Arterial Blood Potassium Urine Color Urine Appearance Urine pH Ur Specific [place] Urine Protein Urine Glucose (UA) Urine Ketones Urine Blood Urine Nitrate Urine Bilirubin Urine Urobilinogen Ur Leukocyte Esterase Urine RBC Urine WBC Ur Epithelial Cells Urine Bacteria Urine Other Salicylates Acetaminophen Valproic Acid Alcohol, Quantitative 03/24/18 03/24/18 03/24/18 10:25 10:25 10:25 WBC RBC Hgb Hct MCV MCH MCHC RDW Plt Count MPV Gran % Lymph % (Auto) [place] % (Auto) Eos % (Auto) Baso % (Auto) Gran # Lymph # (Auto) [place] # (Auto) Eos # (Auto) Baso # (Auto) PT INR APTT pCO2 pO2 HCO3 ABG pH ABG Total CO2 ABG O2 Saturation ABG Base Excess ABG Potassium Glucose Lactate FiO2 Sodium Potassium Chloride Carbon Dioxide Anion Gap BUN Creatinine Est GFR ( Amer) Est GFR (Non-Af Amer) Random Glucose Calcium Magnesium Total Bilirubin AST ALT Alkaline Phosphatase Ammonia Total Protein Albumin Globulin Albumin/Globulin Ratio Arterial Blood Potassium Urine Color Urine Appearance Urine pH Ur Specific [place] Urine Protein Urine Glucose (UA) Urine Ketones Urine Blood Urine Nitrate Urine Bilirubin Urine Urobilinogen Ur Leukocyte Esterase Urine RBC Urine WBC Ur Epithelial Cells Urine Bacteria Urine Other Salicylates < 1 L Acetaminophen < 10.0 L Valproic Acid < 10 L Alcohol, Quantitative < 10 03/24/18 03/24/18 03/24/18 10:27 10:33 11:05 WBC RBC Hgb Hct MCV MCH MCHC RDW Plt Count MPV Gran % Lymph % (Auto) [place] % (Auto) Eos % (Auto) Baso % (Auto) Gran # Lymph # (Auto) [place] # (Auto) Eos # (Auto) Baso # (Auto) PT INR APTT pCO2 30 L pO2 207.0 H HCO3 14.8 L ABG pH 7.30 L ABG Total CO2 15.7 L ABG O2 Saturation 99.8 H ABG Base Excess -10.3 L ABG Potassium 3.0 L Glucose 111 H Lactate 9.8 H* FiO2 100.0 Sodium 137.0 Potassium Chloride 104.0 Carbon Dioxide Anion Gap BUN Creatinine Est GFR ( Amer) Est GFR (Non-Af Amer) Random Glucose Calcium Magnesium Total Bilirubin AST ALT Alkaline Phosphatase Ammonia 55 H Total Protein Albumin Globulin Albumin/Globulin Ratio Arterial Blood Potassium 3.0 L Urine Color Yellow Urine Appearance Clear Urine pH 5.5 Ur Specific [place] 1.030 Urine Protein 100 H Urine Glucose (UA) Negative Urine Ketones Trace Urine Blood Small H Urine Nitrate Negative Urine Bilirubin Negative Urine Urobilinogen 0.2 Ur Leukocyte Esterase Negative Urine RBC 1 - 3 Urine WBC 2 - 5 Ur Epithelial Cells 4 - 5 Urine Bacteria Few Urine Other Usperm Salicylates Acetaminophen Valproic Acid Alcohol, Quantitative Assessment & Plan - Assessment and Plan (Free Text) Assessment: 62 y/o male with pmh including hydrocephalus with vp client services shunt, seizures, SAH, craniotomy, brought in by EMS due to seizures at home. History was obtained from EMS. Pt. had 2 seizures around 9am this morning while at home then a 3rd episode on the way to hospital for which 2mg IV ativan was given. Patient currently post ictal, afebrile, hemodynamically stable and at baseline as per nursing staff who has seen him previously numerous times. Plan: Plan: -Normal Saline Bolus -repeat lactate -seizure precautions -fall precautions -monitor hemodynamics Patient is alert, awake, hemodynamically stable, afebrile and at baseline mental status. Patient does not need ICU management currently. <Sharad Alarcon - Last Filed: 03/24/18 13:58> Meds - Medications Medications: Current Medications Sodium Chloride (Sodium Chloride 0.9%) 1,000 mls @ 70 mls/hr IV .[id number] [place] Results - Vital Signs Recent Vital Signs: Last Vital Signs Temp 98.7 F 03/24/18 10:11 Pulse 90 03/24/18 13:07 Resp 18 03/24/18 13:07 BP 129/78 03/24/18 13:07 Pulse Ox 99 03/24/18 13:07 - Labs Result Diagrams: 03/24/18 10:25 03/24/18 10:25 Labs: Laboratory Results - last 24 hr 03/24/18 03/24/18 03/24/18 10:25 10:25 10:25 WBC 5.5 RBC 5.15 Hgb 16.0 Hct 47.3 MCV 91.8 D MCH 31.1 MCHC 33.8 RDW 13.3 Plt Count 206 MPV 9.4 Gran % 66.7 Lymph % (Auto) 18.5 L [place] % (Auto) 9.0 H Eos % (Auto) 5.3 H Baso % (Auto) 0.5 Gran # 3.64 Lymph # (Auto) 1.0 L [place] # (Auto) 0.5 Eos # (Auto) 0.3 Baso # (Auto) 0.03 PT 12.0 INR 1.04 APTT 30.0 pCO2 pO2 HCO3 ABG pH ABG Total CO2 ABG O2 Saturation ABG Base Excess ABG Potassium VBG pH VBG pCO2 VBG HCO3 VBG Total CO2 VBG O2 Sat (Calc) VBG Base Excess VBG Potassium Glucose Lactate FiO2 Sodium 141 Potassium 3.7 Chloride 103 Carbon Dioxide 13 L Anion Gap 29 H BUN 12 Creatinine 0.8 Est GFR ( Amer) > 60 Est GFR (Non-Af Amer) > 60 Random Glucose 103 Calcium 9.2 Magnesium 2.3 H Total Bilirubin 0.6 AST 47 ALT 85 H Alkaline Phosphatase 80 Ammonia NT-Pro-B Natriuret Pep 478 H Total Protein 8.3 Albumin 4.7 Globulin 3.6 Albumin/Globulin Ratio 1.3 Arterial Blood Potassium Venous Blood Potassium Urine Color Urine Appearance Urine pH Ur Specific [place] Urine Protein Urine Glucose (UA) Urine Ketones Urine Blood Urine Nitrate Urine Bilirubin Urine Urobilinogen Ur Leukocyte Esterase Urine RBC Urine WBC Ur Epithelial Cells Urine Bacteria Urine Other Salicylates Acetaminophen Valproic Acid Alcohol, Quantitative 03/24/18 03/24/18 03/24/18 10:25 10:25 10:25 WBC RBC Hgb Hct MCV MCH MCHC RDW Plt Count MPV Gran % Lymph % (Auto) [place] % (Auto) Eos % (Auto) Baso % (Auto) Gran # Lymph # (Auto) [place] # (Auto) Eos # (Auto) Baso # (Auto) PT INR APTT pCO2 pO2 HCO3 ABG pH ABG Total CO2 ABG O2 Saturation ABG Base Excess ABG Potassium VBG pH VBG pCO2 VBG HCO3 VBG Total CO2 VBG O2 Sat (Calc) VBG Base Excess VBG Potassium Glucose Lactate FiO2 Sodium Potassium Chloride Carbon Dioxide Anion Gap BUN Creatinine Est GFR ( Amer) Est GFR (Non-Af Amer) Random Glucose Calcium Magnesium Total Bilirubin AST ALT Alkaline Phosphatase Ammonia NT-Pro-B Natriuret Pep Total Protein Albumin Globulin Albumin/Globulin Ratio Arterial Blood Potassium Venous Blood Potassium Urine Color Urine Appearance Urine pH Ur Specific [place] Urine Protein Urine Glucose (UA) Urine Ketones Urine Blood Urine Nitrate Urine Bilirubin Urine Urobilinogen Ur Leukocyte Esterase Urine RBC Urine WBC Ur Epithelial Cells Urine Bacteria Urine Other Salicylates < 1 L Acetaminophen < 10.0 L Valproic Acid < 10 L Alcohol, Quantitative < 10 03/24/18 03/24/18 03/24/18 10:27 10:33 11:05 WBC RBC Hgb Hct MCV MCH MCHC RDW Plt Count MPV Gran % Lymph % (Auto) [place] % (Auto) Eos % (Auto) Baso % (Auto) Gran # Lymph # (Auto) [place] # (Auto) Eos # (Auto) Baso # (Auto) PT INR APTT pCO2 30 L pO2 207.0 H HCO3 14.8 L ABG pH 7.30 L ABG Total CO2 15.7 L ABG O2 Saturation 99.8 H ABG Base Excess -10.3 L ABG Potassium 3.0 L VBG pH VBG pCO2 VBG HCO3 VBG Total CO2 VBG O2 Sat (Calc) VBG Base Excess VBG Potassium Glucose 111 H Lactate 9.8 H* FiO2 100.0 Sodium 137.0 Potassium Chloride 104.0 Carbon Dioxide Anion Gap BUN Creatinine Est GFR ( Amer) Est GFR (Non-Af Amer) Random Glucose Calcium Magnesium Total Bilirubin AST ALT Alkaline Phosphatase Ammonia 55 H NT-Pro-B Natriuret Pep Total Protein Albumin Globulin Albumin/Globulin Ratio Arterial Blood Potassium 3.0 L Venous Blood Potassium Urine Color Yellow Urine Appearance Clear Urine pH 5.5 Ur Specific [place] 1.030 Urine Protein 100 H Urine Glucose (UA) Negative Urine Ketones Trace Urine Blood Small H Urine Nitrate Negative Urine Bilirubin Negative Urine Urobilinogen 0.2 Ur Leukocyte Esterase Negative Urine RBC 1 - 3 Urine WBC 2 - 5 Ur Epithelial Cells 4 - 5 Urine Bacteria Few Urine Other Usperm Salicylates Acetaminophen Valproic Acid Alcohol, Quantitative 03/24/18 13:30 WBC RBC Hgb Hct MCV MCH MCHC RDW Plt Count MPV Gran % Lymph % (Auto) [place] % (Auto) Eos % (Auto) Baso % (Auto) Gran # Lymph # (Auto) [place] # (Auto) Eos # (Auto) Baso # (Auto) PT INR APTT pCO2 pO2 64 H HCO3 ABG pH ABG Total CO2 ABG O2 Saturation ABG Base Excess ABG Potassium VBG pH 7.34 VBG pCO2 52.0 VBG HCO3 28.1 H VBG Total CO2 29.7 H VBG O2 Sat (Calc) 93.8 H VBG Base Excess 1.4 VBG Potassium 3.8 Glucose 80 Lactate 1.7 FiO2 21.0 Sodium 138.0 Potassium Chloride 103.0 Carbon Dioxide Anion Gap BUN Creatinine Est GFR ( Amer) Est GFR (Non-Af Amer) Random Glucose Calcium Magnesium Total Bilirubin AST ALT Alkaline Phosphatase Ammonia NT-Pro-B Natriuret Pep Total Protein Albumin Globulin Albumin/Globulin Ratio Arterial Blood Potassium Venous Blood Potassium 3.8 Urine Color Urine Appearance Urine pH Ur Specific [place] Urine Protein Urine Glucose (UA) Urine Ketones Urine Blood Urine Nitrate Urine Bilirubin Urine Urobilinogen Ur Leukocyte Esterase Urine RBC Urine WBC Ur Epithelial Cells Urine Bacteria Urine Other Salicylates Acetaminophen Valproic Acid Alcohol, Quantitative Assessment & Plan - Assessment and Plan (Free Text) Plan: Patient seen and examined on rounds with resident, agree with note with following additions/exceptions: Patient is 62yo male with PMHx hydrocephalus with DISK SANDER shunt, seizures, SAH, craniotomy, brought in by EMS due to seizures at home. Patient had 2 witnesssed seizure at home. Currently awake, alert, in NAD, afebrile, normotensive, protecting airway, at baseline mental status as per nursing staff in the ER who knows the patient well from previous visits. Labs, imaging, chart reviewed CT Head with no acute intracranial pathology No gross electrolyte disturbance Elevated lactate likely 2/2 seizure Would bolus 2L NS bolus, repeat lactate after Infectious work up Neurology Consult VEEG AED as per neuro Seizure Precautions Ativan PRN IVF NS 125cc/hr NPO Monitor on telemetry
[2018-03-24 13:36] LABS: VENOUS BLOOD GAS BASE EXCESS 1.4 mmol/L (0.0-2.0); VENOUS BLOOD GAS PO2 64 mm/Hg (30-55); VENOUS BLOOD PH 7.34 (7.32-7.43)
--- NOTE | 2018-03-24 13:43 | RAD ---
Date of service: 03/24/2018 PROCEDURE: CHEST RADIOGRAPH, 1 VIEW HISTORY: seizure COMPARISON: 04/26/2017 FINDINGS: LUNGS: Clear. PLEURA: No pneumothorax or pleural fluid seen. CARDIOVASCULAR: No aortic atherosclerotic calcification present. Normal. OSSEOUS STRUCTURES: No significant abnormalities. VISUALIZED UPPER ABDOMEN: Normal. OTHER FINDINGS: None. IMPRESSION: No active disease.
[2018-03-24 13:52] LABS: B-TYPE NATRIURETIC PEPTIDE 478 pg/mL (0-450)
--- NOTE | 2018-03-24 14:05 | CT ---
Date of service: 2018-03-24 12:04:55 PROCEDURE: CT Cervical Spine without contrast HISTORY: seizure COMPARISON: None available. TECHNIQUE: Axial computed tomography images were obtained of the cervical spine without the use of intravenous contrast. Coronal and sagittal reformatted images were created and reviewed. Radiation dose: Total exam DLP = 583.34 mGy-cm. This CT exam was performed using one or more of the following dose reduction techniques: Automated exposure control, adjustment of the mA and/or kV according to patient size, and/or use of iterative reconstruction technique. FINDINGS: VERTEBRAE: No fracture. Normal alignment. No destructive bony lesion. DISCS/SPINAL CANAL/NEURAL FORAMINA: There is multilevel disc degeneration and foraminal stenosis. There has been previous fusion at C6-7. PARASPINAL SOFT TISSUES: Unremarkable. OTHER FINDINGS: None. IMPRESSION: No acute findings
[2018-03-24 14:49] LABS: BARBITURATES, UR NEGATIVE (NEGATIVE); BENZODIAZEPINES, UR NEGATIVE (NEGATIVE); OPIATES, UR NEGATIVE (NEGATIVE); PHENCYCLIDINE, UR NEGATIVE (NEGATIVE)
--- NOTE | 2018-03-24 15:10 | CP.PCM.CON ---
<Estella Sharma - Last Filed: 03/24/18 15:56> History of Present Illness - History of Present Illness History of Present Illness: Surgery Consult Note for Dr. Wheeler HPI: 62 y/o male with PMHx hydrocephalus w/ [employer] shunt, seizure, SAH, and craniotomy presents to the ER after two successive seizures this morning 03/24. He was taken to the ER via EMS without family around him. Surgery being consulted for his sacral ulcer. Due to patient condition, history taken by past notes today in the EMR. Consults: Dr. Marquis - PMD Dr. Khalil - neuro Dr. Garcia - ID Dr. Martines - ICU (signed off, patient will be taken to telemetry) ROS: unable to be obtained due to patient condition PMHx: stated above PSHx: [employer] shunt FHx: unknown due to patient condition SocHx: uses cigarettes and EtOH but unknown quantity Meds: unknown home meds ED meds: NaCl IVF, keppra, lactulose, zosyn 3.375g IV, vanc 1g IV Allergies: NKDA Review of Systems - Review of Systems Systems not reviewed;Unavailable: Altered Mental Status Past Patient History - Infectious Disease Hx of Infectious Diseases: None - Tetanus Immunizations Tetanus Immunization: Unknown - Past Medical History & Family History Past Medical History?: Yes - Past Social History Smoking Status: Current Some Days Smoker - CARDIAC Hx Cardiac Disorders: Yes Hx Hypertension: Yes - PULMONARY Hx Chronic Obstructive Pulmonary Disease (COPD): Yes - NEUROLOGICAL HX Cerebrovascular Accident: Yes - HEENT Hx HEENT Problems: Yes - RENAL Hx Chronic Kidney Disease: No - ENDOCRINE/METABOLIC Hx Endocrine Disorders: No - HEMATOLOGICAL/ONCOLOGICAL Hx Blood Disorders: Yes Hx Hepatitis C: Yes Other/Comment: liver disease - INTEGUMENTARY Hx Dermatological Problems: Yes Hx Basil Cell: No Hx Eczema: No Hx Melanoma: No Hx Psoriasis: No Hx Squamous Cell: No Other/Comment: redness with swelling to both lower legs - MUSCULOSKELETAL/RHEUMATOLOGICAL Hx Falls: Yes - GASTROINTESTINAL Hx 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) - GENITOURINARY/GYNECOLOGICAL Hx Genitourinary Disorders: Yes Hx Incontinence: Yes - PSYCHIATRIC Hx Psychophysiologic Disorder: Yes (SMOKED CIGARETTES,HEAVY DRINKER ETOH ABUSE H.O) Hx Substance Use: No - SURGICAL HISTORY Hx Orthopedic Surgery: Yes (C-spine) Other/Comment: brain surgery due to brain aneurysm - ANESTHESIA Hx Anesthesia: Yes Hx Anesthesia Reactions: No Hx Malignant Hyperthermia: No Meds Allergies/Adverse Reactions: Allergies Allergy/AdvReac Type Severity Reaction Status Date / Time No Known Allergies Allergy Verified 03/24/18 15:30 - Medications Medications: Current Medications Sodium Chloride (Sodium Chloride 0.9%) 1,000 mls @ 70 mls/hr IV .[id number] [place] Physical Exam - Constitutional Appears: No Acute Distress, Older Than Stated Age, Confused - Head Exam Head Exam: ATRAUMATIC - Eye Exam Eye Exam: EOMI, Normal appearance - ENT Exam ENT Exam: Mucous Membranes Dry - Neck Exam Neck exam: Positive for: Normal Inspection. Negative for: Lymphadenopathy, Tenderness - Respiratory Exam Respiratory Exam: Clear to Auscultation Bilateral, NORMAL BREATHING PATTERN. absent: Accessory Muscle Use - Cardiovascular Exam Cardiovascular Exam: REGULAR RHYTHM. absent: Tachycardia, Clicks, Rubs - GI/Abdominal Exam GI & Abdominal Exam: Normal Bowel Sounds, Soft. absent: Tenderness - Extremities Exam Extremities exam: Positive for: pedal edema. Negative for: tenderness Additional comments: bilateral LE and pedal edema. - Neurological Exam Neurological exam: Altered Additional comments: Patient unable to answer questions or follow instructions. He nods "yes" to everything and is unable to recall his name, , season or city. - Skin Skin Exam: Dry Additional comments: stage 2-3 ulcer on right buttock: erythematous with clean base, no fibrinous exudate, no drainage. Approx 3 cm x 2 cm with depth < 1cm. LE knees down with blanchable erythema and xerosis cutis bilaterally. UE xerosis cutis bilaterally. Results - Vital Signs Recent Vital Signs: Last Vital Signs Temp 98.7 F 03/24/18 10:11 Pulse 90 03/24/18 13:07 Resp 18 03/24/18 13:07 BP 129/78 03/24/18 13:07 Pulse Ox 99 03/24/18 13:07 - Labs Result Diagrams: 03/24/18 10:25 03/24/18 10:25 Labs: Laboratory Results - last 24 hr 03/24/18 03/24/18 03/24/18 10:25 10:25 10:25 WBC 5.5 RBC 5.15 Hgb 16.0 Hct 47.3 MCV 91.8 D MCH 31.1 MCHC 33.8 RDW 13.3 Plt Count 206 MPV 9.4 Gran % 66.7 Lymph % (Auto) 18.5 L [place] % (Auto) 9.0 H Eos % (Auto) 5.3 H Baso % (Auto) 0.5 Gran # 3.64 Lymph # (Auto) 1.0 L [place] # (Auto) 0.5 Eos # (Auto) 0.3 Baso # (Auto) 0.03 PT 12.0 INR 1.04 APTT 30.0 pCO2 pO2 HCO3 ABG pH ABG Total CO2 ABG O2 Saturation ABG Base Excess ABG Potassium VBG pH VBG pCO2 VBG HCO3 VBG Total CO2 VBG O2 Sat (Calc) VBG Base Excess VBG Potassium Glucose Lactate FiO2 Sodium 141 Potassium 3.7 Chloride 103 Carbon Dioxide 13 L Anion Gap 29 H BUN 12 Creatinine 0.8 Est GFR ( Amer) > 60 Est GFR (Non-Af Amer) > 60 Random Glucose 103 Calcium 9.2 Magnesium 2.3 H Total Bilirubin 0.6 AST 47 ALT 85 H Alkaline Phosphatase 80 Ammonia NT-Pro-B Natriuret Pep 478 H Total Protein 8.3 Albumin 4.7 Globulin 3.6 Albumin/Globulin Ratio 1.3 Arterial Blood Potassium Venous Blood Potassium Urine Color Urine Appearance Urine pH Ur Specific Umbarger Urine Protein Urine Glucose (UA) Urine Ketones Urine Blood Urine Nitrate Urine Bilirubin Urine Urobilinogen Ur Leukocyte Esterase Urine RBC Urine WBC Ur Epithelial Cells Urine Bacteria Urine Other Salicylates Urine Opiates Screen Urine Methadone Screen Acetaminophen Ur Barbiturates Screen Valproic Acid Ur Phencyclidine Scrn Ur Amphetamines Screen U Benzodiazepines Scrn U Oth Cocaine Metabols U Cannabinoids Screen Alcohol, Quantitative 03/24/18 03/24/18 03/24/18 10:25 10:25 10:25 WBC RBC Hgb Hct MCV MCH MCHC RDW Plt Count MPV Gran % Lymph % (Auto) [place] % (Auto) Eos % (Auto) Baso % (Auto) Gran # Lymph # (Auto) [place] # (Auto) Eos # (Auto) Baso # (Auto) PT INR APTT pCO2 pO2 HCO3 ABG pH ABG Total CO2 ABG O2 Saturation ABG Base Excess ABG Potassium VBG pH VBG pCO2 VBG HCO3 VBG Total CO2 VBG O2 Sat (Calc) VBG Base Excess VBG Potassium Glucose Lactate FiO2 Sodium Potassium Chloride Carbon Dioxide Anion Gap BUN Creatinine Est GFR ( Amer) Est GFR (Non-Af Amer) Random Glucose Calcium Magnesium Total Bilirubin AST ALT Alkaline Phosphatase Ammonia NT-Pro-B Natriuret Pep Total Protein Albumin Globulin Albumin/Globulin Ratio Arterial Blood Potassium Venous Blood Potassium Urine Color Urine Appearance Urine pH Ur Specific Umbarger Urine Protein Urine Glucose (UA) Urine Ketones Urine Blood Urine Nitrate Urine Bilirubin Urine Urobilinogen Ur Leukocyte Esterase Urine RBC Urine WBC Ur Epithelial Cells Urine Bacteria Urine Other Salicylates < 1 L Urine Opiates Screen Urine Methadone Screen Acetaminophen < 10.0 L Ur Barbiturates Screen Valproic Acid < 10 L Ur Phencyclidine Scrn Ur Amphetamines Screen U Benzodiazepines Scrn U Oth Cocaine Metabols U Cannabinoids Screen Alcohol, Quantitative < 10 03/24/18 03/24/18 03/24/18 10:27 10:33 11:05 WBC RBC Hgb Hct MCV MCH MCHC RDW Plt Count MPV Gran % Lymph % (Auto) [place] % (Auto) Eos % (Auto) Baso % (Auto) Gran # Lymph # (Auto) [place] # (Auto) Eos # (Auto) Baso # (Auto) PT INR APTT pCO2 30 L pO2 207.0 H HCO3 14.8 L ABG pH 7.30 L ABG Total CO2 15.7 L ABG O2 Saturation 99.8 H ABG Base Excess -10.3 L ABG Potassium 3.0 L VBG pH VBG pCO2 VBG HCO3 VBG Total CO2 VBG O2 Sat (Calc) VBG Base Excess VBG Potassium Glucose 111 H Lactate 9.8 H* FiO2 100.0 Sodium 137.0 Potassium Chloride 104.0 Carbon Dioxide Anion Gap BUN Creatinine Est GFR ( Amer) Est GFR (Non-Af Amer) Random Glucose Calcium Magnesium Total Bilirubin AST ALT Alkaline Phosphatase Ammonia 55 H NT-Pro-B Natriuret Pep Total Protein Albumin Globulin Albumin/Globulin Ratio Arterial Blood Potassium 3.0 L Venous Blood Potassium Urine Color Yellow Urine Appearance Clear Urine pH 5.5 Ur Specific Umbarger 1.030 Urine Protein 100 H Urine Glucose (UA) Negative Urine Ketones Trace Urine Blood Small H Urine Nitrate Negative Urine Bilirubin Negative Urine Urobilinogen 0.2 Ur Leukocyte Esterase Negative Urine RBC 1 - 3 Urine WBC 2 - 5 Ur Epithelial Cells 4 - 5 Urine Bacteria Few Urine Other Usperm Salicylates Urine Opiates Screen Urine Methadone Screen Acetaminophen Ur Barbiturates Screen Valproic Acid Ur Phencyclidine Scrn Ur Amphetamines Screen U Benzodiazepines Scrn U Oth Cocaine Metabols U Cannabinoids Screen Alcohol, Quantitative 03/24/18 03/24/18 13:30 14:20 WBC RBC Hgb Hct MCV MCH MCHC RDW Plt Count MPV Gran % Lymph % (Auto) [place] % (Auto) Eos % (Auto) Baso % (Auto) Gran # Lymph # (Auto) [place] # (Auto) Eos # (Auto) Baso # (Auto) PT INR APTT pCO2 pO2 64 H HCO3 ABG pH ABG Total CO2 ABG O2 Saturation ABG Base Excess ABG Potassium VBG pH 7.34 VBG pCO2 52.0 VBG HCO3 28.1 H VBG Total CO2 29.7 H VBG O2 Sat (Calc) 93.8 H VBG Base Excess 1.4 VBG Potassium 3.8 Glucose 80 Lactate 1.7 FiO2 21.0 Sodium 138.0 Potassium Chloride 103.0 Carbon Dioxide Anion Gap BUN Creatinine Est GFR ( Amer) Est GFR (Non-Af Amer) Random Glucose Calcium Magnesium Total Bilirubin AST ALT Alkaline Phosphatase Ammonia NT-Pro-B Natriuret Pep Total Protein Albumin Globulin Albumin/Globulin Ratio Arterial Blood Potassium Venous Blood Potassium 3.8 Urine Color Urine Appearance Urine pH Ur Specific Umbarger Urine Protein Urine Glucose (UA) Urine Ketones Urine Blood Urine Nitrate Urine Bilirubin Urine Urobilinogen Ur Leukocyte Esterase Urine RBC Urine WBC Ur Epithelial Cells Urine Bacteria Urine Other Salicylates Urine Opiates Screen Negative Urine Methadone Screen Negative Acetaminophen Ur Barbiturates Screen Negative Valproic Acid Ur Phencyclidine Scrn Negative Ur Amphetamines Screen Negative U Benzodiazepines Scrn Negative U Oth Cocaine Metabols Negative U Cannabinoids Screen Negative Alcohol, Quantitative Assessment & Plan - Assessment and Plan (Free Text) Assessment: 62M with multiple medical problems admitted to [facility] after seizure. Surgery being consulted for sacral ulcer. -conservative rx, no debridement recommended -silvadene and optifoam daily -reposition q2h, air mattress -wound care consulted, appreciate recs case discussed with Dr. Liam Sharma PGY1 <Kody Wheeler - Last Filed: 03/26/18 10:31> Meds - Medications Medications: Current Medications Acetaminophen (Tylenol 325mg Tab) 650 mg PO Q6H PRN PRN Reason: Pain, moderate (4-7) Last Admin: 12/05/18 16:56 Dose: 650 mg Sodium Chloride (Sodium Chloride 0.9%) 1,000 mls @ 70 mls/hr IV .[id number] [place] Last Admin: 03/26/18 08:52 Dose: 70 mls/hr Vancomycin HCl (Vancomycin 1gm) 1 gm in 250 mls @ 167 mls/hr IVPB Q12H [place]; Protocol Stop: 04/02/18 20:46 Last Admin: 03/26/18 08:47 Dose: 167 mls/hr Levetiracetam (Keppra) 1,500 mg PO 1000,2200 [place] Last Admin: 03/26/18 09:18 Dose: 1,500 mg Lorazepam (Ativan) 0.5 mg IVP Q6H PRN; Protocol PRN Reason: Anxiety Oxcarbazepine (Trileptal) 600 mg PO BID [place]; Protocol Results - Vital Signs Recent Vital Signs: Last Vital Signs Temp 98.0 F 03/26/18 06:00 Pulse 68 03/26/18 06:00 Resp 18 03/26/18 06:00 BP 149/74 03/26/18 06:00 Pulse Ox 98 03/26/18 06:00 - Labs Result Diagrams: 03/24/18 10:25 03/24/18 10:25 Labs: Laboratory Results - last 24 hr 03/25/18 11:10 Procalcitonin < 0.05 L Assessment & Plan - Assessment and Plan (Free Text) Plan: Dx: Stage II buttock Ulcer([id number]) Cons Rx only now This consult done under my direct supervision Cassandra Wheeler MD FACS
[2018-03-24] MEDS: Sodium Chloride 0.9% 1,000 ML IV SCH (15:11)
[2018-03-24] MEDS ORDERED: Silver Sulfadiazine 1% Cream (25 gm) TP STA (15:55)
--- NOTE | 2018-03-24 16:31 | PCM.SEPTIC ---
Sepsis Progress Note - Reassessment Type Date of Evaluation: 03/24/18 Time of Evaluation: 16:15 Reassessment Type: Non-invasive reassessment - Non Invasive Reassessment Were the most recent vital sign reviewed: Yes Vital Sign (Latest): Temp Pulse Resp BP Pulse Ox 98.7 F 90 18 129/78 99 03/24/18 10:11 03/24/18 13:07 03/24/18 13:07 03/24/18 13:07 03/24/18 13:07 Cardiovascular: Yes: Regular Rate, Rhythm, Chest Non Tender. No: Edema, Gallop, JVD, Murmur, Bradycardia, Tachycardia, Friction Rub, Irregularly Irregular Respiratory: Yes: Normal Breath Sounds. No: Decreased Breath Sounds, Accessory Muscle Use, Crackles, Rales, Rhonchi, Stridor, Wheezing, Respiratory Distress, Plerual Rub Capillary Refill: Normal (Less than 2 sec) Pulses: Normal Radial, Normal Dorsalis Pedis, Normal Posterior Tibialis Skin: Warm, Dry
--- NOTE | 2018-03-24 18:45 | CARD ---
APPROVED REPORT Date of service: 03/24/2018 EKG Measurement Heart [id number] <Conclusion> Sinus tachycardia with premature atrial complexes with aberrant conduction Nonspecific T wave abnormality Abnormal ECG
--- NOTE | 2018-03-24 20:17 | CON ---
DATE OF CONSULTATION: 03/24/2018 CHIEF COMPLIANT: Seizures. HISTORY OF PRESENT ILLNESS: This is a 62-year-old man with a history of aneurysm, status post subarachnoid hemorrhage, status post clipping, status post [employer] shunt, status post revision of the shunt on 09/06/2016 by Neurosurgery, history of traumatic brain injury, history of dysexecutive syndrome, cognitive impairment with multiple breakthrough seizures in the past, who had another few breakthrough seizures also found to have hyperammonemia. He has been same for the past 6 months on the seizures meds in terms of his current dose of Keppra 1500 mg p.o. daily and Trileptal 300 mg p.o. daily, which has worked. It seems that his poor sleep hygiene and hyperammonemia has caused him to have breakthrough seizures, therefore we will hold off increasing meds and recommend to continue his lactulose and seizure precautions and we will get a continuous EEG. PAST MEDICAL HISTORY: As above. FAMILY HISTORY: Noncontributory. SOCIAL HISTORY: No illicit drug use, smoking, or EtOH abuse. MEDICATIONS: Reviewed by nurses' reconciliation sheet. REVIEW OF SYSTEMS: A 14-point review of systems is negative except as per the HPI. PHYSICAL EXAMINATION: VITAL SIGNS: Temperature of 98.7, pulse rate of 89, blood pressure 120/72, respiratory rate of 20, and oxygen saturation 100% by room air. GENERAL: The patient is sitting up in bed, in no acute distress. HEENT: Atraumatic and normocephalic. PERRLA. Extraocular muscles intact. NECK: Supple. No JVD. No adenopathy noted. LUNGS: Clear to auscultation. No adventitious sounds. HEART: S1, S2. Normal rate and rhythm. No murmurs, rubs, or gallops. ABDOMEN: Soft, nontender, and nondistended. Bowel sounds are present. EXTREMITIES: No clubbing. No cyanosis. Peripheral pulses 2+ felt bilaterally. He has multiple tattoos on his body. NEUROLOGIC: The patient is alert and oriented to person and place, but not much to month or year. Recall after 5 minutes is 0/3. He has poor attention span and slow thought process. Speech is hypophonic, but no aphasia noted. Motor Examination: Slightly increased tone throughout. Moves all extremities equally. No pronator drift seen. Sensory Exam: Decreased light touch and pinprick up to the calves bilaterally. Decreased vibration of the toes. DTRs are 1+ throughout. Coordination: [id number] is intact. No dysmetria noted. Gait is deferred for now. LABORATORY DATA: Sodium is 141, potassium 3.7, chloride 102, carbon dioxide of 13, BUN of 12, creatinine of 0.8. Random glucose of 103. Ammonia level 55, which is elevated. IMPRESSION: This is a breakthrough complex postural seizure from underlying history of traumatic brain injury, which has caused dysexecutive syndrome, had breakthrough seizures likely secondary to hyperammonemia since his ammonia level was over 55. RECOMMENDATIONS: 1. Continuous EEG to evaluate for the seizures. 2. Continue with his Keppra home dose of 1500 mg p.o. b.i.d. and Trileptal 300 mg p.o. daily for underlying seizure prophylaxis. 3. Advised sleep hygiene and delirium precautions. 4. Thiamine 100 mg p.o. daily. 5. Evaluate for his underlying hyperammonemia per GI and continue current present medical management. Thank you for this consult. Dom Khalil MD
[2018-03-24] MEDS ORDERED: Pneumococcal 23-Valent Vaccine IM ONE (21:00)
[2018-03-24] MEDS ORDERED: Influenza Vaccine 60 mcg/0.5 mL SYR (4YR UP) IM ONE (21:00)
[2018-03-24] MEDS: Vancomycin 1gm in NS 250ml 1 GM/250 ML BAG IVPB SCH (21:15)
[2018-03-24] MEDS: Cefepime 1gm in NS 100ml 1 GM/100 ML BAG IVPB SCH (21:15)
[2018-03-25] MEDS: Vancomycin 1gm in NS 250ml 1 GM/250 ML BAG IVPB SCH ×2 (08:46→22:12)
[2018-03-25] MEDS: Cefepime 1gm in NS 100ml 1 GM/100 ML BAG IVPB SCH (08:47)
[2018-03-25] MEDS: Sodium Chloride 0.9% 1,000 ML IV SCH (08:50)
--- NOTE | 2018-03-25 10:07 | CP.PCM.CON ---
<Domingo Arreguin - Last Filed: 03/25/18 13:43> History of Present Illness - History of Present Illness History of Present Illness: Infectious disease consult note for Dr. Kennedy/Dr. 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 Patient reportedly had two seizures on the morning of arrival and a third seizure while being transported by EMS for which he was given 2mg of ativan with relief. On evaluation, patient was unable to provide information regarding the events that lead to his arrival, however he denied chest pain, palpitations, SOB, abdominal pain, nausea, vomiting, fever, chills, cough, focal weakness, numbness, tingling. ID consulted for evaluation of sacral decubitus ulcer. 12point ROS as per above otherwise negative PMH: as stated above PSH: aneurysm clipping, UPHOLSTERER HELPER shunt Allergies: NKDA Family Hx: Non-contributory Social Hx: History of tobacco and alcohol use; no history of illicit drug use PMD: Dr. Marquis Past Patient History - Infectious Disease Hx of Infectious Diseases: None - Tetanus Immunizations Tetanus Immunization: Unknown - Past Medical History & Family History Past Medical History?: Yes - Past Social History Smoking Status: Current Some Days Smoker - CARDIAC Hx Cardiac Disorders: Yes Hx Circulatory Problems: Yes (CHRONIC VENOUS STASIS ULCER) Hx Hypertension: Yes Hx Peripheral Edema: Yes - PULMONARY Hx Respiratory Disorders: Yes Hx Chronic Obstructive Pulmonary Disease (COPD): Yes - NEUROLOGICAL Hx Neurological Disorder: Yes (HYDROCEPHALUS WITH UPHOLSTERER HELPER SHUNT.BRAINSX DUE TO ANEURYSM-CRANIOTOMY) HX Cerebrovascular Accident: Yes Hx Seizures: Yes - HEENT Hx HEENT Problems: Yes - RENAL Hx Chronic Kidney Disease: No - ENDOCRINE/METABOLIC Hx Endocrine Disorders: No - HEMATOLOGICAL/ONCOLOGICAL Hx Blood Disorders: Yes Hx Hepatitis C: Yes Other/Comment: liver disease - INTEGUMENTARY Hx Dermatological Problems: Yes Hx Basil Cell: No Hx Eczema: No Hx Melanoma: No Hx Psoriasis: No Hx Squamous Cell: No Other/Comment: redness with swelling to both lower legs. CHRONIC VENOUS STASIS ULCER WITH EDEMA PITTING +2,DRY THIN FLAKY SKIN.FUNGAL RASH TO LEGS?POOR HYGIENE,ELONGATED TOENAILS. 03-24-18 RIGHT MEDIAL GLUTEAL FOLD STAGE 3 DECUBITUS WITH REDNESS,ERYTHEMA,MEDIUM AMOUNT FO FOUL SMELLING DIACHARGE. - MUSCULOSKELETAL/RHEUMATOLOGICAL Hx Musculoskeletal Disorders: Yes Hx Falls: Yes - GASTROINTESTINAL Hx 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) HX Swallowing Problems: Yes - GENITOURINARY/GYNECOLOGICAL Hx Genitourinary Disorders: Yes Hx Incontinence: Yes - PSYCHIATRIC Hx Psychophysiologic Disorder: Yes (SMOKED CIGARETTES,HEAVY DRINKER ETOH ABUSE H.O) Hx Substance Use: No - SURGICAL HISTORY Hx Surgeries: Yes (UPHOLSTERER HELPER SHUNT,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.) Hx Orthopedic Surgery: Yes (C-spine) Other/Comment: brain surgery due to brain aneurysm - ANESTHESIA Hx Anesthesia: Yes Hx Anesthesia Reactions: No Hx Malignant Hyperthermia: No Meds Allergies/Adverse Reactions: Allergies Allergy/AdvReac Type Severity Reaction Status Date / Time No Known Allergies Allergy Verified 03/24/18 15:30 - Medications Medications: Current Medications Sodium Chloride (Sodium Chloride 0.9%) 1,000 mls @ 70 mls/hr IV .[id number] [facility] Last Admin: 03/25/18 08:50 Dose: 70 mls/hr Cefepime HCl (Maxipime 1gm) 1 gm in 100 mls @ 25 mls/hr IVPB Q8 [facility]; Protocol Stop: 04/02/18 22:01 Last Admin: 03/25/18 08:47 Dose: 25 mls/hr Vancomycin HCl (Vancomycin 1gm) 1 gm in 250 mls @ 167 mls/hr IVPB Q12H [facility]; Protocol Stop: 04/02/18 20:46 Last Admin: 03/25/18 08:46 Dose: 167 mls/hr Oxcarbazepine (Trileptal) 300 mg PO BID [facility]; Protocol Physical Exam - Constitutional Appears: No Acute Distress - Head Exam Head Exam: ATRAUMATIC, NORMAL INSPECTION, NORMOCEPHALIC Additional comments: palpable UPHOLSTERER HELPER shunt - Eye Exam Eye Exam: EOMI, PERRL - ENT Exam ENT Exam: Mucous Membranes Moist - Respiratory Exam Respiratory Exam: absent: Rales, Rhonchi, Wheezes - Cardiovascular Exam Cardiovascular Exam: +S1, +S2. absent: Clicks, Gallop, Rubs - GI/Abdominal Exam GI & Abdominal Exam: Soft. absent: Distended, Firm, Guarding, Rebound, Tenderness - Extremities Exam Additional comments: trace pedal edema xerosis cutis bilaterally - Neurological Exam Neurological exam: Alert, CN II-XII Intact - Psychiatric Exam Psychiatric exam: Normal Affect, Normal Mood - Skin Skin Exam: Dry, Normal Color, Warm Additional comments: ~3x4cm stage 2-3 erythematous sacral decubitus ulcer; no discharge noted Results - Vital Signs Recent Vital Signs: Last Vital Signs Temp 98.0 F 03/25/18 06:00 Pulse 95 H 03/25/18 06:00 Resp 20 03/25/18 06:00 BP 144/80 03/25/18 06:00 Pulse Ox 97 03/25/18 06:00 - Labs Result Diagrams: 03/24/18 10:25 03/24/18 10:25 Labs: Laboratory Results - last 24 hr 03/24/18 03/24/18 03/24/18 10:25 10:25 10:25 WBC 5.5 RBC 5.15 Hgb 16.0 Hct 47.3 MCV 91.8 D MCH 31.1 MCHC 33.8 RDW 13.3 Plt Count 206 MPV 9.4 Gran % 66.7 Lymph % (Auto) 18.5 L [place] % (Auto) 9.0 H Eos % (Auto) 5.3 H Baso % (Auto) 0.5 Gran # 3.64 Lymph # (Auto) 1.0 L [place] # (Auto) 0.5 Eos # (Auto) 0.3 Baso # (Auto) 0.03 PT 12.0 INR 1.04 APTT 30.0 pCO2 pO2 HCO3 ABG pH ABG Total CO2 ABG O2 Saturation ABG Base Excess ABG Potassium VBG pH VBG pCO2 VBG HCO3 VBG Total CO2 VBG O2 Sat (Calc) VBG Base Excess VBG Potassium Glucose Lactate FiO2 Sodium 141 Potassium 3.7 Chloride 103 Carbon Dioxide 13 L Anion Gap 29 H BUN 12 Creatinine 0.8 Est GFR ( Amer) > 60 Est GFR (Non-Af Amer) > 60 Random Glucose 103 Calcium 9.2 Magnesium 2.3 H Total Bilirubin 0.6 AST 47 ALT 85 H Alkaline Phosphatase 80 Ammonia NT-Pro-B Natriuret Pep 478 H Total Protein 8.3 Albumin 4.7 Globulin 3.6 Albumin/Globulin Ratio 1.3 Arterial Blood Potassium Venous Blood Potassium Urine Color Urine Appearance Urine pH Ur Specific [place] Urine Protein Urine Glucose (UA) Urine Ketones Urine Blood Urine Nitrate Urine Bilirubin Urine Urobilinogen Ur Leukocyte Esterase Urine RBC Urine WBC Ur Epithelial Cells Urine Bacteria Urine Other Salicylates Urine Opiates Screen Urine Methadone Screen Acetaminophen Ur Barbiturates Screen Valproic Acid Ur Phencyclidine Scrn Ur Amphetamines Screen U Benzodiazepines Scrn U Oth Cocaine Metabols U Cannabinoids Screen Alcohol, Quantitative 03/24/18 03/24/18 03/24/18 10:25 10:25 10:25 WBC RBC Hgb Hct MCV MCH MCHC RDW Plt Count MPV Gran % Lymph % (Auto) [place] % (Auto) Eos % (Auto) Baso % (Auto) Gran # Lymph # (Auto) [place] # (Auto) Eos # (Auto) Baso # (Auto) PT INR APTT pCO2 pO2 HCO3 ABG pH ABG Total CO2 ABG O2 Saturation ABG Base Excess ABG Potassium VBG pH VBG pCO2 VBG HCO3 VBG Total CO2 VBG O2 Sat (Calc) VBG Base Excess VBG Potassium Glucose Lactate FiO2 Sodium Potassium Chloride Carbon Dioxide Anion Gap BUN Creatinine Est GFR ( Amer) Est GFR (Non-Af Amer) Random Glucose Calcium Magnesium Total Bilirubin AST ALT Alkaline Phosphatase Ammonia NT-Pro-B Natriuret Pep Total Protein Albumin Globulin Albumin/Globulin Ratio Arterial Blood Potassium Venous Blood Potassium Urine Color Urine Appearance Urine pH Ur Specific [place] Urine Protein Urine Glucose (UA) Urine Ketones Urine Blood Urine Nitrate Urine Bilirubin Urine Urobilinogen Ur Leukocyte Esterase Urine RBC Urine WBC Ur Epithelial Cells Urine Bacteria Urine Other Salicylates < 1 L Urine Opiates Screen Urine Methadone Screen Acetaminophen < 10.0 L Ur Barbiturates Screen Valproic Acid < 10 L Ur Phencyclidine Scrn Ur Amphetamines Screen U Benzodiazepines Scrn U Oth Cocaine Metabols U Cannabinoids Screen Alcohol, Quantitative < 10 03/24/18 03/24/18 03/24/18 10:27 10:33 11:05 WBC RBC Hgb Hct MCV MCH MCHC RDW Plt Count MPV Gran % Lymph % (Auto) [place] % (Auto) Eos % (Auto) Baso % (Auto) Gran # Lymph # (Auto) [place] # (Auto) Eos # (Auto) Baso # (Auto) PT INR APTT pCO2 30 L pO2 207.0 H HCO3 14.8 L ABG pH 7.30 L ABG Total CO2 15.7 L ABG O2 Saturation 99.8 H ABG Base Excess -10.3 L ABG Potassium 3.0 L VBG pH VBG pCO2 VBG HCO3 VBG Total CO2 VBG O2 Sat (Calc) VBG Base Excess VBG Potassium Glucose 111 H Lactate 9.8 H* FiO2 100.0 Sodium 137.0 Potassium Chloride 104.0 Carbon Dioxide Anion Gap BUN Creatinine Est GFR ( Amer) Est GFR (Non-Af Amer) Random Glucose Calcium Magnesium Total Bilirubin AST ALT Alkaline Phosphatase Ammonia 55 H NT-Pro-B Natriuret Pep Total Protein Albumin Globulin Albumin/Globulin Ratio Arterial Blood Potassium 3.0 L Venous Blood Potassium Urine Color Yellow Urine Appearance Clear Urine pH 5.5 Ur Specific [place] 1.030 Urine Protein 100 H Urine Glucose (UA) Negative Urine Ketones Trace Urine Blood Small H Urine Nitrate Negative Urine Bilirubin Negative Urine Urobilinogen 0.2 Ur Leukocyte Esterase Negative Urine RBC 1 - 3 Urine WBC 2 - 5 Ur Epithelial Cells 4 - 5 Urine Bacteria Few Urine Other Usperm Salicylates Urine Opiates Screen Urine Methadone Screen Acetaminophen Ur Barbiturates Screen Valproic Acid Ur Phencyclidine Scrn Ur Amphetamines Screen U Benzodiazepines Scrn U Oth Cocaine Metabols U Cannabinoids Screen Alcohol, Quantitative 03/24/18 03/24/18 13:30 14:20 WBC RBC Hgb Hct MCV MCH MCHC RDW Plt Count MPV Gran % Lymph % (Auto) [place] % (Auto) Eos % (Auto) Baso % (Auto) Gran # Lymph # (Auto) [place] # (Auto) Eos # (Auto) Baso # (Auto) PT INR APTT pCO2 pO2 64 H HCO3 ABG pH ABG Total CO2 ABG O2 Saturation ABG Base Excess ABG Potassium VBG pH 7.34 VBG pCO2 52.0 VBG HCO3 28.1 H VBG Total CO2 29.7 H VBG O2 Sat (Calc) 93.8 H VBG Base Excess 1.4 VBG Potassium 3.8 Glucose 80 Lactate 1.7 FiO2 21.0 Sodium 138.0 Potassium Chloride 103.0 Carbon Dioxide Anion Gap BUN Creatinine Est GFR ( Amer) Est GFR (Non-Af Amer) Random Glucose Calcium Magnesium Total Bilirubin AST ALT Alkaline Phosphatase Ammonia NT-Pro-B Natriuret Pep Total Protein Albumin Globulin Albumin/Globulin Ratio Arterial Blood Potassium Venous Blood Potassium 3.8 Urine Color Urine Appearance Urine pH Ur Specific [place] Urine Protein Urine Glucose (UA) Urine Ketones Urine Blood Urine Nitrate Urine Bilirubin Urine Urobilinogen Ur Leukocyte Esterase Urine RBC Urine WBC Ur Epithelial Cells Urine Bacteria Urine Other Salicylates Urine Opiates Screen Negative Urine Methadone Screen Negative Acetaminophen Ur Barbiturates Screen Negative Valproic Acid Ur Phencyclidine Scrn Negative Ur Amphetamines Screen Negative U Benzodiazepines Scrn Negative U Oth Cocaine Metabols Negative U Cannabinoids Screen Negative Alcohol, Quantitative Assessment & Plan - Assessment and Plan (Free Text) Plan: 62 yo male with history of 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 ID consulted for evaluation of sacral decubitus ulcer seizure disorder sacral decubitus ulcer hx of TBI hx of subarachnoid bleed -afebrile, no leukocytosis -pancultures including wound culture/sensitivity is pending -procalcitonin pending -discontinued cefepime -continue vancomycin pending wound culture/sensitivity -f/u surgical recommendations -wound care including frequent turning/off-loading, santyl/optifoam dressing -f/u neurology recommendations Patient seen and case discussed/reviewed with attending, Dr. Kennedy <Goran Kennedy - Last Filed: 03/25/18 22:29> Meds - Medications Medications: Current Medications Acetaminophen (Tylenol 325mg Tab) 650 mg PO Q6H PRN PRN Reason: Pain, moderate (4-7) Last Admin: 03/25/18 16:56 Dose: 650 mg Sodium Chloride (Sodium Chloride 0.9%) 1,000 mls @ 70 mls/hr IV .[id number] [facility] Last Admin: 03/25/18 08:50 Dose: 70 mls/hr Vancomycin HCl (Vancomycin 1gm) 1 gm in 250 mls @ 167 mls/hr IVPB Q12H [facility]; Protocol Stop: 04/02/18 20:46 Last Admin: 03/25/18 22:12 Dose: 167 mls/hr Levetiracetam (Keppra) 1,500 mg PO 1000,2200 [place] Last Admin: 03/25/18 22:12 Dose: 1,500 mg Oxcarbazepine (Trileptal) 300 mg PO BID [facility]; Protocol Last Admin: 03/25/18 17:00 Dose: 300 mg Results - Vital Signs Recent Vital Signs: Last Vital Signs Temp 97.9 F 03/25/18 18:00 Pulse 78 03/25/18 18:03 Resp 19 03/25/18 18:00 BP 152/89 H 03/25/18 18:03 Pulse Ox 97 03/25/18 06:00 - Labs Result Diagrams: 03/24/18 10:25 03/24/18 10:25 Labs: Laboratory Results - last 24 hr 03/25/18 11:10 Procalcitonin < 0.05 L Assessment & Plan - Assessment and Plan (Free Text) Plan: Infectious diseases Attending Physician Attestation Patient seen and examined, discussed with director of medical services. I have reviewed the patient's history of present illness, past medical, social, personal and family histories, pertinent physical exam findings, course so far in this hospital admission, pertinent laboratory and imaging results. I agree with the above findings, assessment and plan. In addition, will continue Vancomycin for this patient with stage 2-3 sacral decubitus ulcer, with mild infection. Will monitor clinically.
[2018-03-25] MEDS ORDERED: levETIRAcetam 500 mg/5ml UD cups PO SCH (11:30)
--- NOTE | 2018-03-25 12:46 | HP ---
DATE OF EXAM: 03/25/2018 HISTORY OF PRESENT ILLNESS The patient is a 62-year-old male with a history of subarachnoid hemorrhage status post ventriculoperitoneal shunt who presented to the emergency department on 03/24/2018 in a postictal state status post witnessed seizures. The patient is awake and responsive at the present time. There was no tongue biting and no incontinence noted. There has been no seizure activity for the past 24 hours. The patient has had no trauma. Denies any chest pain, shortness of breath. PAST MEDICAL HISTORY: Includes hypertension. PAST SURGICAL HISTORY: Patient is status post revision of ventriculoperitoneal shunt by approximately 1 year ago. ALLERGIES: THE PATIENT HAS NO KNOWN ALLERGIES. CURRENT MEDICATIONS: Include Keppra 1500 mg twice daily, Trileptal 300 mg twice daily, Xanax 0.5 mg four times daily, Lasix 20 mg daily, potassium chloride 10 mEq daily and lisinopril 10 mg daily. SOCIAL HISTORY: The patient has a history of tobacco use, quit several years ago. There is no history of alcohol or drug use. He lives with his . He requires assistance with IADLs and is independent with ADLs. REVIEW OF SYSTEMS: The patient denies any chest pain, shortness of breath. He has occasional swelling of his legs with a past history of cellulitis of the lower extremities. There is no fever, no chills. The patient was reported to have an infected sacral decubitus ulcer. Infectious Disease consultation as well as well as surgical consultation has been called. PHYSICAL EXAMINATION: GENERAL: The patient is a well-developed male in no acute distress. VITAL SIGNS: Blood pressure 144/80, pulse 69, temperature 98.0, respiratory rate 20. HEENT: The patient is status post left craniotomy with ventriculoperitoneal shunt, is present and palpable. Pupils equal, round, reactive to light. Extraocular movements intact. NECK: Supple. No thyromegaly. No carotid bruit. No adenopathy. LUNGS: Clear to auscultation and percussion. HEART: Regular rate and rhythm. ABDOMEN: Soft, nontender. Bowel sounds are normoactive. EXTREMITIES: Without cyanosis, clubbing or edema. NEUROLOGIC: The patient is awake and confused without focal sensory or motor deficits. SKIN: Warm and dry. There is an approximately 3 x 5 cm diameter stage II to III pressure ulcer of the sacrum with an overlying adhesive dressing. There is no pertinent discharge. LABORATORY DATA: WBCs 5.5, hemoglobin 16.0, hematocrit 47.3. Sodium 141, potassium 3.7, chloride 103, CO2 13, BUN 12, creatinine 0.8. BNP is slightly elevated 478. Chest x-ray shows no active disease. CT of the head shows no acute bleeds or infarcts. IMPRESSION: 1. Recurrent breakthrough seizures, possible noncompliance. 2. History of subarachnoid hemorrhage status post ventriculoperitoneal shunt. 3. Hypertension. 4. Sacral pressure ulcer, stage II to III, noninfected. PLAN: The patient is admitted to the telemetry unit. We will obtain a Neurology consultation with Dr. Khalil. Surgical and Infectious Disease consultations have been obtained for the sacral decubitus ulcer. Will order physical therapy and social work for discharge planning. KWAME West MD
[2018-03-25] MEDS: levETIRAcetam 500 mg/5ml UD cups PO SCH (22:12)
[2018-03-26] MEDS: Vancomycin 1gm in NS 250ml 1 GM/250 ML BAG IVPB SCH ×2 (08:47→21:44)
[2018-03-26] MEDS: Sodium Chloride 0.9% 1,000 ML IV SCH (08:52)
[2018-03-26] MEDS: levETIRAcetam 500 mg/5ml UD cups PO SCH ×2 (09:18→21:44)
--- NOTE | 2018-03-26 09:24 | PCM.VEEG ---
Video EEG - Procedure Start Date: 03/25/18 Start Time: 12:20 End Date: 03/26/18 End Time: 08:25 Technical Summary: Indication; 62 y/o man with TBI and epilepsy, admitted after a cluster of seizures. - Interpretation Description of the study: DATA ACQUISITION: This was a multichannel inpatient video-EEG, a minimum of 22 channels were utilized, performed in accordance with recommendations specified by the [place] [employer] Society (Bowen Mcmullen et al. ACNS Guideline 1: Minimum Technical Requirements for Performing Clinical Electroencephalography. Journal of Clinical Neurophysiology 2016;33:303-7). The 10-20 electrode placement system was utilized in accordance with guidelines detailed by the International Federation of Clinical Neurophysiology (Zach Espinoza et al. The Ten-Twenty Electrode System of the International Federation. Recommendations for the Practice of Clinical Neurophysiology: Guidelines of the International Federation of Clinical Physiology 1999; EEG Suppl. 52.). DATA REVIEW / SPIKE DETECTION / DIGITAL ANALYSIS: The entire EEG was scanned and reviewed. Synchronized audio and video recording were reviewed at the time of each alarm and whenever an abnormality or suspicious activity was noted. The entire recording was analyzed utilizing an automated digital spike and seizure analysis program and all automatic spike and seizure detections were manually reviewed. A compressed spectral array was displayed and reviewed alongside the raw EEG tracings. In addition, further analysis of the EEG was performed when abnormalities were identified, including montage changes, dipole source localization, and frequency band identification. This study was attended 24 hours per day. EEG Finding during wakefulness: During active states, the EEG was characterized by 10-20 Hz, 15-30 uV activity bilaterally in fronto-central regions, with slightly slower frequencies and higher amplitudes emerging on the right. Resting wakefulness was characterized by a symmetric posterior dominant rhythm of7 to 8 Hz, 30-50 uV, which was reactive to eye opening and closing, with greater amplitudes on the right. Drowsiness was associated with slow roving eye movements, slowing and fragmentation of the posterior dominant rhythm, and bilateral 4-7 Hz, 40-70 uV theta activity, sometimes with a shifting predominance. Hyperventilation and photic stimulation were not performed EEG Finding during sleep: Light sleep was recorded and was characterized by fronto-central slowing at 5-7 H, 50-125 uV, sharp central vertex waves, bilateral sleep spindles, and K- complexes; shifting asymmetries were evident. Deeper stages of sleep were recorded and were characterized an increasing frequency of 1-4 Hz, 50-100 uV delta activity. REM sleep was also recorded and was characterized by mixed frequency (3-15 Hz) low voltage (< 20 uV) activity with clusters of rapid horizontal and vertical eye movements. Interictal non-epileptiform abnormalities: There was ongoing left FT slowing at 2 to 3 Hz. Interictal epileptiform abnormalities: Very frequent left anterior temporal sharp waves and spikes max at F7. Occasional right frontal/temporal sharp waves and spikes max at F8 Ictal epileptiform abnormalities: Seizure #1 03/26/18 at 2;37 AM Clinically; view is blocked by the nurse at onset, pte was using the urinal, when he comes back to view he is sitting in bed motionless. EEG; ictal onset is right temporal t 5 hz, low amplitude, evolves on the right temporal region then right hemisphere then left, followed by termination. Duration; 3 min. - Impression Impression: This is an abnormal video-EEG monitoring study due to the presence of 1- One complex partial seizure was captured that originated in the right temp oral region. 2- Bi-temporal left more than right interictal activity. 3- Left hemispheric slowing. . INTERPRETATION: These findings are in keeping with diagnosis of localization-related epilepsy, of bitemporal origin, the only seizure captured so far was right temporal. Finding are also in keeping with a focal cortical abnormality involving the left hemisphere. Findings discussed with Dr Khalil.
--- NOTE | 2018-03-26 09:49 | CP.PCM.PN ---
Subjective - Date & Time of Evaluation Date of Evaluation: 03/26/18 Time of Evaluation: 09:30 - Subjective Subjective: awake and confused, no sz past 48 hr., denies chest pain, no SOB Objective - Vital Signs/Intake and Output Vital Signs (last 24 hours): Temp Pulse Resp BP Pulse Ox 98.0 F 68 18 149/74 98 03/26/18 06:00 03/26/18 06:00 03/26/18 06:00 03/26/18 06:00 03/26/18 06:00 Intake and Output: 03/26/18 03/26/18 06:59 18:59 Intake Total 2690 Output Total 2600 Balance 90 - Medications Medications: Current Medications Acetaminophen (Tylenol 325mg Tab) 650 mg PO Q6H PRN PRN Reason: Pain, moderate (4-7) Last Admin: 03/25/18 16:56 Dose: 650 mg Sodium Chloride (Sodium Chloride 0.9%) 1,000 mls @ 70 mls/hr IV .[id number] [facility] Last Admin: 03/26/18 08:52 Dose: 70 mls/hr Vancomycin HCl (Vancomycin 1gm) 1 gm in 250 mls @ 167 mls/hr IVPB Q12H [facility]; Protocol Stop: 04/02/18 20:46 Last Admin: 03/26/18 08:47 Dose: 167 mls/hr Levetiracetam (Keppra) 1,500 mg PO 1000,2200 [place] Last Admin: 03/26/18 09:18 Dose: 1,500 mg Lorazepam (Ativan) 0.5 mg IVP Q6H PRN; Protocol PRN Reason: Anxiety Oxcarbazepine (Trileptal) 600 mg PO BID [facility]; Protocol - Labs Labs: 03/24/18 10:25 03/24/18 10:25 PT 12.0 SECONDS (9.4-12.5) 03/24/18 10:25 INR 1.04 03/24/18 10:25 APTT 30.0 Seconds (25.1-36.5) 03/24/18 10:25 - Respiratory Exam Respiratory Exam: Clear to Ausculation Bilateral, NORMAL BREATHING PATTERN - Cardiovascular Exam Cardiovascular Exam: REGULAR RHYTHM - GI/Abdominal Exam GI & Abdominal Exam: Soft, Normal Bowel Sounds - Extremities Exam Extremities Exam: Normal Inspection - Neurological Exam Neurological Exam: Altered, Awake - Psychiatric Exam Psychiatric exam: Agitated Assessment and Plan (1) Seizure Status: Acute (2) Altered mental status Status: Acute (3) Decubitus skin ulcer Status: Acute - Assessment and Plan (Free Text) Plan: increase Lamictal per neuro, EEG pending, PT and SW for DC planning, continue wound care
[2018-03-26 10:46] LABS: MEAN CELL VOLUME 89.8 fl (80.0-105.0); MEAN CORPUSCULAR HEMOGLOBIN 30.2 pg (25.0-35.0); MEAN CORPUSCULAR HGB CONC 33.7 g/dl (31.0-37.0); MEAN PLATELET VOLUME 9.3 fl (7.0-11.0); RBC 4.6 10^6/uL (3.5-6.1); RED CELL DISTRIBUTION WIDTH 13.1 % (11.5-14.5); WHITE BLOOD COUNT 5.7 10^3/uL (4.5-11.0)
[2018-03-26 11:09] LABS: HEMOGLOBIN 13.9 g/dL (14.0-18.0)
[2018-03-26 11:29] LABS: ALB/GLOB RATIO 1.1 (1.1-1.8); ALBUMIN 3.6 g/dL (3.0-4.8); ALT/SGPT 61 U/L (7-56); AST/SGOT 35 U/L (17-59); BLOOD UREA NITROGEN 8 mg/dL (7-21); CALCIUM 8.1 mg/dL (8.4-10.5); GFR NON-AFRICAN AMERICAN > 60
--- NOTE | 2018-03-26 23:20 | PN ---
DATE: 03/26/2018 SUBJECTIVE: The patient is in bed, in no acute distress, nontoxic. PHYSICAL EXAMINATION: VITAL SIGNS: Temperature is 98, blood pressure is 150/80, respiratory rate 20, heart rate of 74. HEENT: Examination is unremarkable. NECK: Supple. LUNGS: Have decreased breath sounds. HEART: Normal S1, S2. ABDOMEN: Soft. LABORATORY DATA: Laboratory examination reveals a white count of 5.7. Chemistries reveal a BUN of 8, creatinine of 0.6. Urinalysis is noted. Microbiology reveals gram-positive cocci in the sacrum. Blood cultures are negative. ASSESSMENT AND PLAN: This is a 62-year-old male with past medical history of aneurysmal subarachnoid bleed, status post clipping and ventricular peritoneal shunt, seizures, cognitive impairment, and traumatic brain injury with seizure disorder, sacral decubiti, history of traumatic brain injury, afebrile, on vancomycin with gram-positive cocci, identification of sensitivity is pending. Ubaldo Garcia MD
[2018-03-27] MEDS: Sodium Chloride 0.9% 1,000 ML IV SCH (06:31)
[2018-03-27 07:43] LABS: MEAN CELL VOLUME 90.5 fl (80.0-105.0); MEAN CORPUSCULAR HEMOGLOBIN 30.4 pg (25.0-35.0); MEAN CORPUSCULAR HGB CONC 33.6 g/dl (31.0-37.0); MEAN PLATELET VOLUME 8.9 fl (7.0-11.0); RBC 4.61 10^6/uL (3.5-6.1); RED CELL DISTRIBUTION WIDTH 13.3 % (11.5-14.5); WHITE BLOOD COUNT 5.4 10^3/uL (4.5-11.0)
[2018-03-27 07:56] LABS: ALB/GLOB RATIO 1.1 (1.1-1.8); ALBUMIN 3.5 g/dL (3.0-4.8); ALT/SGPT 69 U/L (7-56); AST/SGOT 40 U/L (17-59); BLOOD UREA NITROGEN 9 mg/dL (7-21); CALCIUM 8.2 mg/dL (8.4-10.5); GFR NON-AFRICAN AMERICAN > 60
[2018-03-27] MEDS: Vancomycin 1gm in NS 250ml 1 GM/250 ML BAG IVPB SCH ×2 (08:37→20:48)
[2018-03-27] MEDS: levETIRAcetam 500 mg/5ml UD cups PO SCH ×2 (10:24→21:42)
--- NOTE | 2018-03-27 11:05 | CP.PCM.PN ---
Subjective - Date & Time of Evaluation Date of Evaluation: 03/27/18 Time of Evaluation: 11:00 - Subjective Subjective: NAD, no sz past 72 hrs, awake and responsive, confused Objective - Vital Signs/Intake and Output Vital Signs (last 24 hours): Temp Pulse Resp BP Pulse Ox 98.8 F 62 20 156/90 H 97 03/27/18 06:00 03/27/18 06:00 03/27/18 06:00 03/27/18 06:00 03/27/18 06:00 - Medications Medications: Current Medications Acetaminophen (Tylenol 325mg Tab) 650 mg PO Q6H PRN PRN Reason: Pain, moderate (4-7) Last Admin: 03/25/18 16:56 Dose: 650 mg Vancomycin HCl (Vancomycin 1gm) 1 gm in 250 mls @ 167 mls/hr IVPB Q12H [facility]; Protocol Stop: 04/02/18 20:46 Last Admin: 03/27/18 08:37 Dose: 167 mls/hr Levetiracetam (Keppra) 1,500 mg PO 1000,2200 [facility] Last Admin: 03/27/18 10:24 Dose: 1,500 mg Lorazepam (Ativan) 0.5 mg IVP Q6H PRN; Protocol PRN Reason: Anxiety Oxcarbazepine (Trileptal) 600 mg PO BID [facility]; Protocol Last Admin: 03/27/18 10:25 Dose: 600 mg - Labs Labs: 03/27/18 07:15 03/27/18 07:15 PT 12.0 SECONDS (9.4-12.5) 03/24/18 10:25 INR 1.04 03/24/18 10:25 APTT 30.0 Seconds (25.1-36.5) 03/24/18 10:25 - Respiratory Exam Respiratory Exam: Clear to Ausculation Bilateral, NORMAL BREATHING PATTERN - Cardiovascular Exam Cardiovascular Exam: REGULAR RHYTHM - GI/Abdominal Exam GI & Abdominal Exam: Soft, Normal Bowel Sounds - Neurological Exam Neurological Exam: Altered, Awake - Skin Skin Exam: Warm Assessment and Plan (1) Seizure Status: Acute (2) Altered mental status Status: Acute (3) Decubitus skin ulcer Status: Acute - Assessment and Plan (Free Text) Plan: DC IV fluid, PT and SW for DC planning
--- NOTE | 2018-03-27 15:09 | CP.PCM.PN ---
<Domingo Arreguin - Last Filed: 03/27/18 15:05> Subjective - Date & Time of Evaluation Date of Evaluation: 03/27/18 Time of Evaluation: 09:00 - Subjective Subjective: ID progress note for Dr. Kennedy/Dr. Garcia service - Edwige Arreguin PGY3 Seen and examined at bedside. No acute overnight events or new complaints. Denies cp, palpitations, SOB. Objective - Vital Signs/Intake and Output Vital Signs (last 24 hours): Temp Pulse Resp BP Pulse Ox 97.9 F 65 20 162/95 H 96 03/27/18 14:00 03/27/18 14:00 03/27/18 14:00 03/27/18 14:00 03/27/18 14:00 - Medications Medications: Current Medications Acetaminophen (Tylenol 325mg Tab) 650 mg PO Q6H PRN PRN Reason: Pain, moderate (4-7) Last Admin: 03/25/18 16:56 Dose: 650 mg Vancomycin HCl (Vancomycin 1gm) 1 gm in 250 mls @ 167 mls/hr IVPB Q12H [facility]; P rotocol Stop: 04/02/18 20:46 Last Admin: 03/27/18 08:37 Dose: 167 mls/hr Levetiracetam (Keppra) 1,500 mg PO 1000,2200 [facility] Last Admin: 03/27/18 10:24 Dose: 1,500 mg Lorazepam (Ativan) 0.5 mg IVP Q6H PRN; Protocol PRN Reason: Anxiety Oxcarbazepine (Trileptal) 600 mg PO BID [facility]; Protocol Last Admin: 03/27/18 10:25 Dose: 600 mg - Labs Labs: 03/27/18 07:15 03/27/18 07:15 PT 12.0 SECONDS (9.4-12.5) 03/24/18 10:25 INR 1.04 03/24/18 10:25 APTT 30.0 Seconds (25.1-36.5) 03/24/18 10:25 - Constitutional Appears: No Acute Distress - Head Exam Head Exam: ATRAUMATIC, NORMOCEPHALIC Additional comments: palpable [employer] shunt - Eye Exam Eye Exam: EOMI, PERRL - ENT Exam ENT Exam: Mucous Membranes Moist - Respiratory Exam Respiratory Exam: absent: Rales, Rhonchi, Wheezes - Cardiovascular Exam Cardiovascular Exam: +S1, +S2. absent: Clicks, Gallop, Rubs - GI/Abdominal Exam GI & Abdominal Exam: Soft. 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 ID consulted for evaluation of sacral decubitus ulcer seizure disorder sacral decubitus ulcer hx of TBI hx of subarachnoid bleed -wound culture positive for MSSA and Enterococcus -Continue with vancomycin per culture/sensitivity for maximum 10 day course -afebrile, no leukocytosis -procalcitonin negative -blood culture negative -f/u surgical recommendations -wound care including frequent turning/off-loading, santyl/optifoam dressing -f/u neurology recommendations Patient seen and case discussed/reviewed with attending, Dr. Kennedy <Goran Kennedy - Last Filed: 03/27/18 17:58> Objective - Vital Signs/Intake and Output Vital Signs (last 24 hours): Temp Pulse Resp BP Pulse Ox 97.9 F 65 20 162/95 H 96 03/27/18 14:00 03/27/18 14:00 03/27/18 14:00 03/27/18 14:00 03/27/18 14:00 - Medications Medications: Current Medications Acetaminophen (Tylenol 325mg Tab) 650 mg PO Q6H PRN PRN Reason: Pain, moderate (4-7) Last Admin: 03/25/18 16:56 Dose: 650 mg Vancomycin HCl (Vancomycin 1gm) 1 gm in 250 mls @ 167 mls/hr IVPB Q12H [facility]; Protocol Stop: 04/02/18 20:46 Last Admin: 03/27/18 08:37 Dose: 167 mls/hr Levetiracetam (Keppra) 1,500 mg PO 1000,2200 [facility] Last Admin: 03/27/18 10:24 Dose: 1,500 mg Lorazepam (Ativan) 0.5 mg IVP Q6H PRN; Protocol PRN Reason: Anxiety Oxcarbazepine (Trileptal) 600 mg PO BID [facility]; Protocol Last Admin: 03/27/18 17:23 Dose: 600 mg - Labs Labs: 03/27/18 07:15 03/27/18 07:15 PT 12.0 SECONDS (9.4-12.5) 03/24/18 10:25 INR 1.04 03/24/18 10:25 APTT 30.0 Seconds (25.1-36.5) 03/24/18 10:25 Assessment and Plan - Assessment and Plan (Free Text) Plan: Infectious diseases Attending Physician Attestation Patient seen and examined, discussed with medical office technology instructor. I have reviewed the patient's history of present illness, past medical, social, personal and family histories, pertinent physical exam findings, course so far in this hospital admission, pertinent laboratory and imaging results. I agree with the above findings, assessment and plan. In addition, will continue Vancomycin for patient with infected sacral decubitus ulcer with MSSA and E. faecalis. Complete 7-10 days of therapy.
--- NOTE | 2018-03-28 11:48 | CP.PCM.PN ---
Subjective - Date & Time of Evaluation Date of Evaluation: 03/28/18 Time of Evaluation: 11:35 - Subjective Subjective: NAD, no SZ activity past 96 hrs Objective - Vital Signs/Intake and Output Vital Signs (last 24 hours): Temp Pulse Resp BP Pulse Ox 98.4 F 64 20 168/79 H 99 03/28/18 06:00 03/28/18 06:00 03/28/18 06:00 03/28/18 06:00 03/28/18 06:00 Intake and Output: 03/28/18 03/28/18 06:59 18:59 Intake Total 360 Balance 360 - Medications Medications: Current Medications Acetaminophen (Tylenol 325mg Tab) 650 mg PO Q6H PRN PRN Reason: Pain, moderate (4-7) Last Admin: 03/25/18 16:56 Dose: 650 mg Vancomycin HCl (Vancomycin 1gm) 1 gm in 250 mls @ 167 mls/hr IVPB Q12H [facility]; Protocol Stop: 04/02/18 20:46 Last Admin: 03/27/18 20:48 Dose: 167 mls/hr Levetiracetam (Keppra) 1,500 mg PO 1000,2200 [facility] Last Admin: 03/27/18 21:42 Dose: 1,500 mg Lisinopril (Zestril) 10 mg PO DAILY [facility] Lorazepam (Ativan) 0.5 mg IVP Q6H PRN; Protocol PRN Reason: Anxiety Oxcarbazepine (Trileptal) 600 mg PO BID [facility]; Protocol Last Admin: 03/27/18 17:23 Dose: 600 mg - Labs Labs: 03/27/18 07:15 03/27/18 07:15 PT 12.0 SECONDS (9.4-12.5) 03/24/18 10:25 INR 1.04 03/24/18 10:25 APTT 30.0 Seconds (25.1-36.5) 03/24/18 10:25 - Respiratory Exam Respiratory Exam: Clear to Ausculation Bilateral, NORMAL BREATHING PATTERN - Cardiovascular Exam Cardiovascular Exam: REGULAR RHYTHM - GI/Abdominal Exam GI & Abdominal Exam: Soft - Neurological Exam Neurological Exam: Altered, Awake Assessment and Plan (1) Seizure Status: Acute (2) Altered mental status Status: Acute (3) Decubitus skin ulcer Status: Acute - Assessment and Plan (Free Text) Plan: add Lisinopril 10 mg qd for elevated BP, PT and SW for DC planning
[2018-03-28] MEDS: levETIRAcetam 500 mg/5ml UD cups PO SCH ×2 (12:39→21:34)
[2018-03-28] MEDS: Vancomycin 1gm in NS 250ml 1 GM/250 ML BAG IVPB SCH ×2 (12:45→23:11)
--- NOTE | 2018-03-29 04:49 | PN ---
DATE: 03/28/2018 SUBJECTIVE: The patient was seen earlier today in 576, bed 1. No fevers. No chills. PHYSICAL EXAMINATION: GENERAL: On exam, temperature is 98, blood pressure is 160/110, respiratory rate 20, heart rate is 73. HEENT: Unremarkable. NECK: Supple. LUNGS: Decreased breath sounds. HEART: Normal S1 and S2. ABDOMEN: Soft. LABORATORY EXAMINATION: Reveals the patient's white count is 5.4, hemoglobin of 14, chemistries are noted. Blood count is negative. Microbiology reveals the sacral culture is noted. Blood cultures showed no growth. Review of orders reveals the patient to be on vancomycin, but the cultures with Staph aureus and enterococcus and Dr. Marquis's note is reviewed. ASSESSMENT AND PLAN: This is a 62-year-old with history of aneurysm, subarachnoid bleed, and clipping and ventriculoperitoneal shunt, seizure disorder, cognitive impairment, brain injury, noncompliance, seizure disorder, and wound culture with enterococcus and staphylococcus, on vancomycin. We will continue the present course. Follow the patient closely. We will follow with you. Ubaldo Garcia MD
[2018-03-29] MEDS: levETIRAcetam 500 mg/5ml UD cups PO SCH ×2 (10:00→21:37)
[2018-03-29] MEDS: Vancomycin 1gm in NS 250ml 1 GM/250 ML BAG IVPB SCH (11:01)
--- NOTE | 2018-03-29 13:37 | CP.PCM.PN ---
Subjective - Date & Time of Evaluation Date of Evaluation: 03/29/18 Time of Evaluation: 13:25 - Subjective Subjective: resting comfortably, NAD, no SZ activity since admission Objective - Vital Signs/Intake and Output Vital Signs (last 24 hours): Temp Pulse Resp BP Pulse Ox 98.0 F 63 20 164/81 H 97 03/29/18 06:00 03/29/18 11:02 03/29/18 06:00 03/29/18 11:02 03/29/18 06:00 Intake and Output: 03/29/18 03/29/18 06:59 18:59 Intake Total 480 Balance 480 - Medications Medications: Current Medications Acetaminophen (Tylenol 325mg Tab) 650 mg PO Q6H PRN PRN Reason: Pain, moderate (4-7) Last Admin: 03/29/18 11:01 Dose: 650 mg Amlodipine Besylate (Norvasc) 5 mg PO DAILY [facility] Levetiracetam (Keppra) 1,500 mg PO 1000,2200 [facility] Last Admin: 03/29/18 10:00 Dose: 1,500 mg Lisinopril (Zestril) 10 mg PO DAILY [facility] Last Admin: 03/29/18 11:02 Dose: 10 mg Lorazepam (Ativan) 0.5 mg IVP Q6H PRN; Protocol PRN Reason: Anxiety Last Admin: 03/29/18 11:05 Dose: 0.5 mg Oxcarbazepine (Trileptal) 600 mg PO BID [facility]; Protocol Last Admin: 03/29/18 11:02 Dose: 600 mg - Labs Labs: 03/27/18 07:15 03/27/18 07:15 PT 12.0 SECONDS (9.4-12.5) 03/24/18 10:25 INR 1.04 03/24/18 10:25 APTT 30.0 Seconds (25.1-36.5) 03/24/18 10:25 - Respiratory Exam Respiratory Exam: Clear to Ausculation Bilateral, NORMAL BREATHING PATTERN - Cardiovascular Exam Cardiovascular Exam: REGULAR RHYTHM - GI/Abdominal Exam GI & Abdominal Exam: Soft, Normal Bowel Sounds - Extremities Exam Extremities Exam: Normal Inspection - Neurological Exam Neurological Exam: Altered Assessment and Plan (1) Seizure Status: Acute (2) Altered mental status Status: Acute (3) Decubitus skin ulcer Status: Acute (4) Hypertension Status: Chronic - Assessment and Plan (Free Text) Plan: add amlodipine 5mg qd for elevated BP, check labs in am, DC IV Vanco, DC to home in am if remains stable
--- NOTE | 2018-03-29 15:17 | PN ---
DATE: 03/29/2018 PHYSICAL EXAMINATION: VITAL SIGNS: Temperature is 98, blood pressure is 160/80, respiratory rate 18. Examination of HEENT is unremarkable. NECK: Supple. LUNGS: Have decreased breath sounds. HEART: Normal S1, S2. ABDOMEN: Soft, nontender. LABORATORY EXAMINATION: Reveals a white count of 5.4, hemoglobin of 14. Chemistries are noted. Urinalysis is noted and toxicology is reviewed. Microbiology is reviewed with a sacral culture with Staph aureus and Enterococcus. The Staph aureus is sensitive Staph aureus, Enterococcus is sensitive to ampicillin. Dr. Marquis's note is reviewed from yesterday. Review of orders reveals the patient to be on vancomycin. ASSESSMENT AND PLAN: A 62-year-old male with a history of aneurysm, subarachnoid bleed, clipping, ventriculoperitoneal shunt, seizures, cognitive impairment, brain injury, noncompliance, seizures with sensitive Staphylococcus aureus and Enterococcus from the wound culture on vancomycin. Maybe able to switch to oral upon discharge. We will follow with you. Ubaldo Garcia MD
--- NOTE | 2018-03-30 07:04 | CP.PCM.PN ---
<Domingo Arreguin - Last Filed: 03/30/18 11:51> Subjective - Date & Time of Evaluation Date of Evaluation: 03/30/18 Time of Evaluation: 07:03 - Subjective Subjective: ID progress note for Dr. Kennedy/Dr. Garcia service - Edwige Arreguin PGY3 Patient seen and examined at bedside this morning. No acute overnight events or new complaints. Denies cp, palpitations, SOB. Objective - Vital Signs/Intake and Output Vital Signs (last 24 hours): Temp Pulse Resp BP Pulse Ox 98.2 F 68 18 140/85 95 03/29/18 22:00 03/29/18 16:09 03/29/18 22:00 03/29/18 22:00 03/29/18 22:00 - Medications Medications: Current Medications Acetaminophen (Tylenol 325mg Tab) 650 mg PO Q6H PRN PRN Reason: Pain, moderate (4-7) Last Admin: 03/29/18 11:01 Dose: 650 mg Amlodipine Besylate (Norvasc) 5 mg PO DAILY [facility] Last Admin: 03/29/18 16:09 Dose: 5 mg Levetiracetam (Keppra) 1,500 mg PO 1000,2200 [facility] Last Admin: 03/29/18 21:37 Dose: 1,500 mg Lisinopril (Zestril) 10 mg PO DAILY [facility] Last Admin: 03/29/18 11:02 Dose: 10 mg Lorazepam (Ativan) 0.5 mg IVP Q6H PRN; Protocol PRN Reason: Anxiety Last Admin: 03/29/18 11:05 Dose: 0.5 mg Oxcarbazepine (Trileptal) 600 mg PO BID [facility]; Protocol Last Admin: 03/29/18 18:13 Dose: 600 mg - Labs Labs: 03/27/18 07:15 03/27/18 07:15 PT 12.0 SECONDS (9.4-12.5) 03/24/18 10:25 INR 1.04 03/24/18 10:25 APTT 30.0 Seconds (25.1-36.5) 03/24/18 10:25 - Constitutional Appears: No Acute Distress - Head Exam Head Exam: ATRAUMATIC, NORMAL INSPECTION, NORMOCEPHALIC 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 absent: Gallop, JVD, Rubs - GI/Abdominal Exam GI & Abdominal Exam: Soft. 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 ID consulted for evaluation of sacral decubitus ulcer seizure disorder sacral decubitus ulcer hx of TBI hx of subarachnoid bleed -Recommend patient receive augmentin to complete 10 day course of abx -wound culture positive for MSSA and Enterococcus -Vancomycin has been discontinued by primary team -afebrile, no leukocytosis -procalcitonin negative -blood culture negative -f/u surgical recommendations -wound care including frequent turning/off-loading, santyl/optifoam dressing -f/u neurology recommendations Patient seen and case discussed/reviewed with attending, Dr. Kennedy <Goran Kennedy - Last Filed: 03/30/18 21:23> Objective - Vital Signs/Intake and Output Vital Signs (last 24 hours): Temp Pulse Resp BP Pulse Ox 97.7 F 69 20 106/65 96 03/30/18 14:00 03/30/18 14:00 03/30/18 14:00 03/30/18 14:00 03/30/18 14:00 Intake and Output: 03/30/18 03/31/18 18:59 06:59 Intake Total 300 Balance 300 - Medications Medications: Current Medications Acetaminophen (Tylenol 325mg Tab) 650 mg PO Q6H PRN PRN Reason: Pain, moderate (4-7) Last Admin: 03/29/18 11:01 Dose: 650 mg Amlodipine Besylate (Norvasc) 5 mg PO DAILY [facility] Last Admin: 03/30/18 09:54 Dose: 5 mg Levetiracetam (Keppra) 1,500 mg PO 1000,2200 [facility] Last Admin: 03/30/18 09:54 Dose: 1,500 mg Lisinopril (Zestril) 10 mg PO DAILY [facility] Last Admin: 03/30/18 09:55 Dose: 10 mg Lorazepam (Ativan) 0.5 mg IVP Q6H PRN; Protocol PRN Reason: Anxiety Last Admin: 03/30/18 15:06 Dose: 0.5 mg Oxcarbazepine (Trileptal) 600 mg PO BID [facility]; Protocol Last Admin: 03/30/18 17:50 Dose: 600 mg - Labs Labs: 03/30/18 07:15 03/30/18 07:15 PT 12.0 SECONDS (9.4-12.5) 03/24/18 10:25 INR 1.04 03/24/18 10:25 APTT 30.0 Seconds (25.1-36.5) 03/24/18 10:25 Assessment and Plan - Assessment and Plan (Free Text) Plan: Infectious diseases Attending Physician Attestation Patient seen and examined, discussed with medical office technology instructor. I have reviewed the patient's history of present illness, past medical, social, personal and family histories, pertinent physical exam findings, course so far in this hospital admission, pertinent laboratory and imaging results. I agree with the above findings, assessment and plan. In addition, will continue Vancomycin for this patient with infected stage 2-3 sacral ulcer. Can switch to Augmentin when ready to be discharged.
[2018-03-30 07:42] LABS: BASO # 0.03 K/mm3 (0.0-2.0); BASO % 0.6 % (0.0-3.0); EOS # 0.4 (0.0-0.7); EOS % 7.2 % (1.5-5.0); GRAN # 3.07 (1.4-6.5); GRAN % 57.1 % (50.0-68.0); HEMOGLOBIN 15.8 g/dL (14.0-18.0); LYMPH # 1.3 (1.2-3.4); LYMPH % 24.7 % (22.0-35.0); MEAN CELL VOLUME 89.8 fl (80.0-105.0); MEAN CORPUSCULAR HGB CONC 34.5 g/dl (31.0-37.0); MEAN PLATELET VOLUME 9.3 fl (7.0-11.0); MONO # 0.6 (0.1-0.6); MONO % 10.4 % (1.0-6.0); RBC 5.1 10^6/uL (3.5-6.1); WHITE BLOOD COUNT 5.4 10^3/uL (4.5-11.0)
[2018-03-30 08:01] LABS: ALB/GLOB RATIO 1.1 (1.1-1.8); ALBUMIN 4.1 g/dL (3.0-4.8); ALT/SGPT 76 U/L (7-56); AST/SGOT 52 U/L (17-59); BLOOD UREA NITROGEN 12 mg/dL (7-21); CALCIUM 8.9 mg/dL (8.4-10.5); GFR NON-AFRICAN AMERICAN > 60
[2018-03-30] MEDS: levETIRAcetam 500 mg/5ml UD cups PO SCH (09:54)
[2018-03-30 10:45] VITALS: RESP 20
[2018-03-30 15:15] VITALS: BP 106/65; PULSE 69; TEMP 97.7; O2SAT 96
== END 2018-03-30 21:28 | disposition home health service (06) | DRG 100 ==
LOC: ED 10:10 → ERH 13:23 → 2RNO 22:30 → 5RSO 03-26 11:28 → 2RNO 03-26 11:32 → 5RSO 03-26 19:52
PROVIDERS: ADMIT Internal Medicine; ATTEND Internal Medicine
DX: G40.89 Other seizures (principal); L89.153 Pressure ulcer of sacral region, stage 3; G91.9 Hydrocephalus, unspecified; E87.0 Hyperosmolality and hypernatremia; L03.90 Cellulitis, unspecified; E72.20 Disorder of urea cycle metabolism, unspecified; R40.2420 Glasgow coma scale score 9-12, unspecified time; Z79.899 Other long term (current) drug therapy; Z98.2 Presence of cerebrospinal fluid drainage device; F45.9 Somatoform disorder, unspecified; F10.10 Alcohol abuse, uncomplicated; Z87.820 Personal history of traumatic brain injury; R41.89 Other symptoms and signs involving cognitive functions and awareness; I10 Essential (primary) hypertension; J44.9 Chronic obstructive pulmonary disease, unspecified; Z72.0 Tobacco use; G47.00 Insomnia, unspecified; Z86.73 Personal history of transient ischemic attack (TIA), and cerebral infarction without residual deficits; Z86.79 Personal history of other diseases of the circulatory system; Z91.14 Patient's other noncompliance with medication regimen; Z91.19 Patient's noncompliance with other medical treatment and regimen; Z87.19 Personal history of other diseases of the digestive system

== ENCOUNTER 2018-07-10 15:22 | Inpatient (IN) | payer MEDICARE ==
[2018-07-10] MEDS ORDERED: levETIRAcetam 1000mg/100ml NS 100 ML IVPB STA (15:37)
[2018-07-10] MEDS ORDERED: levETIRAcetam 500mg IVPB 500 MG/100 ML BAG IVPB STA (15:52)
[2018-07-10 16:14] LABS: ALB/GLOB RATIO 1.2 (1.1-1.8); ALBUMIN 5.5 g/dL (3.0-4.8); BLOOD UREA NITROGEN 11 mg/dL (7-21); GFR NON-AFRICAN AMERICAN > 60
[2018-07-10 16:22] LABS: ALT/SGPT 51 U/L (7-56); AST/SGOT 54 U/L (17-59)
[2018-07-10 16:25] LABS: TROPONIN I < 0.01 ng/mL
[2018-07-10 16:27] LABS: BASO # 0.03 K/mm3 (0.0-2.0); BASO % 0.2 % (0.0-3.0); EOS # 0.4 (0.0-0.7); HEMOGLOBIN 17.1 g/dL (14.0-18.0); LYMPH % 31.4 % (22.0-35.0); MEAN CELL VOLUME 93.9 fl (80.0-105.0); MEAN CORPUSCULAR HEMOGLOBIN 30.9 pg (25.0-35.0); MEAN CORPUSCULAR HGB CONC 32.9 g/dl (31.0-37.0); MEAN PLATELET VOLUME 9.4 fl (7.0-11.0); MONO # 0.8 (0.1-0.6); MONO % 5.9 % (1.0-6.0); RBC 5.53 10^6/uL (3.5-6.1); RED CELL DISTRIBUTION WIDTH 13.6 % (11.5-14.5); WHITE BLOOD COUNT 12.9 10^3/uL (4.5-11.0)
[2018-07-10 16:31] LABS: INR 1.03; PARTIAL THROMBOPLASTIN TIME 40.3 Seconds (26.9-38.3); PROTHROMBIN TIME 11.4 SECONDS (9.4-12.5)
[2018-07-10 16:37] LABS: PH,URINE 6.5 (4.7-8.0); URINE APPEARANCE CLEAR (CLEAR); URINE BILIRUBIN NEGATIVE (NEGATIVE); URINE BLOOD NEGATIVE (NEGATIVE); URINE COLOR YELLOW (YELLOW); URINE GLUCOSE (UA) NEGATIVE (NEGATIVE); URINE LEUKOCYTE ESTERASE NEGATIVE Leu/uL (NEGATIVE); URINE PROTEIN 100 mg/dL (<30 mg/dL)
[2018-07-10 16:43] LABS: URINE RBC 0 - 2 /hpf (0-2)
[2018-07-10 16:46] LABS: BENZODIAZEPINES, UR NEGATIVE (NEGATIVE)
--- NOTE | 2018-07-10 16:50 | RAD ---
Date of service: 07/10/2018 HISTORY: s/p seizure COMPARISON: 03/24/2018 FINDINGS: LUNGS: No active pulmonary disease. PLEURA: No significant pleural effusion identified, no pneumothorax apparent. CARDIOVASCULAR: No atherosclerotic calcification present No radiographic findings to suggest acute or significant cardiovascular disease. OSSEOUS STRUCTURES: No significant abnormalities. VISUALIZED UPPER ABDOMEN: Normal. OTHER FINDINGS: None. IMPRESSION: No active disease. No significant interval change compared to the prior examination(s).
[2018-07-10 16:56] LABS: BARBITURATES, UR NEGATIVE (NEGATIVE); OPIATES, UR NEGATIVE (NEGATIVE); PHENCYCLIDINE, UR NEGATIVE (NEGATIVE)
--- NOTE | 2018-07-10 17:11 | CT ---
Date of service: 07/10/2018 PROCEDURE: CT HEAD WITHOUT CONTRAST. HISTORY: h/o TBI - s/p seizure - r/o ICH COMPARISON: 03/24/2018 TECHNIQUE: Axial computed tomography images were obtained through the head/brain without intravenous contrast. Radiation dose: Total exam DLP = 1084.66 mGy-cm. This CT exam was performed using one or more of the following dose reduction techniques: Automated exposure control, adjustment of the mA and/or kV according to patient size, and/or use of iterative reconstruction technique. FINDINGS: HEMORRHAGE: No intracranial hemorrhage. BRAIN: No mass effect or edema. Minimal atrophy. Left frontal encephalomalacia with kristina cystic encephalomalacia in the inferior left frontal lobe. Lesser inferior right frontal cystic encephalomalacia. Surgical clips are seen in the suprasellar cistern. VENTRICLES: Hydrocephalus. Ventriculostomy catheter entering through high right frontal calvarium extending to the midline of the interventricular septum, unchanged in position. CALVARIUM: Left frontotemporal craniotomy. No acute fracture. PARANASAL SINUSES: Unremarkable as visualized. No significant inflammatory changes. MASTOID AIR CELLS: Unremarkable as visualized. No inflammatory changes. OTHER FINDINGS: None. IMPRESSION: No intracranial hemorrhage. Bilateral inferior frontal cystic encephalomalacia, left greater than right. Left frontal encephalomalacia unchanged. Left frontal temporal craniotomy. Postoperative changes with surgical clips in suprasellar cistern. Hydrocephalus. Ventriculostomy catheter unchanged.
--- NOTE | 2018-07-10 17:24 | ED PDOC ---
Arrival/HPI - General Chief Complaint: Seizure Historian: Patient - Critical Care Critical Care Minutes: 60 minutes - History of Present Illness Narrative History of Present Illness (Text): 07/10/18 15:35 A 63 year old male, whose past medical history includes dementia, seizure disorder, brain aneurysm, s/p craniotomy, presents to the emergency department via BLS with seizure activity. Ambulance was called by patient's who noticed patient was seizing. Patient is questionably compliant of outpatient medications. Upon arrival to emergency department, patient was actively seizing, 4 mg of ativan was given with resolution od seizure. HPI and ROS limited due to patient's condition. No PMD Time/Duration: 4-6 hours Symptom Onset: Sudden Symptom Course: Unchanged Activities at Onset: Light Context: Home Past Medical History - Provider Review Nursing Documentation Reviewed: Yes - Past History Past History: Unable to Obtain - Infectious Disease Hx of Infectious Diseases: None - Tetanus Immunization Tetanus Immunization: Unknown - Cardiac Hx Cardiac Disorders: Yes Hx Hypertension: Yes - Pulmonary Hx Chronic Obstructive Pulmonary Disease (COPD): Yes - Neurological HX Cerebrovascular Accident: Yes Hx Seizures: Yes - HEENT Hx HEENT Disorder: Yes - Renal Hx Renal Disorder: No - Endocrine/Metabolic Hx Endocrine Disorders: No - Hematological/Oncological Hx Blood Disorders: Yes Hx Hepatitis C: Yes Other/Comment: liver disease - Integumentary Hx Dermatological Disorder: Yes Hx Basal Cell Carcinoma: No Hx Eczema: No Hx Melanoma: No Hx Psoriasis: No Hx Squamous Cell Carcinoma: No Other/Comment: redness with swelling to both lower legs - Musculoskeletal/Rheumatological Hx Falls: Yes - Gastrointestinal Hx 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) - Genitourinary/Gynecological Hx Genitourinary Disorders: Yes Hx Incontinence: Yes - Psychiatric Hx Psychophysiologic Disorder: Yes (SMOKED CIGARETTES,HEAVY DRINKER ETOH ABUSE H.O) Hx Substance Use: No - Past Surgical History Past Surgical History: Unable to Obtain - Surgical History Hx Orthopedic Surgery: Yes (C-spine) Other/Comment: brain surgery due to brain aneurysm - Anesthesia Hx Anesthesia: Yes Hx Anesthesia Reactions: No Hx Malignant Hyperthermia: No - Suicidal Assessment Feels Threatened In Home Enviroment: No Family/Social History - Physician Review Nursing Documentation Reviewed: Yes Family/Social History: No Known Family HX Smoking Status: Current Some Days Smoker Hx Alcohol Use: Yes (ETOH ABUSE H/O) Hx Substance Use: No Hx Substance Use Treatment: No Allergies/Home Meds Allergies/Adverse Reactions: Allergies No Known Allergies Allergy (Verified 03/24/18 15:30) Review of Systems - Review of Systems Systems not reviewed;Unavailable: Acuity of Condition Physical Exam Vital Signs Reviewed: Yes Vital Signs Temp Pulse Resp BP Pulse Ox 07/10/18 15:22 99.7 F H 140 H 20 137/80 90 L Temperature: Febrile Blood Pressure: Normal Pulse: Tachycardic Respiratory Rate: Normal Mental Status: Positive for: Alert and Oriented X 3, other (Note; Physical exam done after seizure activity) - Systems Exam Head: Present: Other (surgical changes to the cranium) Pupils: Present: PERRL Extroacular Muscles: Present: EOMI Conjunctiva: Present: Normal Mouth: Present: Other (dry blood in mouth, poor dentition) Neck: Present: Normal Range of Motion Respiratory/Chest: Present: Other (trasmitted breath sounds) Cardiovascular: Present: Regular Rate and Rhythm, Normal S1, S2. No: Murmurs Abdomen: No: Tenderness, Distention, Peritoneal Signs Back: Present: Normal Inspection Upper Extremity: Present: Normal Inspection. No: Cyanosis, Edema Lower Extremity: Present: Normal Inspection. No: Edema Neurological: Present: Other (postictal ) Skin: Present: Warm, Dry, Normal Color. No: Rashes Psychiatric: Present: Alert, Oriented x 3, Normal Insight, Normal Concentration Medical Decision Making ED Course and Treatment: 07/10/18 15:35 Impression: 63 year old male presenting to the emergency room via BLS for seizure activity. Plan: -- EKG -- Labs -- Keppra -- Lactulose -- Ativan -- Xifaxan -- Urine culture -- Reassess and disposition Prior Visits: Notes and results from previous visits were reviewed. Progress Notes: 07/10/18 15:40 Case discussed with Simran Christina who recommended loading patient with 1500 mg of Keppra, consult ICU. Patient was accepted to ICU. Patient's primary care doctor Dr. Umesh Marquis was made aware. 07/10/18 15:40 EKG: Ordered, reviewed, and independently interpreted the EKG. Rate : 128 BPM Rhythm : Sinus Tachycardia - Critical Care Critical Care Minutes: 60 minutes - Lab Interpretations Lab Results: PT 11.4 SECONDS (9.4-12.5) 07/10/18 15:55 INR 1.03 07/10/18 15:55 APTT 40.3 Seconds (26.9-38.3) H 07/10/18 15:55 Troponin I < 0.01 ng/mL 07/10/18 15:55 Total Bilirubin 0.7 mg/dL (0.2-1.3) 07/10/18 15:55 AST 54 U/L (17-59) 07/10/18 15:55 ALT 51 U/L (7-56) 07/10/18 15:55 Alkaline Phosphatase 102 U/L (38-126) 07/10/18 15:55 Total Protein 10.1 g/dL (5.8-8.3) H 07/10/18 15:55 Albumin 5.5 g/dL (3.0-4.8) H 07/10/18 15:55 Globulin 4.6 gm/dL 07/10/18 15:55 Albumin/Globulin Ratio 1.2 (1.1-1.8) 07/10/18 15:55 Urine Color Yellow (YELLOW) 07/10/18 16:00 Urine Appearance Clear (CLEAR) 07/10/18 16:00 Urine pH 6.5 (4.7-8.0) 07/10/18 16:00 Ur Specific Sullivan >= 1.030 (1.005-1.035) 07/10/18 16:00 Urine Protein 100 mg/dL (<30 mg/dL) H 07/10/18 16:00 Urine Glucose (UA) Negative mg/dL (NEGATIVE) 07/10/18 16:00 Urine Ketones Trace mg/dL (NEGATIVE) H 07/10/18 16:00 Urine Blood Negative (NEGATIVE) 07/10/18 16:00 Urine Nitrate Negative (NEGATIVE) 07/10/18 16:00 Urine Bilirubin Negative (NEGATIVE) 07/10/18 16:00 Urine Urobilinogen 1.0 E.U./dL (<1 E.U./dL) H 07/10/18 16:00 Ur Leukocyte Esterase Negative James/uL (NEGATIVE) 07/10/18 16:00 Urine RBC 0 - 2 /hpf (0-2) 07/10/18 16:00 Urine WBC None /hpf (0-6) 07/10/18 16:00 Ur Epithelial Cells None /hpf (0-5) 07/10/18 16:00 Urine Other Usperm /hpf 07/10/18 16:00 - RAD Interpretation Radiology Orders: 07/10/18 15:36 HEAD W/O CONTRAST [CT] Stat CHEST PORTABLE [RAD] Stat - Medication Orders Current Medication Orders: Lactulose (Enulose) 20 gm PO Q8H [place] Rifaximin (Xifaxan) 550 mg PO BID [place]; Protocol Discontinued Medications Levetiracetam (Keppra 1000mg/100ml Ns) 100 mls @ 215 mls/hr IVPB STAT STA Stop: 07/10/18 16:04 Last Admin: 07/10/18 15:59 Dose: 215 mls/hr eMAR Start Stop Document 07/10/18 15:59 SRE (Rec: 07/10/18 15:59 SRE [id number]) Intravenous Solution Start Date 07/10/18 Start Time 16:00 End Date 07/10/18 End time 16:30 Total Infusion Time 30 Levetiracetam (Keppra 500mg Ivpb) 500 mg in 100 mls @ 215 mls/hr IVPB STAT STA Stop: 07/10/18 16:19 Last Admin: 07/10/18 16:14 Dose: 215 mls/hr eMAR Start Stop Document 07/10/18 16:14 SRE (Rec: 07/10/18 16:14 SRE [id number]) Intravenous Solution Start Date 07/10/18 Start Time 16:14 End Date 07/10/18 End time 16:45 Total Infusion Time 31 Lorazepam (Ativan) 4 mg IVP STAT STA; Protocol Stop: 07/10/18 15:41 Last Admin: 07/10/18 16:00 Dose: Not Given Non-Admin Reason: duplicate IVP Administration Document 07/10/18 16:00 SRE (Rec: 07/10/18 16:00 SRE [id number]) Charges for Administration # of IVP Administrations 1 - Scribe Statement The provider has reviewed the documentation as recorded by the Chelseyiberika Cedillo All medical record entries made by the Scribe were at my direction and personally dictated by me. I have reviewed the chart and agree that the record accurately reflects my personal performance of the history, physical exam, medi ellis decision making, and the department course for this patient. I have also personally directed, reviewed, and agree with the discharge instructions and disposition. Disposition/Present on Arrival - Present on Arrival Any Indicators Present on Arrival: No History of DVT/PE: No History of Uncontrolled Diabetes: No Urinary Catheter: No History of Decub. Ulcer: No History Surgical Site Infection Following: None - Disposition Have Diagnosis and Disposition been Completed?: Yes Diagnosis: Seizure, Hydrocephalus, Hyperammonemia Disposition: HOSPITALIZED Disposition Time: 17:30 Condition: GUARDED
[2018-07-10] MEDS ORDERED: Lactulose 10 gm/15 ml (Rectal Use) PR ONE (17:53)
[2018-07-10] MEDS ORDERED: Vancomycin 1gm in NS 250ml 1 GM/250 ML BAG IVPB STA (18:11)
[2018-07-10] MEDS ORDERED: Sodium Chloride 0.9% 1,000 ML IV STA (18:14)
--- NOTE | 2018-07-10 18:14 | PCM.SEPTIC ---
Sepsis Progress Note - Reassessment Type Reassessment Type: Non-invasive reassessment - Non Invasive Reassessment Were the most recent vital sign reviewed: Yes Vital Sign (Latest): Temp Pulse Resp BP Pulse Ox 99.7 F H 113 H 20 122/70 97 07/10/18 15:22 07/10/18 17:22 07/10/18 17:22 07/10/18 17:22 07/10/18 17:22 Cardiovascular: Yes: Regular Rate, Rhythm Respiratory: Yes: Normal Breath Sounds Capillary Refill: Normal (Less than 2 sec) Pulses: Decreased Radial, Decreased Dorsalis Pedis, Decreased Posterior Tibialis Skin: Dry
[2018-07-10 18:16] LABS: ARTERIAL BLOOD GAS HCO3 22.6 mmol/L (21-28); ARTERIAL BLOOD GAS O2 SAT 99.4 % (95-98); ARTERIAL BLOOD GAS PCO2 34 mm/Hg (35-45); ARTERIAL BLOOD GAS PH 7.43 (7.35-7.45); ARTERIAL BLOOD GAS TCO2 23.6 mmol.L (22-28)
[2018-07-10 18:25] LABS: ACETAMINOPHEN < 10.0 ug/ml (10.0-20.0); SALICYLATE < 1 mg/dL (2.0-20.0)
[2018-07-10 20:31] VITALS: BMI 28.5
[2018-07-10] MEDS: levETIRAcetam 1000mg/100ml NS 100 ML IV SCH (21:46)
--- NOTE | 2018-07-10 22:17 | CARD ---
APPROVED REPORT Date of service: 07/10/2018 EKG Measurement Heart [id number] <Conclusion> Sinus tachycardia NDSTT abnormalities Abnormal ECG
[2018-07-10] MEDS: Vancomycin 1gm in NS 250ml 1 GM/250 ML BAG IVPB SCH (22:32)
[2018-07-10] MEDS: Meropenem IV 1 gm in NS 1 GM/50 ML BAG IVPB SCH (22:32)
[2018-07-10 22:34] LABS: VENOUS BLOOD GAS BASE EXCESS 2.7 mmol/L (0.0-2.0); VENOUS BLOOD GAS PO2 34 mm/Hg (30-55); VENOUS BLOOD PH 7.37 (7.32-7.43)
[2018-07-11] MEDS: Sodium Bicarbonate 8.4% 150 MEQ in Dextrose 5% In Water 1,000 ML IV SCH ×2 (03:05→03:08)
--- NOTE | 2018-07-11 06:08 | CON ---
DATE: 07/10/2018 HISTORY: This is a 63-year-old gentleman with remote history of subarachnoid bleed due to aneurysm status post clipping and hydrocephalus necessitating EDUCATIONAL RESOURCE COORDINATOR shunt placement. The patient had recurrent seizures since then and has been frequently admitted for breakthrough seizures or seizures related to EDUCATIONAL RESOURCE COORDINATOR shunt malformation. This time, the patient came with grand tonic-clonic seizures requiring 4 mg of Ativan and 500 mg of Keppra IV. Since then, clinical seizures stopped. The patient had CAT scan done which revealed unchanged hydrocephalus and EDUCATIONAL RESOURCE COORDINATOR shunt without signs of malposition or malfunctioning. The patient is still very lethargic; however, appears to be able to open eyes on commands and do minimal tasks on command/request. No fever, no chills, no sweats. No nausea, no vomiting, no diarrhea, no constipation. No additional details of HPI available at the present time. PAST MEDICAL HISTORY: EDUCATIONAL RESOURCE COORDINATOR shunt, hydrocephalus, COPD, hypertension, history of seizure disorder, hepatitis C. SOCIAL HISTORY: The patient has history of alcohol abuse in the past. The patient is a current smoker, unable to quantitate. No illicit drug abuse. ALLERGIES: NKDA. FAMILY HISTORY: Noncontributory. HOME MEDICATIONS: Norvasc, Trileptal, lisinopril, Keppra, Bactroban cream. REVIEW OF SYSTEMS: A review of 12-organ system other than mentioned in history of present illness is negative. PHYSICAL EXAMINATION: VITAL SIGNS: Temperature 99.7, blood pressure 122/70, respiratory rate 20, oxygen saturation 97% on partial nonrebreather. HEENT: Head and neck atraumatic. LUNGS: Clear to auscultation bilaterally. HEART: Regular rate and rhythm. S1, S2 distant. ABDOMEN: Soft, nontender, and nondistended. MUSCULOSKELETAL: There are [id number] cellulitic changes on both lower extremities, 1-2+ swelling in the right lower extremity and trace pedal and ankle edema on left lower extremity. NEUROLOGICAL: The patient is very lethargic; however, was seen opening eyes on command. SKIN: Moist. PSYCHIATRIC: The patient opens eyes on command. LABORATORY DATA: WBC 12.9, hemoglobin 17.1, platelet count 293. Sodium 139, potassium 4.2, chloride 96, carbon dioxide 9, BUN 11, creatinine 1.1, glucose 132, AST 54, ALT 51, total bilirubin 0.7, magnesium 2.5, glucose 132, ammonia level 365. Troponin less than 0.01, albumin 5.5, total protein 10.1, INR 1.03. Head CT showed no intracranial hemorrhage, bilateral inferior frontal cystic encephalomalacia, left greater than right, left frontal encephalomalacia unchanged, left frontal temporal craniotomy, postoperative changes with surgical clips and suprasellar cistern hydrocephalus, ventriculostomy catheter unchanged. Official report was dictated by Dr. Slade. Raw images were also discussed with Dr. Toussaint prior to available official report. As per Dr. Toussaint, no change in hydrocephalus and no signs of malfunction/malposition of ventriculostomy. Chest x-ray, no active pulmonary disease. EKG showed sinus tachycardia at a rate of 128. No ST elevation. Toxicology screen positive for cocaine. Urine is negative for leukocyte esterase and nitrites. ASSESSMENT AND PLAN: This is a 63-year-old gentleman who presented with breakthrough seizures due to noncompliance with his anti-seizure medication (as per the patient's and according to ER report), possibility of cocaine-induced seizures could not be ruled out. The patient received Ativan and Keppra loading dose. Neurology was consulted and agreed with Ativan and Keppra. CT head did not reveal any changes that otherwise could have been construed as EDUCATIONAL RESOURCE COORDINATOR shunt malfunction or worsening hydrocephalus. Hyperammonemia most likely relates to Trileptal. Trileptal and levetiracetam levels were sent. Alcohol level, Tylenol level, salicylate level, valproic acid were sent as well. The patient has acute kidney injury and very low bicarb which may or may not be related to recent seizures. I will start the patient on bicarb drip and Nephrology consult was requested. Stat EEG was also requested and pending at the present time. Arterial blood gases with lactic acid were also pending. The patient does have mild leukocytosis and [id number] cellulitic changes in both lower extremities. I will start the patient on ceftriaxone and vancomycin. I will order a blood culture, urine culture and procalcitonin. I will continue to target euvolemia, euglycemia, normothermia and oxygen saturation more than 90%. I will start the patient on lactulose TN. I will continue with serial ammonia level. At the present time, despite the patient's substantial lethargy, he is able to protect his airways, he is saturating 98% on 2 liters nasal cannula. Thus, I will hold intubation for airway protection. However, we will have low threshold for intubation. We will continue to target euvolemia, euglycemia, normothermia and oxygen saturation more than 90%. We will continue with deep venous thrombosis and gastrointestinal prophylaxis. ccm time 40 min Robbie Cruz MD MTDTariq
[2018-07-11] MEDS: Meropenem IV 1 gm in NS 1 GM/50 ML BAG IVPB SCH ×3 (06:45→21:29)
--- NOTE | 2018-07-11 08:46 | PCM.EEG ---
Electroencephalogram Report - Electroencephalogram Report Procedure Date: 07/10/18 Medication: Keppra Interpretation: Technical Information: This was a 16-channel EEG, 1-channel EKG , performed using an [employer] machine., electrodes were applied according to the 10/20 international placement system, impedances were less than 5 K Ohm. Start; ;20 End; ; Total; 46 min Clinical Information: This EEG was performed on a 63 -year old patient with a history ICH and seizures. EEG Detail: During resting wakefulness there was a poorly devoloped and poorly sustained posterior dominant rhythm at 6 Hz, 30-50 uV, which was poorly reactive to eye opening and closing. Drowsiness (20;21) was associated with fragmentation of the posterior dominant rhythm and with slow roving eye movements. Sleep was not seen. There continuos left hemispheric focal slowing. Hyperventilation was not performed. Photic stimulation was performed and there were no changes in the record. Impression: This is an abnormal EEG record that demonstrate the presence of a mild to moderate non specific diffuse disturbance of cortical activity, this is in keeping with a diffuse santiago matter dysfunction. These findings do not support a specific etiology. The filings also support the presence of a focal cortical abnormality involving the left hemisphere in keeping with a structural abnormality in the same area. No seizures, not in status epilepticus.
[2018-07-11 09:04] LABS: ALB/GLOB RATIO 1.1 (1.1-1.8); ALBUMIN 4.2 g/dL (3.0-4.8); ALT/SGPT 50 U/L (7-56); AST/SGOT 46 U/L (17-59); BLOOD UREA NITROGEN 6 mg/dL (7-21); CALCIUM 8.4 mg/dL (8.4-10.5); GFR NON-AFRICAN AMERICAN > 60
--- NOTE | 2018-07-11 09:49 | PN ---
DATE: 07/11/2018 OUTSIDE SALESPERSON NOTE SUBJECTIVE: The patient is resting in bed, awake, alert, responds to questions appropriately. No respiratory distress. No nausea or vomiting. No complaints of pain. PHYSICAL EXAMINATION: VITAL SIGNS: Temperature is 97.9, pulse is 77, respirations are 17, and BP is of 157/75. SKIN: Warm and dry. HEAD: Reveals no recent trauma. There is surgical evidence of prior surgery with the patient having a PROCESS DESCRIPTION WRITER shunt as well as aneurysm clippings in the past. EAR, NOSE AND THROAT: Within normal limits. NECK: Supple. No JVD. No thyroid enlargement or lymph nodes. HEART: Regular rate and rhythm. Normal S1 and S2. LUNGS: Reveal good breath sounds bilaterally. ABDOMEN: Soft. Decreased bowel sounds. GENITALIA: Deferred. RECTAL: Deferred. MUSCULOSKELETAL: No joint deformities. EXTREMITIES: Reveal trace lower extremity edema with some peripheral vascular disease obvious. NEUROLOGIC: The patient is awake and alert. Moving all extremities. LABORATORY DATA: White count is 12.9, hemoglobin is 17.1, hematocrit 51.9 with platelets of 293,000. Sodium 139, potassium 4.2, chloride 96, CO2 of 9 with a anion gap of 39, BUN of 11 and creatinine of 1.1, and glucose of 132. The patient has increased ammonia level of 365. These labs were from 07/10/2018. Morning labs are still pending. IMPRESSION: The patient presented with seizures and metabolic acidosis and elevated ammonia level. He has history of hydrocephalus, subarachnoid bleed as well as a cerebral aneurysm clipping and presently has a PROCESS DESCRIPTION WRITER shunt. The patient has chronic obstructive pulmonary disease, hypertension as well as hepatitis C. PLAN: As far as our plan, we will continue with antibiotics of meropenem as and the patient also is on bicarb drip at this time as well. He is also on vancomycin. It is noted that the patient has a severe metabolic acidosis and sepsis is a possibility. We will continue with Ativan on an p.r.n. basis for possible seizures and the patient has been consulted by neuro as well as ID for possible sepsis and GI for the hyper ammonia. We will continue to follow closely and treat aggressively along with the other consultants and the primary care doctor. Frank Alfonso MD
[2018-07-11] MEDS ORDERED: [UNRECOGNIZED DRUG - OTHER] IV SCH (09:58)
[2018-07-11] MEDS ORDERED: SODIUM BICARBONATE IV SCH (09:58)
[2018-07-11] MEDS ORDERED: POTASSIUM CHLORIDE IV SCH (09:58)
[2018-07-11] MEDS ORDERED: DEXTROSE 5% IV SCH (09:58)
[2018-07-11] MEDS ORDERED: cefTRIAXone 1 gm 1 GM/100 ML BAG IVPB SCH (10:00)
[2018-07-11] MEDS ORDERED: Potassium Phosphate 15 MMOLE in Dextrose 5% In Water 250 ML IVPB ONE (10:03)
[2018-07-11] MEDS: levETIRAcetam 1000mg/100ml NS 100 ML IV SCH ×2 (10:08→21:08)
[2018-07-11] MEDS: Vancomycin 1gm in NS 250ml 1 GM/250 ML BAG IVPB SCH ×2 (10:08→22:05)
--- NOTE | 2018-07-11 12:22 | HP ---
DATE OF EXAM: 07/11/2018 HISTORY OF PRESENT ILLNESS: The patient is a 63-year-old male with a history of subarachnoid hemorrhage status post ventriculoperitoneal shunt who presented to the emergency room on 07/10/2018, with recurrent seizures. At the present time, the patient is awake and responsive. There was no tongue biting and no incontinence noted. The patient has been admitted to the ICU for further evaluation and management. PAST MEDICAL HISTORY: Includes hypertension. PAST SURGICAL HISTORY: The patient is status post revision of a ventriculoperitoneal shunt by Dr. Blair approximately 1-1/2 years ago. ALLERGIES: THE PATIENT HAS NO KNOWN ALLERGIES. CURRENT MEDICATIONS: Include Keppra 1500 mg twice daily, Trileptal 300 mg twice daily, Xanax 0.5 mg 4 times daily and lisinopril 10 mg daily. SOCIAL HISTORY: The patient has a history of tobacco use. He quit several years ago. There is no history of alcohol or drug abuse. He lives with his . He requires some assistance with IADLs and is independent with ADLs. REVIEW OF SYSTEMS: The patient denies any chest pain, shortness of breath. He has occasional swelling of the legs and a past history of cellulitis of the lower extremities. There is no fever, no chills. No jaundice. No rash. PHYSICAL EXAMINATION: GENERAL: The patient is a well-developed male in no acute distress. VITAL SIGNS: Blood pressure 157/75, pulse is 76, respiratory rate is 18, and the patient is afebrile. HEENT: The patient is status post left craniotomy with the ventriculoperitoneal shunt which is intact and palpable. Pupils are equal, round, reactive to light. Extraocular movements are intact. NECK: Supple with no thyromegaly. No carotid bruit. No adenopathy. LUNGS: Clear to auscultation and percussion. HEART: Regular rate and rhythm. ABDOMEN: Soft and nontender. Bowel sounds are normoactive. EXTREMITIES: Without cyanosis or clubbing. There is one 1+ bipedal edema. NEUROLOGIC: The patient is awake and confused without focal sensory or motor deficits. SKIN: Warm and dry. LABORATORY DATA: WBC 12.9, hemoglobin 17.1, and hematocrit 51.9. Sodium 139, potassium 4.2, chloride 96, CO2 is 9, BUN 11, creatinine 1.1, and glucose 132. Ammonia level was elevated at 365. Chest x-ray showed no active disease. CT scan of the head was performed which showed hydrocephalous and the HEALTHCARE REPRESENTATIVE shunt appear to be intact. IMPRESSION: 1. Recurrent breakthrough seizures. 2. History of subarachnoid hemorrhage status post ventriculoperitoneal shunt. 3. Hypertension. PLAN: The patient is admitted to the Intensive Care Unit. A Neurology consult with Dr. Khalil has been obtained. Physical therapy and social work for discharge planning when stable. KWAME West MD
--- NOTE | 2018-07-11 18:21 | CON ---
DATE OF CONSULTATION: 07/11/2018 The patient is seen in the ICU 128, bed 3. CHIEF COMPLAINT: Low-grade fevers. HISTORY OF PRESENT ILLNESS: This is a 63-year-old male with a history of seizures, history of cerebrovascular accident, GERD, hypertension, subarachnoid hemorrhage with hydrocephalus, history of dementia, who has had a history of cleft aneurysm. He has a LABORATORY SCIENTIST placed, who is admitted with seizures, had low-grade fevers. Infectious Disease consultation requested. The patient is a poor historian. Review of systems obtained from nursing staff and chart that is available throughout and there have been low-grade fevers and seizures and no chest pain, mild shortness of breath. REVIEW OF SYSTEMS: Twelve-point review of systems is performed. PAST MEDICAL HISTORY: Significant for seizures, cerebrovascular accident, GERD, hypertension, subarachnoid hemorrhage with hydrocephalus, and dementia. PAST SURGICAL HISTORY: Significant for cleft aneurysm, LABORATORY SCIENTIST shunt placement. ALLERGIES: THE PATIENT HAS NO KNOWN ALLERGIES. MEDICATIONS: Home medications include the patient to be on Norvasc, Trileptal, Zestril, and Keppra. PHYSICAL EXAMINATION: VITAL SIGNS: The patient is with a temperature of 99.7, blood pressure is 167/103, respiratory rate of 21, heart rate of 74. HEENT: Examination of HEENT is unremarkable. NECK: Supple. LUNGS: Have decreased breath sounds. HEART: Normal S1 and S2. ABDOMEN: Soft, nontender, no organomegaly. No rebound, guarding, or masses. LABORATORY DATA: Laboratory examination reveals a white count of 12,900, hemoglobin of 17, platelets of 293. Chemistries revealed a BUN of 6, creatinine of 0.6. Urinalysis is noted. Toxicology is noted. Microbiology is pending. Review of orders are noted. The patient also had a CT scan of the head, which is unremarkable. Chest x-ray which is unremarkable. ASSESSMENT AND PLAN: This is a 63-year-old male with; 1. Systemic inflammatory response syndrome and a new onset of seizures. We will check on the pancultures, must rule out shunt infection. We will discuss with you. Currently on vanco and meropenem and Dr. Umesh Marquis's history and physical examination is noted. history, current breakthrough seizures. We will follow with you. We will check on the cultures. Ubaldo Garcia MD [facility] # [id number]
[2018-07-11] MEDS ORDERED: Metoprolol 1 mg/ml Inj IVP STA (19:01)
[2018-07-12] MEDS: Meropenem IV 1 gm in NS 1 GM/50 ML BAG IVPB SCH ×3 (05:21→21:30)
[2018-07-12 05:59] LABS: ALBUMIN 4.5 g/dL (3.0-4.8); ALT/SGPT 51 U/L (7-56); AST/SGOT 48 U/L (17-59); BLOOD UREA NITROGEN 7 mg/dL (7-21); CALCIUM 9.5 mg/dL (8.4-10.5); GFR NON-AFRICAN AMERICAN > 60
[2018-07-12 06:01] LABS: BASO # 0.04 K/mm3 (0.0-2.0); BASO % 0.5 % (0.0-3.0); EOS # 0.3 (0.0-0.7); EOS % 3.4 % (1.5-5.0); HEMOGLOBIN 17.8 g/dL (14.0-18.0); LYMPH # 1.7 (1.2-3.4); LYMPH % 21.8 % (22.0-35.0); MEAN CORPUSCULAR HEMOGLOBIN 30.9 pg (25.0-35.0); MEAN PLATELET VOLUME 8.9 fl (7.0-11.0); MONO # 0.8 (0.1-0.6); MONO % 10.9 % (1.0-6.0); RBC 5.76 10^6/uL (3.5-6.1); RED CELL DISTRIBUTION WIDTH 13.7 % (11.5-14.5); WHITE BLOOD COUNT 7.6 10^3/uL (4.5-11.0)
--- NOTE | 2018-07-12 07:24 | PCM.VEEG ---
Video EEG - Procedure Start Date: 07/11/18 Start Time: 16:05 End Date: 07/12/18 End Time: 07:10 Technical Summary: DATA ACQUISITION: This was a multichannel inpatient video-EEG, a minimum of 22 channels were uti lized, performed in accordance with recommendations specified by the [place] [employer] (Bowen Mcmullen et al. ACNS Guideline 1: Minimum Technical Requirements for Performing Clinical Electroencephalography. Journal of Clinical Neurophysiology 2016;33:303-7). The 10-20 electrode placement system was utilized in accordance with guidelines detailed by the International Federation of Clinical Neurophysiology (Zach Espinoza et al. The Ten-Twenty Electrode System of the International Federation. Recommendations for the Practice of Clinical Neurophysiology: Guidelines of the International Federation of Clinical Physiology 1999; EEG Suppl. 52.). DATA REVIEW / SPIKE DETECTION / DIGITAL ANALYSIS: The entire EEG was scanned and reviewed. Synchronized audio and video recording were reviewed at the time of each alarm and whenever an abnormality or suspicious activity was noted. The entire recording was analyzed utilizing an automated digital spike and seizure analysis program and all automatic spike and seizure detections were manually reviewed. A compressed spectral array was displayed and reviewed alongside the raw EEG tracings. In addition, further analysis of the EEG was performed when abnormalities were identified, including montage changes, dipole source localization, and frequency band identification. This study was attended 24 hours per day. - Interpretation Description of the study: Indication; 63 y/o man with a history of seizures, cocnern for status epilepticus EEG Finding during wakefulness: There was an symmetry of the background with the left hemisphere showing ongoing high amplitudes and lower frequencies. During active states, the EEG was characterized by 10-12 Hz, 15-30 uV activity bilaterally in fronto-central regions. Resting wakefulness was characterized by a asymmetric posterior dominant rhythm of 7-8 Hz, 30-50 uV, better developed on the right which was poorly reactive to eye opening and closing. Drowsiness was associated with slow roving eye movements, slowing and fragmentation of the posterior dominant rhythm, and bilateral 4-7 Hz, 40-70 uV theta activity, sometimes with a shifting predominance. There was intermittent bi frontal slowing at 4 to 5 Hz that was more pronounced on the Right side, mainly seen during drowsiness and occasionally during wakefulness. EEG Finding during sleep: Light sleep was only recorded on the right and was characterized by fronto- central slowing at 5-7 H, 50-125 uV, sharp central vertex waves, bilateral sleep spindles, and K-complexes; shifting asymmetries were evident. Deeper stages of sleep were not recorded Interictal non-epileptiform abnormalities: There was evidence of continuous mid amplitude slowing at 4 to 5 Hz seen in the left hemisphere , at times there were sharps waves seen, that were not clearly epileptiform. Interictal epileptiform abnormalities: None Ictal epileptiform abnormalities: None - Impression Impression: This is an abnormal video EEG, monitoring study, due to the presence of: 1- Mild to moderate background slowing. 2- Left hemisphere , continuous slowing. No episodes were capture, No seizure activity. Not in status epilepticus INTERPRETATION: The above findings are in keeping with the diagnosis a mild to moderate non specific diffuse disturbance of cortical activity, in keeping with a diffuse santiago matter dysfunction, the findings do not support a specific etiology. The findings are also in keeping with a focal cortical abnormality involving the left hemisphere, in keeping with an structural abnormality uin the same area.
[2018-07-12] MEDS: levETIRAcetam 1000mg/100ml NS 100 ML IV SCH ×2 (09:42→21:14)
[2018-07-12] MEDS: Vancomycin 1gm in NS 250ml 1 GM/250 ML BAG IVPB SCH ×2 (09:42→22:03)
--- NOTE | 2018-07-12 10:17 | PN ---
DATE: 07/12/2018 SUBJECTIVE: The patient is in bed in no acute distress, nontoxic.. No fevers and chills, is comfortable. PHYSICAL EXAMINATION: VITAL SIGNS: Temperature is 98.5, blood pressure is 180/111, respiratory rate of 18, heart rate of 73. HEENT: Unremarkable. NECK: Supple. LUNGS: Have decreased breath sounds. HEART: Normal S1, S2. ABDOMEN: Soft, nontender. LABORATORY EXAMINATION: Reveals a white count of 7.6, hemoglobin of 17. BUN of 7, creatinine of 0.7. Urinalysis is noted. Toxicology is noted. Microbiology is reviewed. Blood cultures are negative. ASSESSMENT AND PLAN: This is a 63-year-old male with a history of seizures, history of cerebrovascular accident, gastroesophageal reflux disease, hypertension, subarachnoid hemorrhage with hydrocephalus, history of dementia, history of cleft aneurysm who was admitted with seizures, low grade fevers and systemic inflammatory response syndrome with breakthrough seizures. Currently, shunt infection is in the differential diagnosis. We will check on the cultures. Currently on vancomycin, meropenem and thus far the blood cultures are negative at 24 hours. We will follow with you. Ubaldo Garcia MD
--- NOTE | 2018-07-12 10:28 | PN ---
DATE: 07/12/2018 SUBJECTIVE: The patient is resting in bed, awake and responds to the spoken word. No respiratory distress. No nausea or vomiting. No complaints of pain. The patient is getting an EEG at this particular time. PHYSICAL EXAMINATION: VITAL SIGNS: Temperature 98.5, pulse 86, respirations 18 and BP 146/80. SKIN: Warm and dry. HEAD: Atraumatic. Normocephalic. EYES: Reactive to light. ENT: Ear, nose and throat seemed to be within normal limits. NECK: Supple. No JVD. No thyroid enlargement. No lymph nodes. HEART: Regular rate and rhythm. Normal S1, S2. LUNGS: Good breath sounds bilaterally. ABDOMEN: Soft. Decreased bowel sounds. GENITALIA: Deferred. RECTAL: Deferred. MUSCULOSKELETAL: No joint deformities. EXTREMITIES: Trace lower extremity edema. NEUROLOGIC: The patient is felt to be at his baseline at this time. LABORATORY DATA: Laboratories reveal a white count of 7.6, hemoglobin of 17.8, hematocrit 52.4 with platelets of 290,000. Sodium 142, potassium 4, chloride 100, CO2 of 30, BUN 7, creatinine 0.7 and glucose 124. IMPRESSION: This patient presenting with seizures and metabolic acidosis also an elevated ammonia level. The patient has history of hydrocephalus, subarachnoid bleed as well as cerebral aneurysm that has been clipped. The patient has a ventriculoperitoneal shunt and a history of chronic obstructive pulmonary disease, hypertension and hepatitis C. PLAN: As far as our plan, at this point, the patient is getting an EEG and is being followed closely by Neurology. He is on antibiotic of meropenem. The patient is also getting on vancomycin and we will continue with Ativan p.r.n. for any seizures. We will follow the other labs and continue to treat aggressively along with the other consultants and the primary care doctor. Frank Alfonso MD
--- NOTE | 2018-07-12 13:42 | CON ---
DATE: 07/11/2018 REASON FOR CONSULTATION: Altered mental status, acute kidney injury, seizure. HISTORY OF PRESENTING ILLNESS: A 63-year-old male, previously unknown to me. The patient was brought to the emergency room yesterday, on 07/10/2018 because the patient was found to have a seizure at home by the . called the ambulance. The patient has a history of seizures. There was some question about his compliance with his antiseizure medications. In the emergency room, he was found to be actively seizing. He was given 4 mg of Ativan. The patient was given 1500 mg of Keppra. He was admitted the to the ICU. The patient has a history of subarachnoid bleed due to aneurysm, he has a history of clipping of the aneurysm. Hydrocephalus requiring EVENT PROMOTIONS COORDINATOR shunt. He also has a history of recurrent seizures. He was admitted for breakthrough seizures in the past also. He had a history of EVENT PROMOTIONS COORDINATOR shunt malfunctioning in the past. The patient had a CAT scan done in the emergency room, which showed unchanged hydrocephalus, EVENT PROMOTIONS COORDINATOR shunt working adequately. The patient was very lethargic at the time of admission to the ICU, but he was arousable, somewhat confused. His initial blood work showed a WBC count of 12.9. No left shift. He was also found to have an ammonia level of 365. His total protein was 10, his albumin was 5.5. His BUN was 11. Creatinine was 1.1, which was higher than his baseline of 0.7. Consultation was requested for acute kidney injury, possible drug overdose, seizure. PAST MEDICAL AND SURGICAL HISTORY: Hypertension, subarachnoid hemorrhage, clipping of aneurysm, EVENT PROMOTIONS COORDINATOR shunt, hydrocephalus, COPD, hepatitis C, history of alcohol abuse, history of drug use. FAMILY HISTORY: Hypertension. SOCIAL HISTORY: Alcohol abuse in the past, active smoking, positive cocaine use. ALLERGIES: NO KNOWN DRUG ALLERGIES. MEDICATIONS AT HOME: Norvasc, Trileptal, lisinopril, and Keppra. REVIEW OF SYSTEMS: Unavailable, as the patient is unable to cooperate with systems review. He is lethargic. PHYSICAL EXAMINATION: GENERAL: Elderly male, lying in bed in the ICU. VITAL SIGNS: Blood pressure blood pressure 170/95, heart rate 74, respiratory rate 18-20, temperature 97.7. HEENT: Normocephalic, atraumatic, positive pallor, pupils are 3 mm and reactive to light. NECK: Supple, no JVD. LUNGS: Bilateral equal air entry, bilateral equal expansion, no rales. CARDIAC: S1 and S2, regular rate and rhythm, no murmur, no rub. ABDOMEN: Soft, nondistended, nontender, bowel sounds present. EXTREMITIES: No lower extremity edema. LABORATORY DATA: WBC 12.9, hemoglobin 17, hematocrit 52, platelets 293. Sodium 140, potassium 3.1, chloride 97, CO2 23, BUN 6, creatinine 0.6, glucose 103, calcium 8.4, phosphorus 2.4, magnesium 2.5, albumin 5.2. Urinalysis, yellow, clear, pH 6.5, specific gravity greater than 1.030, protein 100, leukocyte esterase trace, ketones trace. Urine toxicology positive for cocaine, valproate level less than 10. Alcohol level less than 10. CT of the head no intracranial hemorrhage, bilateral inferior frontal cystic encephalomalacia, left greater than right. Left frontal encephalomalacia, unchanged. Left temporal craniotomy. Ventriculostomy catheter unchanged. CURRENT MEDICATIONS: Keppra 1000 q.12, Merrem 1 g q.8, amlodipine 5, vancomycin 1 g q.12, D5W with 150 mEq of sodium bicarbonate at 150. ASSESSMENT: 1. Breakthrough seizures,? noncompliance with medications. 2. Altered mental status. 3. Severe metabolic acidosis. 4. Acute kidney injury, largely prerenal azotemia. 5. Uncontrolled hypertension. 6. History of subarachnoid bleed, clipping of aneurysm, hydrocephalus, EVENT PROMOTIONS COORDINATOR shunt. 7. History of cocaine use. 8. Hypokalemia. 9. History of hepatitis C. PLAN: 1. Patient is much more awake and alert, resume p.o. antihypertensives including amlodipine 5 mg daily, lisinopril 10 mg daily. Give first dose now. 2. Metabolic acidosis has resolved with alkaline fluids, change IV fluids to 40 mL/hour. 3. Replace potassium in IV fluids, bring potassium up to 4. 4. Renal parameters are improving with hydration. 5. No evidence of infection, discontinue antibiotics? 6. Avoid nephrotoxins. 7. Push p.o. fluids. 8. Continue antiseizure medications. 9. Monitor renal parameters. Case discussed at length with ICU nursing staff, case discussed with Dr. Cruz. More than 35 minutes were spent in the care of this critically ill patient. Edna Long MD
--- NOTE | 2018-07-12 14:10 | PN ---
DATE: 07/12/2018 SUBJECTIVE: The patient is seen in the ICU. He is arousable. He is slow. He is currently being set up for the EEG. He denies any pain. He denies any shortness of breath. OBJECTIVE: GENERAL: Elderly male seen in the ICU, lying in bed. VITAL SIGNS: Blood pressure 162/62, heart rate 78, respiratory rate 16, temperature 98.5. HEENT: Normocephalic, atraumatic, positive pallor. NECK: Supple, no JVD. LUNGS: Bilateral equal air entry, bilateral equal expansion, no rales. CARDIAC: S1 and S2, regular rate and rhythm, no murmur, no rub. ABDOMEN: Soft, nondistended, nontender, bowel sounds present. EXTREMITIES: No lower extremity edema. INTAKE AND OUTPUT: 3080/2950. LABORATORY DATA: WBC 7.6, hemoglobin 17.8, hematocrit 52.4, platelets 219. Sodium 142, potassium 4.0, chloride 100, CO2 of 30, BUN 7, creatinine 0.7, glucose 124, calcium 9.5, phosphorus 2.8 magnesium 2.3, total protein 9.1, albumin 4.1. Urinalysis, yellow clear, pH is 6.5, specific greater than 1.030, protein 100, ketones trace. Blood culture, no growth. Urine culture, no growth. EEG, [id number] nonspecific diffuse disturbance of cortical activity in keeping with the diffuse alejandra matter dysfunction. CURRENT MEDICATIONS: Keppra 1000 every 12 hours, Merrem 1 g every 8 hours, amlodipine 5, vancomycin 1 g every 12 hours, lisinopril 10. ASSESSMENT: 1. Breakthrough seizures, history of seizure disorder. 2. Altered mental status, slow mentation. 3. History of subarachnoid bleed, clipping of aneurysm, hydrocephalus, ventriculoperitoneal shunt. 4. Uncontrolled hypertension. 5. Acute kidney injury, now resolved. 6. Severe metabolic acidosis secondary to postictal state, now resolved. 7. Prerenal azotemia. 8. History of hepatitis C. 9. Cocaine use. 10. Hypermagnesemia. PLAN: 1.. Renal parameters are back to baseline, prerenal azotemia, resolved. Discontinue IV fluids. 2. Metabolic acidosis secondary to postictal state, resolved, discontinue bicarb. 3. Push p.o. fluids. The patient still seems to be hemoconcentrated. 4. Blood pressure is suboptimally controlled, increase lisinopril to 20 mg daily. 5. P.r.n. increase amlodipine to 10 mg daily. 6. Avoid nephrotoxins. 7. Continue Keppra. 8. ?Discontinue empiric antibiotics. 9. Case discussed with ICU nursing staff at length, case discussed with Dr. Cruz. More than 35 minutes spent in the care of this critically ill patient. Edna Long MD
--- NOTE | 2018-07-12 14:38 | CP.PCM.PN ---
Subjective - Date & Time of Evaluation Date of Evaluation: 07/12/18 Time of Evaluation: 10:00 - Subjective Subjective: resting comfortably NAD, confused (which is his baseline mental status) Objective - Vital Signs/Intake and Output Vital Signs (last 24 hours): Temp Pulse Resp BP Pulse Ox 98.5 F 78 16 162/62 H 97 07/12/18 04:00 07/12/18 10:59 07/12/18 10:59 07/12/18 11:00 07/12/18 04:00 Intake and Output: 07/12/18 07/12/18 06:59 18:59 Intake Total 1450 Output Total 1600 Balance -150 - Medications Medications: Current Medications Amlodipine Besylate (Norvasc) 5 mg PO DAILY [facility] Last Admin: 07/12/18 09:41 Dose: 5 mg Levetiracetam (Keppra 1000mg/100ml Ns) 100 mls @ 460 mls/hr IV Q12 [facility] Last Admin: 07/12/18 09:42 Dose: 460 mls/hr Meropenem (Merrem Iv 1 Gm Premix) 1 gm in 50 mls @ 100 mls/hr IVPB Q8 [facility]; Protocol Stop: 07/18/18 22:09 Last Admin: 07/12/18 14:11 Dose: 100 mls/hr Vancomycin HCl (Vancomycin 1gm) 1 gm in 250 mls @ 167 mls/hr IVPB Q12H [facility]; Pro tocol Stop: 07/18/18 22:16 Last Admin: 07/12/18 09:42 Dose: 167 mls/hr Lisinopril (Zestril) 20 mg PO DAILY [facility] Lorazepam (Ativan) 1 mg IVP Q6H PRN; Protocol PRN Reason: Anxiety - Labs Labs: 07/12/18 05:00 07/12/18 05:00 PT 11.4 SECONDS (9.4-12.5) 07/10/18 15:55 INR 1.03 07/10/18 15:55 APTT 40.3 Seconds (26.9-38.3) H 07/10/18 15:55 - Respiratory Exam Respiratory Exam: Clear to Ausculation Bilateral, NORMAL BREATHING PATTERN - Cardiovascular Exam Cardiovascular Exam: REGULAR RHYTHM - GI/Abdominal Exam GI & Abdominal Exam: Soft, Normal Bowel Sounds - Extremities Exam Extremities Exam: Pedal Edema - Neurological Exam Neurological Exam: Altered Assessment and Plan (1) Seizure Status: Acute (2) Cellulitis Status: Acute (3) Hypertension Status: Chronic (4) Subarachnoid hemorrhage Status: Chronic - Assessment and Plan (Free Text) Plan: continue neuro/ID follow-up, PT & SW for DC planning
--- NOTE | 2018-07-12 22:37 | CON ---
DATE: 07/12/2018 HISTORY OF PRESENT ILLNESS: The patient is a 63-year-old male with a history of seizure, CVA, GERD, hypertension, subarachnoid hemorrhage with hydrocephalus, history of dementia, SHEET HANGER shunt in place, admitted with a seizure and low grade fever. I was called to evaluate the patient. PAST MEDICAL HISTORY: Seizure, CVA, GERD, hypertension, subarachnoid hemorrhage with hydrocephalus, and dementia. PAST SURGICAL HISTORY: SHEET HANGER shunt. ALLERGIES: NO KNOWN DRUG ALLERGY. PHYSICAL EXAMINATION HEENT: Normocephalic, atraumatic. NECK: Supple. NEUROLOGIC: Awake and oriented to self. Cranial nerves II to XII were tested. Pupils reactive. Spontaneous movement of extremities noted. Deep tendon reflexes 1+. Both plantars are downgoing. Sensory appears intact. Cerebellar gait deferred. IMPRESSION AND PLAN: A 63-year-old male with new onset of seizures and status post ventriculoperitoneal shunt. Continue present management. We will followup. Howard Khalil MD
[2018-07-13] MEDS: Meropenem IV 1 gm in NS 1 GM/50 ML BAG IVPB SCH (05:20)
[2018-07-13 06:35] LABS: BASO # 0.02 K/mm3 (0.0-2.0); BASO % 0.3 % (0.0-3.0); EOS # 0.3 (0.0-0.7); EOS % 5.1 % (1.5-5.0); LYMPH # 1.5 (1.2-3.4); LYMPH % 25.2 % (22.0-35.0); MEAN CELL VOLUME 91.3 fl (80.0-105.0); MEAN CORPUSCULAR HEMOGLOBIN 30.4 pg (25.0-35.0); MEAN CORPUSCULAR HGB CONC 33.3 g/dl (31.0-37.0); MONO # 0.8 (0.1-0.6); MONO % 12.4 % (1.0-6.0); RBC 4.96 10^6/uL (3.5-6.1); RED CELL DISTRIBUTION WIDTH 13.9 % (11.5-14.5)
[2018-07-13 06:38] LABS: HEMOGLOBIN 15.1 g/dL (14.0-18.0)
[2018-07-13 07:05] LABS: ALB/GLOB RATIO 1.1 (1.1-1.8); ALBUMIN 3.7 g/dL (3.0-4.8); ALT/SGPT 44 U/L (7-56); AST/SGOT 31 U/L (17-59); BLOOD UREA NITROGEN 21 mg/dL (7-21); CALCIUM 8.7 mg/dL (8.4-10.5); GFR NON-AFRICAN AMERICAN > 60
--- NOTE | 2018-07-13 08:48 | PCM.VEEG ---
Video EEG - Procedure Start Date: 07/12/18 Start Time: 07:25 End Date: 07/13/18 End Time: 07:10 Technical Summary: DATA ACQUISITION: This was a multichannel inpatient video-EEG, a minimum of 22 channels were uti lized, performed in accordance with recommendations specified by the [place] [employer] (Bowen Mcmullen et al. ACNS Guideline 1: Minimum Technical Requirements for Performing Clinical Electroencephalography. Journal of Clinical Neurophysiology 2016;33:303-7). The 10-20 electrode placement system was utilized in accordance with guidelines detailed by the International Federation of Clinical Neurophysiology (Zach Espinoza et al. The Ten-Twenty Electrode System of the International Federation. Recommendations for the Practice of Clinical Neurophysiology: Guidelines of the International Federation of Clinical Physiology 1999; EEG Suppl. 52.). DATA REVIEW / SPIKE DETECTION / DIGITAL ANALYSIS: The entire EEG was scanned and reviewed. Synchronized audio and video recording were reviewed at the time of each alarm and whenever an abnormality or suspicious activity was noted. The entire recording was analyzed utilizing an automated digital spike and seizure analysis program and all automatic spike and seizure detections were manually reviewed. A compressed spectral array was displayed and reviewed alongside the raw EEG tracings. In addition, further analysis of the EEG was performed when abnormalities were identified, including montage changes, dipole source localization, and frequency band identification. This study was attended 24 hours per day. - Interpretation Description of the study: Indication; status epilepticus EEG Finding during wakefulness: There was an symmetry of the background with the left hemisphere showing ongoing high amplitudes and lower frequencies. During active states, the EEG was characterized by 10-12 Hz, 15-30 uV activity bilaterally in fronto-central regions. Resting wakefulness was characterized by a asymmetric posterior dominant rhythm of 7-8 Hz, 30-50 uV, better developed on the right which was poorly reactive to eye opening and closing. Drowsiness was associated with slow roving eye movements, slowing and fragmentation of the posterior dominant rhythm, and bilateral 4-7 Hz, 40-70 uV theta activity, sometimes with a shifting predominance. There was intermittent bi frontal slowing at 4 to 5 Hz that was more pronounced on the Right side, mainly seen during drowsiness and occasionally during wakefulness. EEG Finding during sleep: Light sleep was only recorded on the right and was characterized by fronto- central slowing at 5-7 H, 50-125 uV, sharp central vertex waves, bilateral sleep spindles, and K-complexes; shifting asymmetries were evident. Deeper stages of sleep were not recorded. Interictal non-epileptiform abnormalities: there was evidence of continuous mid amplitude slowing at 4 to 5 Hz seen in the left hemisphere , at times there were sharps waves seen, that were not clearly epileptiform. Interictal epileptiform abnormalities: Frequent left frontal max F7 spikes and sharps seen. There were runs of spikes ans or sharps at 2 to 3 Hz on the left, with no clear ictal progression, interictal/ictal continuum. Occasional right frontal F8 spikes and sharps. Ictal epileptiform abnormalities: None - Impression Impression: This was an abnormal video EEG, monitoring study, due to the presence of: 1- Mild to background slowing. 2- Left frontal/temporal , continuous slowing. 3- Left and right frontal independent interictal discharges, on the left seen in prolonged runs, ictal/interictal continuum. No episodes were capture, No seizure activity. 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 The findings are also in keeping with a focal cortical abnormality involving the left frontal/temporal region The findings are also in keeping with a mild non specific diffuse disturbance of cortical activity, in keeping with a diffuse santiago matter dysfunction, the findings do not support a specific etiology. MANAGEMENT; The EEG has become more active over the last 24 hs, I would suggest to adjust his anti seizure regimen, or to consider a second agent (sodium channel agent, oxcarbazepine, Carbamazepine, Lacosamide) Should you have any questions please do not hesitate to call me.
[2018-07-13] MEDS: Vancomycin 1gm in NS 250ml 1 GM/250 ML BAG IVPB SCH (09:28)
[2018-07-13] MEDS: levETIRAcetam 1000mg/100ml NS 100 ML IV SCH ×2 (09:28→21:02)
--- NOTE | 2018-07-13 09:56 | CP.PCM.PN ---
Subjective - Date & Time of Evaluation Date of Evaluation: 07/13/18 Time of Evaluation: 09:30 - Subjective Subjective: resting comfortably, NAD, no SZ activity past 48 - 72 hrs. Objective - Vital Signs/Intake and Output Vital Signs (last 24 hours): Temp Pulse Resp BP Pulse Ox 98 F 77 18 115/61 97 07/13/18 04:00 07/13/18 09:28 07/13/18 07:15 07/13/18 09:28 07/12/18 04:00 Intake and Output: 07/13/18 07/13/18 06:59 18:59 Intake Total 650 Output Total 500 Balance 150 - Medications Medications: Current Medications Amlodipine Besylate (Norvasc) 5 mg PO DAILY [facility] Last Admin: 07/13/18 09:27 Dose: 5 mg Levetiracetam (Keppra 1000mg/100ml Ns) 100 mls @ 460 mls/hr IV Q12 [facility] Last Admin: 07/13/18 09:28 Dose: 460 mls/hr Meropenem (Merrem Iv 1 Gm Premix) 1 gm in 50 mls @ 100 mls/hr IVPB Q8 [facility]; Protocol Stop: 07/18/18 22:09 Last Admin: 07/13/18 05:20 Dose: 100 mls/hr Vancomycin HCl (Vancomycin 1gm) 1 gm in 250 mls @ 167 mls/hr IVPB Q12H [facility]; Protocol Stop: 07/18/18 22:16 Last Admin: 07/13/18 09:28 Dose: 167 mls/hr Lisinopril (Zestril) 20 mg PO DAILY [facility] Last Admin: 07/13/18 09:28 Dose: 20 mg Lorazepam (Ativan) 1 mg IVP Q6H PRN; Protocol PRN Reason: Anxiety - Labs Labs: 07/13/18 06:00 07/13/18 06:00 PT 11.4 SECONDS (9.4-12.5) 07/10/18 15:55 INR 1.03 07/10/18 15:55 APTT 40.3 Seconds (26.9-38.3) H 07/10/18 15:55 - Respiratory Exam Respiratory Exam: Clear to Ausculation Bilateral, NORMAL BREATHING PATTERN - Cardiovascular Exam Cardiovascular Exam: REGULAR RHYTHM - GI/Abdominal Exam GI & Abdominal Exam: Soft, Normal Bowel Sounds - Extremities Exam Extremities Exam: Normal Inspection - Neurological Exam Neurological Exam: Altered - Skin Skin Exam: Dry, Warm Assessment and Plan (1) Seizure Status: Acute (2) Cellulitis Status: Acute (3) Hypertension Status: Chronic (4) Subarachnoid hemorrhage Status: Chronic - Assessment and Plan (Free Text) Plan: continue present rx, PT and SW for DC planning
--- NOTE | 2018-07-13 10:23 | CP.CCUPN ---
<Sylvain Lan - Last Filed: 07/13/18 10:43> CCU Subjective - Physician Review Events Since Last Encounter (Free Text): 07/13/18 10:19 Pt had no acute events overnight Subjective (Free Text): 07/13/18 10:20 Pt seen and examined this morning, pt is only minimally responsive, which is his baseline CCU Objective - Vital Signs / Intake & Output Vital Signs (Last 4 hours): Vital Signs Pulse Resp BP 07/13/18 09:28 77 115/61 07/13/18 09:27 77 115/61 07/13/18 08:00 82 07/13/18 07:15 83 18 07/13/18 07:00 86 17 137/82 07/13/18 06:45 76 18 07/13/18 06:30 76 18 Intake and Output (Last 8hrs): Intake & Output 07/12/18 07/13/18 07/13/18 22:59 06:59 14:59 Intake Total 1120 650 Output Total 700 500 Balance 420 150 Weight 201 lb 11.2 oz Intake: IV 400 450 Left Hand 400 450 Oral 720 200 Output: Urine 700 500 Urine, Voided 700 500 Other: # Bowel Movements 1 1 - Physical Exam Head: Positive for: Other (surgical changes to the cranium) Pupils: Positive for: PERRL Extroacular Muscles: Positive for: EOMI Conjunctiva: Positive for: Normal Mouth: Positive for: Other (dry blood in mouth, poor dentition) Neck: Positive for: Normal Range of Motion Respiratory/Chest: Positive for: Other (trasmitted breath sounds) Cardiovascular: Positive for: Regular Rate and Rhythm, Normal S1, S2. Negative for: Murmurs Abdomen: Negative for: Tenderness, Distention, Peritoneal Signs Back: Positive for: Normal Inspection Upper Extremity: Positive for: Normal Inspection. Negative for: Cyanosis, Edema Lower Extremity: Positive for: Normal Inspection. Negative for: Edema Neurological: Positive for: Other (postictal ) Skin: Positive for: Warm, Dry, Normal Color. Negative for: Rashes Psychiatric: Positive for: Alert, Oriented x 3, Normal Insight, Normal Concentration - Medications Active Medications: Active Medications Generic Name Dose Route Start Last Admin Trade Name Freq PRN Reason Stop Dose Admin Amlodipine Besylate 5 mg 07/11/18 19:00 07/13/18 09:27 Norvasc PO 5 mg DAILY [facility] Administration Levetiracetam 100 mls @ 460 mls/hr 07/10/18 22:00 07/13/18 09:28 Keppra 1000mg/100ml Ns IV 460 mls/hr Q12 [facility] Administration Meropenem 1 gm in 50 mls @ 100 mls/hr 07/10/18 22:08 07/13/18 05:20 Merrem Iv 1 Gm Premix IVPB 07/18/18 22:09 100 mls/hr Q8 [facility] Administration Protocol Vancomycin HCl 1 gm in 250 mls @ 167 mls/hr 07/10/18 22:15 07/13/18 09:28 Vancomycin 1gm IVPB 07/18/18 22:16 167 mls/hr Q12H [facility] Administration Protocol Lisinopril 20 mg 07/12/18 12:50 07/13/18 09:28 Zestril PO 20 mg DAILY [facility] Administration Lorazepam 1 mg 07/11/18 20:48 Ativan IVP Q6H PRN Anxiety Protocol - Patient Studies Lab Studies: Microbiology Studies 07/10/18 16:00 Blood Culture - Preliminary Blood NO GROWTH AFTER 48 HOURS 07/10/18 15:30 Blood Culture - Preliminary Blood NO GROWTH AFTER 48 HOURS 07/10/18 19:20 MRSA Culture (Admit) - Final Naris MRSA NOT DETECTED 07/10/18 16:00 Urine Culture - Final Urine Random No Growth (<1,000 CFU/ML) Lab Studies 07/13/18 07/13/18 07/12/18 Range/Units 06:00 06:00 11:15 WBC 6.0 D (4.5-11.0) 10^3/uL RBC 4.96 (3.5-6.1) 10^6/uL Hgb 15.1 D (14.0-18.0) g/dL Hct 45.3 (42.0-52.0) % MCV 91.3 (80.0-105.0) fl MCH 30.4 (25.0-35.0) pg MCHC 33.3 (31.0-37.0) g/dl RDW 13.9 (11.5-14.5) % Plt Count 214 (120.0-450.0) 10^3/uL MPV 9.0 (7.0-11.0) fl Neut % (Auto) 57.0 (50.0-68.0) % Lymph % (Auto) 25.2 (22.0-35.0) % [place] % (Auto) 12.4 H (1.0-6.0) % Eos % (Auto) 5.1 H (1.5-5.0) % Baso % (Auto) 0.3 (0.0-3.0) % Lymph # (Auto) 1.5 (1.2-3.4) [place] # (Auto) 0.8 H (0.1-0.6) Eos # (Auto) 0.3 (0.0-0.7) Baso # (Auto) 0.02 (0.0-2.0) K/mm3 Absolute Neuts (auto) 3.44 (1.4-6.5) Sodium 140 (132-148) mmol/L Potassium 3.9 (3.6-5.0) mmol/L Chloride 107 (98-107) mmol/L Carbon Dioxide 28 (21-33) mmol/L Anion Gap 10 (10-20) BUN 21 (7-21) mg/dL Creatinine 0.7 L (0.8-1.5) mg/dl Est GFR ( Amer) > 60 Est GFR (Non-Af Amer) > 60 Random Glucose 107 (70-110) mg/dL Calcium 8.7 (8.4-10.5) mg/dL Phosphorus 3.3 (2.5-4.5) mg/dL Magnesium 2.1 (1.7-2.2) mg/dL Total Bilirubin 0.5 (0.2-1.3) mg/dL AST 31 (17-59) U/L ALT 44 (7-56) U/L Alkaline Phosphatase 69 (38-126) U/L Ammonia 11 D (9-33) umol/L Total Protein 7.0 (5.8-8.3) g/dL Albumin 3.7 (3.0-4.8) g/dL Globulin 3.3 gm/dL Albumin/Globulin Ratio 1.1 (1.1-1.8) Laboratory Results - last 24 hr 07/12/18 07/13/18 07/13/18 11:15 06:00 06:00 WBC 6.0 D RBC 4.96 Hgb 15.1 D Hct 45.3 MCV 91.3 MCH 30.4 MCHC 33.3 RDW 13.9 Plt Count 214 MPV 9.0 Neut % (Auto) 57.0 Lymph % (Auto) 25.2 [place] % (Auto) 12.4 H Eos % (Auto) 5.1 H Baso % (Auto) 0.3 Lymph # (Auto) 1.5 [place] # (Auto) 0.8 H Eos # (Auto) 0.3 Baso # (Auto) 0.02 Absolute Neuts (auto) 3.44 Sodium 140 Potassium 3.9 Chloride 107 Carbon Dioxide 28 Anion Gap 10 BUN 21 Creatinine 0.7 L Est GFR ( Amer) > 60 Est GFR (Non-Af Amer) > 60 Random Glucose 107 Calcium 8.7 Phosphorus 3.3 Magnesium 2.1 Total Bilirubin 0.5 AST 31 ALT 44 Alkaline Phosphatase 69 Ammonia 11 D Total Protein 7.0 Albumin 3.7 Globulin 3.3 Albumin/Globulin Ratio 1.1 Critical Care Progress Note - Nutrition Nutrition: Nutrition Category Date Time Status Regular Diet [DIET] Diets 07/11/18 Dinner Ordered Assessment/Plan - Assessment and Plan (Free Text) Assessment: Pt is a 63 yo male with a PMH of dementia, seizure disorder, brain aneurysm, craniotomy, cocaine use disorder, who presented to the ED with seizure activity. Plan: Neuro - seizure disorder, hx of hydrocephalus, subarachnoid bleed, clipped cerebral aneurysm, [employer] shunt - U tox: positive for cocaine - trileptal, levetriacetam - Head CT no ICH, BL inferior frontal cystic encephalomalacia. 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 - Neuro consulted, Dr Khalil Cardio - HTN - maintain MAP above 65 - amlodipine 5 - lisinopril 20 Pulm - hx of COPD - Maintain SpO2 >92% GI - AST/ALT /Nephro - monitor electrolytes - BUN/Cr 21/0.7 - Nephro consulted, Dr Long Endo - Maintain euglycemia Heme/Onc - H/H stable - Hgb 15.1 - INR 1.03 ID - Hep C - no leukocytosis - Merropenem - vanc - ID consulted, Dr Garcia Pt to be transfered from ICU to Tele Pt seen, examined, assessment and plan discussed with Dr Dorian Lan PGY1 - Date & Time Date: 07/13/18 Time: 07:45 <Sharad Alarcon - Last Filed: 07/13/18 11:36> CCU Objective - Vital Signs / Intake & Output Vital Signs (Last 4 hours): Vital Signs Pulse BP 07/13/18 09:28 77 115/61 07/13/18 09:27 77 115/61 07/13/18 08:00 82 Intake and Output (Last 8hrs): Intake & Output 07/12/18 07/13/18 07/13/18 22:59 06:59 14:59 Intake Total 1120 650 Output Total 700 500 Balance 420 150 Weight 201 lb 11.2 oz Intake: IV 400 450 Left Hand 400 450 Oral 720 200 Output: Urine 700 500 Urine, Voided 700 500 Other: # Bowel Movements 1 1 - Medications Active Medications: Active Medications Generic Name Dose Route Start Last Admin Trade Name Freq PRN Reason Stop Dose Admin Amlodipine Besylate 5 mg 07/11/18 19:00 07/13/18 09:27 Norvasc PO 5 mg DAILY [facility] Administration Levetiracetam 100 mls @ 460 mls/hr 07/10/18 22:00 07/13/18 09:28 Keppra 1000mg/100ml Ns IV 460 mls/hr Q12 [facility] Administration Meropenem 1 gm in 50 mls @ 100 mls/hr 07/10/18 22:08 07/13/18 05:20 Merrem Iv 1 Gm Premix IVPB 07/18/18 22:09 100 mls/hr Q8 [facility] Administration Protocol Vancomycin HCl 1 gm in 250 mls @ 167 mls/hr 07/10/18 22:15 07/13/18 09:28 Vancomycin 1gm IVPB 07/18/18 22:16 167 mls/hr Q12H [facility] Administration Protocol Lisinopril 20 mg 07/12/18 12:50 07/13/18 09:28 Zestril PO 20 mg DAILY [facility] Administration Lorazepam 1 mg 07/11/18 20:48 Ativan IVP Q6H PRN Anxiety Protocol - Patient Studies Lab Studies: Microbiology Studies 07/10/18 16:00 Blood Culture - Preliminary Blood NO GROWTH AFTER 48 HOURS 07/10/18 15:30 Blood Culture - Preliminary Blood NO GROWTH AFTER 48 HOURS 07/10/18 19:20 MRSA Culture (Admit) - Final Naris MRSA NOT DETECTED 07/10/18 16:00 Urine Culture - Final Urine Random No Growth (<1,000 CFU/ML) Lab Studies 07/13/18 07/13/18 07/12/18 Range/Units 06:00 06:00 11:15 WBC 6.0 D (4.5-11.0) 10^3/uL RBC 4.96 (3.5-6.1) 10^6/uL Hgb 15.1 D (14.0-18.0) g/dL Hct 45.3 (42.0-52.0) % MCV 91.3 (80.0-105.0) fl MCH 30.4 (25.0-35.0) pg MCHC 33.3 (31.0-37.0) g/dl RDW 13.9 (11.5-14.5) % Plt Count 214 (120.0-450.0) 10^3/uL MPV 9.0 (7.0-11.0) fl Neut % (Auto) 57.0 (50.0-68.0) % Lymph % (Auto) 25.2 (22.0-35.0) % [place] % (Auto) 12.4 H (1.0-6.0) % Eos % (Auto) 5.1 H (1.5-5.0) % Baso % (Auto) 0.3 (0.0-3.0) % Lymph # (Auto) 1.5 (1.2-3.4) [place] # (Auto) 0.8 H (0.1-0.6) Eos # (Auto) 0.3 (0.0-0.7) Baso # (Auto) 0.02 (0.0-2.0) K/mm3 Absolute Neuts (auto) 3.44 (1.4-6.5) Sodium 140 (132-148) mmol/L Potassium 3.9 (3.6-5.0) mmol/L Chloride 107 (98-107) mmol/L Carbon Dioxide 28 (21-33) mmol/L Anion Gap 10 (10-20) BUN 21 (7-21) mg/dL Creatinine 0.7 L (0.8-1.5) mg/dl Est GFR ( Amer) > 60 Est GFR (Non-Af Amer) > 60 Random Glucose 107 (70-110) mg/dL Calcium 8.7 (8.4-10.5) mg/dL Phosphorus 3.3 (2.5-4.5) mg/dL Magnesium 2.1 (1.7-2.2) mg/dL Total Bilirubin 0.5 (0.2-1.3) mg/dL AST 31 (17-59) U/L ALT 44 (7-56) U/L Alkaline Phosphatase 69 (38-126) U/L Ammonia 11 D (9-33) umol/L Total Protein 7.0 (5.8-8.3) g/dL Albumin 3.7 (3.0-4.8) g/dL Globulin 3.3 gm/dL Albumin/Globulin Ratio 1.1 (1.1-1.8) Laboratory Results - last 24 hr 07/12/18 07/13/18 07/13/18 11:15 06:00 06:00 WBC 6.0 D RBC 4.96 Hgb 15.1 D Hct 45.3 MCV 91.3 MCH 30.4 MCHC 33.3 RDW 13.9 Plt Count 214 MPV 9.0 Neut % (Auto) 57.0 Lymph % (Auto) 25.2 [place] % (Auto) 12.4 H Eos % (Auto) 5.1 H Baso % (Auto) 0.3 Lymph # (Auto) 1.5 [place] # (Auto) 0.8 H Eos # (Auto) 0.3 Baso # (Auto) 0.02 Absolute Neuts (auto) 3.44 Sodium 140 Potassium 3.9 Chloride 107 Carbon Dioxide 28 Anion Gap 10 BUN 21 Creatinine 0.7 L Est GFR ( Amer) > 60 Est GFR (Non-Af Amer) > 60 Random Glucose 107 Calcium 8.7 Phosphorus 3.3 Magnesium 2.1 Total Bilirubin 0.5 AST 31 ALT 44 Alkaline Phosphatase 69 Ammonia 11 D Total Protein 7.0 Albumin 3.7 Globulin 3.3 Albumin/Globulin Ratio 1.1 Critical Care Progress Note - Nutrition Nutrition: Nutrition Category Date Time Status Regular Diet [DIET] Diets 07/11/18 Dinner Ordered Assessment/Plan - Assessment and Plan (Free Text) Plan: Patient seen and examined on rounds with resident, agree with note with edie aiken additions/exceptions: Patient is 63yo male with PMHx of dementia, seizure disorder, brain aneurysm, craniotomy, cocaine use disorder, admitted to MICU with hyperammonemia, seizure like activity. Currently afebrile, HD stable, comfortable in NAD, doing well, at baseline mental status. VEEG result noted Labs, imaging, chart reviewed Cr improving, Ammonia 11 today Neurology and renal following NO clear source of infection, cultures thus far neg, ??[employer] shunt infection, although unlikely Seizure disorder Cocaine abuse Dementia Hx Craniotomy Hx of Hep C COPD HTN Recommend: - supp o2 as needed, duonebs, PRN, IS, OOB to chair - follow up ID, would consider DC abx at this point, clinically improved, cultures thus far neg - BP control - AEDs, Keppra 1g BID IV, as per Neuro - follow up neuro - IVF - FS control - GI ppx - DVT ppx - Stable, transfer to tele
--- NOTE | 2018-07-13 12:42 | PN ---
DATE: 07/13/2018 SUBJECTIVE: The patient is in bed, in no acute distress, nontoxic. No fevers. PHYSICAL EXAMINATION: VITAL SIGNS: Temperature is 98, blood pressure is 115/60, and respiratory rate 18. HEENT: Unremarkable. NECK: Supple. LUNGS: Have decreased breath sounds. HEART: Normal S1 and S2. ABDOMEN: Soft and nontender. LABORATORY DATA: Reveals a white count of 6, hemoglobin of 15, and platelets of 214. BUN of 21, creatinine of 0.7. Urinalysis is noted. Toxicology is noted. Microbiology reveals the blood cultures are negative. Urine cultures are negative. Nares MRSA is not detected. MEDICATIONS: Review of orders reveals the patient is on vancomycin and meropenem. ASSESSMENT AND PLAN: Dr. Sharad Alarcon's patient, progress note is reviewed. Chest x-ray from the is reported to be no active disease. Dr. Khalil's note is reviewed. This is a 63-year-old male with history of seizures, history of cerebrovascular accident, gastroesophageal reflux disease, hypertension, subarachnoid hemorrhage and hydrocephalus, history of dementia with a left aneurysm repair and admitted with breakthrough seizures and systemic inflammatory response syndrome with negative blood cultures, negative urine cultures, negative methicillin-resistant staphylococcus aureus, negative chest x-ray. We will discontinue the antibiotics at this point. On admission, the patient had only low grade fever of 99, did have mild leukocytosis which is resolved now. We will follow off of antibiotics, negative cultures, ventriculoperitoneal shunt, central nervous system shunt infection less likely. Ubaldo Garcia MD
--- NOTE | 2018-07-13 19:26 | PN ---
DATE: 07/13/2018 SUBJECTIVE: The patient is seen lying in bed. He is awake, slow to mentate. He is currently undergoing a video EEG. He denies any pain. Denies any shortness of breath. PHYSICAL EXAMINATION: GENERAL: Elderly male lying in bed in the ICU. VITAL SIGNS: Blood pressure 115/61, heart rate 77, respiratory rate 18, temperature 98. HEENT: Normocephalic, atraumatic, positive pallor. NECK: Supple, no JVD. LUNGS: Bilateral equal air entry, bilateral equal expansion. CARDIAC: S1 and S2, regular rate and rhythm, no murmur, no rub. ABDOMEN: Soft, nondistended, nontender, bowel sounds present. EXTREMITIES: No lower extremity edema. Intake and output 1770/1200. LABORATORY DATA: WBC 6, hemoglobin 15, hematocrit 45, platelets 214. Sodium 140, potassium 3.9, chloride 107, CO2 28, BUN 31, creatinine 0.7, glucose 107, calcium 8.7, phosphorus 3.3, magnesium 2.1, albumin 3.7. Cultures, no growth. CURRENT MEDICATIONS: Ativan, Keppra 1000 every 12 hours, amlodipine 5, Zestril 20, Merrem 1 g every 8 hours, vancomycin 1 g every 12 hours. ASSESSMENT: 1. Status post breakthrough seizures. 2. Postictal altered mental status. 3. Severe metabolic acidosis. 4. Hypertension. 5. History of hep C. 6. History of subarachnoid bleed, aneurysm clipping, ventriculoperitoneal shunt. PLAN: 1. Renal parameters normal now. 2. Metabolic acidosis, resolved. 3. Hypertension fairly controlled. 4. Electrolytes within normal limits. Edna Long MD
[2018-07-14 08:14] LABS: BASO # 0.03 K/mm3 (0.0-2.0); BASO % 0.5 % (0.0-3.0); EOS # 0.4 (0.0-0.7); EOS % 5.9 % (1.5-5.0); HEMOGLOBIN 15.5 g/dL (14.0-18.0); LYMPH % 31.5 % (22.0-35.0); MEAN CORPUSCULAR HEMOGLOBIN 30.3 pg (25.0-35.0); MEAN CORPUSCULAR HGB CONC 32.9 g/dl (31.0-37.0); MEAN PLATELET VOLUME 8.6 fl (7.0-11.0); MONO # 0.6 (0.1-0.6); MONO % 9.8 % (1.0-6.0); RBC 5.12 10^6/uL (3.5-6.1); RED CELL DISTRIBUTION WIDTH 13.9 % (11.5-14.5); WHITE BLOOD COUNT 6.4 10^3/uL (4.5-11.0)
[2018-07-14 08:42] LABS: ALB/GLOB RATIO 0.9 (1.1-1.8); ALBUMIN 3.5 g/dL (3.0-4.8); ALT/SGPT 44 U/L (7-56); AST/SGOT 39 U/L (17-59); BLOOD UREA NITROGEN 15 mg/dL (7-21); CALCIUM 8.7 mg/dL (8.4-10.5); GFR NON-AFRICAN AMERICAN > 60
[2018-07-14] MEDS: levETIRAcetam 1000mg/100ml NS 100 ML IV SCH ×2 (10:22→21:35)
--- NOTE | 2018-07-14 15:22 | PN ---
DATE: 07/14/2018 SUBJECTIVE: The patient is currently seen sitting up in bed, conversing with me, he is in CCU bed 3. He has been downgraded to telemetry. He has not had any further breakthrough seizure activity. According to the CCU staff, his mental status remains mildly altered. MEDICATIONS: Medication list reviewed. The patient is on p.r.n. Ativan, Keppra, Norvasc, Trileptal, and lisinopril. OBJECTIVE: INTAKE/OUTPUT. Intake is 1350, output is 750. VITAL SIGNS: Blood pressure 149/89, pulse of 76, temperature is 99.4. Respiratory rate 15 with a pulse ox of 96%. HEENT: Exam shows him to be normocephalic, atraumatic. Conjunctivae are pink. Sclerae are nonicteric. NECK: Supple. No neck vein distention. CHEST: Clear to auscultation and percussion. No rales, rhonchi or wheezing. CARDIOVASCULAR: Shows a regular rate and rhythm without audible murmurs, rubs or gallops. ABDOMEN: Soft. Nondistended. Bowel sounds normal. No rebound, guarding or masses. EXTREMITIES: Show no lower extremity cyanosis, clubbing or edema. LABORATORY DATA AND IMAGING STUDIES: CBC from today white blood cell count 6.4 with a hemoglobin of 15.5 with a platelet count of 193,000. Chemistry showed normal electrolytes. His CO2 level which was 9 on admission is currently 31. BUN is with a creatinine of 0.6. Glucose is 94. Phosphorus is 3.3 with magnesium level of 2.2. Urine is unremarkable. Toxicology screen is positive for cocaine on admission, otherwise everything else was negative. Microbiology, all cultures are negative to date. ASSESSMENT: 1. Status post seizure activity with severe metabolic acidosis and a mildly altered mental status, improved from a postictal. All this is resolving. 2. Hypertension, controlled on amlodipine and lisinopril. 3. Past history of hepatitis C infection. 4. History of subarachnoid bleed, aneurysm clipping and a ventriculoperitoneal shunt. PLAN: 1. From a renal standpoint, the patient is completely back to normal. His metabolic acidosis had resolved post initial seizure activity. 2. Close monitoring by Neurology. 3. Agree with transfer out of the CCU. 4. No change in blood pressure medication. 5. All antibiotics discontinued as cultures are negative. 6. We will follow the patient as from metabolic standpoint, the patient is back to baseline. David Peoples MD
--- NOTE | 2018-07-14 15:56 | CP.PCM.PN ---
<Salty Butler - Last Filed: 07/14/18 16:37> Subjective - Date & Time of Evaluation Date of Evaluation: 07/14/18 Time of Evaluation: 07:40 - Subjective Subjective: Salty Butler D.O. PGY-3, Internal Medicine Resident, Infectious Disease Progress Note 63 year old male with a PMH of dementia, seizure disorder, and cocaine use disorder who [place] [facility] [place] Infectious disease consulta tion was requested. Patient was seen and examined at bedside. Appears at baseline per ICU team. No acute overnight events. Objective - Vital Signs/Intake and Output Vital Signs (last 24 hours): Temp Pulse Resp BP Pulse Ox 99.4 F 65 14 135/77 95 07/14/18 11:30 07/14/18 15:11 07/14/18 15:01 07/14/18 15:01 07/14/18 15:01 Intake and Output: 07/14/18 07/14/18 06:59 18:59 Intake Total 640 Output Total 750 Balance -110 - Medications Medications: Current Medications Amlodipine Besylate (Norvasc) 5 mg PO DAILY [facility] Last Admin: 07/14/18 10:21 Dose: 5 mg Levetiracetam (Keppra 1000mg/100ml Ns) 100 mls @ 460 mls/hr IV Q12 [facility] Last Admin: 07/14/18 10:22 Dose: 460 mls/hr Lisinopril (Zestril) 20 mg PO DAILY [facility] Last Admin: 07/14/18 10:22 Dose: 20 mg Lorazepam (Ativan) 1 mg IVP Q6H PRN; Protocol PRN Reason: Anxiety Oxcarbazepine (Trileptal) 300 mg PO BID [facility]; Protocol Last Admin: 07/14/18 10:21 Dose: 300 mg - Labs Labs: 07/14/18 08:00 07/14/18 08:00 PT 11.4 SECONDS (9.4-12.5) 07/10/18 15:55 INR 1.03 07/10/18 15:55 APTT 40.3 Seconds (26.9-38.3) H 07/10/18 15:55 - Constitutional Appears: Non-toxic, Chronically Ill - Head Exam Head Exam: ATRAUMATIC, NORMOCEPHALIC - Eye Exam Eye Exam: EOMI. absent: Scleral icterus - ENT Exam ENT Exam: Mucous Membranes Moist - Neck Exam Neck Exam: Normal Inspection - Respiratory Exam Respiratory Exam: absent: Rales, Rhonchi - Cardiovascular Exam Cardiovascular Exam: +S1, +S2 - GI/Abdominal Exam GI & Abdominal Exam: Soft. absent: Distended - Extremities Exam Extremities Exam: absent: Calf Tenderness - Neurological Exam Neurological Exam: Alert, Awake - Skin Skin Exam: Dry, Warm Assessment and Plan - Assessment and Plan (Free Text) Assessment: 63 year old male with a PMH of dementia, seizure disorder, and cocaine use disorder who [place] [facility] [place]. Infectious disease consultation was requested. Plan: SIRS Seizure disorder GERD CVA Subarachnoid hemorrhage and hydrocephalus with [employer] ADMINISTRATOR shunt Afebrile No leukocytosis BCx negative 2/2 day 3 Ucx negative Work up has been negative thus far Monitoring off abx at this time At risk for nosocomial infections We will follow with you Patient was seen and examined and case to be discussed with attending physician Thank you for the pleasure of participating in the care of this patient <Ubaldo Garcia - Last Filed: 07/14/18 18:14> Objective - Vital Signs/Intake and Output Vital Signs (last 24 hours): Temp Pulse Resp BP Pulse Ox 99.4 F 69 18 135/77 100 07/14/18 11:30 07/14/18 17:00 07/14/18 16:22 07/14/18 15:01 07/14/18 17:00 Intake and Output: 07/14/18 07/14/18 06:59 18:59 Intake Total 640 Output Total 750 Balance -110 - Medications Medications: Current Medications Amlodipine Besylate (Norvasc) 5 mg PO DAILY [facility] Last Admin: 07/14/18 10:21 Dose: 5 mg Levetiracetam (Keppra 1000mg/100ml Ns) 100 mls @ 460 mls/hr IV Q12 [facility] Last Admin: 07/14/18 10:22 Dose: 460 mls/hr Lisinopril (Zestril) 20 mg PO DAILY [facility] Last Admin: 07/14/18 10:22 Dose: 20 mg Lorazepam (Ativan) 1 mg IVP Q6H PRN; Protocol PRN Reason: Anxiety Oxcarbazepine (Trileptal) 300 mg PO BID [facility]; Protocol Last Admin: 07/14/18 17:11 Dose: 300 mg - Labs Labs: 07/14/18 08:00 07/14/18 08:00 PT 11.4 SECONDS (9.4-12.5) 07/10/18 15:55 INR 1.03 07/10/18 15:55 APTT 40.3 Seconds (26.9-38.3) H 07/10/18 15:55 Attending/Attestation - Attestation I have personally seen and examined this patient.: Yes I have fully participated in the care of the patient.: Yes I have reviewed all pertinent clinical information, including history, physical exam and plan: Yes
--- NOTE | 2018-07-14 17:08 | CP.PCM.PN ---
Subjective - Date & Time of Evaluation Date of Evaluation: 07/14/18 Time of Evaluation: 09:00 - Subjective Subjective: resting comfortably, NAD, confused (at baseline mental status), no SZ activity past 3 days Objective - Vital Signs/Intake and Output Vital Signs (last 24 hours): Temp Pulse Resp BP Pulse Ox 99.4 F 65 14 135/77 95 07/14/18 11:30 07/14/18 15:11 07/14/18 15:01 07/14/18 15:01 07/14/18 15:01 Intake and Output: 07/14/18 07/14/18 06:59 18:59 Intake Total 640 Output Total 750 Balance -110 - Medications Medications: Current Medications Amlodipine Besylate (Norvasc) 5 mg PO DAILY [facility] Last Admin: 07/14/18 10:21 Dose: 5 mg Levetiracetam (Keppra 1000mg/100ml Ns) 100 mls @ 460 mls/hr IV Q12 [facility] Last Admin: 07/14/18 10:22 Dose: 460 mls/hr Lisinopril (Zestril) 20 mg PO DAILY [facility] Last Admin: 07/14/18 10:22 Dose: 20 mg Lorazepam (Ativan) 1 mg IVP Q6H PRN; Protocol PRN Reason: Anxiety Oxcarbazepine (Trileptal) 300 mg PO BID [facility]; Protocol Last Admin: 07/14/18 10:21 Dose: 300 mg - Labs Labs: 07/14/18 08:00 07/14/18 08:00 PT 11.4 SECONDS (9.4-12.5) 07/10/18 15:55 INR 1.03 07/10/18 15:55 APTT 40.3 Seconds (26.9-38.3) H 07/10/18 15:55 - Respiratory Exam Respiratory Exam: Clear to Ausculation Bilateral, NORMAL BREATHING PATTERN - Cardiovascular Exam Cardiovascular Exam: REGULAR RHYTHM - GI/Abdominal Exam GI & Abdominal Exam: Soft, Normal Bowel Sounds - Extremities Exam Extremities Exam: Normal Inspection - Neurological Exam Neurological Exam: Altered - Skin Skin Exam: Dry, Warm Assessment and Plan (1) Seizure Status: Acute (2) Cellulitis Status: Acute (3) Hypertension Status: Chronic (4) Subarachnoid hemorrhage Status: Chronic - Assessment and Plan (Free Text) Plan: continue present tx, PT and SW for DC planning
--- NOTE | 2018-07-14 17:30 | CP.PCM.PCO ---
Physician Communication Note - Physician Communication Note Physician Communication Note: no seiz activ currently,resting comfortable,Pt rec.Tcu,
--- NOTE | 2018-07-14 18:40 | PN ---
DATE: 07/14/2018 NEUROLOGY FOLLOWUP CHIEF COMPLAINT: Breakthrough seizures. SUBJECTIVE: The patient is currently seen up in the bed, conversing with me without any difficulty. He is following simple commands. He is being downgraded to telemetry. No further breakthrough seizure activity. He is stable on meds. He has cognitive impairment traumatic brain injury in the past. We recommend to repeat ammonia levels since he had hyperammonemia when he came in which is likely the cause for his breakthrough seizures. His hyperammonemia level was 365 which now is 11. PAST MEDICAL HISTORY: History of aneurysm status post subarachnoid hemorrhage, status post clipping, status post AIRFIELD MANAGER shunt, status post revision of the shunt on 09/06/2016 by neurosurgery, history of TBI, history of dysexecutive syndrome, cognitive impairment, history of breakthrough seizures. FAMILY HISTORY: Noncontributory. SOCIAL HISTORY: No illicit drug use, smoking, or EtOH abuse. REVIEW OF SYSTEMS: A 14-point review of systems is negative except per the HPI. MEDICATIONS: Reviewed by nurses' reconciliation sheet. ALLERGIES: NO KNOWN DRUG ALLERGIES. LABORATORY DATA: Sodium is 142, potassium 3.8, chloride 106, carbon dioxide 31, BUN of 15, creatinine 0.6, random glucose 94. PHYSICAL EXAMINATION: GENERAL: The patient is seen up in bed and in no acute distress. VITAL SIGNS: Temperature afebrile, pulse 86, blood pressure 135/77, respiratory rate 14, oxygen saturation 95% on room air. HEENT: Atraumatic and normocephalic. PERRLA. Extraocular muscles intact. NECK: Supple. HEART: S1 and S2. Normal rate and rhythm. No murmurs, rubs, or gallops. ABDOMEN: Soft and nontender. Nondistended. Bowel sounds present. EXTREMITIES: No clubbing. No cyanosis. Peripheral pulses 2+ bilaterally. NECROLOGIC: The patient is alert and oriented to person, place, but not much to month or year. Recall after 5 minutes is 0/3. Has poor attention span. Slow thought process. Speech is hypophonic, but no aphasia noted. Motor examination: Slightly increased tone throughout, moves all extremities equally. No pronator drift seen. Sensory: Decreased light touch and pinprick up to the calves bilaterally. Decreased vibration at the toes. DTRs are 1+ throughout. Coordination: [id number] intact. No dysmetria noted.. Gait is deferred for now. ASSESSMENT AND PLAN: This is a complex partial seizure from underlying traumatic brain injury which causes dysexecutive syndrome,cause sometimes breakthrough seizure likely secondary to hyperammonemia, since his initial ammonia level was 365, now it brought back to normal limits, superimposed on metabolic encephalopathy. EEG did show generalized left side slowing with mostly compared to the right, which is consistent with his previous EEG in the past. At this time we recommend, 1. To continue with his Keppra 1000 mg intravenous every 12 hours and switch over to p.o. 2. Continue with Trileptal 300 mg p.o. twice daily for seizure prophylaxis. 3. Thiamine 100 mg p.o, daily. 4. Delirium precautions and continue current and present medical management and will follow up as an as outpatient. Thank you for this consult. Dom Khalil MD
[2018-07-14 21:25] LABS: 10-HYDROXYCARBAZEPINE 15.1 mcg/mL (8.0-35.0)
[2018-07-15 06:22] LABS: BASO # 0.04 K/mm3 (0.0-2.0); BASO % 0.7 % (0.0-3.0); EOS # 0.3 (0.0-0.7); EOS % 4.6 % (1.5-5.0); HEMOGLOBIN 15.3 g/dL (14.0-18.0); LYMPH # 1.6 (1.2-3.4); LYMPH % 25.4 % (22.0-35.0); MEAN CELL VOLUME 91.2 fl (80.0-105.0); MEAN CORPUSCULAR HEMOGLOBIN 30.5 pg (25.0-35.0); MEAN CORPUSCULAR HGB CONC 33.5 g/dl (31.0-37.0); MEAN PLATELET VOLUME 8.6 fl (7.0-11.0); MONO # 0.6 (0.1-0.6); MONO % 9.7 % (1.0-6.0); RBC 5.01 10^6/uL (3.5-6.1); RED CELL DISTRIBUTION WIDTH 13.6 % (11.5-14.5); WHITE BLOOD COUNT 6.1 10^3/uL (4.5-11.0)
[2018-07-15 07:05] LABS: ALBUMIN 3.7 g/dL (3.0-4.8); ALT/SGPT 58 U/L (7-56); AST/SGOT 43 U/L (17-59); BLOOD UREA NITROGEN 13 mg/dL (7-21); CALCIUM 8.9 mg/dL (8.4-10.5); GFR NON-AFRICAN AMERICAN > 60
[2018-07-15] MEDS: levETIRAcetam 1000mg/100ml NS 100 ML IV SCH (10:08)
--- NOTE | 2018-07-15 10:19 | CP.PCM.PN ---
Subjective - Date & Time of Evaluation Date of Evaluation: 07/15/18 Time of Evaluation: 09:00 - Subjective Subjective: resting comfortably, confused (at baseline mental status), no SZ past 3 - 4 days Objective - Vital Signs/Intake and Output Vital Signs (last 24 hours): Temp Pulse Resp BP Pulse Ox 99.4 F 67 17 141/65 96 07/14/18 11:30 07/15/18 09:00 07/15/18 09:00 07/15/18 09:00 07/15/18 09:00 Intake and Output: 07/15/18 07/15/18 06:59 18:59 Intake Total 340 Balance 340 - Medications Medications: Current Medications Amlodipine Besylate (Norvasc) 5 mg PO DAILY [facility] Last Admin: 07/14/18 10:21 Dose: 5 mg Levetiracetam (Keppra 1000mg/100ml Ns) 100 mls @ 460 mls/hr IV Q12 [place] Last Admin: 07/14/18 21:35 Dose: 460 mls/hr Lisinopril (Zestril) 20 mg PO DAILY [facility] Last Admin: 07/14/18 10:22 Dose: 20 mg Lorazepam (Ativan) 1 mg IVP Q6H PRN; Protocol PRN Reason: Anxiety Last Admin: 07/15/18 01:22 Dose: 1 mg Oxcarbazepine (Trileptal) 300 mg PO BID [facility]; Protocol Last Admin: 07/14/18 17:11 Dose: 300 mg - Labs Labs: 07/15/18 05:30 07/15/18 05:30 PT 11.4 SECONDS (9.4-12.5) 07/10/18 15:55 INR 1.03 07/10/18 15:55 APTT 40.3 Seconds (26.9-38.3) H 07/10/18 15:55 - Respiratory Exam Respiratory Exam: Clear to Ausculation Bilateral, NORMAL BREATHING PATTERN - Cardiovascular Exam Cardiovascular Exam: REGULAR RHYTHM - GI/Abdominal Exam GI & Abdominal Exam: Soft, Normal Bowel Sounds - Extremities Exam Extremities Exam: Normal Inspection - Neurological Exam Neurological Exam: Altered - Skin Skin Exam: Dry, Warm Assessment and Plan (1) Seizure Status: Acute (2) Cellulitis Status: Acute (3) Hypertension Status: Chronic (4) Subarachnoid hemorrhage Status: Chronic - Assessment and Plan (Free Text) Plan: continue present treatment, neuro/ID follow-up, PT & SW for DC planning
--- NOTE | 2018-07-15 11:32 | CP.PCM.PCO ---
Physician Communication Note - Physician Communication Note Physician Communication Note: pt cleared from neuro , c/w po seizure meds and pt evaluation.
--- NOTE | 2018-07-15 13:31 | CP.PCM.APN ---
Subjective - Date & Time of Evaluation Date of Evaluation: 07/15/18 Time of Evaluation: 11:20 - Subjective Subjective: Pt. seen and examined in bed, no acute distress. Denied further seizures, tremors, or shaking, No seizure activity past 3 days, on Keppra IV 500 bid, and Ativan prn. Objective - Vital Signs/Intake and Output Vital Signs (last 24 hours): Temp Pulse Resp BP Pulse Ox 97.8 F 70 17 141/65 96 07/15/18 08:00 07/15/18 10:12 07/15/18 09:00 07/15/18 10:12 07/15/18 09:00 Intake and Output: 07/15/18 07/15/18 06:59 18:59 Intake Total 340 Balance 340 - Medications Medications: Current Medications Amlodipine Besylate (Norvasc) 5 mg PO DAILY [facility] Last Admin: 07/15/18 10:11 Dose: 5 mg Levetiracetam (Keppra) 500 mg PO BID [facility] Lisinopril (Zestril) 20 mg PO DAILY [facility] Last Admin: 07/15/18 10:12 Dose: 20 mg Lorazepam (Ativan) 1 mg IVP Q6H PRN; Protocol PRN Reason: Anxiety Last Admin: 07/15/18 01:22 Dose: 1 mg Oxcarbazepine (Trileptal) 300 mg PO BID [facility]; Protocol Last Admin: 07/15/18 10:07 Dose: 300 mg - Labs Labs: 07/15/18 05:30 07/15/18 05:30 PT 11.4 SECONDS (9.4-12.5) 07/10/18 15:55 INR 1.03 07/10/18 15:55 APTT 40.3 Seconds (26.9-38.3) H 07/10/18 15:55 - Constitutional Appears: Well, Non-toxic, No Acute Distress - Head Exam Head Exam: NORMOCEPHALIC - Eye Exam Eye Exam: Normal appearance - ENT Exam ENT Exam: Mucous Membranes Moist, Normal Exam - Neck Exam Neck Exam: Full ROM - Respiratory Exam Respiratory Exam: Clear to Ausculation Bilateral - Cardiovascular Exam Cardiovascular Exam: REGULAR RHYTHM, +S1, +S2 - GI/Abdominal Exam GI & Abdominal Exam: Soft, Normal Bowel Sounds - Rectal Exam Rectal Exam: Deferred - Exam Exam: NORMAL INSPECTION External exam: absent: Ecchymosis, Erythema, Lacerations, Lesions, NORMAL EXTERNAL EXAM, Swelling Speculum exam: absent: Cervical Discharge, Erythema, Foreign Body, Laceration, NORMAL SPECULUM EXAM, Tissue, Vaginal Bleeding, Vaginal Discharge Bimanual exam: absent: Adenexal Mass, Adnexal, Cervical Motion Tendernes, NORMAL BIMANUAL EXAM, Uterine Enlargement, Uterine Tenderness - Extremities Exam Additional comments: left sided weakness, flaccidity - Neurological Exam Neurological Exam: Alert, Awake - Psychiatric Exam Psychiatric exam: Normal Affect, Normal Mood - Skin Skin Exam: Dry, Intact, Normal Color, Warm Assessment and Plan - Assessment and Plan (Free Text) Assessment: ITS Impressions Chest X-Ray 07/10/18 15:36 IMPRESSION: No active disease. No significant interval change compared to the prior examination(s). Head CT 07/10/18 15:36 IMPRESSION: No intracranial hemorrhage. Bilateral inferior frontal cystic encephalomalacia, left greater than right. Left frontal encephalomalacia unchanged. Left frontal temporal craniotomy. Postoperative changes with surgical clips in suprasellar cistern. Hydrocephalus. Ventriculostomy catheter unchanged. Assessment: 63 year old male, whose past medical history includes dementia, seizure di sorder, brain aneurysm, s/p craniotomy, presents to the emergency department via BLS with seizure activity. Ambulance was called by patient's who noticed patient was seizing, admitted with seizures, started on Keppra IV, and Ativan prn with neuro consulted. Plan: 1. Seizures Improved with Keppra IV, seizure free for past 3 days, per neuro will change to PO, continue Ativan prn. Monitor status of seizures, maintain seizure precautions. 2. Recent Cocaine Abuse. 3. weakness, r/t deconditioning from seizures, and remaining in bed, pT rec. TCU SW/ CM for DC planning to TCU / [facility]. Pt. medically cleared for DC when [facility] bed available,per PCP, per Neuro.
--- NOTE | 2018-07-15 13:43 | CP.PCM.PN ---
<Salty Butler - Last Filed: 07/15/18 13:40> Subjective - Date & Time of Evaluation Date of Evaluation: 07/15/18 Time of Evaluation: 09:10 - Subjective Subjective: Salty Butler D.O. PGY-3, Internal Medicine Resident, Infectious Disease Progress Note 63 year old male with a PMH of dementia, seizure disorder, and cocaine use disorder who presented to [facility] with seizure activity. Infectious disease consulta tion was requested. Patient was seen and examined at bedside. No acute changes. Comfortable. Objective - Vital Signs/Intake and Output Vital Signs (last 24 hours): Temp Pulse Resp BP Pulse Ox 97.8 F 70 17 141/65 96 07/15/18 08:00 07/15/18 10:12 07/15/18 09:00 07/15/18 10:12 07/15/18 09:00 Intake and Output: 07/15/18 07/15/18 06:59 18:59 Intake Total 340 Balance 340 - Medications Medications: Current Medications Amlodipine Besylate (Norvasc) 5 mg PO DAILY [facility] Last Admin: 07/15/18 10:11 Dose: 5 mg Levetiracetam (Keppra) 500 mg PO BID [facility] Lisinopril (Zestril) 20 mg PO DAILY [facility] Last Admin: 07/15/18 10:12 Dose: 20 mg Lorazepam (Ativan) 1 mg IVP Q6H PRN; Protocol PRN Reason: Anxiety Last Admin: 07/15/18 01:22 Dose: 1 mg Oxcarbazepine (Trileptal) 300 mg PO BID [facility]; Protocol Last Admin: 07/15/18 10:07 Dose: 300 mg - Labs Labs: 07/15/18 05:30 07/15/18 05:30 PT 11.4 SECONDS (9.4-12.5) 07/10/18 15:55 INR 1.03 07/10/18 15:55 APTT 40.3 Seconds (26.9-38.3) H 07/10/18 15:55 - Constitutional Appears: Non-toxic, Chronically Ill - Head Exam Head Exam: ATRAUMATIC, NORMOCEPHALIC - Eye Exam Eye Exam: EOMI. absent: Scleral icterus - ENT Exam ENT Exam: Mucous Membranes Moist - Neck Exam Neck Exam: Normal Inspection - Respiratory Exam Respiratory Exam: absent: Rales, Rhonchi - Cardiovascular Exam Cardiovascular Exam: RRR, +S1, +S2 - GI/Abdominal Exam GI & Abdominal Exam: Soft. absent: Distended - Extremities Exam Extremities Exam: absent: Calf Tenderness - Neurological Exam Neurological Exam: Alert, Awake - Skin Skin Exam: Dry, Warm Assessment and Plan - Assessment and Plan (Free Text) Assessment: 63 year old male with a PMH of dementia, seizure disorder, and cocaine use disorder who presented to [facility] with seizure activity. Infectious disease consultation was requested. Plan: SIRS Seizure disorder GERD CVA Subarachnoid hemorrhage and hydrocephalus with SENIOR LEAD SOFTWARE ENGINEER shunt Has been afebrile and had no leukocytosis All cultures have been negative Off abx at this time At risk for nosocomial infections We will follow with you Patient was seen and examined and case to be discussed with attending physician Thank you for the pleasure of participating in the care of this patient <Goran Kennedy - Last Filed: 07/15/18 22:38> Objective - Vital Signs/Intake and Output Vital Signs (last 24 hours): Temp Pulse Resp BP Pulse Ox 98.0 F 62 18 126/64 92 L 07/15/18 14:00 07/15/18 17:01 07/15/18 17:01 07/15/18 17:01 07/15/18 17:01 Intake and Output: 07/15/18 07/16/18 18:59 06:59 Intake Total 450 Output Total 350 Balance 100 - Medications Medications: Current Medications Amlodipine Besylate (Norvasc) 5 mg PO DAILY [facility] Last Admin: 07/15/18 10:11 Dose: 5 mg Levetiracetam (Keppra) 500 mg PO BID [facility] Last Admin: 07/15/18 17:39 Dose: 500 mg Lisinopril (Zestril) 20 mg PO DAILY [facility] Last Admin: 07/15/18 10:12 Dose: 20 mg Lorazepam (Ativan) 1 mg IVP Q6H PRN; Protocol PRN Reason: Anxiety Last Admin: 07/15/18 01:22 Dose: 1 mg Oxcarbazepine (Trileptal) 300 mg PO BID [facility]; Protocol Last Admin: 07/15/18 17:39 Dose: 300 mg - Labs Labs: 07/15/18 05:30 07/15/18 05:30 PT 11.4 SECONDS (9.4-12.5) 07/10/18 15:55 INR 1.03 07/10/18 15:55 APTT 40.3 Seconds (26.9-38.3) H 07/10/18 15:55 Assessment and Plan - Assessment and Plan (Free Text) Plan: Infectious Diseases Attending Physician Attestation Patient seen and examined at bedside, discussed with emergency medical technician basic. I have reviewed the HPI, ROS, Family, Medical, Social and personal histories, physical examination findings. I have also reviewed the pertinent labs and diagnostic imaging. I have fully participiated in the care of this patient. I agree with the above findings, assessment, plan.
--- NOTE | 2018-07-15 15:23 | CP.PCM.PCO ---
Physician Communication Note - Physician Communication Note Physician Communication Note: Pt. medically cleared for DC as per pcp and neuro, when [facility] bed available.
[2018-07-15 15:44] VITALS: TEMP 98
[2018-07-15 17:35] VITALS: BP 126/64; PULSE 62; RESP 18; O2SAT 92
--- NOTE | 2018-07-16 01:09 | PN ---
DATE: 07/15/2018 SUBJECTIVE: The patient is seen, sitting in bed, in the ICU. He is awake, he is alert. He reports that he is having difficulty urinating, but as per the nursing staff, he just urinated. PHYSICAL EXAMINATION: GENERAL: Elderly male, sitting in bed. VITAL SIGNS: Blood pressure 126/64, heart rate 62, respiratory rate 18, temperature 98. HEENT: Normocephalic, atraumatic, positive pallor. NECK: Supple, no JVD. LUNGS: Bilateral equal entry, bilateral equal expansion. CARDIAC: S1, S2, regular rate and rhythm, no murmur, no rub. ABDOMEN: Soft, nondistended, nontender, bowel sounds present. EXTREMITIES: No lower extremity edema. INTAKE AND OUTPUT: 450/350. LABORATORY DATA: WBC 6.1, hemoglobin 15, hematocrit 46, platelets 206. Sodium 140, potassium 3.8, chloride 105, CO2 of 28, BUN 13, creatinine 0.6, glucose 103, calcium 8.9, phosphorus 3.3, magnesium 2.2, albumin 3.7. Urine culture, no growth. CURRENT MEDICATIONS: Ativan, Keppra, amlodipine 5 mg, Trileptal, Zestril 20 mg. ASSESSMENT: 1. Breakthrough seizures with severe metabolic acidosis, now resolved. 2. Hypertension. 3. History of subarachnoid bleed, aneurysm clipping and ventriculoperitoneal shunt. 4. History of hepatitis C. PLAN: 1. Currently, the patient is stable, all electrolytes are normal. 2. Blood pressure is well controlled. 3. We will discontinue followup. Edna Long MD
--- NOTE | 2018-07-16 23:45 | DS ---
HOSPITAL COURSE: The patient is a 63-year-old male who was admitted through the emergency department on 07/10/2018 with recurrent breakthrough seizures. The patient was admitted to the intensive care unit. He was seen in consultation by Neurology and started on antiseizure medications including Trileptal and Keppra. The patient improved and was without seizures for 3-4 days and was discharged to subacute rehab in stable condition on 07/15/2018. Physical examination and vital signs are as per progress note of 07/15/2018. The patient was discharged on the following medications; Trileptal 300 mg twice daily, Keppra 500 mg twice daily, lisinopril 20 mg daily, and lorazepam 1 mg every 6 hours p.r.n. IMPRESSION: 1. Recurrent breakthrough seizures. 2. History of subarachnoid hemorrhage, status post ventriculoperitoneal shunt. 3. Hypertension. 4. Cellulitis of the lower extremities. PLAN: The patient was transferred to subacute rehabilitation. He was maintained on a heart-healthy diet. Activities as per rehab facility. He will be followed as an outpatient upon discharge from the rehab facility. KWAME West MD
== END 2018-07-15 19:45 | DRG 100 ==
LOC: ED 15:22 → ERH 17:49 → ICU 19:18 → CCU 07-13 18:34
PROVIDERS: ADMIT Internal Medicine; ATTEND Internal Medicine
DX: G40.209 Localization-related (focal) (partial) symptomatic epilepsy and epileptic syndromes with complex partial seizures, not intractable, without status epilepticus (principal); G93.41 Metabolic encephalopathy; G91.9 Hydrocephalus, unspecified; E72.20 Disorder of urea cycle metabolism, unspecified; N17.9 Acute kidney failure, unspecified; R65.10 Systemic inflammatory response syndrome (SIRS) of non-infectious origin without acute organ dysfunction; E87.2 Acidosis; L03.116 Cellulitis of left lower limb; L03.115 Cellulitis of right lower limb; I10 Essential (primary) hypertension; B19.20 Unspecified viral hepatitis C without hepatic coma; E87.6 Hypokalemia; E83.41 Hypermagnesemia; J44.9 Chronic obstructive pulmonary disease, unspecified; F03.90 Unspecified dementia, unspecified severity, without behavioral disturbance, psychotic disturbance, mood disturbance, and anxiety; K21.9 Gastro-esophageal reflux disease without esophagitis; F14.90 Cocaine use, unspecified, uncomplicated; F17.210 Nicotine dependence, cigarettes, uncomplicated; Z91.19 Patient's noncompliance with other medical treatment and regimen; Z87.820 Personal history of traumatic brain injury; Z98.2 Presence of cerebrospinal fluid drainage device

== ENCOUNTER 2018-08-27 15:22 | Inpatient (IN) | payer MEDICARE, OTHER ==
--- NOTE | 2018-08-27 15:46 | ED PDOC ---
Arrival/HPI - General Chief Complaint: Upper Extremity Problem/Injury Time Seen by Provider: 08/27/18 15:26 - History of Present Illness Narrative History of Present Illness (Text): 08/27/18 15:41 63 year old M with pmh of dementia, seizure disorder, brain aneurysm, hypertension and COPD presents via EMS for evaluation for b/l hand discoloration prior to arrival. Nurse noted 02 sat at 81 and discoloration on hands prompting him to call Dr. Marquis who advised to present patient to Emergency department. Patient denies any pain. Patient had a grand mal seizure 2 weeks ago. He has b/l pedal edema at baseline. Patient is sluggish to respond and poor historian. Time/Duration: Prior to Arrival Symptom Onset: Sudden Symptom Course: Unchanged Activities at Onset: Light Context: Home Past Medical History - Provider Review Nursing Documentation Reviewed: Yes - Past History Past History: Unable to Obtain - Infectious Disease Hx of Infectious Diseases: None - Tetanus Immunization Tetanus Immunization: Unknown - Cardiac Hx Congestive Heart Failure: Yes Hx Hypertension: Yes - Pulmonary Hx Chronic Obstructive Pulmonary Disease (COPD): Yes - Neurological HX Cerebrovascular Accident: Yes Hx Seizures: Yes - HEENT Hx HEENT Disorder: Yes - Renal Hx Renal Disorder: No - Endocrine/Metabolic Hx Endocrine Disorders: No - Hematological/Oncological Hx Blood Disorders: Yes Hx Hepatitis C: Yes Other/Comment: liver disease - Integumentary Hx Dermatological Disorder: Yes Hx Basal Cell Carcinoma: No Hx Eczema: No Hx Melanoma: No Hx Psoriasis: No Hx Squamous Cell Carcinoma: No Other/Comment: redness with swelling to both lower legs - Musculoskeletal/Rheumatological Hx Falls: Yes - Gastrointestinal Hx 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) - Genitourinary/Gynecological Hx Genitourinary Disorders: Yes Hx Incontinence: Yes - Psychiatric Hx Psychophysiologic Disorder: Yes (SMOKED CIGARETTES,HEAVY DRINKER ETOH ABUSE H.O) Hx Substance Use: No - Past Surgical History Past Surgical History: Unable to Obtain - Surgical History Hx Orthopedic Surgery: Yes (C-spine) Other/Comment: brain surgery due to brain aneurysm - Anesthesia Hx Anesthesia: Yes Hx Anesthesia Reactions: No Hx Malignant Hyperthermia: No - Suicidal Assessment Feels Threatened In Home Enviroment: No Family/Social History - Physician Review Nursing Documentation Reviewed: Yes Family/Social History: Unknown Family HX Smoking Status: Current Some Days Smoker Hx Alcohol Use: Yes (ETOH ABUSE H/O) Hx Substance Use: No Hx Substance Use Treatment: No Allergies/Home Meds Allergies/Adverse Reactions: Allergies No Known Allergies Allergy (Verified 08/27/18 15:32) Review of Systems - Physician Review All systems were reviewed & negative as marked: Yes - Review of Systems Constitutional: absent: Fevers ENT: absent: Sore Throat, Rhinorrhea, Epistaxis Respiratory: absent: Cough Cardiovascular: absent: Chest Pain, Palpitations Gastrointestinal: absent: Abdominal Pain, Diarrhea, Nausea, Vomiting, Hematemesis Genitourinary Male: absent: Dysuria Skin: absent: Rash Physical Exam - Physical Exam Narrative Physical Exam (Text): 08/27/18 15:53 Gen: VS reviewed, alert, well developed, well nourished, nontoxic, mild distress. hypertension ENT: normal pharynx. Eye: EOMI, PERRL. Neck: no JVD, supple, no adenopathy. CV: regular rate, regular rhythm, no rubs, no murmur, no gallops, S1, S2, pulses equal and strong. Pulm: no distress, clear to auscultation, no wheeze, no rhonchi, breath sounds equal, no rales. Abd: soft, nontender, no guarding, no rebound, no rigidity, normal bowel sounds. Ext: b/l pedal edema Skin: good color, no rash, no cyanosis. Cold hands b/l Psych: responds appropriately to questions, bizarre affect. Neuro: oriented x 3, CN2-12 intact grossly, motor intact, sensation intact. Medical Decision Making ED Course and Treatment: 08/27/18 15:50 Impression: 63 year old M presents via EMS for evaluation for b/l hand discoloration prior to arrival Plan: -- Labs -- Chest X-ray -- Reassess and disposition Prior Visits: Notes and results from previous visits were reviewed. Progress Notes: NSR @ 68 bpm, nml qrs, nml axis, no acute sttw abn. 08/27/18 18:20 procedure note: venipuncture necessitating physician skill: 20g iv placed in the left AC, good draw and flush, tolerated procedure well 08/27/18 18:[address] marquis, patient to be admitted for transient hypoxemia. will get dimer and if negative will follow up with CTA to rule out PE. at this time the patient is clinically stable from a pulm standpoint, stable vitals. - Scribe Statement The provider has reviewed the documentation as recorded by the Sadiq Pederson All medical record entries made by the Scribe were at my direction and personally dictated by me. I have reviewed the chart and agree that the record accurately reflects my personal performance of the history, physical exam, medical decision making, and the department course for this patient. I have also personally directed, reviewed, and agree with the discharge instructions and disposition. Disposition/Present on Arrival - Present on Arrival Any Indicators Present on Arrival: No History of DVT/PE: No History of Uncontrolled Diabetes: No Urinary Catheter: No History of Decub. Ulcer: No History Surgical Site Infection Following: None - Disposition Have Diagnosis and Disposition been Completed?: Yes Diagnosis: Hypoxemia Disposition: HOSPITALIZED Disposition Time: 17:40 Patient Plan: Admission Patient Problems: Current Active Problems Problem Status Onset Hypoxemia Acute Condition: GUARDED Forms: [employer] (Khmer)
[2018-08-27 16:27] LABS: BASO # 0.03 K/mm3 (0.0-2.0); BASO % 0.5 % (0.0-3.0); EOS # 0.4 (0.0-0.7); EOS % 7.7 % (1.5-5.0); HEMOGLOBIN 15.4 g/dL (14.0-18.0); LYMPH # 1.3 (1.2-3.4); LYMPH % 23.8 % (22.0-35.0); MEAN CELL VOLUME 90.7 fl (80.0-105.0); MEAN CORPUSCULAR HGB CONC 34.2 g/dl (31.0-37.0); MEAN PLATELET VOLUME 9.4 fl (7.0-11.0); MONO # 0.7 (0.1-0.6); MONO % 12.5 % (1.0-6.0); RBC 4.96 10^6/uL (3.5-6.1); RED CELL DISTRIBUTION WIDTH 13.5 % (11.5-14.5); WHITE BLOOD COUNT 5.6 10^3/uL (4.5-11.0)
[2018-08-27 16:28] LABS: ARTERIAL BLOOD GAS HCO3 27.3 mmol/L (21-28); ARTERIAL BLOOD GAS HEMOGLOBIN 15.1 g/dL (11.7-17.4); ARTERIAL BLOOD GAS O2 CONTENT 19.7 ML/dl (15-23); ARTERIAL BLOOD GAS O2 SAT 98.5 % (95-98); ARTERIAL BLOOD GAS PCO2 43 mm/Hg (35-45); ARTERIAL BLOOD GAS PH 7.41 (7.35-7.45); ARTERIAL BLOOD GAS TCO2 28.6 mmol.L (22-28)
[2018-08-27 16:35] LABS: ALB/GLOB RATIO 1.1 (1.1-1.8); ALBUMIN 4.2 g/dL (3.0-4.8); ALT/SGPT 52 U/L (7-56); AST/SGOT 53 U/L (17-59); BLOOD UREA NITROGEN 16 mg/dL (7-21); CALCIUM 8.8 mg/dL (8.4-10.5); GFR NON-AFRICAN AMERICAN > 60
[2018-08-27 16:43] LABS: B-TYPE NATRIURETIC PEPTIDE 179 pg/mL (0-450)
--- NOTE | 2018-08-27 17:44 | RAD ---
Date of service: 08/27/2018 HISTORY: CHF COMPARISON: 07/10/2018 TECHNIQUE: Chest PA and lateral FINDINGS: LINES AND TUBES: None. LUNG AND PLEURA: The lungs are well inflated and clear. No pleural effusion or pneumothorax. HEART AND MEDIASTINUM: The heart is not enlarged. No aortic atherosclerotic calcifications present. The hilar and mediastinal contours are within normal limits. SKELETAL STRUCTURES: The bony structures are within normal limits for the patient's age. VISUALIZED UPPER ABDOMEN: Normal. OTHER FINDINGS: None. IMPRESSION: No active pulmonary disease. No acute findings.
[2018-08-27] MEDS ORDERED: Iohexol 350 MG/100 ML VIAL ONE (19:20)
--- NOTE | 2018-08-27 19:50 | CARD ---
APPROVED REPORT Date of service: 08/27/2018 EKG Measurement Heart [id number] <Conclusion> Normal sinus rhythm Possible Left atrial enlargement Borderline ECG
[2018-08-28 02:47] VITALS: BMI 31.4
--- NOTE | 2018-08-28 08:46 | CT ---
Date of service: 08/27/2018 CTA chest PE protocol Indication: pulmonary embolism Technique: Contiguous axial images were obtained through the chest with intravenous contrast enhancement. Sagittal and coronal reconstructions were generated and reviewed. This CT exam was performed using 1 or more of the following dose reduction techniques: Automated exposure control, adjustment of the MAA and/or kV according to patient size, and/or use of iterative reconstruction technique. IV contrast: 96 mL Omnipaque 350 IV Radiation dose (DLP): 539.08 MGy-cm. Comparison: Chest x-ray performed 08/27/18 Findings: Streak artifact limits evaluation of the included portions of the inferior thyroid gland appear unremarkable. The mediastinal and hilar vascular structures appear within normal limits. The heart appears within normal limits of size. No large central or segmental pulmonary embolus evident. Mild emphysematous changes. Mild hazy upper lobe opacities may reflect infection or edema. No focal consolidation. No pleural effusion. No pneumothorax. No suspicious pulmonary nodules measuring greater than 5 mm. Limited visualized portions of the upper abdomen: Right upper quadrant surgical clips. Bilateral adrenal gland hypertrophy. 1.7 x 2.1 cm left adrenal gland nodule with partial peripheral calcification. Scoliosis. Osseous demineralization. Multilevel degenerative changes of the spine. Impression: No large central or segmental pulmonary embolus evident. Mild emphysematous changes. Mild hazy upper lobe opacities may reflect infection or edema. Bilateral adrenal gland hypertrophy. 1.7 x 2.1 cm left adrenal gland nodule with partial peripheral calcification; appearance may be the result of prior hemorrhage or infectious/inflammatory process. Correlate clinically. Right upper quadrant surgical clips. Preliminary impression was provided by [employer].
--- NOTE | 2018-08-28 14:03 | CP.PCM.APN ---
Subjective - Date & Time of Evaluation Date of Evaluation: 08/28/18 Time of Evaluation: 11:00 - Subjective Subjective: pt seen and examined at bedside. pt with no complaints, denies tingling or numbness in hands Review of Systems - Constitutional Constitutional: As Per HPI Objective - Vital Signs/Intake and Output Vital Signs (last 24 hours): Temp Pulse Resp BP Pulse Ox 97.9 F 68 18 117/68 93 L 08/28/18 12:00 08/28/18 12:00 08/28/18 12:00 08/28/18 12:00 08/28/18 10:00 Intake and Output: 08/28/18 08/28/18 06:59 18:59 Intake Total 800 Balance 800 - Medications Medications: Current Medications Acetaminophen (Tylenol 325mg Tab) 650 mg PO Q6H PRN PRN Reason: Fever >100.4 F Levetiracetam (Keppra) 500 mg PO BID [facility] Last Admin: 08/28/18 10:17 Dose: 500 mg Lisinopril (Zestril) 20 mg PO DAILY [facility] Last Admin: 08/28/18 10:17 Dose: 20 mg Lorazepam (Ativan) 1 mg PO TID [facility]; Protocol Last Admin: 08/28/18 10:17 Dose: 1 mg Oxcarbazepine (Trileptal) 300 mg PO BID [facility]; Protocol Last Admin: 08/28/18 10:18 Dose: 300 mg - Labs Labs: 08/27/18 16:16 08/27/18 16:16 - Constitutional Appears: No Acute Distress - Eye Exam Pupil Exam: NORMAL ACCOMODATION - Neck Exam Neck Exam: Normal Inspection - Respiratory Exam Respiratory Exam: Clear to Ausculation Bilateral, NORMAL BREATHING PATTERN - Cardiovascular Exam Cardiovascular Exam: +S1, +S2 - Extremities Exam Extremities Exam: Full ROM, Normal Inspection, Pedal Edema (1plus) - Back Exam Back Exam: Full ROM - Neurological Exam Neurological Exam: Alert, Awake - Psychiatric Exam Psychiatric exam: Normal Mood - Skin Skin Exam: Dry, Intact Additional comments: hands reddened but with good pulses, no pain pt denies any tingling or numbness in extremities Assessment and Plan - Assessment and Plan (Free Text) Assessment: ITS Impressions Chest X-Ray 08/27/18 15:50 IMPRESSION: No active pulmonary disease. No acute findings. Chest CT 08/27/18 19:04 Impression: No large central or segmental pulmonary embolus evident. Mild emphysematous changes. Mild hazy upper lobe opacities may reflect infection or edema. Bilateral adrenal gland hypertrophy. 1.7 x 2.1 cm left adrenal gland nodule with partial peripheral calcification; appearance may be the result of prior hemorrhage or infectious/inflammatory process. Correlate clinically. Right upper quadrant surgical clips. Preliminary impression was provided by [employer]. A/P pt is a 63 yr old with dementia, seizure disorder with grand mal seizures, htn, copd, brain aneurysm, heavy cigarette smoker and drinker who was admitted with c/o low )2 sat at home and hand discoloration. pt with abg normal, O2 Sats 99 % RA, D dimer elevated at 770 , cxr and chest ct noted negative for PE. will order PRN duonebs pt with LE Doppler pending physical therapy ordered will follow results BPCI/TIC - BPCIA/TIC Educated pt/family on BPCIA/CIR/Med to Bed Programs: Yes Flyers given, including [facility] Beneficiary letter: N/A Pt/family verbalized understanding & agreed to program: N/A (poke to anitra [employer]GER re patient)
[2018-08-28] MEDS ORDERED: Albuterol-Ipratrop 3 mg / 0.5 (3 ml) UD IH PRN (14:11)
--- NOTE | 2018-08-28 23:09 | HP ---
DATE OF EXAM: 08/28/2018 HISTORY OF PRESENT ILLNESS: The patient is a 63-year-old male admitted through the emergency department on 08/27/2018 with some cyanosis of the hands bilaterally and increased swelling of the legs. PAST MEDICAL HISTORY: Includes subarachnoid hemorrhage, status post ventriculoperitoneal shunt several years ago. The patient has moderate dementia secondary to the subarachnoid hemorrhage. Past medical history also includes hypertension and history of recurrent cellulitis of the legs with chronic venous stasis ulcers. PAST SURGICAL HISTORY: The patient is status post ventriculoperitoneal shunt revision approximately 2 years ago. ALLERGIES: THE PATIENT HAS NO KNOWN ALLERGIES. CURRENT MEDICATIONS: Include Keppra 500 mg twice daily, Trileptal 300 mg twice daily, Xanax 0.5 mg four times daily, and lisinopril 20 mg daily. SOCIAL HISTORY: The patient has a history of tobacco use, he quit several years ago. There is no history of alcohol or drug abuse. He lives with his . He require some assistance with IADLs and is independent with ADLs. REVIEW OF SYSTEMS: The patient denies any chest pain or shortness of breath. He has some swelling of the legs. There is no fever. No chills. No jaundice. No rash. PHYSICAL EXAMINATION: GENERAL: The patient is a well-developed male in no acute distress. VITAL SIGNS: Blood pressure 117/68, temperature 97.9, pulse 68, and respiratory rate 18. HEENT: There is a ventriculoperitoneal shunt present, status post left craniotomy. Pupils equal, round, and reactive. Extraocular movements intact. NECK: Supple. No thyromegaly. No carotid bruit. No adenopathy. LUNGS: Clear. HEART: Regular rate and rhythm. ABDOMEN: Soft and nontender. Bowel sounds are normoactive. EXTREMITIES: Show mild cyanosis of the nailbeds of the fingers bilaterally. There is 2-3+ edema to the calves bilaterally with chronic degenerative skin changes present and mild erythema. There is no exudate. LABORATORY DATA: WBC is 5.6, hemoglobin is 15.4, and hematocrit is 45. Sodium 139, potassium 4.2, chloride 98, CO2 of 32, BUN 16, and creatinine 0.7. Troponin is less than 0.01. D-dimer is elevated at 770. CT angio of the chest was ordered, which showed no large central or segmental pulmonary embolus. There was mild emphysematous changes with mild hazy upper lobe opacities possibly reflecting infection or edema. There was a 1.7 x 2.1 cm left adrenal gland nodule. Chest x-ray showed no active pulmonary disease, no acute findings. Venous Doppler of lower extremities are pending. IMPRESSION: 1. Rule out deep venous thrombosis/pulmonary embolus. 2. History of subarachnoid hemorrhage, status post ventriculoperitoneal shunt. 3. History of recurrent breakthrough seizures. 4. Hypertension. 5. Chronic venous stasis ulcers of lower extremities with recurrent cellulitis. PLAN: The patient is admitted to the telemetry unit for further evaluation and management. We will obtain Neurology consultation with Dr. Khalil. Venous Doppler examination is pending. KWAME West MD
--- NOTE | 2018-08-28 23:41 | CON ---
DATE: 08/28/2018 HISTORY OF PRESENT ILLNESS: This is a 63-year-old male with past medical history of dementia, seizure disorder, status post brain aneurysm, hypertension, COPD, and came to the hospital. The patient had grand mal seizure two weeks ago and very poor historian, and called to evaluate the patient. PAST MEDICAL HISTORY: As above. PHYSICAL EXAMINATION: GENERAL: Sitting comfortably and eating his food. He knows he lives in [facility] and follow simple command, much limited and he knows he lives in [place] and able to tell me in [facility]. NEUROLOGIC: The patient is awake and orientated to self. Cranial nerves II through XII were tested. Pupils reactive. Spontaneous movements of the extremities noted. Deep tendon reflexes 1+. Both plantar downgoing. Sensory appears intact. Cerebellar gait deferred. IMPRESSION AND PLAN: A 63-year-old male with multiple medical problems and chronic obstructive pulmonary disease, hypertension, seizure disorder, and dementia. The patient is on seizure medicines; Trileptal and Keppra. Continue present management. We will do the CAT scan of the head without contrast. Further management after results of test. Howard Khalil MD
[2018-08-29] MEDS ORDERED: Iohexol 350 MG/100 ML VIAL ONE (10:51)
--- NOTE | 2018-08-29 11:03 | CP.PCM.PN ---
Subjective - Date & Time of Evaluation Date of Evaluation: 08/29/18 Time of Evaluation: 10:00 - Subjective Subjective: NAD, with baseline confusion Objective - Vital Signs/Intake and Output Vital Signs (last 24 hours): Temp Pulse Resp BP Pulse Ox 97.7 F 73 19 134/83 96 08/29/18 05:49 08/29/18 09:54 08/29/18 05:49 08/29/18 09:54 08/29/18 05:49 Intake and Output: 08/29/18 08/29/18 06:59 18:59 Intake Total 2100 Output Total 1210 Balance 890 - Medications Medications: Current Medications Acetaminophen (Tylenol 325mg Tab) 650 mg PO Q6H PRN PRN Reason: Fever >100.4 F Albuterol/Ipratropium (Duoneb 3 Mg/0.5 Mg (3 Ml) Ud) 3 ml IH Q2H PRN PRN Reason: Shortness of Breath Levetiracetam (Keppra) 500 mg PO BID [facility] Last Admin: 08/29/18 09:54 Dose: 500 mg Lisinopril (Zestril) 20 mg PO DAILY [facility] Last Admin: 08/29/18 09:54 Dose: 20 mg Lorazepam (Ativan) 1 mg PO TID [facility]; Protocol Last Admin: 08/29/18 09:55 Dose: 1 mg Oxcarbazepine (Trileptal) 300 mg PO BID [facility]; Protocol Last Admin: 08/29/18 09:54 Dose: 300 mg - Labs Labs: 08/27/18 16:16 08/27/18 16:16 - Respiratory Exam Respiratory Exam: Clear to Ausculation Bilateral, NORMAL BREATHING PATTERN - Cardiovascular Exam Cardiovascular Exam: REGULAR RHYTHM - GI/Abdominal Exam GI & Abdominal Exam: Soft, Normal Bowel Sounds - Extremities Exam Extremities Exam: Normal Inspection - Neurological Exam Neurological Exam: Altered - Skin Skin Exam: Dry, Warm Assessment and Plan (1) Hypoxemia Status: Acute (2) Hypertension Status: Chronic (3) Seizure disorder Status: Chronic - Assessment and Plan (Free Text) Plan: venous duplex negative, neuro consult appreciated, PT & SW for DC planning
--- NOTE | 2018-08-29 12:37 | CT ---
Date of service: 08/29/2018 PROCEDURE: CT HEAD WITH AND WITHOUT CONTRAST HISTORY: Hypoxemia, seizure COMPARISON: 07/10/2018 TECHNIQUE: Axial computed tomography images were obtained through the head/brain with and without intravenous contrast enhancement. Contrast dose: 100 mL Omnipaque 350 Radiation dose: Total exam DLP = 1886.19 mGy-cm. This CT exam was performed using one or more of the following dose reduction techniques: Automated exposure control, adjustment of the mA and/or kV according to patient size, and/or use of iterative reconstruction technique. FINDINGS: HEMORRHAGE: No intracranial hemorrhage. BRAIN: Again seen is cystic encephalomalacia in the left frontal and anterior temporal lobes with volume loss and ex vacuo dilatation of the left frontal horn. Are aneurysm clips in the suprasellar cistern. There are moderate chronic microangiopathic changes. There is normal intravascular enhancement. There is no abnormal parenchymal or leptomeningeal enhancement. VENTRICLES: Right transfrontal shunt catheter terminates in the body of the right lateral ventricle. Redemonstration of moderate ventricular dilatation. CALVARIUM: Status post left Pterional craniotomy and bilateral frontal gayatri holes. SINUSES: There is moderate mucosal thickening in the left maxillary sinus and scattered mucosal thickening in the ethmoid air cells. The remaining included paranasal sinuses are predominantly clear. MASTOID AIR CELLS: Unremarkable as visualized. No mastoid effusion. OTHER FINDINGS: None. IMPRESSION: No acute intracranial abnormality. No abnormal intra are cranial enhancement. Redemonstration of aneurysm clips in the suprasellar cistern and cystic encephalomalacia in the left frontal and superior temporal lobes, sequela of remote insult. Stable moderate dilatation of the ventricles with stable position of the right transfrontal ventricular shunt catheter terminating in the right lateral ventricle.
--- NOTE | 2018-08-29 13:24 | US ---
HISTORY: Leg pain and swelling. Evaluate for DVT PHYSICIAN(S): [place] MD. TECHNIQUE: Duplex sonography and color-flow Doppler with graded compression were used to evaluate the deep venous systems of both lower extremities. FINDINGS: The visualized deep venous systems of both lower extremities are sonographically normal and compressible. Normal wave forms and augmentation are seen. There is no sonographic evidence for deep venous thrombosis in the visualized segments of both lower extremities. IMPRESSION: No sonographic evidence for deep venous thrombosis in the visualized segments of both lower extremities.
--- NOTE | 2018-08-29 14:56 | PN ---
DATE: 08/29/2018 NEUROLOGY FOLLOWUP CHIEF COMPLAINT: Followup procedure. SUBJECTIVE: The patient is seen and examined at bedside, sitting up in no acute distress, following commands. No new seizures overnight. He is on Trileptal 300 mg p.o. b.i.d. and Keppra 5 mg p.o. b.i.d. and no further seizures since being in the hospital. He is no longer hypoxemic. PAST MEDICAL HISTORY: History of aneurysm status post subarachnoid hemorrhage, status post clipping, status post .NET DEVELOPER shunt, status post revision of the shunt on 09/06/2016 by neurosurgery, history of TBI, history of dysexecutive syndrome, cognitive impairment, history of breakthrough seizures. FAMILY HISTORY: Noncontributory. SOCIAL HISTORY: No illicit drug use, smoking, or EtOH abuse. REVIEW OF SYSTEMS: A 14-point review of systems is negative except per the HPI. MEDICATIONS: Reviewed by nurses' reconciliation sheet. ALLERGIES: NO KNOWN DRUG ALLERGIES. LABORATORY DATA: Sodium is 139, potassium 4.2, chloride 98, carbon dioxide 32, BUN of 16, creatinine 0.6, random glucose 76 on 08/27/2018. PHYSICAL EXAMINATION: GENERAL: The patient is seen up in bed and in no acute distress. VITAL SIGNS: Temperature over 98.7, pulse 84, blood pressure 142/80, respiratory rate 18. HEENT: Atraumatic and normocephalic. PERRLA. Extraocular muscles intact. NECK: Supple. No JVD. No adenopathy noted. LUNGS: Clear to auscultation. No adventitious sounds. HEART: S1 and S2. Normal rate and rhythm. No murmurs, rubs, or gallops. ABDOMEN: Soft, nontender, and nondistended. Bowel sounds are present. EXTREMITIES: No clubbing. No cyanosis. Peripheral pulses are 2+ felt bilaterally. NECROLOGIC: The patient is alert and oriented to person, place, but not much to month or year. Recall after 5 minutes is 0/3. Has poor attention span. Slow thought process. Speech is hypophonic, but no aphasia noted. Motor examination: Slightly increased tone throughout, moves all extremities equally. No pronator drift seen. Sensory: Decreased light touch and pinprick up to the calves bilaterally. Decreased vibration at the toes. DTRs are 1+ throughout. Coordination: [id number] intact. No dysmetria noted.. Gait is deferred for now. ASSESSMENT AND PLAN: Breakthrough seizure secondary to the cyanosis of the hands and increased swelling of the legs with some transient hypoxemia. CT scan of head showed no acute cranial abnormality and this is chronic .NET DEVELOPER shunt in place. 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 At this time we recommend, 1. To continue his Keppra 5 mg p.o. b.i.d. 2. Trileptal 300 mg p.o. b.i.d, for seizure prophylaxis. 3. Physical therapy and occupational evaluation. Thank you for this followup and will follow up as an as outpatient. Dom Khalil MD
--- NOTE | 2018-08-30 10:35 | CP.PCM.PN ---
Subjective - Date & Time of Evaluation Date of Evaluation: 08/30/18 Time of Evaluation: 09:45 - Subjective Subjective: awake and responsive, no complaints, confusion at baseline Objective - Vital Signs/Intake and Output Vital Signs (last 24 hours): Temp Pulse Resp BP Pulse Ox 97.9 F 67 18 131/84 97 08/30/18 05:48 08/30/18 10:21 08/30/18 05:48 08/30/18 10:21 08/30/18 05:48 Intake and Output: 08/30/18 08/30/18 06:59 18:59 Intake Total 120 Output Total 300 Balance -180 - Medications Medications: Current Medications Acetaminophen (Tylenol 325mg Tab) 650 mg PO Q6H PRN PRN Reason: Fever >100.4 F Albuterol/Ipratropium (Duoneb 3 Mg/0.5 Mg (3 Ml) Ud) 3 ml IH Q2H PRN PRN Reason: Shortness of Breath Levetiracetam (Keppra) 500 mg PO BID [facility] Last Admin: 08/30/18 10:21 Dose: 500 mg Lisinopril (Zestril) 20 mg PO DAILY [facility] Last Admin: 08/30/18 10:21 Dose: 20 mg Lorazepam (Ativan) 1 mg PO TID [facility]; Protocol Last Admin: 08/30/18 10:20 Dose: 1 mg Oxcarbazepine (Trileptal) 300 mg PO BID [facility]; Protocol Last Admin: 08/30/18 10:21 Dose: 300 mg - Labs Labs: 08/27/18 16:16 08/27/18 16:16 - Respiratory Exam Respiratory Exam: Clear to Ausculation Bilateral, NORMAL BREATHING PATTERN - Cardiovascular Exam Cardiovascular Exam: REGULAR RHYTHM - GI/Abdominal Exam GI & Abdominal Exam: Soft, Normal Bowel Sounds - Extremities Exam Extremities Exam: Pedal Edema - Neurological Exam Neurological Exam: Altered - Skin Skin Exam: Cyanosis, Dry Assessment and Plan (1) Hypoxemia Status: Acute (2) Hypertension Status: Chronic (3) Seizure disorder Status: Chronic (4) Cyanosis Status: Acute - Assessment and Plan (Free Text) Plan: check ECHO, consider Ca++ channel blockers for poss Raynaud's, SW for DC planning
--- NOTE | 2018-08-31 20:51 | CP.PCM.PN ---
Subjective - Date & Time of Evaluation Date of Evaluation: 08/31/18 Time of Evaluation: 16:30 - Subjective Subjective: NAD, confusion at baseline, no SZ activity Objective - Vital Signs/Intake and Output Vital Signs (last 24 hours): Temp Pulse Resp BP Pulse Ox 97.9 F 60 19 136/88 85 L 08/31/18 17:45 08/31/18 18:00 08/31/18 17:45 08/31/18 17:45 08/31/18 07:30 - Medications Medications: Current Medications Acetaminophen (Tylenol 325mg Tab) 650 mg PO Q6H PRN PRN Reason: Fever >100.4 F Albuterol/Ipratropium (Duoneb 3 Mg/0.5 Mg (3 Ml) Ud) 3 ml IH Q2H PRN PRN Reason: Shortness of Breath Levetiracetam (Keppra) 500 mg PO BID [facility] Last Admin: 08/31/18 18:03 Dose: 500 mg Lisinopril (Zestril) 20 mg PO DAILY [facility] Last Admin: 08/31/18 09:52 Dose: 20 mg Lorazepam (Ativan) 1 mg PO TID [facility]; Protocol Last Admin: 08/31/18 18:03 Dose: 1 mg Oxcarbazepine (Trileptal) 300 mg PO BID [facility]; Protocol Last Admin: 08/31/18 18:03 Dose: 300 mg - Labs Labs: 08/27/18 16:16 08/27/18 16:16 - Respiratory Exam Respiratory Exam: Clear to Ausculation Bilateral, NORMAL BREATHING PATTERN - Cardiovascular Exam Cardiovascular Exam: REGULAR RHYTHM - GI/Abdominal Exam GI & Abdominal Exam: Soft, Normal Bowel Sounds - Extremities Exam Extremities Exam: Normal Inspection - Neurological Exam Neurological Exam: Altered - Skin Skin Exam: Dry, Warm Assessment and Plan (1) Hypoxemia Status: Acute (2) Hypertension Status: Chronic (3) Seizure disorder Status: Chronic (4) Cyanosis Status: Resolved - Assessment and Plan (Free Text) Plan: cyanosis resolved, poss Raynaud's, ECHO pending, medically stable, SW for DC planning
[2018-09-01 04:29] VITALS: O2SAT 100
--- NOTE | 2018-09-01 13:05 | CARD ---
APPROVED REPORT Date of service: 09/01/2018 EXAM: Two-dimensional and M-mode echocardiogram with Doppler and color Doppler. INDICATION LV Function:SystolicDiastolic peripheral cyanosis 2D DIMENSIONS Left Atrium (2D)4.1 (1.6-4.0cm)IVSd1.1 (0.7-1.1cm) LVDd4.4 (3.9-5.9cm)PWd1.1 (0.7-1.1cm) LVDs2.9 (2.5-4.0cm)FS (%) 33.5 % LVEF (%)62.4 (>50%) M-Mode DIMENSIONS Aortic Root3.70 (2.2-3.7cm)Aortic Cusp Exc.2.10 (1.5-2.0cm) Aortic Valve AoV Peak Htvxqmeh966.0cm/Sulma Peak GR.8mmHg Mitral Valve MV E Gywabrxl68.3cm/sMV A Frzayndr879.0cm/sE/A ratio0.8 TDI Lateral E' Peak V10.90cm/sMedial E' Peak V7.12cm/sE/Lateral E'8.3 E/Medial E'12.7 Pulmonary Valve PV Peak Ypipvimg81.0cm/sPV Peak Grad.2mmHg Tricuspid Valve TR Peak Nipmepdf568rh/sRAP [id number] Peak Gr.6mmHg [id number] LEFT VENTRICLE The left ventricle is normal size. There is borderline concentric left ventricular hypertrophy. The left ventricular function is normal. The left ventricular ejection fraction is within the normal range. There is normal LV segmental wall motion. Transmitral Doppler flow pattern is Grade I-abnormal relaxation pattern. No left ventricle thrombus noted on this study. RIGHT VENTRICLE The right ventricle is normal size. There is normal right ventricular wall thickness. The right ventricular systolic function is normal. ATRIA The left atrium is borderline dilated. The right atrium size is normal. AORTIC VALVE The aortic valve is not well visualized. No aortic regurgitation is present. There is no aortic valvular stenosis. MITRAL VALVE The mitral valve is normal in structure. Mitral regurgitation is trace to mild. There is no mitral valve stenosis. TRICUSPID VALVE The tricuspid valve is normal in structure. There is no tricuspid valve regurgitation noted. GREAT VESSELS The aortic root is normal in size. The IVC is normal in size and collapses >50% with inspiration. PERICARDIAL EFFUSION There is no pericardial effusion. <Conclusion> There is borderline concentric left ventricular hypertrophy. The left ventricular function is normal. The left ventricular ejection fraction is within the normal range. There is normal LV segmental wall motion. Transmitral Doppler flow pattern is Grade I-abnormal relaxation pattern. Mitral regurgitation is trace to mild.
--- NOTE | 2018-09-02 01:43 | DS ---
HOSPITAL COURSE The patient is a 63-year-old male admitted through the emergency department on 08/27/2018 with some cyanosis of the hands bilaterally and increased swelling of the legs. The patient had an elevated D-dimer, however, a CT angiogram of the chest was negative for pulmonary embolus. Venous Dopplers were negative. The patient has had an uneventful course, was treated for mild CHF and is now medically stable for transfer to the Transitional Care Unit. PHYSICAL EXAMINATION VITAL SIGNS: Blood pressure 144/85, pulse 58, temperature 98.3, respiratory rate 18. LUNGS: Clear. HEART: Regular rate and rhythm. ABDOMEN: Soft and nontender. Bowel sounds are normoactive. EXTREMITIES: Without cyanosis or clubbing. There is 2+ edema to the calves bilaterally. NEUROLOGIC: The patient is awake and confused without focal deficits. IMPRESSION 1. Peripheral cyanosis rule out Raynaud's. 2. History of subarachnoid hemorrhage status post ventriculoperitoneal shunt. 3. Recurrent seizure disorder secondary to subarachnoid hemorrhage. 4. Hypertension. 5. Chronic venous stasis ulcers of the lower extremities with recurrent cellulitis. PLAN: The patient will be transferred to the Transitional Care Unit on the following medications; Ativan 1 mg three times daily, Keppra 500 mg twice daily, Trileptal 300 mg twice daily and lisinopril 20 mg daily. The patient will be maintained on a heart-healthy diet. Activity is as per the rehab unit with Social Work for discharge planning. KWAME West MD
[2018-09-02 12:17] VITALS: BP 127/78; PULSE 64; RESP 18; TEMP 97.5
== END 2018-09-02 15:18 | DRG 948 ==
LOC: ED 15:22 → ERH 18:22 → 2RNO 20:57
PROVIDERS: ADMIT Internal Medicine; ATTEND Internal Medicine
DX: R23.0 Cyanosis (principal); L97.919 Non-pressure chronic ulcer of unspecified part of right lower leg with unspecified severity; L97.929 Non-pressure chronic ulcer of unspecified part of left lower leg with unspecified severity; G40.209 Localization-related (focal) (partial) symptomatic epilepsy and epileptic syndromes with complex partial seizures, not intractable, without status epilepticus; L03.116 Cellulitis of left lower limb; L03.115 Cellulitis of right lower limb; J44.9 Chronic obstructive pulmonary disease, unspecified; R09.02 Hypoxemia; G40.409 Other generalized epilepsy and epileptic syndromes, not intractable, without status epilepticus; F45.9 Somatoform disorder, unspecified; F10.10 Alcohol abuse, uncomplicated; Z86.73 Personal history of transient ischemic attack (TIA), and cerebral infarction without residual deficits; I83.019 Varicose veins of right lower extremity with ulcer of unspecified site; I83.029 Varicose veins of left lower extremity with ulcer of unspecified site; I73.00 Raynaud's syndrome without gangrene; Z98.2 Presence of cerebrospinal fluid drainage device; I11.0 Hypertensive heart disease with heart failure; I50.9 Heart failure, unspecified; Z87.820 Personal history of traumatic brain injury; F02.80 Dementia in other diseases classified elsewhere, unspecified severity, without behavioral disturbance, psychotic disturbance, mood disturbance, and anxiety; Z86.79 Personal history of other diseases of the circulatory system; Z87.891 Personal history of nicotine dependence

== ENCOUNTER 2018-09-02 15:20 | Inpatient (IN) | payer OTHER ==
[2018-09-02] MEDS ORDERED: Albuterol-Ipratrop 3 mg / 0.5 (3 ml) UD IH PRN (15:52)
[2018-09-02 21:31] VITALS: BMI 27.7
[2018-09-02] MEDS ORDERED: Pneumococcal 23-Valent Vaccine IM ONE (21:31)
--- NOTE | 2018-09-02 22:26 | HP ---
DATE OF EXAM: 09/02/2018 HISTORY OF PRESENT ILLNESS: The patient is a 63-year-old male admitted through the emergency department on 08/27/2018 with peripheral cyanosis. The patient had an elevated D-dimer. CT angio of the chest was negative for pulmonary embolus. Venous Doppler was negative for deep vein thrombosis. The patient is now medically stable to transfer to the Transitional Care Unit for further rehabilitation. PAST MEDICAL HISTORY: Includes subarachnoid hemorrhage status post ventriculoperitoneal shunt several years ago. 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 The patient has a history of hypertension and chronic venous stasis ulcers with recurrent cellulitis of the lower extremities. 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 ALLERGIES: THE PATIENT HAS NO KNOWN DRUG ALLERGIES. CURRENT MEDICATIONS: Include Keppra 500 mg twice daily, Trileptal 300 mg twice daily for seizure disorder, Xanax 0.5 mg four times daily and lisinopril 20 mg daily. SOCIAL HISTORY: The patient has a history of tobacco use. He quit several years ago. There is no history of alcohol or drug abuse. He lives with his . He require some assistance with ADLs and total assistance with IADLs. REVIEW OF SYSTEMS: The patient denies any chest pain or shortness of breath. He has some swelling of the legs. There is no fever, no chills. No jaundice or rash. PHYSICAL EXAMINATION GENERAL: The patient is a well-developed male in no acute distress. HEENT: There is a ventriculoperitoneal shunt present status post left craniotomy. Pupils equal, round and reactive. Extraocular movements intact. NECK: Supple with no thyromegaly. No carotid bruit. No adenopathy. LUNGS: Clear. HEART: Regular rate and rhythm. ABDOMEN: Soft and nontender. Bowel sounds are normoactive. EXTREMITIES: Without cyanosis, clubbing or edema. Show no evidence of cyanosis. There is some swelling and degenerative skin changes of the legs bilaterally. NEUROLOGIC: The patient is awake and slightly confused without focal sensory or motor deficits. IMPRESSION 1. Peripheral cyanosis possibly due to Raynaud's. 2. History of subarachnoid hemorrhage status post ventriculoperitoneal shunt. 3. History of recurrent breakthrough seizures. 4. Hypertension. 5. Chronic venous stasis ulcers of the lower extremities with recurrent cellulitis. PLAN The patient is admitted to TCU for rehabilitation status post hospitalization. Social Work for discharge planning. KWAME West MD
--- NOTE | 2018-09-03 14:55 | CON ---
DATE: 09/03/2018 NEUROLOGIC FOLLOWUP CHIEF COMPLAINT: Followup for seizure. HISTORY OF PRESENT ILLNESS: The patient is currently in TCU, sleeping and resting well. No further seizure while he is in the hospital. He is in TCU for rehabilitation. PAST MEDICAL HISTORY: status post subarachnoid hemorrhage, status post clipping, status post MONOGRAM OPERATOR shunt, status post revision of the shunt on 09/06/2016 by neurosurgery, history of TBI, history of dysexecutive syndrome, cognitive impairment and history of breakthrough seizures. FAMILY HISTORY: Noncontributory. SOCIAL HISTORY: No illicit drug use, smoking, or EtOH abuse. REVIEW OF SYSTEMS: A 14-point review of systems is negative except per the HPI. MEDICATIONS: Reviewed by nurses' reconciliation sheet. ALLERGIES: NO KNOWN DRUG ALLERGIES. LABORATORY DATA: No new labs done today. PHYSICAL EXAMINATION: VITAL SIGNS: Temperature afebrile. Pulse rate of 65, blood pressure 165/96, respiratory rate 18, oxygen saturation 96% on room air. GENERAL: The patient is lying in bed, resting in no acute distress. HEENT: Head is atraumatic and normocephalic. PERRLA. Extraocular muscles intact. NECK: Supple. No JVD. No adenopathy noted. LUNGS: Clear to auscultation. No adventitious sounds. HEART: S1 and S2, normal rate and rhythm. No murmurs, rubs or gallops. ABDOMEN: Soft and nontender. Nondistended. Bowel sounds present. EXTREMITIES: No clubbing. No cyanosis. Peripheral pulses are 2+ felt bilaterally. NECROLOGIC: The patient is alert and oriented to person and place, but not much to month or year. Recall after 5 minutes is 0/3. Poor attention span. Slow thought process. Speech is hypophonic, but no aphasia noted. Motor examination: Slightly increased tone throughout, moves all extremities equally. No pronator drift seen. Sensory exam: Decreased light touch and pinprick up to the calves bilaterally. Decreased vibration at the toes. DTRs are 1+ throughout. Coordination: [id number] intact. No dysmetria noted.. Gait is deferred for now. ASSESSMENT AND PLAN: Breakthrough seizure secondary to the cyanosis of the hands and increased swelling of the legs with transient hypoxemia on the medical site. Now on TCU for rehabilitation. 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 He has poor sleep hygiene which can also contribute his seizure breakthrough. At this time recommend, 1. Physical and occupational therapy for gait balance and muscle strengthening exercise. 2. Continue his Keppra 500 mg p.o. twice a day and Trileptal 300 mg p.o. twice a day for his seizure prophylaxis. 3. Monitor electrolytes and correct accordingly. 4. Keep systolic blood pressure between 130's to 140's and diastolic in 70's to 80's. 5. Continue current and present medical management. Dom Khalil MD
[2018-09-04] MEDS ORDERED: DiphenhydrAMINE 12.5 mg/5 ml LIQ UD (5 ml) PO STA (01:42)
--- NOTE | 2018-09-04 18:05 | CP.PCM.PN ---
Subjective - Date & Time of Evaluation Date of Evaluation: 09/04/18 Time of Evaluation: 09:00 - Subjective Subjective: resting comfortably, NAD Objective - Vital Signs/Intake and Output Vital Signs (last 24 hours): Temp Pulse Resp BP Pulse Ox 97.9 F 62 18 148/69 95 09/04/18 10:00 09/04/18 10:00 09/04/18 10:00 09/04/18 10:00 09/04/18 10:00 - Medications Medications: Current Medications Acetaminophen (Tylenol 325mg Tab) 650 mg PO Q6H PRN; Protocol PRN Reason: Fever >100.4 F Albuterol/Ipratropium (Duoneb 3 Mg/0.5 Mg (3 Ml) Ud) 3 ml IH Q2H PRN PRN Reason: Shortness of Breath Furosemide (Lasix) 40 mg PO DAILY [facility] Last Admin: 09/04/18 09:33 Dose: 40 mg Levetiracetam (Keppra) 500 mg PO BID [facility]; Protocol Last Admin: 09/04/18 17:16 Dose: 500 mg Lisinopril (Zestril) 20 mg PO DAILY [facility]; Protocol Last Admin: 09/04/18 09:06 Dose: 20 mg Lorazepam (Ativan) 1 mg PO TID [facility]; Protocol Last Admin: 09/04/18 17:16 Dose: Not Given Melatonin (Melatonin) 3 mg PO HS [facility] Oxcarbazepine (Trileptal) 300 mg PO BID [facility]; Protocol Last Admin: 09/04/18 17:17 Dose: 300 mg - Respiratory Exam Respiratory Exam: Clear to Ausculation Bilateral, NORMAL BREATHING PATTERN - Cardiovascular Exam Cardiovascular Exam: REGULAR RHYTHM - GI/Abdominal Exam GI & Abdominal Exam: Soft, Normal Bowel Sounds - Extremities Exam Extremities Exam: Pedal Edema - Neurological Exam Neurological Exam: Altered - Skin Skin Exam: Dry, Warm Assessment and Plan (1) Hypertension Status: Chronic (2) Subarachnoid hemorrhage Status: Chronic - Assessment and Plan (Free Text) Plan: continue rehab/SW for DC planning
[2018-09-04] MEDS: Melatonin 3 MG Tab PO SCH (21:35)
[2018-09-04] MEDS ORDERED: Melatonin 3 MG Tab PO SCH (22:00)
--- NOTE | 2018-09-05 10:37 | CP.PCM.PN ---
Subjective - Date & Time of Evaluation Date of Evaluation: 09/05/18 Time of Evaluation: 10:15 - Subjective Subjective: resting comfortably, NAD Objective - Vital Signs/Intake and Output Vital Signs (last 24 hours): Temp Pulse Resp BP Pulse Ox 98.1 F 70 18 144/80 96 09/05/18 06:00 09/05/18 09:29 09/05/18 06:00 09/05/18 09:29 09/05/18 06:00 - Medications Medications: Current Medications Acetaminophen (Tylenol 325mg Tab) 650 mg PO Q6H PRN; Protocol PRN Reason: Fever >100.4 F Albuterol/Ipratropium (Duoneb 3 Mg/0.5 Mg (3 Ml) Ud) 3 ml IH Q2H PRN PRN Reason: Shortness of Breath Furosemide (Lasix) 40 mg PO DAILY [facility] Last Admin: 09/05/18 09:28 Dose: 40 mg Levetiracetam (Keppra) 500 mg PO BID [facility]; Protocol Last Admin: 09/05/18 09:28 Dose: 500 mg Lisinopril (Zestril) 20 mg PO DAILY [facility]; Protocol Last Admin: 09/05/18 09:29 Dose: 20 mg Lorazepam (Ativan) 1 mg PO TID [facility]; Protocol Last Admin: 09/05/18 09:27 Dose: 1 mg Melatonin (Melatonin) 3 mg PO HS [facility] Last Admin: 09/04/18 21:35 Dose: 3 mg Oxcarbazepine (Trileptal) 300 mg PO BID [facility]; Protocol Last Admin: 09/05/18 09:29 Dose: 300 mg - Respiratory Exam Respiratory Exam: Clear to Ausculation Bilateral, NORMAL BREATHING PATTERN - Cardiovascular Exam Cardiovascular Exam: REGULAR RHYTHM - GI/Abdominal Exam GI & Abdominal Exam: Soft, Normal Bowel Sounds - Extremities Exam Extremities Exam: Pedal Edema - Neurological Exam Neurological Exam: Altered - Skin Skin Exam: Dry, Warm Assessment and Plan (1) Hypertension Status: Chronic (2) Subarachnoid hemorrhage Status: Chronic - Assessment and Plan (Free Text) Plan: contunie PT & SW for DC plannning
[2018-09-05] MEDS: Melatonin 3 MG Tab PO SCH (21:39)
--- NOTE | 2018-09-06 12:15 | CP.PCM.PN ---
Subjective - Date & Time of Evaluation Date of Evaluation: 09/06/18 Time of Evaluation: 10:30 - Subjective Subjective: resting comfortably, NAD Objective - Vital Signs/Intake and Output Vital Signs (last 24 hours): Temp Pulse Resp BP Pulse Ox 97.6 F 63 19 162/90 H 96 09/06/18 06:00 09/06/18 06:00 09/06/18 06:00 09/06/18 09:11 09/06/18 06:00 - Medications Medications: Current Medications Acetaminophen (Tylenol 325mg Tab) 650 mg PO Q6H PRN; Protocol PRN Reason: Fever >100.4 F Albuterol/Ipratropium (Duoneb 3 Mg/0.5 Mg (3 Ml) Ud) 3 ml IH Q2H PRN PRN Reason: Shortness of Breath Amlodipine Besylate (Norvasc) 5 mg PO DAILY [facility] Furosemide (Lasix) 40 mg PO DAILY [facility] Last Admin: 09/06/18 09:11 Dose: 40 mg Levetiracetam (Keppra) 500 mg PO BID [facility]; Protocol Last Admin: 09/06/18 09:11 Dose: 500 mg Lisinopril (Zestril) 20 mg PO DAILY [facility]; Protocol Last Admin: 09/06/18 09:11 Dose: 20 mg Lorazepam (Ativan) 1 mg PO TID [facility]; Protocol Last Admin: 09/05/18 17:36 Dose: 1 mg Melatonin (Melatonin) 3 mg PO HS [facility] Last Admin: 09/05/18 21:39 Dose: 3 mg Oxcarbazepine (Trileptal) 300 mg PO BID [facility]; Protocol Last Admin: 09/06/18 09:11 Dose: 300 mg - Respiratory Exam Respiratory Exam: Clear to Ausculation Bilateral, NORMAL BREATHING PATTERN - Cardiovascular Exam Cardiovascular Exam: REGULAR RHYTHM - GI/Abdominal Exam GI & Abdominal Exam: Soft, Normal Bowel Sounds - Extremities Exam Extremities Exam: Normal Inspection - Neurological Exam Neurological Exam: Altered - Skin Skin Exam: Dry, Warm Assessment and Plan (1) Hypertension Status: Chronic (2) Subarachnoid hemorrhage Status: Chronic - Assessment and Plan (Free Text) Plan: continue rehab/SW for DC planning, podiatry consult, add amlodipine 5 mg qd for elevated bp, check labs in am
[2018-09-06] MEDS: Melatonin 3 MG Tab PO SCH (22:32)
[2018-09-07 07:18] LABS: BASO # 0.03 K/mm3 (0.0-2.0); BASO % 0.6 % (0.0-3.0); EOS # 0.4 (0.0-0.7); MEAN CELL VOLUME 88.1 fl (80.0-105.0); MEAN CORPUSCULAR HEMOGLOBIN 30.2 pg (25.0-35.0); MEAN CORPUSCULAR HGB CONC 34.3 g/dl (31.0-37.0); MEAN PLATELET VOLUME 8.8 fl (7.0-11.0); MONO # 0.7 (0.1-0.6); MONO % 12.9 % (1.0-6.0); RBC 4.63 10^6/uL (3.5-6.1); RED CELL DISTRIBUTION WIDTH 13.3 % (11.5-14.5); WHITE BLOOD COUNT 5.4 10^3/uL (4.5-11.0)
[2018-09-07 07:28] LABS: ALB/GLOB RATIO 1.1 (1.1-1.8); ALBUMIN 3.7 g/dL (3.0-4.8); ALT/SGPT 49 U/L (7-56); AST/SGOT 26 U/L (17-59); BLOOD UREA NITROGEN 15 mg/dL (7-21); CALCIUM 8.3 mg/dL (8.4-10.5); GFR NON-AFRICAN AMERICAN > 60
--- NOTE | 2018-09-07 10:18 | CP.PCM.CON ---
History of Present Illness - History of Present Illness History of Present Illness: Podiatry Consult Note: Dr. Santana 63M patient with PMHx of Dementia, seizures, brain aneurysm, HTN, COPD, seen and examined at bedside with Dr. Santana for b/l lower extremity edema. Patient not responsive to questions at time of visit, history obtained from chart. Per nursing, podiatry was consulted for lower extremity edema and discomfort. Patient resting comfortably in bed at time of visit. Review of Systems - Constitutional Constitutional: As Per HPI Past Patient History - Infectious Disease Hx of Infectious Diseases: None - Tetanus Immunizations Tetanus Immunization: Unknown - Past Medical History & Family History Past Medical History?: Yes - Past Social History Smoking Status: Former Smoker - CARDIAC Hx Congestive Heart Failure: Yes Hx Hypertension: Yes - PULMONARY Hx Chronic Obstructive Pulmonary Disease (COPD): Yes - NEUROLOGICAL HX Cerebrovascular Accident: Yes - HEENT Hx HEENT Problems: Yes - RENAL Hx Chronic Kidney Disease: No - ENDOCRINE/METABOLIC Hx Endocrine Disorders: No - HEMATOLOGICAL/ONCOLOGICAL Hx Blood Disorders: Yes Hx Hepatitis C: Yes Other/Comment: liver disease - INTEGUMENTARY Hx Dermatological Problems: Yes Hx Basil Cell: No Hx Eczema: No Hx Melanoma: No Hx Psoriasis: No Hx Squamous Cell: No Other/Comment: redness with swelling to both lower legs - MUSCULOSKELETAL/RHEUMATOLOGICAL Hx Falls: Yes - GASTROINTESTINAL Hx Gastrointestinal Disorders: Yes (GERD,INCONTINENT ,ASPIRATION PRECAUTIONS,H/O PEG IN /OUT) - GENITOURINARY/GYNECOLOGICAL Hx Genitourinary Disorders: Yes (UTI,INCONTINENT,ACUTE CYSTITIS,) Hx Reproductive Disorders: No - PSYCHIATRIC Hx Depression: Yes - SURGICAL HISTORY Hx Surgeries: Yes Hx Appendectomy: Yes - ANESTHESIA Hx Anesthesia: Yes Hx Anesthesia Reactions: No Hx Malignant Hyperthermia: No Meds Allergies/Adverse Reactions: Allergies Allergy/AdvReac Type Severity Reaction Status Date / Time No Known Allergies Allergy Verified 09/02/18 18:53 - Medications Medications: Current Medications Acetaminophen (Tylenol 325mg Tab) 650 mg PO Q6H PRN; Protocol PRN Reason: Fever >100.4 F Albuterol/Ipratropium (Duoneb 3 Mg/0.5 Mg (3 Ml) Ud) 3 ml IH Q2H PRN PRN Reason: Shortness of Breath Amlodipine Besylate (Norvasc) 5 mg PO DAILY [facility] Last Admin: 09/06/18 13:51 Dose: 5 mg Furosemide (Lasix) 40 mg PO DAILY [facility] Last Admin: 09/06/18 09:11 Dose: 40 mg Levetiracetam (Keppra) 500 mg PO BID [facility]; Protocol Last Admin: 09/06/18 17:29 Dose: 500 mg Lisinopril (Zestril) 20 mg PO DAILY [facility]; Protocol Last Admin: 09/06/18 09:11 Dose: 20 mg Lorazepam (Ativan) 1 mg PO TID [facility]; Protocol Last Admin: 09/06/18 18:02 Dose: 1 mg Melatonin (Melatonin) 3 mg PO HS [facility] Last Admin: 09/06/18 22:32 Dose: 3 mg Oxcarbazepine (Trileptal) 300 mg PO BID [facility]; Protocol Last Admin: 09/06/18 17:29 Dose: 300 mg Physical Exam - Constitutional Appears: Non-toxic, No Acute Distress - Head Exam Head Exam: ATRAUMATIC, NORMOCEPHALIC - Eye Exam Eye Exam: Normal appearance - Extremities Exam Additional comments: Vascular: DP/PT palpable, CFT < 3 seconds, TG warm to warm, + 1 edema appreciated to b/l lower extremities today Ortho: No pain with calf compression, no gross deformities noted Neuro: Unable to assess at time of visit Derm: No open lesions, mild erythema to b/l lower extremities, no clinical signs of infection. Xerosis appreciated to b/l legs. Varicosities with hyperpigmentation appreciated to b/l legs - Neurological Exam Neurological exam: Alert, Oriented x3 - Psychiatric Exam Psychiatric exam: Normal Affect, Normal Mood - Skin Skin Exam: Warm Results - Vital Signs Recent Vital Signs: Last Vital Signs Temp 97.8 F 09/07/18 06:00 Pulse 67 09/07/18 06:00 Resp 20 09/07/18 06:00 BP 134/79 09/07/18 06:00 Pulse Ox 95 09/07/18 06:00 - Labs Result Diagrams: 09/07/18 06:50 09/07/18 06:50 Labs: Laboratory Results - last 24 hr 09/07/18 09/07/18 06:50 06:50 WBC 5.4 RBC 4.63 Hgb 14.0 Hct 40.8 L MCV 88.1 MCH 30.2 MCHC 34.3 RDW 13.3 Plt Count 186 MPV 8.8 Neut % (Auto) 43.5 L Lymph % (Auto) 36.0 H [place] % (Auto) 12.9 H Eos % (Auto) 7.0 H Baso % (Auto) 0.6 Lymph # (Auto) 2.0 [place] # (Auto) 0.7 H Eos # (Auto) 0.4 Baso # (Auto) 0.03 Absolute Neuts (auto) 2.36 Sodium 134 Potassium 4.0 Chloride 96 L Carbon Dioxide 29 Anion Gap 14 BUN 15 Creatinine 0.7 L Est GFR ( Amer) > 60 Est GFR (Non-Af Amer) > 60 Random Glucose 89 Calcium 8.3 L Phosphorus 3.1 Magnesium 2.0 Total Bilirubin 0.6 AST 26 ALT 49 Alkaline Phosphatase 66 Total Protein 7.0 Albumin 3.7 Globulin 3.3 Albumin/Globulin Ratio 1.1 Assessment & Plan - Assessment and Plan (Free Text) Assessment: 63M patient with PMHx of Dementia, seizures, brain aneurysm, HTN, COPD with b/l LE edema and hyperpigmentation Plan: Patient seen and examined with Dr. Santana Eucerin cream ordered Tubigrips ordered to be applied to b/l lower extremities Continue to monitor b/l LE for any open lesions or vascula changes Podiatry to sign off at this time, please reconsult as needed Thank you for the consult - Date & Time Date: 09/07/18 Time: 10:13
[2018-09-07] MEDS: Melatonin 3 MG Tab PO SCH (21:10)
[2018-09-08] MEDS: Hydrocerin(120 gm) TOP SCH (09:52)
--- NOTE | 2018-09-08 16:16 | CP.PCM.PN ---
Subjective - Date & Time of Evaluation Date of Evaluation: 09/08/18 Time of Evaluation: 16:00 - Subjective Subjective: OOB in chair, NAD, confusion at baseline Objective - Vital Signs/Intake and Output Vital Signs (last 24 hours): Temp Pulse Resp BP Pulse Ox 97.5 F L 73 16 142/81 100 09/08/18 10:00 09/08/18 10:00 09/08/18 10:00 09/08/18 10:00 09/08/18 10:00 - Medications Medications: Current Medications Acetaminophen (Tylenol 325mg Tab) 650 mg PO Q6H PRN; Protocol PRN Reason: Fever >100.4 F Albuterol/Ipratropium (Duoneb 3 Mg/0.5 Mg (3 Ml) Ud) 3 ml IH Q2H PRN PRN Reason: Shortness of Breath Amlodipine Besylate (Norvasc) 5 mg PO DAILY [facility] Last Admin: 09/08/18 14:31 Dose: Not Given Furosemide (Lasix) 40 mg PO DAILY [facility] Last Admin: 09/08/18 09:52 Dose: 40 mg Levetiracetam (Keppra) 500 mg PO BID [facility]; Protocol Last Admin: 09/08/18 09:52 Dose: 500 mg Lisinopril (Zestril) 20 mg PO DAILY [facility]; Protocol Last Admin: 09/08/18 14:32 Dose: Not Given Lorazepam (Ativan) 1 mg PO TID [facility]; Protocol Last Admin: 09/08/18 14:32 Dose: Not Given Melatonin (Melatonin) 3 mg PO HS [facility] Last Admin: 09/07/18 21:10 Dose: 3 mg Multi-Ingredient Cream (Hydrocerin Cream) 0 ea TOP DAILY [facility] Last Admin: 09/08/18 09:52 Dose: 1 applic Oxcarbazepine (Trileptal) 300 mg PO BID [facility]; Protocol Last Admin: 09/08/18 09:51 Dose: 300 mg - Labs Labs: 09/07/18 06:50 09/07/18 06:50 - Respiratory Exam Respiratory Exam: Clear to Ausculation Bilateral, NORMAL BREATHING PATTERN - Cardiovascular Exam Cardiovascular Exam: REGULAR RHYTHM - GI/Abdominal Exam GI & Abdominal Exam: Soft, Normal Bowel Sounds - Extremities Exam Extremities Exam: Normal Inspection - Neurological Exam Neurological Exam: Altered - Skin Skin Exam: Dry, Warm Assessment and Plan (1) Hypertension Status: Chronic (2) Subarachnoid hemorrhage Status: Chronic - Assessment and Plan (Free Text) Plan: continue rehab/SW for DC planning
[2018-09-08] MEDS: Melatonin 3 MG Tab PO SCH (22:14)
[2018-09-09] MEDS: Hydrocerin(120 gm) TOP SCH (10:55)
--- NOTE | 2018-09-09 15:50 | CP.PCM.PN ---
Subjective - Date & Time of Evaluation Date of Evaluation: 09/09/18 Time of Evaluation: 15:00 - Subjective Subjective: OOB in chair, NAD Objective - Vital Signs/Intake and Output Vital Signs (last 24 hours): Temp Pulse Resp BP Pulse Ox 97.5 F L 67 16 158/92 H 100 09/08/18 10:00 09/09/18 10:57 09/08/18 10:00 09/09/18 10:57 09/08/18 10:00 - Medications Medications: Current Medications Acetaminophen (Tylenol 325mg Tab) 650 mg PO Q6H PRN; Protocol PRN Reason: Fever >100.4 F Albuterol/Ipratropium (Duoneb 3 Mg/0.5 Mg (3 Ml) Ud) 3 ml IH Q2H PRN PRN Reason: Shortness of Breath Amlodipine Besylate (Norvasc) 5 mg PO DAILY [facility] Last Admin: 09/09/18 10:56 Dose: 5 mg Furosemide (Lasix) 40 mg PO DAILY [facility] Last Admin: 09/09/18 10:55 Dose: 40 mg Levetiracetam (Keppra) 500 mg PO BID [facility]; Protocol Last Admin: 09/09/18 10:55 Dose: 500 mg Lisinopril (Zestril) 20 mg PO DAILY [facility]; Protocol Last Admin: 09/09/18 10:57 Dose: 20 mg Lorazepam (Ativan) 1 mg PO TID [facility]; Protocol Last Admin: 09/09/18 15:37 Dose: 1 mg Melatonin (Melatonin) 3 mg PO HS [facility] Last Admin: 09/08/18 22:14 Dose: 3 mg Multi-Ingredient Cream (Hydrocerin Cream) 0 ea TOP DAILY [facility] Last Admin: 09/09/18 10:55 Dose: 1 applic Oxcarbazepine (Trileptal) 300 mg PO BID [facility]; Protocol Last Admin: 09/09/18 10:57 Dose: 300 mg - Labs Labs: 09/07/18 06:50 09/07/18 06:50 - Respiratory Exam Respiratory Exam: Clear to Ausculation Bilateral - Cardiovascular Exam Cardiovascular Exam: REGULAR RHYTHM - GI/Abdominal Exam GI & Abdominal Exam: Soft, Normal Bowel Sounds - Extremities Exam Extremities Exam: Normal Inspection - Neurological Exam Neurological Exam: Altered - Skin Skin Exam: Dry, Warm Assessment and Plan (1) Hypertension Status: Chronic (2) Subarachnoid hemorrhage Status: Chronic - Assessment and Plan (Free Text) Plan: continue rehab/for DC to home in am
[2018-09-09] MEDS: Melatonin 3 MG Tab PO SCH (21:46)
[2018-09-10] MEDS ORDERED: Multivitamin Therapeutic Tab PO SCH (08:00)
[2018-09-10] MEDS: Hydrocerin(120 gm) TOP SCH (09:16)
[2018-09-10 16:50] VITALS: BP 115/73; PULSE 62; RESP 18; TEMP 98.1; O2SAT 99
--- NOTE | 2018-09-10 21:47 | DS ---
HOSPITAL COURSE: The patient is a 63-year-old male admitted to the Transitional Care Unit for rehab status post hospitalization for peripheral cyanosis. The patient had an uncomplicated course of rehab and is medically stable for discharge at the present time. PHYSICAL EXAMINATION: VITAL SIGNS: Blood pressure 149/87, the patient is afebrile, pulse 72, and respiratory rate 14. LUNGS: Clear. HEART: Regular rate and rhythm. ABDOMEN: Soft and nontender. Bowel sounds are normoactive. EXTREMITIES: Without cyanosis or clubbing. There is trace bipedal edema and chronic degenerative skin changes of the lower extremities. NEUROLOGIC: The patient is awake and confused without focal sensory or motor deficits. SKIN: Warm and dry. IMPRESSION: 1. Peripheral cyanosis, probably secondary to Raynaud's disease, improved. 2. History of subdural hematoma, status post subarachnoid hemorrhage, status post ventriculoperitoneal shunt with dementia. 3. Hypertension. 4. Chronic venous insufficiency of the lower extremities with chronic venous stasis ulcers and recurrent cellulitis. PLAN: The patient will be discharged to home today on the following medications; Keppra 500 mg twice daily, amlodipine 5 mg daily, Trileptal 300 mg twice daily, lisinopril 20 mg daily, lorazepam 1 mg t.i.d. p.r.n., lisinopril 20 mg daily, multivitamin, and Lasix 40 mg daily. The patient will be maintained on a heart-healthy diet. Activities ad libitum. He will be followed as an outpatient within next 1-2 weeks. KWAME West MD
== END 2018-09-10 19:55 | disposition home health service (06) | DRG 546 ==
LOC: TRCU 15:20
PROVIDERS: ADMIT Internal Medicine; ATTEND Internal Medicine
PROC: F07Z9FZ Gait Training/Functional Ambulation Treatment using Assistive, Adaptive, Supportive or Protective Equipment (ICD-10-PCS; principal; 2018-09-03)
PROC: F07M6ZZ Therapeutic Exercise Treatment of Musculoskeletal System - Whole Body (ICD-10-PCS; 2018-09-03)
PROC: F08Z2ZZ Grooming/Personal Hygiene Treatment (ICD-10-PCS; 2018-09-03)
PROC: F08Z1ZZ Dressing Techniques Treatment (ICD-10-PCS; 2018-09-03)
PROC: F08Z0ZZ Bathing/Showering Techniques Treatment (ICD-10-PCS; 2018-09-03)
DX: I73.00 Raynaud's syndrome without gangrene (principal); G40.209 Localization-related (focal) (partial) symptomatic epilepsy and epileptic syndromes with complex partial seizures, not intractable, without status epilepticus; L03.116 Cellulitis of left lower limb; L03.115 Cellulitis of right lower limb; L97.919 Non-pressure chronic ulcer of unspecified part of right lower leg with unspecified severity; L97.929 Non-pressure chronic ulcer of unspecified part of left lower leg with unspecified severity; F02.80 Dementia in other diseases classified elsewhere, unspecified severity, without behavioral disturbance, psychotic disturbance, mood disturbance, and anxiety; I11.0 Hypertensive heart disease with heart failure; I50.9 Heart failure, unspecified; I83.019 Varicose veins of right lower extremity with ulcer of unspecified site; I83.029 Varicose veins of left lower extremity with ulcer of unspecified site; I87.2 Venous insufficiency (chronic) (peripheral); J44.9 Chronic obstructive pulmonary disease, unspecified; R09.02 Hypoxemia; Z86.73 Personal history of transient ischemic attack (TIA), and cerebral infarction without residual deficits; Z87.891 Personal history of nicotine dependence; Z90.49 Acquired absence of other specified parts of digestive tract; Z98.2 Presence of cerebrospinal fluid drainage device